=== PATIENT | male | born 1985 | race Caucasian/White ===

== ENCOUNTER → 2019-04-03 12:02 | Outpatient (BNVA) | payer OTHER, SELFPAY | PROVIDERS: Family Provider Nurse Practitioner Family; PCP Nurse Practitioner Family; Visit Provider Family Medicine | DX: Z87.19 Personal history of other diseases of the digestive system (principal); E78.2 Mixed hyperlipidemia; E11.69 Type 2 diabetes mellitus with other specified complication; Z79.4 Long term (current) use of insulin; K85.90 Acute pancreatitis without necrosis or infection, unspecified | CPT/HCPCS: 80053; 80061; 82150; 83036; 83690; 83721 ==

== ENCOUNTER → 2019-07-03 16:39 | Outpatient (BNVA) | payer OTHER, SELFPAY | PROVIDERS: Family Provider Nurse Practitioner Family; PCP Nurse Practitioner Family; Visit Provider Family Medicine | DX: K85.90 Acute pancreatitis without necrosis or infection, unspecified (principal) | CPT/HCPCS: 81000 ==

== ENCOUNTER → 2020-05-16 11:44 | Outpatient (BNVA) | payer OTHER, SELFPAY | PROVIDERS: Family Provider Nurse Practitioner Family; PCP Nurse Practitioner Family; Visit Provider Nurse Practitioner Family | DX: E55.9 Vitamin D deficiency, unspecified (principal); E11.69 Type 2 diabetes mellitus with other specified complication; Z79.4 Long term (current) use of insulin | CPT/HCPCS: 80053; 82306; 85025 ==

== ENCOUNTER → 2020-07-11 10:58 | Outpatient (BNVA) | payer OTHER, SELFPAY | PROVIDERS: Family Provider Nurse Practitioner Family; PCP Nurse Practitioner Family; Visit Provider Family Medicine | DX: E78.2 Mixed hyperlipidemia (principal); E55.9 Vitamin D deficiency, unspecified; E11.9 Type 2 diabetes mellitus without complications; Z79.4 Long term (current) use of insulin | CPT/HCPCS: 80053; 80061; 82306; 83721 ==

== ENCOUNTER → 2020-11-17 10:29 | Outpatient (BNVA) | payer OTHER, SELFPAY | PROVIDERS: Family Provider Nurse Practitioner Family; PCP Nurse Practitioner Family; Visit Provider Family Medicine | DX: K85.90 Acute pancreatitis without necrosis or infection, unspecified (principal); K86.1 Other chronic pancreatitis; E11.9 Type 2 diabetes mellitus without complications; Z79.4 Long term (current) use of insulin; R52 Pain, unspecified; E78.1 Pure hyperglyceridemia; E66.9 Obesity, unspecified | CPT/HCPCS: 80053; 80061; 83690; 83721; 85025; 86140 ==

== ENCOUNTER → 2022-01-25 11:25 | Outpatient (BNVA) | payer OTHER, SELFPAY | PROVIDERS: Family Provider Nurse Practitioner Family; PCP Family Medicine; Visit Provider Family Medicine | DX: K85.90 Acute pancreatitis without necrosis or infection, unspecified (principal); K86.1 Other chronic pancreatitis; E86.0 Dehydration; G47.33 Obstructive sleep apnea (adult) (pediatric) | CPT/HCPCS: 80053; 80061; 82150; 83036; 83690; 83721; 83735; 84100; 85025; 86140 ==

== ENCOUNTER 2022-02-23 13:53 | Outpatient (CLI) | payer OTHER, SELFPAY ==
[2022-02-23] MEDS: iohexol 350 mg/mL 500 mL Btl (per mL) IV (14:41)
--- NOTE | 2022-02-23 15:30 | CT_ITS ---
WS: [id number] EXAMINATION: CT abdomen pelvis w con* [id number] REASON FOR EXAM: K85.90 - Acute pancreatitis without necrosis or infection... COMPARISON: CT chest from 04/14/2017 ORDER DATE: 02/23/2022 2:20 PM TOTAL EXAM DLP: 1291.[address] scans at [facility] use at least one of these dose optimization techniques: automated e xposure control; mA and/or kV adjustment per patient size (includes targeted exams where dose is matc hed to clinical indication); or iterative reconstruction. TECHNIQUE: Transaxial imaging through the abdomen and pelvis was performed with 2-D reformats followi ng the intravenous administration of Omnipaque 350 95 ml FINDINGS: There are no acute changes in the visualized lung bases. There is no sign of pneumoperitoneum. The liver was unremarkable. The gallbladder has been resected. The spleen was unremarkable. There is a cystic focus in the head of the pancreas approximately 23 mm in long axis, the second in t he body the pancreas approximately 18 mm in long axis another approximately 12 mm in long axis and a few more being even smaller in size along the tail of the pancreas. There is some stranding along the anterior surface consistent with mild edema in the mesentery. There is no pancreatic duct dilatation or pancreatic calcifications. There is a normal appearance of both adrenal glands and both kidneys. The small bowel pattern is not significantly dilated and there are no significant air-fluid levels. There is a normal-appearing appendix. There is moderate fecal loading of the colon. There is no ascites or increased cul-de-sac fluid. The urinary bladder as imaged is unremarkable. Mi nimal fluid in a left inguinal hernia. There are mild disc bulges at L4-5 and L5-S1.. CT/CT abdomen pelvis w con* [id number] IMPRESSION: Several cysts are demonstrated in the pancreas as noted which were not present on the most recent available imaging on 04/14/2017 and likely represent small ps eudocysts. IPMN may be another possibility although there is no ductal dilatati on. Recommend annual screening for 5 years. There is minimal peripancreatic mesenteric stranding suggesting low-grade pancr eatitis or possible scarring from previous pancreatitis. Correlation with labor atory values would determine this.
== END 2022-02-23 13:54 | disposition home or self-care (01) ==
LOC: RAD 13:54
PROVIDERS: Family Provider Nurse Practitioner Family; PCP Family Medicine; Visit Provider Family Medicine
DX: K85.90 Acute pancreatitis without necrosis or infection, unspecified (principal); K86.1 Other chronic pancreatitis
CPT/HCPCS: 74177; Q9967

== ENCOUNTER 2022-03-20 11:04 | Inpatient (IN) | payer OTHER, BC, SELFPAY ==
[2022-03-20] VITALS (53 sets, daily range): BP systolic 104–151; BP diastolic 58–96; PULSE 82–110; RESP 15–24; TEMP 36.5–36.8; O2SAT 92–96
--- NOTE | 2022-03-20 11:39 | CTR_ITS ---
PROCEDURE INFORMATION: Exam: CT Abdomen And Pelvis With Contrast Exam date and time: 03/20/2022 12:18 PM Age: 36 years old Clinical indication: Abdominal pain; Epigastric; Additional info: Abd pain TECHNIQUE: Imaging protocol: Computed tomography of the abdomen and pelvis with contrast. Radiation optimization: All CT scans at this facility use at least one of these dose optimization techniques: automated exposure control; mA and/or kV adjustment per patient size (includes targeted exams where dose is matched to clinical indication); or iterative reconstruction. Contrast material: OMNI 350; Contrast volume: 100 ml; Contrast route: INTRAVENOUS (IV); COMPARISON: CT abdomen pelvis w con* [id number] 02/23/2022 2:[address] chest performed March RADIATION DOSE METRICS: Total DLP (mGy-cm): 787.18 FINDINGS: Lungs: Lung bases are clear. Liver: Liver is mildly enlarged with diffuse fatty infiltration unchanged. Gallbladder and bile ducts: Gallbladder has been removed. Pancreas: There are progressive inflammatory changes involving the pancreas and peripancreatic fat planes with increasing fat stranding and ill-defined fluid accumulation likely secondary to acute pancreatitis. There is a persistent 2 cm rounded area of fluid attenuation within the neck of the pancreas likely representing a pancreatic pseudocyst. There are smaller focal lucencies within the body and tail the pancreas some which may represent pancreatic duct dilatation. Spleen: Normal. No splenomegaly. Adrenal glands: Normal. No mass. Kidneys and ureters: Normal. No hydronephrosis. Stomach and bowel: Unremarkable. No obstruction. No mucosal thickening. Appendix: No evidence of appendicitis. Intraperitoneal space: Unremarkable. No free air. No significant fluid collection. Vasculature: Unremarkable. No abdominal aortic aneurysm. Lymph nodes: There is mild mediastinal lymphadenopathy in the lower portion of the middle mediastinum unchanged from 2018. There is mild peripancreatic lymphadenopathy that has progressed from previous examination and presumed reactive in nature. Multiple small retroperitoneal lymph nodes have also increased in size likely similar in nature. Urinary bladder: Unremarkable as visualized. Reproductive: Unremarkable as visualized. Bones/joints: Unremarkable. No acute fracture. Soft tissues: Unremarkable. CT/CT abdomen pelvis w con* [id number] IMPRESSION: 1. Findings consistent with acute pancreatitis that has progressed from previous examination bowel with increasing peripancreatic inflammatory changes. 2. Stable small pancreatic pseudocyst. 3. Mild peripancreatic and retroperitoneal lymphadenopathy progressed from previous exam and presumed reactive in nature. Continued follow-up advised. 4. Mild mediastinal lymphadenopathy lower chest stable from 2018. 5. Additional findings as above.
--- NOTE | 2022-03-20 11:42 | ED_ITS ---
HPI - Abdominal Pain General: Chief Complaint: Abdominal Pain Stated Complaint: abd pain Time Seen by Provider: 03/20/22 11:14 Source: patient Mode of arrival: ambulatory History of Present Illness: 36-year-old male presents emergency room complaint left upper quadrant abdominal pain that began yesterday. Is progressively worsened since time. He has sharp pain is worse with any palpations even difficult for him to take a deep breath at this point. He denies any fever sweats chills no hematochezia melena hematemesis coffee-ground has been very nauseated. Has a history of type 2 diabetes mellitus he is lost approximately 75 pounds at this point he .is on insulin for control of his diabetes. He has history of recurrent/chronic pancreatitis secondary to hypertriglyceridemia. MD elicited complaint: abdominal pain Pertinent past history: other (History of pancreatitis secondary to hypertriglyceridemia) Onset (ago): day(s) Pain Consistency: constant Location: LUQ Severity: severe Quality: stabbing and sharp Radiation: LUQ Exacerbating factors: nothing Relieving factors: nothing Associated Symptoms: Reports GI cramping, nausea and poor appetite; Denies anorexia, belching, bloating, change in bowel habits, change in stool character, chills, coffee ground emesis, constipation, diarrhea, dyspepsia, dysuria, excessive flatus, fever(s), heartburn, hematochezia, hematuria, hematemesis, fecal incontinence, loose stools, melena, syncope and vomiting Review of Systems Const: Denies: fever(s) or chills ENMT: Denies: throat pain, ear or mastoid pain, nasal discharge or nasal congestion Card: Denies: chest pain, palpitations, irregular heart rhythm or syncope Resp: Denies: dyspnea, productive cough or non-productive cough GI: Reports: abdominal pain, nausea and GI cramping; Denies: vomiting, hematemesis, coffee ground emesis, heartburn, diarrhea, constipation, bloating, belching, excessive flatus, fecal incontinence, change in bowel habits, change in stool character, hematochezia or melena : Denies: dysuria, urinary frequency, urinary urgency or hematuria Skin/Breast: Denies: rash or pruritus PFSH ED 2 PFSH: Medical History Diabetes GERD (gastroesophageal reflux disease) History of pancreatitis Hyperlipidemia Hypertension Lower respiratory infection Nausea LESLY (obstructive sleep apnea) Recurrent pancreatitis Shortness of breath Surgical History History of cholecystectomy History of knee surgery arthroscopic left knee Social History Smoking and tobacco status: former smoker Alcohol intake: current Alcohol intake frequency: holidays/special occasions only Physical Exam Const: COMMON NORMALS: no acute distress GENERAL APPEARANCE: cooperative and comfortable ORIENTATION/CONSCIOUSNESS: Yes awake, Yes oriented to person, Yes oriented to place and Yes oriented to time HENMT: COMMON NORMALS: normocephalic, atraumatic and hearing grossly normal bilaterally HEAD & SCALP: normocephalic and atraumatic Resp: COMMON NORMALS: normal respiratory effort, No retractions, No use of accessory muscles and clear to auscultation bilaterally AUSCULTATION: clear to auscultation bilaterally Cardio: COMMON NORMALS: regular rate, regular rhythm and No murmurs present ( Cardio) RATE: regular rate RHYTHM: regular rhythm GI: COMMON NORMALS: No hepatosplenomegaly present AUSCULTATION: Yes normoactive bowel sounds PALPATION: Yes Tenderness to palpation present (GI) Details: LUQ, Yes Guarding due to palpation present (GI) and Yes No hepatosplenomegaly present Extremity: COMMON NORMALS: normal to inspection, capillary refill normal, no clubbing, cyanosis or edema, no calf tenderness and no pedal edema Neuro: SENSORIUM/ORIENTATION: Yes oriented to person, Yes oriented to place and Yes oriented to time Skin: COMMON NORMALS: no rashes or lesions noted GENERAL SKIN EXAM: no rashes or lesions noted Course Vital Signs: Vital signs: Vital Signs Temperature 98.4 F 03/22/22 08:00 Pulse Rate 90 03/22/22 13:00 Respiratory Rate 17 03/22/22 13:19 Blood Pressure 127/82 03/22/22 13:00 Pulse Oximetry 98 03/22/22 13:19 Oxygen Delivery Me thod 03/22/22 08:00 MDM - Abdominal Pain Medical Decision Making CT shows acute pancreatitis. Lipase elevated triglycerides significantly elevated started on IV dextrose and insulin drip will admit to the hospitalist ICU discussed orders written Medical Records I reviewed the patient's medical records. Lab Data I reviewed the patient's lab results. 03/22/22 04:10 03/22/22 09:49 Labs/Radiology: Radiology Impressions Abdomen/Pelvis CT 03/20/22 11:39 IMPRESSION: 1. Findings consistent with acute pancreatitis that has progressed from previous examination bowel with increasing peripancreatic inflammatory changes. 2. Stable small pancreatic pseudocyst. 3. Mild peripancreatic and retroperitoneal lymphadenopathy progressed from previous exam and presumed reactive in nature. Continued follow-up advised. 4. Mild mediastinal lymphadenopathy lower chest stable from 2018. 5. Additional findings as above. Laboratory Results WBC 13.5 10^3/uL (4.0-10.0) H 03/20/22 11:38 RBC 5.98 10^6/uL (4.1-5.3) H 03/20/22 11:38 Hgb 17.5 g/dL (11.7-16.6) H 03/20/22 11:38 Hct 50.5 % (42.0-52.0) 03/20/22 11:38 MCV 84.4 fl (80-94) 03/20/22 11:38 MCH 29.3 pg (28.0-34.0) 03/20/22 11:38 MCHC 34.7 g/dL (30.0-36.0) 03/20/22 11:38 RDW 12.9 % (12.1-15.1) 03/20/22 11:38 Plt Count 193 10^3/cmm (130-400) 03/20/22 11:38 MPV 12.0 fL (7.4-10.4) H 03/20/22 11:38 Neut % (Auto) 86.3 % 03/20/22 11:38 Lymph % (Auto) 8.4 % 03/20/22 11:38 [place] % (Auto) 3.7 % 03/20/22 11:38 Eos % (Auto) 0.6 % 03/20/22 11:38 Baso % (Auto) 0.6 % 03/20/22 11:38 Neut # (Auto) 11.69 10^3/uL (1.8-7.7) H 03/20/22 11:38 Lymph # (Auto) 1.1 10^3/uL (0.8-4.8) 03/20/22 11:38 [place] # (Auto) 0.5 10^3/uL (0.2-0.9) 03/20/22 11:38 Eos # (Auto) 0.1 10^3/uL (0.0-0.8) 03/20/22 11:38 Baso # (Auto) 0.1 10^3/uL (0.0-0.1) 03/20/22 11:38 Nucleated RBC % (auto) 0 % 03/20/22 11:38 Nucleated RBCs # 0.0 /100WBC 03/20/22 11:38 Sodium 126 mmol/L (136-145) L 03/20/22 11:38 Potassium 4.7 mmol/L (3.5-5.1) 03/20/22 11:38 Chloride 89 mmol/L (98-107) L 03/20/22 11:38 Carbon Dioxide 24 mmol/L (22-29) 03/20/22 11:38 Anion Gap 17.7 (5-19) 03/20/22 11:38 BUN 13 mg/dL (6-20) 03/20/22 11:38 Creatinine 0.5 mg/dL (0.7-1.2) L 03/20/22 11:38 GFR Calculation 190.3 mL/min (90-130) H 03/20/22 11:38 Glucose 332 mg/dL (65-115) H 03/20/22 11:38 Calculated Osmolality 275 mOsm/kg (285-295) L 03/20/22 11:38 Calcium 9.2 mg/dL (8.5-10.5) 03/20/22 11:38 Total Bilirubin 0.7 mg/dL (0.15-1.2) 03/20/22 11:38 AST < 5 U/L (0-40) 03/20/22 11:38 ALT < 5 U/L (0-41) 03/20/22 11:38 Alkaline Phosphatase 83 U/L (40-130) 03/20/22 11:38 Total Protein 7.3 g/dL (6.6-8.7) 03/20/22 11:38 Albumin 4.5 g/dL (3.5-5.2) 03/20/22 11:38 Globulin 2.8 g/dL (1.3-4.6) 03/20/22 11:38 Triglycerides > 5334 mg/dL (0-150) H 03/20/22 11:38 Lipase 512 U/L (13-60) H 03/20/22 11:38 Discharge Plan Discharge Patient Disposition: Admitted As Inpatient Admit Provider: Luis Carlos Sanchez Clinical Impression: Acute pancreatitis, Familial hypertriglyceridemia, Obesity (BMI 30.0-34.9) Clinical Impression: (Ruled Out): Lower respiratory infection Condition: Stable Coding Level of Care Code ED Photolettering Machine Operator for Chg Fwd Exam Detailed
[2022-03-20] MEDS: sodium chloride 0.9% 1,000 ML 999 ML IV (11:45)
[2022-03-20] MEDS: fentaNYL 50 mcg/mL INJ 2mL 75 MCG IVP (11:45)
[2022-03-20] MEDS: ondansetron 2 mg/ML SDV 2 mL 4 MG IVP ×2 (11:46→20:01)
[2022-03-20 11:52] LABS: Basophils # 0.1 10^3/uL (0.0-0.1); Basophils % 0.6 %; Eosinophils # 0.1 10^3/uL (0.0-0.8); Eosinophils % 0.6 %; Hematocrit 50.5 % (42.0-52.0); Hemoglobin 17.5 g/dL (11.7-16.6); Lymphocytes # 1.1 10^3/uL (0.8-4.8); Lymphocytes % 8.4 %; Mean Corpuscular HGB Conc 34.7 g/dL (30.0-36.0); Mean Corpuscular Hemoglobin 29.3 pg (28.0-34.0); Mean Corpuscular Volume 84.4 fl (80-94); Monocytes # 0.5 10^3/uL (0.2-0.9); Monocytes % 3.7 %; Neutrophils # 11.69 10^3/uL (1.8-7.7); Neutrophils % 86.3 %; Nucleated Red Blood Cells % 0 %; Platelet Count 193 10^3/cmm (130-400); Red Blood Count 5.98 10^6/uL (4.1-5.3); Red Cell Distribution Width 12.9 % (12.1-15.1); White Blood Count 13.5 10^3/uL (4.0-10.0)
[2022-03-20 12:10] LABS: Albumin Level 4.5 g/dL (3.5-5.2); Alkaline Phosphatase 83 U/L (40-130); Blood Urea Nitrogen 13 mg/dL (6-20); Calcium 9.2 mg/dL (8.5-10.5); Carbon Dioxide 24 mmol/L (22-29); Chloride 89 mmol/L (98-107); Globulin 2.8 g/dL (1.3-4.6); Glomerular Filtration Rate 190.3 mL/min (90-130); Glucose 332 mg/dL (65-115); Osmolality Calculated 275 mOsm/kg (285-295); Sodium 126 mmol/L (136-145); Total Bilirubin 0.7 mg/dL (0.15-1.2); Total Protein 7.3 g/dL (6.6-8.7)
[2022-03-20 12:22] LABS: Alanine Aminotransferase < 5 U/L (0-41)
[2022-03-20] MEDS: iohexol 350 mg/mL 500 mL Btl (per mL) IV (12:23)
[2022-03-20 13:16] LABS: Lipase 512 U/L (13-60)
[2022-03-20 13:17] LABS: Anion Gap 17.7 (5-19); Potassium 4.7 mmol/L (3.5-5.1)
[2022-03-20 13:18] LABS: Aspartate Amino Transferase < 5 U/L (0-40)
[2022-03-20] MEDS: sodium chloride 0.9% 2,000 ML 999 ML IV (13:54)
[2022-03-20] MEDS: HYDROmorphone 1 mg/mL INJ 1 mL 0.5 MG IVP (13:59)
[2022-03-20 14:32] LABS: Glucose Point of Care 283 mg/dL (70-110)
--- NOTE | 2022-03-20 14:55 | P.HP_ITS ---
Providers/Chief Complaint Admitting Physician: Luis Carlos Sanchez MD Primary Care Provider: Kin Greer MD Chief Complaint: abd pain History of Present Illness Rui Donohue is a 36 year old male with past medical history of chronic pancreatitis with reccurant flare ups of acute on chronic pancreatitis, insulin dependent diabetes mellitus with most recent a1c 10.1, hypertriglyceridemia (in thousands) presented to the hospital for abdominal pain today. He was recently seen at PCP clinic 2 weeks prior. Patient is on creon, fenofibrate, niacin at home. He is looking into getting enrolled into a clinical trial at [facility] with regards to his pancreatitis. There is possibility of IPMN as well noted from PCP clinic notes. Patient started experiencing nausea and vomiting today in total he only had 5 episodes, no fever, according to his he was having loose stools a day before as well. He is compliant with his Lantus 60 units daily with short acting insulin. He has stopped taking his pancreatic enzymes because they do not make any difference for him. ER course: CT abdomen pelvis today showed acute on chronic pancreatitis. Blood glucose 300 range and TG 5000. Pt given pain medicine, zofran, NS bolus and started on insulin drip with D5 1/2 NS. Will be admitted to ICU for further management. Review of Systems Const: Reports: chills Eyes: Denies: change in vision ENMT: Denies: throat pain Card: Denies: chest pain Resp: Denies: dyspnea GI: Reports: abdominal pain and nausea : Denies: flank pain Musc: Denies: neck pain Skin/Breast: Denies: rash Neuro: Denies: headache(s) Psych: Denies: anxiety Endo: Denies: polyuria Kojo/Lymph: Denies: easy bruising All/Imm: Denies: urticaria Medications/Allergies Home Medications Medication Instructions Recorded Confirmed Last Taken Type acarbose 50 mg tablet 50 mg PO QID 04/02/19 03/20/22 03/19/22 History cholecalciferol (vitamin D3) 125 5,000 unit PO DAILY 04/02/19 03/20/22 03/19/22 History mcg (5,000 unit) capsule omega-3s 360 xb-sxj-bdv-fish oil 4 cap PO DAILY 04/02/19 03/20/22 03/19/22 History 1,200 mg-D3 1,000 unit capsule (Fish Oil-Vit D3) canagliflozin 100 mg tablet 100 mg PO DAILY 07/03/19 03/20/22 03/19/22 History (Invokana) fenofibrate micronized 134 mg 134 mg PO BID #90 caps 01/29/20 03/20/22 03/19/22 Rx capsule flash glucose sensor #1 ea 01/29/20 03/20/22 Unknown History insulin lispro 200 unit/mL (3 mL) See Rx Instructions SUBCUT DAILY 01/29/20 03/20/22 03/19/22 History subcutaneous pen (Humalog KwikPen U-200 Insulin) metformin 1,000 mg tablet,extended 1,000 mg PO BID #120 tabs 07/13/20 03/20/22 03/19/22 Rx release 24hr omeprazole magnesium 20 mg 20 mg PO BID 30 days #60 tabs 11/03/20 03/20/22 03/19/22 Rx tablet,delayed release (Prilosec OTC) naproxen 500 mg tablet See Rx Instructions .Route 04/13/21 03/20/22 Unknown Rx .COMPLEX #60 tabs rosuvastatin 5 mg tablet 5 mg PO DAILY 05/19/21 03/20/22 03/19/22 History albuterol sulfate 90 mcg/actuation See Rx Instructions .Route 06/18/21 03/20/22 Unknown Rx aerosol inhaler .COMPLEX #8.5 grams lipase 3,000-protease 1 cap PO BID 30 days #60 caps 08/05/21 03/20/22 03/19/22 Rx 9,500-amylase 15,000 unit capsule, delayed rel (Creon) magnesium citrate 300 ml PO DAILY PRN constipation 10/02/21 03/20/22 Unknown Rx #296 mL nystatin 100,000 unit/mL oral 1 ml PO DAILY 7 days #60 mL 10/02/21 03/20/22 Unknown Rx suspension fluoxetine 20 mg capsule See Rx Instructions .Route 01/13/22 03/20/22 03/19/22 Rx .COMPLEX #30 caps metoclopramide HCl 5 mg tablet 5 mg PO Q8H PRN breakthrough 02/17/22 03/20/22 Unknown Rx (Reglan) nausea 7 days #21 tabs ondansetron HCl 4 mg tablet 4 mg PO Q6H PRN nausea and 02/17/22 03/20/22 Unknown Rx vomiting 7 days #28 tabs oxycodone 5 mg tablet 5 mg PO Q6H PRN pain 7 days #28 02/17/22 03/20/22 Unknown Rx tabs promethazine 25 mg tablet 25 mg PO TID PRN nausea and 02/17/22 03/20/22 Unknown Rx vomiting #60 tabs ezetimibe 10 mg tablet 10 mg PO DAILY 03/20/22 03/20/22 03/19/22 History insulin glargine U-300 conc 300 54 unit SUBCUT DAILY 03/20/22 03/20/22 03/19/22 History unit/mL (3 mL) subcutaneous pen (Toujeo Max U-300 SoloStar) ramelteon 8 mg tablet 8 mg PO BEDTIME 03/20/22 03/20/22 Unknown History zolpidem 5 mg tablet (Ambien) 5 mg PO BEDTIME 03/20/22 03/20/22 03/19/22 History Allergies Allergy/AdvReac Type Severity Reaction Status Date / Time No Known Allergies Allergy Verified 03/09/22 10:13 PFSH Acute PFSH: Medical History Diabetes GERD (gastroesophageal reflux disease) History of pancreatitis Hyperlipidemia Hypertension Lower respiratory infection Nausea LESLY (obstructive sleep apnea) Recurrent pancreatitis Shortness of breath Surgical History History of cholecystectomy History of knee surgery arthroscopic left knee Social History Smoking and tobacco status: former smoker Alcohol intake: current Alcohol intake frequency: holidays/special occasions only Vitals/I&O/Wt Last Vital Signs Temp 97.7 F 03/20/22 11:09 Pulse 87 03/20/22 11:50 Resp 16 03/20/22 11:50 BP 151/96 03/20/22 11:50 Pulse Ox 92 03/20/22 11:50 O2 Del Method 03/20/22 11:50 03/19/22 03/20/22 03/20/22 22:59 06:59 14:59 Intake Total 3000 / 3000 Balance 3000 / 3000 Weight last 48 hrs Weight 90.718 kg Physical Exam Narrative: Patient is laying supine no signs of edema EOMI, PERRLA Nonfocal neuro exam S1, S2 Currently doing well on room air Pleasant and cooperative at the bedside Abdomen tender on palpation Appropriate mood and affect No active emesis No sign of cellulitis No signs of retroperitoneal hemorrhage Data 03/20/22 11:38 03/20/22 11:38 A&P Assessment and plan (1) Dehydration: (2) LESLY (obstructive sleep apnea): (3) Acute on chronic pancreatitis: (4) Pseudohyponatremia: (5) Familial hypertriglyceridemia: (6) Recurrent pancreatitis: (7) Diabetes: Qualifiers: Diabetes mellitus type: type 2 Diabetes mellitus [facility] insulin use: with [facility] use Diabetes mellitus complication status: with other specified complication Qualified Code(s): E11.69 - Type 2 diabetes mellitus with other specified complication; 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 If uncontrolled, may add reglan or promethazine -Anti-inflammatory ketorolac to be alternated with Dilaudid q4Hr abdominal pain -Liquid diet at this time - Protonix 40 IV daily Pseudohyponatremia related to hypertriglyceridemia Monitor for signs of sepsis and necrotic pancreas Patient does not drink alcohol, he does not smoke, has not qualified for clinical trials because of A1c level DVT PPX: Heparin 5000 subcu BID Full Code. Admit to ICU Attestations Medical Necessity Statement*: More than 2 midnights anticipated Time Spent in Patient Care: 40 Coding Level of Care Code Acute Contracts Analyst for g Fwd Diagnoses Dehydration E86.0 LESLY (obstructive sleep apnea) G47.33 Acute on chronic pancreatitis K85.90; K86.1 Pseudohyponatremia R79.89 Familial hypertriglyceridemia E78.1 Recurrent pancreatitis K85.90 Diabetes E11.69; Z79.4 Diabetes mellitus type: type 2 Diabetes mellitus [facility] insulin use: with terminal gauger use Diabetes mellitus complication status: with other specified complication
[2022-03-20] MEDS: insulin regular-human 250 UNIT in sodium chloride 0.9% 250 ML 5.66 UNIT IV (15:04)
[2022-03-20] MEDS: D5-NS 0.45% + KCL 20 mEq 20 MEQ/1,000 ML BAG 150 MEQ IV ×2 (15:22→22:49)
[2022-03-20] MEDS: heparin 5,000 unit/mL INJ 1 mL 5000 UNIT SUBCUT (15:24)
[2022-03-20] MEDS: ketorolac 30 mg/mL INJ 15 MG IVP ×2 (15:34→19:44)
--- NOTE | 2022-03-20 15:48 | PC.NURSE ---
Patient arrived to ICU from ER. Patient is alert and orientated. Goal to keep pain under control. Insulin gtt running per protocol.
[2022-03-20 16:08] LABS: Urine Random Sodium 91 mmol/L
[2022-03-20 16:11] LABS: Glucose Point of Care 248 mg/dL (70-110)
[2022-03-20 16:11] LABS: Glucose Point of Care 273 mg/dL (70-110)
[2022-03-20] MEDS: HYDROmorphone 1 mg/mL INJ 1 mL 0.8 MG IVP (16:29)
[2022-03-20 16:43] LABS: Anion Gap 11.6 (5-19); Carbon Dioxide 26 mmol/L (22-29); Chloride 96 mmol/L (98-107); Glomerular Filtration Rate 190.3 mL/min (90-130); Sodium 130 mmol/L (136-145)
[2022-03-20 16:45] LABS: Estmated Average Glucose 252; Hemoglobin A1C 10.4 % (4.0-6.0)
[2022-03-20 17:03] LABS: Potassium 3.6 mmol/L (3.5-5.1)
[2022-03-20 17:04] LABS: Blood Urea Nitrogen 9 mg/dL (6-20); Calcium 8.6 mg/dL (8.5-10.5); Glucose 207 mg/dL (65-115); Osmolality Calculated 275 mOsm/kg (285-295)
[2022-03-20 17:18] LABS: Ketone (Acetest) Serum Negative (Negative)
[2022-03-20] MEDS: lidocaine 1% 5 ML in potassium chloride premix 100 ML 25 ML IV (17:18)
[2022-03-20] MEDS: HYDROmorphone 1 mg/mL INJ 1 mL IVP ×2 (18:24→22:42)
[2022-03-20 19:43] LABS: Glucose Point of Care 247 mg/dL (70-110)
[2022-03-20 21:30] LABS: Glucose Point of Care 282 mg/dL (70-110)
[2022-03-20 22:58] LABS: Glucose Point of Care 246 mg/dL (70-110)
[2022-03-20 23:40] LABS: Glucose Point of Care 221 mg/dL (70-110)
[2022-03-21] VITALS (37 sets, daily range): BP systolic 95–141; BP diastolic 58–91; PULSE 83–112; RESP 12–22; TEMP 36.5–37.5; O2SAT 92–99; BMI 27.8
[2022-03-21 00:33] LABS: Glucose Point of Care 194 mg/dL (70-110)
[2022-03-21] MEDS: ketorolac 30 mg/mL INJ 15 MG IVP ×4 (00:41→22:23)
[2022-03-21 01:41] LABS: Glucose Point of Care 164 mg/dL (70-110)
[2022-03-21] MEDS: HYDROmorphone 1 mg/mL INJ 1 mL IVP ×9 (02:27→23:04)
[2022-03-21 02:54] LABS: Glucose Point of Care 156 mg/dL (70-110)
[2022-03-21 03:28] LABS: Glucose Point of Care 160 mg/dL (70-110)
[2022-03-21] MEDS: heparin 5,000 unit/mL INJ 1 mL 5000 UNIT SUBCUT ×2 (03:37→15:15)
[2022-03-21 04:32] LABS: Basophils % 0.4 %; Eosinophils # 0.2 10^3/uL (0.0-0.8); Hematocrit 38.3 % (42.0-52.0); Hemoglobin 13.1 g/dL (11.7-16.6); Lymphocytes # 1.9 10^3/uL (0.8-4.8); Lymphocytes % 22.8 %; Mean Corpuscular HGB Conc 34.2 g/dL (30.0-36.0); Mean Corpuscular Hemoglobin 28.9 pg (28.0-34.0); Mean Corpuscular Volume 84.4 fl (80-94); Mean Platelet Volume 12.5 fL (7.4-10.4); Monocytes # 0.4 10^3/uL (0.2-0.9); Monocytes % 4.9 %; Neutrophils # 5.63 10^3/uL (1.8-7.7); Neutrophils % 69.4 %; Nucleated Red Blood Cells % 0 %; Platelet Count 115 10^3/cmm (130-400); Red Blood Count 4.54 10^6/uL (4.1-5.3); Red Cell Distribution Width 13.2 % (12.1-15.1); White Blood Count 8.1 10^3/uL (4.0-10.0)
[2022-03-21 04:37] LABS: Glucose Point of Care 139 mg/dL (70-110)
[2022-03-21] MEDS: D5-NS 0.45% + KCL 20 mEq 20 MEQ/1,000 ML BAG 150 MEQ IV ×2 (04:46→10:48)
[2022-03-21 05:44] LABS: Glucose Point of Care 129 mg/dL (70-110)
[2022-03-21 06:34] LABS: Glucose Point of Care 119 mg/dL (70-110)
[2022-03-21] MEDS: pantoprazole 40 mg SDV IVP (08:07)
[2022-03-21 08:16] LABS: Glucose Point of Care 128 mg/dL (70-110)
[2022-03-21] MEDS: insulin regular-human 250 UNIT in sodium chloride 0.9% 250 ML 9 UNIT IV (08:45)
[2022-03-21 09:40] LABS: Glucose Point of Care 179 mg/dL (70-110)
[2022-03-21 09:40] LABS: Glucose Point of Care 132 mg/dL (70-110)
[2022-03-21 10:01] LABS: Alanine Aminotransferase 16 U/L (0-41); Albumin Level 3.1 g/dL (3.5-5.2); Alkaline Phosphatase 51 U/L (40-130); Blood Urea Nitrogen 12 mg/dL (6-20); Calcium 8.3 mg/dL (8.5-10.5); Carbon Dioxide 26 mmol/L (22-29); Chloride 102 mmol/L (98-107); Globulin 2.8 g/dL (1.3-4.6); Glomerular Filtration Rate 190.3 mL/min (90-130); Glucose 110 mg/dL (65-115); Osmolality Calculated 278 mOsm/kg (285-295); Sodium 134 mmol/L (136-145); Total Bilirubin 0.3 mg/dL (0.15-1.2); Total Protein 5.9 g/dL (6.6-8.7)
[2022-03-21 10:09] LABS: Aspartate Amino Transferase 5 U/L (0-40)
--- NOTE | 2022-03-21 10:40 | PM.PN ---
Subjective Subjective: Increase IV fluids to 200 mm/h Patient is endorsing feeling dry and dehydrated Abdomen pain is still not well controlled I will increase the dose of Dilaudid 1 mg to every 2 hours No active emesis Patient is stating that with clear liquid diet he does feel burning, he is trying to avoid eating No diarrhea No active emesis No signs of fever or necrotic pancreatic signs Vitals/I&O/Wt Last Vital Signs Temp 98.3 F 03/21/22 02:00 Pulse 108 H 03/21/22 08:55 Resp 17 03/21/22 08:55 BP 111/76 03/21/22 06:00 Pulse Ox 94 03/21/22 08:55 O2 Del Method 03/21/22 08:55 03/20/22 03/21/22 03/21/22 22:59 06:59 14:59 Intake Total 1239.202 / 4239.202 1064.239 / 5303.441 Output Total 600 / 600 550 / 1150 Balance 639.202 / 3639.202 514.239 / 4153.441 Weight last 48 hrs Weight 90.718 kg Weight 90.718 kg Physical Exam Narrative: Awake and alert Dehydrated Abdomen tender Nonfocal neuro exam Satting well on room air Pleasant and cooperative at the bedside Doing well on room air No sign of cellulitis Afebrile, hemodynamically stable Data 03/21/22 04:02 03/21/22 08:55 A&P Assessment and plan (1) Pseudohyponatremia: (2) Insomnia: (3) Dehydration: (4) LESLY (obstructive sleep apnea): (5) Acute on chronic pancreatitis: (6) Acute pancreatitis: (7) Recurrent pancreatitis: (8) Familial hypertriglyceridemia: (9) Diabetes: Qualifiers: Diabetes mellitus type: type 2 Diabetes mellitus intermediate insulin use: with intermediate use Diabetes mellitus complication status: with other specified complication Qualified Code(s): E11.69 - Type 2 diabetes mellitus with other specified complication; 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 insulin Plan Recurrent pancreatitis related to hypertriglyceridemia Trend triglyceride every 12 hours, Continue insulin at 0.1 units/kg/h with Accu-Cheks every hour Continue D5 normal saline with potassium supplement at 200 mL/h Opioids Dilaudid 1 mg every 2 hours along Toradol Clear liquid diet Full code DVT prophylaxis on board No signs of necrotic pancreas Attestations Medical Necessity Statement*: Continue ICU management Critical Care Time: 20min Coding Level of Care Code Acute Tree Feller Operator for Chg Fwd Diagnoses Pseudohyponatremia R79.89 Insomnia G47.00 Dehydration E86.0 LESLY (obstructive sleep apnea) G47.33 Acute on chronic pancreatitis K85.90; K86.1 Acute pancreatitis K85.90 Recurrent pancreatitis K85.90 Familial hypertriglyceridemia E78.1 Diabetes E11.69; Z79.4 Diabetes mellitus type: type 2 Diabetes mellitus intermediate insulin use: with intermediate use Diabetes mellitus complication status: with other specified complication
[2022-03-21 11:10] LABS: Glucose Point of Care 156 mg/dL (70-110)
[2022-03-21 13:50] LABS: Glucose Point of Care 122 mg/dL (70-110)
[2022-03-21 14:23] LABS: Triglycerides 1278 mg/dL (0-150)
[2022-03-21 14:42] LABS: LDL Cholesterol Direct 42 mg/dL (0-100)
[2022-03-21 15:12] LABS: Glucose Point of Care 136 mg/dL (70-110)
[2022-03-21] MEDS: D5-NS 0.45% + KCL 20 mEq 20 MEQ/1,000 ML BAG 200 MEQ IV ×2 (15:16→20:37)
[2022-03-21 17:19] LABS: Glucose Point of Care 96 mg/dL (70-110)
[2022-03-21 17:19] LABS: Glucose Point of Care 126 mg/dL (70-110)
[2022-03-21 17:19] LABS: Glucose Point of Care 74 mg/dL (70-110)
[2022-03-21] MEDS: ondansetron 2 mg/ML SDV 2 mL 4 MG IVP (17:48)
--- NOTE | 2022-03-21 19:51 | PC.NURSE ---
0755 Clarified order for insulin drip with Dr. Sanchez. Orders for a non titrating drip at 0.2 units/kg/hr. Reported Blood sugar and current rate of insulin drip. Orders to decrease drip rate to 0.1 units/kg/hr. Reported patient's uncontrolled pain. Orders to increase Dilaudid frequency. 1620 Reported blood sugar to Dr. Sanchez. Orders to pause insulin drip until patient's blood sugar is greater than or equal to 180. Restart drip at 5 units/hr non titrating.
[2022-03-21 20:44] LABS: Glucose Point of Care 241 mg/dL (70-110)
[2022-03-21 21:55] LABS: Anion Gap 11.9 (5-19); Blood Urea Nitrogen 9 mg/dL (6-20); Calcium 8.4 mg/dL (8.5-10.5); Carbon Dioxide 23 mmol/L (22-29); Chloride 99 mmol/L (98-107); Glomerular Filtration Rate 190.3 mL/min (90-130); Glucose 213 mg/dL (65-115); Osmolality Calculated 275 mOsm/kg (285-295); Potassium 3.9 mmol/L (3.5-5.1); Sodium 130 mmol/L (136-145)
[2022-03-21 22:05] LABS: Glucose Point of Care 204 mg/dL (70-110)
[2022-03-21 22:10] LABS: Triglycerides 1465 mg/dL (0-150)
[2022-03-21 22:25] LABS: LDL Cholesterol Direct 45 mg/dL (0-100)
[2022-03-21 22:46] LABS: Glucose Point of Care 193 mg/dL (70-110)
[2022-03-22] VITALS (32 sets, daily range): BP systolic 109–152; BP diastolic 65–103; PULSE 72–103; RESP 13–24; TEMP 36.9–37.2; O2SAT 92–99; BMI 31.1
[2022-03-22] MEDS: ondansetron 2 mg/ML SDV 2 mL 4 MG IVP ×2 (00:01→13:20)
[2022-03-22] MEDS: HYDROmorphone 1 mg/mL INJ 1 mL IVP ×10 (01:26→22:35)
[2022-03-22] MEDS: D5-NS 0.45% + KCL 20 mEq 20 MEQ/1,000 ML BAG 200 MEQ IV ×5 (01:27→22:27)
[2022-03-22 02:20] LABS: Glucose Point of Care 179 mg/dL (70-110)
[2022-03-22 02:20] LABS: Glucose Point of Care 175 mg/dL (70-110)
[2022-03-22] MEDS: heparin 5,000 unit/mL INJ 1 mL 5000 UNIT SUBCUT ×2 (03:18→16:06)
[2022-03-22 03:26] LABS: Glucose Point of Care 158 mg/dL (70-110)
[2022-03-22 05:12] LABS: Basophils % 0.4 %; Eosinophils # 0.2 10^3/uL (0.0-0.8); Eosinophils % 2.8 %; Hemoglobin 11.8 g/dL (11.7-16.6); Lymphocytes # 2.1 10^3/uL (0.8-4.8); Lymphocytes % 28.2 %; Mean Corpuscular HGB Conc 31.9 g/dL (30.0-36.0); Mean Corpuscular Hemoglobin 28.2 pg (28.0-34.0); Mean Corpuscular Volume 88.3 fl (80-94); Mean Platelet Volume 12.7 fL (7.4-10.4); Monocytes # 0.4 10^3/uL (0.2-0.9); Monocytes % 5.2 %; Neutrophils # 4.58 10^3/uL (1.8-7.7); Nucleated Red Blood Cells % 0 %; Platelet Count 126 10^3/cmm (130-400); Red Blood Count 4.19 10^6/uL (4.1-5.3); Red Cell Distribution Width 13.5 % (12.1-15.1); White Blood Count 7.3 10^3/uL (4.0-10.0)
[2022-03-22 05:16] LABS: Glucose Point of Care 144 mg/dL (70-110)
[2022-03-22] MEDS: ketorolac 30 mg/mL INJ 15 MG IVP ×2 (05:17→18:27)
[2022-03-22 05:30] LABS: Alanine Aminotransferase 12 U/L (0-41); Albumin Level 3.3 g/dL (3.5-5.2); Alkaline Phosphatase 52 U/L (40-130); Anion Gap 12.9 (5-19); Aspartate Amino Transferase 12 U/L (0-40); Blood Urea Nitrogen 7 mg/dL (6-20); Calcium 7.9 mg/dL (8.5-10.5); Carbon Dioxide 24 mmol/L (22-29); Chloride 103 mmol/L (98-107); Globulin 2.3 g/dL (1.3-4.6); Glomerular Filtration Rate 190.3 mL/min (90-130); Glucose 119 mg/dL (65-115); Osmolality Calculated 281 mOsm/kg (285-295); Potassium 3.9 mmol/L (3.5-5.1); Sodium 136 mmol/L (136-145); Total Bilirubin 0.4 mg/dL (0.15-1.2); Total Protein 5.6 g/dL (6.6-8.7)
[2022-03-22 05:43] LABS: Triglycerides 1469 mg/dL (0-150)
[2022-03-22 05:55] LABS: LDL Cholesterol Direct 51 mg/dL (0-100)
[2022-03-22 06:29] LABS: Glucose Point of Care 147 mg/dL (70-110)
[2022-03-22] MEDS: pantoprazole 40 mg SDV IVP (08:23)
[2022-03-22 08:49] LABS: Glucose Point of Care 123 mg/dL (70-110)
--- NOTE | 2022-03-22 09:40 | PM.PN ---
Subjective Subjective: Patient is still endorsing abdominal pain however no active signs of fever or sepsis Stating current opioid regimen and has taken the edge of of his abdominal pain No active emesis N.p.o. He was cleared for liquid diet Triglycerides improving I am hopeful that we will be able to turn off insulin later today versus tomorrow morning once triglyceride below 500 Insulin drip was readjusted to 5 units because of hypoglycemic events, Vitals/I&O/Wt Last Vital Signs Temp 98.4 F 03/22/22 08:00 Pulse 76 03/22/22 08:00 Resp 16 03/22/22 08:00 BP 142/76 03/22/22 08:00 Pulse Ox 92 03/22/22 08:00 O2 Del Method 03/22/22 08:00 03/21/22 03/22/22 03/22/22 22:59 06:59 14:59 Intake Total 1921.583 / 3356.583 1966.667 / 5323.250 0 / 0 Output Total 400 / 1500 750 / 2250 Balance 1521.583 / 2412.197 2702.667 / 3073.250 0 / 0 Weight last 48 hrs Weight 101.151 kg Weight 90.718 kg Weight 90.718 kg Physical Exam Narrative: Patient is laying supine Abdomen soft however tender on deep palpation No active emesis Awake and alert Looks hydrated No active distress S1, S2 Nonfocal neuro exam Currently doing well on room air EOMI, PERRLA Data 03/22/22 04:10 03/22/22 04:10 A&P Assessment and plan (1) Acute on chronic pancreatitis: (2) LESLY (obstructive sleep apnea): (3) Dehydration: (4) Insomnia: (5) Pseudohyponatremia: (6) Insulin dependent type 2 diabetes mellitus: (7) Familial hypertriglyceridemia: (8) Recurrent pancreatitis: Plan Hypertriglyceridemia induced pancreatitis I am hopeful we will be able to turn off insulin once triglyceride get below 500 later today versus tomorrow morning I will advance his diet to clear liquid today Current opioid regimen is adequate for his pain management Monitor for signs of constipation No signs of opioid overdose Hemodynamically stable Insulin running at 5 units, it is at lowest level because of hypoglycemic episodes yesterday Currently we are monitoring blood sugar every hour with D5 IV fluid running with potassium at the bedside Clear liquid diet Full code DVT prophylaxis on board Attestations Medical Necessity Statement*: Continue insulin drip per ICU management Critical Care Time: 30 Coding Level of Care Code Acute Mattress Filler for Chg Fwd Diagnoses Acute on chronic pancreatitis K85.90; K86.1 LESLY (obstructive sleep apnea) G47.33 Dehydration E86.0 Insomnia G47.00 Pseudohyponatremia R79.89 Insulin dependent type 2 diabetes mellitus E11.9; Z79.4 Familial hypertriglyceridemia E78.1 Recurrent pancreatitis K85.90
[2022-03-22 10:39] LABS: Alanine Aminotransferase 15 U/L (0-41); Albumin Level 3.1 g/dL (3.5-5.2); Alkaline Phosphatase 51 U/L (40-130); Anion Gap 11.8 (5-19); Aspartate Amino Transferase 11 U/L (0-40); Blood Urea Nitrogen 7 mg/dL (6-20); Calcium 8.4 mg/dL (8.5-10.5); Carbon Dioxide 25 mmol/L (22-29); Chloride 104 mmol/L (98-107); Globulin 3.1 g/dL (1.3-4.6); Glomerular Filtration Rate 190.3 mL/min (90-130); Glucose 140 mg/dL (65-115); Osmolality Calculated 284 mOsm/kg (285-295); Potassium 3.8 mmol/L (3.5-5.1); Sodium 137 mmol/L (136-145); Total Bilirubin 0.4 mg/dL (0.15-1.2); Total Protein 6.2 g/dL (6.6-8.7)
[2022-03-22 11:35] LABS: Glucose Point of Care 160 mg/dL (70-110)
[2022-03-22] MEDS: insulin regular-human 250 UNIT in sodium chloride 0.9% 250 ML IV (13:29)
[2022-03-22 15:53] LABS: Glucose Point of Care 153 mg/dL (70-110)
[2022-03-22 16:42] LABS: Triglycerides 1255 mg/dL (0-150)
[2022-03-22 16:53] LABS: Glucose Point of Care 154 mg/dL (70-110)
[2022-03-22 17:23] LABS: LDL Cholesterol Direct 52 mg/dL (0-100)
[2022-03-22 17:31] LABS: Glucose Point of Care 145 mg/dL (70-110)
[2022-03-22 18:38] LABS: Glucose Point of Care 180 mg/dL (70-110)
[2022-03-22 20:43] LABS: Glucose Point of Care 211 mg/dL (70-110)
[2022-03-22 22:28] LABS: Glucose Point of Care 146 mg/dL (70-110)
[2022-03-23] VITALS (31 sets, daily range): BP systolic 109–157; BP diastolic 59–95; PULSE 71–97; RESP 12–22; TEMP 36.9–37.1; O2SAT 94–99; BMI 31.1
[2022-03-23] MEDS: HYDROmorphone 1 mg/mL INJ 1 mL IVP ×10 (00:29→22:47)
[2022-03-23 00:36] LABS: Glucose Point of Care 133 mg/dL (70-110)
[2022-03-23] MEDS: heparin 5,000 unit/mL INJ 1 mL 5000 UNIT SUBCUT ×2 (03:11→17:42)
[2022-03-23] MEDS: D5-NS 0.45% + KCL 20 mEq 20 MEQ/1,000 ML BAG 200 MEQ IV ×4 (03:38→19:53)
[2022-03-23] MEDS: ketorolac 30 mg/mL INJ 15 MG IVP ×2 (03:53→21:23)
[2022-03-23 05:17] LABS: Basophils % 0.4 %; Eosinophils # 0.2 10^3/uL (0.0-0.8); Eosinophils % 3.3 %; Hematocrit 36.2 % (42.0-52.0); Hemoglobin 11.3 g/dL (11.7-16.6); Lymphocytes # 1.5 10^3/uL (0.8-4.8); Lymphocytes % 26.5 %; Mean Corpuscular HGB Conc 31.2 g/dL (30.0-36.0); Mean Corpuscular Hemoglobin 27.5 pg (28.0-34.0); Mean Corpuscular Volume 88.1 fl (80-94); Mean Platelet Volume 12.1 fL (7.4-10.4); Monocytes # 0.3 10^3/uL (0.2-0.9); Neutrophils # 3.49 10^3/uL (1.8-7.7); Neutrophils % 63.4 %; Nucleated Red Blood Cells % 0 %; Platelet Count 114 10^3/cmm (130-400); Red Blood Count 4.11 10^6/uL (4.1-5.3); Red Cell Distribution Width 13.2 % (12.1-15.1); White Blood Count 5.5 10^3/uL (4.0-10.0)
[2022-03-23 05:35] LABS: Alanine Aminotransferase 22 U/L (0-41); Albumin Level 3.2 g/dL (3.5-5.2); Alkaline Phosphatase 59 U/L (40-130); Aspartate Amino Transferase 22 U/L (0-40); Blood Urea Nitrogen 5 mg/dL (6-20); Carbon Dioxide 24 mmol/L (22-29); Globulin 2.9 g/dL (1.3-4.6); Glomerular Filtration Rate 190.3 mL/min (90-130); Glucose 107 mg/dL (65-115); Total Bilirubin 0.4 mg/dL (0.15-1.2); Total Protein 6.1 g/dL (6.6-8.7); Triglycerides 879 mg/dL (0-150)
[2022-03-23 05:50] LABS: Chloride 105 mmol/L (98-107); LDL Cholesterol Direct 59 mg/dL (0-100); Osmolality Calculated 280 mOsm/kg (285-295); Sodium 136 mmol/L (136-145)
[2022-03-23 07:34] LABS: Glucose Point of Care 109 mg/dL (70-110)
[2022-03-23 07:39] LABS: Glucose Point of Care 94 mg/dL (70-110)
[2022-03-23] MEDS: pantoprazole 40 mg SDV IVP (10:06)
[2022-03-23] MEDS: insulin regular-human 250 UNIT in sodium chloride 0.9% 250 ML IV (11:49)
--- NOTE | 2022-03-23 12:31 | PC.CHAP ---
Pastoral Care Encounter/Spiritual Assessment Type of Contact [] Declined experimental assembler visit [] Patient/Family/Request visit [] Outpatient visit [] Follow-up visit [] Physician referral [] Code/Alert [x] Routine visit [] Staff referral [] Actively dying [] Patient sleeping [] Family support [] [] Out of room [] Palliative care [] [x] Receiving care in room [] Pre-surgical visit [] Trauma [] Long length of stay [x] ICU visit [] Other: Relational/Emotional Strength [] Patient feels connected with others/family/visitors/staff [] Distress [] Loneliness/isolation [] Abandonment Spirituality of Patient [] Person of Kamla [] Attends Buddhism of their Kamla [] Believes in Prayer [] Reads Bible or Sabianism materials [] There are Spiritual issues to be addressed Biochemistry Teacher Interventions [x] Prayer [] Active listening [] Non-anxious presence [] Spiritual/emotional support [] Crisis/trauma care [] Spiritual counseling [] Bereavement support [] Provided bereavement packet [] Provided Bible/devotional materials [] Provided toy/stuffed animal, coloring book to patient or family member [] Provided Communion [] Anointing/[place] [] Salvation [x] Completed spiritual assessment [] Other: Impact on Illness or Injury [] Angry [] Fearful [] Anxious [] Often cries [] Exhaustion [] Unable to work [] Unable to attend pentecostalism [] Unable to walk/stand [] Unable to read [] Unable to drive [] Unable to eat/drink [] Unable to sleep [] Unable to be with family [] Patient intubated [] Other: Summary Time spent with patient
--- NOTE | 2022-03-23 12:45 | P.PN_ITS ---
Subjective Subjective: No overnight events Plan to discharge later today versus tomorrow morning Vitals/I&O/Wt Last Vital Signs Temp 98.6 F 03/23/22 12:00 Pulse 89 03/23/22 12:00 Resp 16 03/23/22 12:00 BP 145/74 03/23/22 12:00 Pulse Ox 96 03/23/22 10:00 O2 Del Method 03/23/22 10:00 03/22/22 03/23/22 03/23/22 22:59 06:59 14:59 Intake Total 2190 / 3279.583 1000 / 4279.583 1025.000 / 1025.000 Output Total 2200 / 2200 750 / 2950 850 / 850 Balance -10 / 1079.583 250 / 1329.583 175.000 / 175.000 Weight last 48 hrs Weight 101.151 kg Weight 101.151 kg Physical Exam Narrative: Awake and alert Abdomen soft Euvolemic Doing well on room air S1, S2 Pleasant and cooperative Data 03/23/22 04:46 03/23/22 04:46 A&P Assessment and plan (1) Pseudohyponatremia: (2) Insomnia: (3) Dehydration: (4) LESLY (obstructive sleep apnea): (5) Acute on chronic pancreatitis: (6) Acute pancreatitis: Plan Checking triglyceride at 1 PM that we will decide whether he will be discharged today versus tomorrow morning Continue insulin, continue clear liquid diet and IV fluids Attestations Medical Necessity Statement*: Start later today versus tomorrow Critical Care Time: 10mins Coding Level of Care Code Acute Web Development Manager for Sabra Fwceferino Diagnoses Pseudohyponatremia R79.89 Insomnia G47.00 Dehydration E86.0 LESLY (obstructive sleep apnea) G47.33 Acute on chronic pancreatitis K85.90; K86.1 Acute pancreatitis K85.90
[2022-03-23 12:53] LABS: Glucose Point of Care 116 mg/dL (70-110)
[2022-03-23 13:46] LABS: Triglycerides 746 mg/dL (0-150)
[2022-03-23 14:14] LABS: LDL Cholesterol Direct 72 mg/dL (0-100)
[2022-03-23 18:00] LABS: Glucose Point of Care 113 mg/dL (70-110)
[2022-03-23 20:11] LABS: Glucose Point of Care 169 mg/dL (70-110)
[2022-03-23 21:01] LABS: Triglycerides 656 mg/dL (0-150)
[2022-03-23 22:19] LABS: LDL Cholesterol Direct 86 mg/dL (0-100)
[2022-03-23 23:46] LABS: Glucose Point of Care 150 mg/dL (70-110)
[2022-03-24] VITALS (11 sets, daily range): BP systolic 103–126; BP diastolic 70–92; PULSE 49–79; RESP 13–17; O2SAT 93–100; BMI 31.1
[2022-03-24 01:04] LABS: Glucose Point of Care 118 mg/dL (70-110)
[2022-03-24] MEDS: HYDROmorphone 1 mg/mL INJ 1 mL IVP ×2 (01:31→05:36)
[2022-03-24] MEDS: D5-NS 0.45% + KCL 20 mEq 20 MEQ/1,000 ML BAG 200 MEQ IV ×2 (01:32→06:45)
[2022-03-24 01:50] LABS: Basophils % 0.5 %; Eosinophils # 0.2 10^3/uL (0.0-0.8); Eosinophils % 3.7 %; Hematocrit 38.9 % (42.0-52.0); Hemoglobin 12.2 g/dL (11.7-16.6); Lymphocytes # 1.5 10^3/uL (0.8-4.8); Lymphocytes % 37.6 %; Mean Corpuscular HGB Conc 31.4 g/dL (30.0-36.0); Mean Corpuscular Hemoglobin 27.7 pg (28.0-34.0); Mean Corpuscular Volume 88.2 fl (80-94); Mean Platelet Volume 11.7 fL (7.4-10.4); Monocytes # 0.3 10^3/uL (0.2-0.9); Monocytes % 6.6 %; Neutrophils # 2.08 10^3/uL (1.8-7.7); Neutrophils % 51.1 %; Nucleated Red Blood Cells % 0 %; Platelet Count 145 10^3/cmm (130-400); Red Blood Count 4.41 10^6/uL (4.1-5.3); Red Cell Distribution Width 13.1 % (12.1-15.1); White Blood Count 4.1 10^3/uL (4.0-10.0)
[2022-03-24 02:18] LABS: Triglycerides 539 mg/dL (0-150)
[2022-03-24 02:39] LABS: LDL Cholesterol Direct 98 mg/dL (0-100)
[2022-03-24] MEDS: heparin 5,000 unit/mL INJ 1 mL 5000 UNIT SUBCUT (03:43)
[2022-03-24] MEDS: ketorolac 30 mg/mL INJ 15 MG IVP (03:54)
[2022-03-24 04:39] LABS: Alanine Aminotransferase 34 U/L (0-41); Albumin Level 3.5 g/dL (3.5-5.2); Alkaline Phosphatase 80 U/L (40-130); Anion Gap 15.1 (5-19); Aspartate Amino Transferase 28 U/L (0-40); Blood Urea Nitrogen 3 mg/dL (6-20); Calcium 8.6 mg/dL (8.5-10.5); Carbon Dioxide 23 mmol/L (22-29); Chloride 106 mmol/L (98-107); Globulin 3.1 g/dL (1.3-4.6); Glomerular Filtration Rate 190.3 mL/min (90-130); Glucose 91 mg/dL (65-115); Osmolality Calculated 286 mOsm/kg (285-295); Potassium 4.1 mmol/L (3.5-5.1); Sodium 140 mmol/L (136-145); Total Bilirubin 0.4 mg/dL (0.15-1.2); Total Protein 6.6 g/dL (6.6-8.7)
[2022-03-24 05:47] LABS: Glucose Point of Care 99 mg/dL (70-110)
[2022-03-24 05:47] LABS: Glucose Point of Care 110 mg/dL (70-110)
--- NOTE | 2022-03-24 06:37 | PM.DCS ---
Discharge Providers Date of Admission: 03/20/22 13:43 Date of Discharge: March 23, 2022 Attending Provider at Admission: Luis Carlos Sanchez MD Attending Provider at Discharge: Luis Carlos Sanchez MD Primary Care Provider: Kin Greer MD Diagnoses at Discharge Discharge Diagnosis (1) Acute on chronic pancreatitis: Status: Acute (2) LESLY (obstructive sleep apnea): Status: Acute (3) Dehydration: Status: Acute (4) Insomnia: Status: Acute (5) Pseudohyponatremia: Status: Acute (6) Insulin dependent type 2 diabetes mellitus: Status: Acute (7) Familial hypertriglyceridemia: Status: Acute (8) Recurrent pancreatitis: Status: Acute Reason for Visit Reason for Visit: abd pain Hospital Course Hospital Course 36-year male with history of familial hypertriglyceridemia, did not meet criteria to participate in the clinical trial, compliant with his insulin at home presented with chief complaint of worsening abdominal pain. He was diagnosed with hyper triglyceridemia induced pancreatitis. He was put on insulin drip, his blood sugar was checked every hour, he was kept on D5 normal saline with potassium supplement running at 200 mL/h, insulin was running at 5 units/h higher units of insulin was causing hypoglycemia. He required Dilaudid 1 mg every 2 hours along Toradol. It took 72 hours to bring triglyceride around 500. He was kept n.p.o. initially and then gradually transition to clear liquid diet. Patient is stating that he stopped taking his fibrates. Physical Exam Narrative: Awake and alert Dehydration slightly improved Abdomen soft tender to deep palpation Nonfocal neuro exam Saturating well on room air Pleasant and cooperative at the bedside No sign of cellulitis Afebrile, hemodynamically stable Discharge Data Studies Completed and Pending Completed Studies During Hospitalization Category Date Time Status CT abdomen pelvis w con* [id number] Stat Cat Scan 03/20/22 11:39 Completed Pending at discharge Category Date Time Status CBC Auto Diff [Complete Blood Count w/Auto] AM LABS Lab 03/24/22 04:00 Ordered Comprehensive Metabolic Panel AM LABS Lab 03/24/22 04:00 Ordered Osmolality Serum Stat Lab 03/20/22 15:38 Received Osmolality Urine Stat Lab 03/20/22 15:12 Received Triglycerides Timed Lab 03/23/22 13:00 Ordered Radiology Impressions Abdomen/Pelvis CT 03/20/22 11:39 IMPRESSION: 1. Findings consistent with acute pancreatitis that has progressed from previous examination bowel with increasing peripancreatic inflammatory changes. 2. Stable small pancreatic pseudocyst. 3. Mild peripancreatic and retroperitoneal lymphadenopathy progressed from previous exam and presumed reactive in nature. Continued follow-up advised. 4. Mild mediastinal lymphadenopathy lower chest stable from 2018. 5. Additional findings as above. Laboratory Results WBC 5.5 10^3/uL (4.0-10.0) 03/23/22 04:46 RBC 4.11 10^6/uL (4.1-5.3) 03/23/22 04:46 Hgb 11.3 g/dL (11.7-16.6) L 03/23/22 04:46 Hct 36.2 % (42.0-52.0) L 03/23/22 04:46 MCV 88.1 fl (80-94) 03/23/22 04:46 MCH 27.5 pg (28.0-34.0) L 03/23/22 04:46 MCHC 31.2 g/dL (30.0-36.0) 03/23/22 04:46 RDW 13.2 % (12.1-15.1) 03/23/22 04:46 Plt Count 114 10^3/cmm (130-400) L 03/23/22 04:46 MPV 12.1 fL (7.4-10.4) H 03/23/22 04:46 Neut % (Auto) 63.4 % 03/23/22 04:46 Lymph % (Auto) 26.5 % 03/23/22 04:46 Roosevelt % (Auto) 6.0 % 03/23/22 04:46 Eos % (Auto) 3.3 % 03/23/22 04:46 Baso % (Auto) 0.4 % 03/23/22 04:46 Neut # (Auto) 3.49 10^3/uL (1.8-7.7) 03/23/22 04:46 Lymph # (Auto) 1.5 10^3/uL (0.8-4.8) 03/23/22 04:46 Roosevelt # (Auto) 0.3 10^3/uL (0.2-0.9) 03/23/22 04:46 Eos # (Auto) 0.2 10^3/uL (0.0-0.8) 03/23/22 04:46 Baso # (Auto) 0.0 10^3/uL (0.0-0.1) 03/23/22 04:46 Nucleated RBC % (auto) 0 % 03/23/22 04:46 Nucleated RBCs # 0.0 /100WBC 03/23/22 04:46 Sodium 136 mmol/L (136-145) 03/23/22 04:46 Potassium 4.0 mmol/L (3.5-5.1) 03/23/22 04:46 Chloride 105 mmol/L (98-107) 03/23/22 04:46 Carbon Dioxide 24 mmol/L (22-29) 03/23/22 04:46 Anion Gap 11.0 (5-19) 03/23/22 04:46 BUN 5 mg/dL (6-20) L 03/23/22 04:46 Creatinine 0.5 mg/dL (0.7-1.2) L 03/23/22 04:46 GFR Calculation 190.3 mL/min (90-130) H 03/23/22 04:46 Glucose 107 mg/dL (65-115) 03/23/22 04:46 POC Glucose 94 mg/dL (70-110) 03/23/22 07:33 Estimat Average Glucose 252 03/20/22 15:38 Hemoglobin A1c 10.4 % (4.0-6.0) H 03/20/22 15:38 Calculated Osmolality 280 mOsm/kg (285-295) L 03/23/22 04:46 Calcium 8.0 mg/dL (8.5-10.5) L 03/23/22 04:46 Total Bilirubin 0.4 mg/dL (0.15-1.2) 03/23/22 04:46 AST 22 U/L (0-40) 03/23/22 04:46 ALT 22 U/L (0-41) 03/23/22 04:46 Alkaline Phosphatase 59 U/L (40-130) 03/23/22 04:46 Total Protein 6.1 g/dL (6.6-8.7) L 03/23/22 04:46 Albumin 3.2 g/dL (3.5-5.2) L 03/23/22 04:46 Globulin 2.9 g/dL (1.3-4.6) 03/23/22 04:46 Triglycerides 879 mg/dL (0-150) H 03/23/22 04:46 LDL Cholesterol Direct 59 mg/dL (0-100) 03/23/22 04:46 Lipase 512 U/L (13-60) H 03/20/22 11:38 Ur Random Sodium 91 mmol/L 03/20/22 15:12 Serum Ketones Negative (Negative) 03/20/22 15:38 Vitals Last Vital Signs Temp 98.6 F 03/23/22 12:00 Pulse 89 03/23/22 12:00 Resp 16 03/23/22 12:00 BP 145/74 03/23/22 12:00 Pulse Ox 96 03/23/22 10:00 O2 Del Method 03/23/22 10:00 Discharge Plan Discharge Patient Disposition: Home Condition: Stable Prescriptions: New oxycodone 10 mg tablet 10 mg PO DAILY PRN (Reason: pain) Qty: 20 0RF Continued cholecalciferol (vitamin D3) 5,000 unit capsule 5,000 unit PO DAILY [id number]-fish oil-D3 [Fish Oil-Vit D3] 360 mg-1,200 mg -1,000 unit capsule 4 cap PO DAILY acarbose 50 mg tablet 50 mg PO QID rosuvastatin 5 mg tablet 5 mg PO DAILY Invokana 100 mg tablet 100 mg PO DAILY (DME) FreeStyle Singh 14 Day Sensor Kit See Rx Instructions .ROUTE .MEDSUPPLY Qty: 1 Rx Instructions: As directed fenofibrate micronized 134 mg capsule 134 mg PO BID Qty: 90 1RF Humalog KwikPen Insulin 200 unit/mL (3 mL) insulin pen See Rx Instructions SUBCUT DAILY Rx Instructions: 15units plus sliding scale, 3 times daily with meal, SUBCUT daily; ondansetron HCl 4 mg tablet 4 mg PO Q6H PRN (Reason: nausea and vomiting) 7 Days Qty: 28 0RF promethazine 25 mg tablet 25 mg PO TID PRN (Reason: nausea and vomiting) Qty: 60 1RF metoclopramide HCl [Reglan] 5 mg tablet 5 mg PO Q8H PRN (Reason: breakthrough nausea) 7 Days Qty: 21 0RF nystatin 100,000 unit/mL suspension 1 ml PO DAILY 7 Days Qty: 60 0RF Rx Instructions: swish and swallow magnesium citrate Solution 300 ml PO DAILY PRN (Reason: constipation) Qty: 296 0RF metformin 1,000 mg tablet extended release 24hr 1,000 mg PO BID Qty: 120 0RF Prilosec OTC 20 mg tablet,delayed release (DR/EC) 20 mg PO BID 30 Days Qty: 60 6RF Rx Instructions: twice daily instead of once daily naproxen 500 mg tablet See Rx Instructions .ROUTE .COMPLEX Qty: 60 0RF Dose Instruction: TAKE 1 TABLET BY MOUTH TWICE DAILY NEEDED FOR PAIN Rx Instructions: TAKE 1 TABLET BY MOUTH TWICE DAILY NEEDED FOR PAIN albuterol sulfate 90 mcg/actuation HFA aerosol inhaler See Rx Instructions .ROUTE .COMPLEX Qty: 8.5 5RF Dose Instruction: TAKE 2 PUFFS BY INHALATION EVERY 6 HOURS NEEDED FOR SHORTNESS OF BREATH Rx Instructions: TAKE 2 PUFFS BY INHALATION EVERY 6 HOURS NEEDED FOR SHORTNESS OF BREATH fluoxetine 20 mg capsule See Rx Instructions .ROUTE .COMPLEX Qty: 30 5RF Dose Instruction: TAKE 1 CAPSULE BY MOUTH DAILY Rx Instructions: TAKE 1 CAPSULE BY MOUTH DAILY Toujeo Max U-300 SoloStar 300 unit/mL (3 mL) Insulin Pen 54 unit SUBCUT DAILY Ambien 5 mg tablet 5 mg PO BEDTIME ezetimibe 10 mg tablet 10 mg PO DAILY ramelteon 8 mg tablet 8 mg PO BEDTIME Creon 3,000-9,500- 15,000 unit capsule,delayed release(DR/EC) 1 cap PO BID 30 Days Qty: 60 4RF Rx Instructions: do not exceed 10,000 unit/kg lipase per 24 hrs Discontinued oxycodone 5 mg tablet 5 mg PO Q6H PRN (Reason: pain) 7 Days Qty: 28 0RF Rx Instructions: for acute pancreatitis pain Discharge Orders: Discharge Order (Routine); Ordered 03/24/22 Ordered By: Luis Carlos Sanchez Referrals: Kin Greer MD [Primary Care Provider] - 2 weeks Discharge Diet: Diabetic Discharge Activity: Increase activity as tolerated Patient Instructions: Opioid Safety Discharge Attestations Time Spent in Discharge Care*: less than 30 min Quality Metrics Clinical Quality Measures [ No reported AMI, CVA or VTE this stay] Coding Level of Care Code Acute Chg FW DC note Diagnoses Acute on chronic pancreatitis K85.90; K86.1 LESLY (obstructive sleep apnea) G47.33 Dehydration E86.0 Insomnia G47.00 Pseudohyponatremia R79.89 Insulin dependent type 2 diabetes mellitus E11.9; Z79.4 Familial hypertriglyceridemia E78.1 Recurrent pancreatitis K85.90
[2022-03-24 06:40] LABS: Triglycerides 512 mg/dL (0-150)
[2022-03-24 06:57] LABS: LDL Cholesterol Direct 107 mg/dL (0-100)
[2022-03-24 15:10] LABS: Osmolality Serum 295 mOsm/kg (278-305)
[2022-03-24 15:10] LABS: Osmolality Urine 839 mOsm/kg (50-1200)
== END 2022-03-24 08:39 | disposition home or self-care (01) | DRG 439 ==
LOC: ER 13:57 → ICU 14:27
PROVIDERS: Internal Medicine; Admitting Provider Internal Medicine; Emergency Provider Family Medicine; PCP Family Medicine; Visit Provider Internal Medicine
DX: K85.80 Other acute pancreatitis without necrosis or infection (principal); E87.1 Hypo-osmolality and hyponatremia; K86.1 Other chronic pancreatitis; E78.1 Pure hyperglyceridemia; G47.33 Obstructive sleep apnea (adult) (pediatric); E11.65 Type 2 diabetes mellitus with hyperglycemia; Z79.84 Long term (current) use of oral hypoglycemic drugs; Z79.4 Long term (current) use of insulin; Z79.51 Long term (current) use of inhaled steroids; E86.0 Dehydration; K21.9 Gastro-esophageal reflux disease without esophagitis; E78.5 Hyperlipidemia, unspecified; I10 Essential (primary) hypertension; Z87.891 Personal history of nicotine dependence
CPT/HCPCS: 36415; 36416; 74177; 80048; 80053; 82009; 82962; 83036; 83690; 83721; 83930; 83935; 84300; 84478; 85025; 96361; 96372; 96374; 96375; 96376; 99285; C9113; J1170; J1644; J1815; J1885; J2405; J3010; J3480; J7030; J7050; Q9967

== ENCOUNTER 2022-05-09 15:09 | Inpatient (IN) | payer BC, SELFPAY ==
[2022-05-09] VITALS (32 sets, daily range): BP systolic 137–171; BP diastolic 86–119; PULSE 71–119; RESP 10–32; TEMP 36.6–36.9; O2SAT 93–98; BMI 29.2; BMI 27.3
[2022-05-09] MEDS: HYDROmorphone 1 mg/mL INJ 1 mL IVP ×4 (15:40→22:37)
[2022-05-09] MEDS: sodium chloride 0.9% 1,000 ML 999 ML IV ×2 (15:41→16:55)
[2022-05-09 16:02] LABS: Basophils # 0.1 10^3/uL (0.0-0.1); Basophils % 0.5 %; Eosinophils # 0.1 10^3/uL (0.0-0.8); Eosinophils % 0.9 %; Hematocrit 46.7 % (42.0-52.0); Hemoglobin 16.4 g/dL (11.7-16.6); Lymphocytes % 15.8 %; Mean Corpuscular HGB Conc 35.1 g/dL (30.0-36.0); Mean Corpuscular Hemoglobin 28.9 pg (28.0-34.0); Mean Corpuscular Volume 82.2 fl (80-94); Mean Platelet Volume 12.1 fL (7.4-10.4); Monocytes # 0.5 10^3/uL (0.2-0.9); Neutrophils # 10.08 10^3/uL (1.8-7.7); Neutrophils % 78.3 %; Nucleated Red Blood Cells % 0 %; Platelet Count 199 10^3/cmm (130-400); Red Blood Count 5.68 10^6/uL (4.1-5.3); White Blood Count 12.9 10^3/uL (4.0-10.0)
--- NOTE | 2022-05-09 16:12 | ED_ITS ---
HPI - Abdominal Pain General: Chief Complaint: Abdominal Pain Stated Complaint: abd pain Time Seen by Provider: 05/09/22 15:17 History of Present Illness: 36-year-old male with past medical history of type 1 diabetes on long and short acting insulin, chronic pancreatitis, presenting w ith epigastric abdominal pain. Epigastric abdominal pain started yesterday described as deep aching, radiating from his epigastrium through his abdomen to his back. Does not radiate into his chest, other areas of his belly, or to his testicles. No associated shortness of breath, fevers, chills. Has been retching without productive emesis throughout the day today denies hematemesis, medic easier, diarrhea. States this is completely consistent with prior episodes of his chronic pancreatitis has required admission for intravenous fluids and pain control. Past surgical history of cholecystectomy. Does not drink. Associated Symptoms: Reports nausea and vomiting; Denies chills, coffee ground emesis, fever(s) and hematemesis Review of Systems General: Reports: 10 or more systems reviewed and unremarkable except in HPI and below Const: Denies: fever(s), chills or body aches Eyes: Denies: change in vision or blurry vision ENMT: Denies: throat pain, uvular edema or enlarged tonsils Card: Denies: chest pain or palpitations Resp: Denies: dyspnea or productive cough GI: Reports: abdominal pain, nausea and vomiting; Denies: hematemesis, coffee ground emesis or dysphagia : Denies: flank pain or difficulty urinating Musc: Denies: neck pain or back pain Skin/Breast: Denies: rash or pruritus Neuro: Denies: headache(s) or numbness in extremities PFSH ED PFSH: Medical History Acute on chronic pancreatitis Acute pancreatitis Dehydration Diabetes Familial hypertriglyceridemia GERD (gastroesophageal reflux disease) History of pancreatitis Hyperlipidemia Hypertension Insomnia Insulin dependent type 2 diabetes mellitus Lower respiratory infection Nausea Obesity (BMI 30.0-34.9) LESLY (obstructive sleep apnea) Pseudohyponatremia Recurrent pancreatitis Shortness of breath Surgical History History of cholecystectomy History of knee surgery arthroscopic left knee Social History Smoking and tobacco status: former smoker Alcohol intake: current Alcohol intake frequency: holidays/special occasions only Physical Exam Const: COMMON NORMALS: no acute distress and average body habitus HENMT: COMMON NORMALS: normocephalic, atraumatic and Normal external nose present HEAD & SCALP: normocephalic and atraumatic FACE & SINUS: normal facial exam NOSE: Normal external nose present THROAT: no uvular edema Eye: COMMON NORMALS: Equal, round and reactive pupils present and EOMs intact bilaterally PUPIL: Yes Equal, round and reactive pupils present Neck/C-Spine: COMMON NORMALS: full ROM; negative for no JVD Chest: COMMONS NORMALS: normal inspection of the chest and normal palpation of entire chest wall Resp: COMMON NORMALS: normal respiratory effort and No retractions Cardio: COMMON NORMALS: negative for no JVD and negative for regular rate RATE: abnormal rate GI: COMMON NORMALS: Normal to inspection, nondistended, normoactive bowel sounds present PALPATION: Yes Tenderness to palpation present (GI) ( Epigastrium) : COMMON NORMALS: Yes no CVA tenderness and Yes normal external exam BLADDER/KIDNEY EXAM: Yes no CVA tenderness Back/Pelvis: COMMON NORMALS: no CVA tenderness Extremity: COMMON NORMALS: normal to inspection Course Vital Signs: Vital signs: Vital Signs Temperature 97.9 F 05/09/22 15:13 Pulse Rate 111 H 05/09/22 15:13 Respiratory Rate 18 05/09/22 15:46 Blood Pressure 137/86 05/09/22 15:13 Pulse Oximetry 98 05/09/22 15:46 Oxygen Delivery Me thod 05/09/22 15:46 MDM - Abdominal Pain Medical Decision Making 36-year-old male presenting with epigastric abdominal pain consistent with prior episodes of triglyceride induced pancreatitis. Considered alternative intra- abdominal pathology or worsening picture as consequences during encounter. Given exactly similar to previous episodes occurring patient will treat and inv estigate degree of triglyceridemia. Triglyceridemia returns in high 3000's and patient started on insulin drip 0.1 mg/kg/h with glucose checks and goal of 100- 200. A1c ordered for facilitation of type 1 diabetes management. No No evidence of other acute intra-abdominal surgical emergency at this time. Deferred CT scanning or ultrasonography given status postcholecystectomy and characterization of patient's symptoms. Pain control with hydromorphone and provided IV fluids in the emergency department. Lab Data I reviewed the patient's lab results. 05/09/22 15:40 05/09/22 15:40 Labs/Radiology: Laboratory Results WBC 12.9 10^3/uL (4.0-10.0) H 05/09/22 15:40 RBC 5.68 10^6/uL (4.1-5.3) H 05/09/22 15:40 Hgb 16.4 g/dL (11.7-16.6) 05/09/22 15:40 Hct 46.7 % (42.0-52.0) 05/09/22 15:40 MCV 82.2 fl (80-94) 05/09/22 15:40 MCH 28.9 pg (28.0-34.0) 05/09/22 15:40 MCHC 35.1 g/dL (30.0-36.0) 05/09/22 15:40 RDW 13.0 % (12.1-15.1) 05/09/22 15:40 Plt Count 199 10^3/cmm (130-400) 05/09/22 15:40 MPV 12.1 fL (7.4-10.4) H 05/09/22 15:40 Neut % (Auto) 78.3 % 05/09/22 15:40 Lymph % (Auto) 15.8 % 05/09/22 15:40 Baxter % (Auto) 4.0 % 05/09/22 15:40 Eos % (Auto) 0.9 % 05/09/22 15:40 Baso % (Auto) 0.5 % 05/09/22 15:40 Neut # (Auto) 10.08 10^3/uL (1.8-7.7) H 05/09/22 15:40 Lymph # (Auto) 2.0 10^3/uL (0.8-4.8) 05/09/22 15:40 Baxter # (Auto) 0.5 10^3/uL (0.2-0.9) 05/09/22 15:40 Eos # (Auto) 0.1 10^3/uL (0.0-0.8) 05/09/22 15:40 Baso # (Auto) 0.1 10^3/uL (0.0-0.1) 05/09/22 15:40 Nucleated RBC % (auto) 0 % 05/09/22 15:40 Nucleated RBCs # 0.0 /100WBC 05/09/22 15:40 Sodium 127 mmol/L (136-145) L 05/09/22 15:40 Potassium 4.2 mmol/L (3.5-5.1) 05/09/22 15:40 Chloride 88 mmol/L (98-107) L 05/09/22 15:40 Carbon Dioxide 21 mmol/L (22-29) L 05/09/22 15:40 Anion Gap 22.2 (5-19) H 05/09/22 15:40 BUN 10 mg/dL (6-20) 05/09/22 15:40 Creatinine 0.5 mg/dL (0.7-1.2) L 05/09/22 15:40 GFR Calculation 190.3 mL/min (90-130) H 05/09/22 15:40 Glucose 299 mg/dL (65-115) H 05/09/22 15:40 Estimat Average Glucose 272 05/09/22 15:40 Hemoglobin A1c 11.1 % (4.0-6.0) H 05/09/22 15:40 Calculated Osmolality 274 mOsm/kg (285-295) L 05/09/22 15:40 Lactate 1.1 mmol/L (0.5-2.2) 05/09/22 15:40 Calcium 9.3 mg/dL (8.5-10.5) 05/09/22 15:40 Total Bilirubin 0.4 mg/dL (0.15-1.2) 05/09/22 15:40 AST 12 U/L (0-40) 05/09/22 15:40 ALT 24 U/L (0-41) 05/09/22 15:40 Alkaline Phosphatase 97 U/L (40-130) 05/09/22 15:40 Total Protein 5.8 g/dL (6.6-8.7) L 05/09/22 15:40 Albumin 4.1 g/dL (3.5-5.2) 05/09/22 15:40 Globulin 1.7 g/dL (1.3-4.6) 05/09/22 15:40 Triglycerides 3639 mg/dL (0-150) H 05/09/22 15:40 Cholesterol 551 mg/dL (0-200) H 05/09/22 15:40 LDL Cholesterol Direct 53 mg/dL (0-100) 05/09/22 15:40 LDL Cholesterol, Calc Not Reportable 05/09/22 15:40 HDL Cholesterol 16 mg/dL (60-100) L 05/09/22 15:40 LDL/HDL Ratio Not Reportable 05/09/22 15:40 Cholesterol/HDL Ratio 34.44 mg/dL (1.0-5.00) H 05/09/22 15:40 Lipase 147 U/L (13-60) H 05/09/22 15:40 Serum Ketones Positive (Negative) H 05/09/22 15:40 Discharge Plan Discharge Admit Provider: Kin Greer Condition: Stable Coding Level of Care Code ED Radiologic Technology Program Director for Doreneg Etelvina
[2022-05-09 16:21] LABS: Ketone (Acetest) Serum Positive (Negative)
[2022-05-09 16:29] LABS: Alkaline Phosphatase 97 U/L (40-130); Anion Gap 22.2 (5-19); Blood Urea Nitrogen 10 mg/dL (6-20); Calcium 9.3 mg/dL (8.5-10.5); Carbon Dioxide 21 mmol/L (22-29); Chloride 88 mmol/L (98-107); Chol HDL Ratio 34.44 mg/dL (1.0-5.00); Cholesterol 551 mg/dL (0-200); Glucose 299 mg/dL (65-115); HDL Cholesterol 16 mg/dL (60-100); Osmolality Calculated 274 mOsm/kg (285-295); Potassium 4.2 mmol/L (3.5-5.1); Sodium 127 mmol/L (136-145); Total Bilirubin 0.4 mg/dL (0.15-1.2); Total Protein 5.8 g/dL (6.6-8.7)
[2022-05-09 16:31] LABS: Lactate (Lactic Acid level) 1.1 mmol/L (0.5-2.2); Lipase 147 U/L (13-60)
[2022-05-09 16:32] LABS: Estmated Average Glucose 272; Hemoglobin A1C 11.1 % (4.0-6.0)
[2022-05-09 16:41] LABS: Glomerular Filtration Rate 190.3 mL/min (90-130)
[2022-05-09 17:08] LABS: Triglycerides 3639 mg/dL (0-150)
[2022-05-09 17:09] LABS: Alanine Aminotransferase 24 U/L (0-41); Albumin Level 4.1 g/dL (3.5-5.2); Aspartate Amino Transferase 12 U/L (0-40); Globulin 1.7 g/dL (1.3-4.6)
[2022-05-09 17:14] LABS: LDL Cholesterol Direct 53 mg/dL (0-100)
--- NOTE | 2022-05-09 18:15 | P.HP_ITS ---
Providers/Chief Complaint Admitting Physician: Kin Greer MD Primary Care Provider: Kin Greer MD Chief Complaint: abd pain History of Present Illness Rui Donohue is a 36 year old male with a past medical history of insulin- dependent type 2 diabetes mellitus, familial hyper triglyceridemia, overweight, pancreatic insufficiency, who presents [facility] due to a 24-hour history of epigastric discomfort, nausea, vomiting, poor appetite. Patient has a history of familial hypertriglyceridemia, he has been evaluated at the [facility], diagnosed with familial hypertriglyceridemia, possible IPMN, he was supposed to be enrolled in a clinical trial at [facility], however he was excluded due to his elevated blood sugars, he sees a lipid specialist currently at [facility], Dr. Wilda bay, [phone]. In the emergency room patient was found to have hypertriglyceridemia induced pancreatitis, his blood sugars are elevated, anion gap is elevated, ketones positive, A1c 11.1, likely a component of diabetic ketoacidosis. Elevated white count 12.9, will admit to ICU for familial hypertriglyceridemia induced pancreatitis with component of diabetic ketoacidosis. He tells me that he is not drinking any alcohol, he has been adhering to his low-fat diet, taking his fenofibrate, statins, Creon, taking all his medications as prescribed, he does have been his blood sugars have been running high recently Review of Systems Const: Denies: fever(s), chills or malaise Eyes: Denies: blurry vision ENMT: Denies: nasal congestion Resp: Denies: dyspnea, productive cough, non-productive cough or wheezing GI: Denies: hematemesis, diarrhea, constipation, hematochezia or melena : Denies: flank pain, difficulty urinating, dysuria or urinary frequency Musc: Denies: neck pain Skin/Breast: Denies: rash Neuro: Denies: headache(s), dizziness or vertigo Psych: Denies: anxiety or depression Endo: Denies: polyuria or polydipsia Medications/Allergies Home Medications Medication Instructions Recorded Confirmed Last Taken Type acarbose 50 mg tablet 50 mg PO QID 04/02/19 04/30/22 03/19/22 History cholecalciferol (vitamin D3) 125 5,000 unit PO DAILY 04/02/19 04/30/22 03/19/22 History mcg (5,000 unit) capsule omega-3s 360 hq-bky-ooc-fish oil 4 cap PO DAILY 04/02/19 04/30/22 03/19/22 History 1,200 mg-D3 1,000 unit capsule (Fish Oil-Vit D3) canagliflozin 100 mg tablet 100 mg PO DAILY 07/03/19 04/30/22 03/19/22 History (Invokana) fenofibrate micronized 134 mg 134 mg PO BID #90 caps 01/29/20 04/30/22 03/19/22 Rx capsule flash glucose sensor #1 ea 01/29/20 04/30/22 Unknown History insulin lispro 200 unit/mL (3 mL) See Rx Instructions SUBCUT DAILY 01/29/20 04/30/22 03/19/22 History subcutaneous pen (Humalog KwikPen U-200 Insulin) metformin 1,000 mg tablet,extended 1,000 mg PO BID #120 tabs 07/13/20 04/30/22 03/19/22 Rx release 24hr omeprazole magnesium 20 mg 20 mg PO BID 30 days #60 tabs 11/03/20 04/30/22 03/19/22 Rx tablet,delayed release (Prilosec OTC) naproxen 500 mg tablet See Rx Instructions .Route 04/13/21 04/30/22 Unknown Rx .COMPLEX #60 tabs rosuvastatin 5 mg tablet 5 mg PO DAILY 05/19/21 04/30/22 03/19/22 History albuterol sulfate 90 mcg/actuation See Rx Instructions .Route 06/18/21 04/30/22 Unknown Rx aerosol inhaler .COMPLEX #8.5 grams magnesium citrate 300 ml PO DAILY PRN constipation 10/02/21 04/30/22 Unknown Rx #296 mL nystatin 100,000 unit/mL oral 1 ml PO DAILY 7 days #60 mL 10/02/21 04/30/22 Unknown Rx suspension fluoxetine 20 mg capsule See Rx Instructions .Route 01/13/22 04/30/22 03/19/22 Rx .COMPLEX #30 caps metoclopramide HCl 5 mg tablet 5 mg PO Q8H PRN breakthrough 02/17/22 04/30/22 Unknown Rx (Reglan) nausea 7 days #21 tabs promethazine 25 mg tablet 25 mg PO TID PRN nausea and 11/30/22 02/10/23 Unknown Rx vomiting #60 tabs ezetimibe 10 mg tablet 10 mg PO DAILY 03/20/22 04/30/22 03/19/22 History insulin glargine U-300 conc 300 54 unit SUBCUT DAILY 03/20/22 04/30/22 03/19/22 History unit/mL (3 mL) subcutaneous pen (Toujeo Max U-300 SoloStar) ramelteon 8 mg tablet 8 mg PO BEDTIME 03/20/22 04/30/22 Unknown History zolpidem 5 mg tablet (Ambien) 5 mg PO BEDTIME 03/20/22 04/30/22 03/19/22 History lipase 3,000-protease 1 cap PO BID 30 days #60 caps 03/23/22 04/30/22 03/19/22 Rx 9,500-amylase 15,000 unit capsule, delayed rel (Creon) ondansetron HCl 4 mg tablet 4 mg PO Q6H PRN nausea and 04/28/22 04/28/22 Unknown Rx vomiting 7 days #28 tabs oxycodone 5 mg tablet 5 mg PO Q6H PRN pain 7 days #28 05/04/22 Unknown Rx tabs Allergies Allergy/AdvReac Type Severity Reaction Status Date / Time No Known Allergies Allergy Verified 04/08/22 10:08 PFSH Acute PFSH: Medical History (Updated 05/09/22 @ 18:25 by Kin Greer MD) Acute on chronic pancreatitis Acute pancreatitis Dehydration Diabetes Familial hypertriglyceridemia GERD (gastroesophageal reflux disease) History of pancreatitis Hyperlipidemia Hypertension Insomnia Insulin dependent type 2 diabetes mellitus Lower respiratory infection Nausea Obesity (BMI 30.0-34.9) LESLY (obstructive sleep apnea) Pseudohyponatremia Recurrent pancreatitis Shortness of breath Surgical History History of cholecystectomy History of knee surgery arthroscopic left knee Family History (Updated 05/09/22 @ 18:21 by Kin Greer MD) Other CAD (coronary artery disease) Hyperlipidemia Social History (Updated 05/09/22 @ 18:21 by Kin Greer MD) Smoking and tobacco status: former smoker Alcohol intake: never Substance/Drug Use: never Vitals/I&O/Wt Last Vital Signs Temp 97.9 F 05/09/22 15:13 Pulse 111 H 05/09/22 15:13 Resp 18 05/09/22 15:46 BP 137/86 05/09/22 15:13 Pulse Ox 98 05/09/22 15:46 O2 Del Method 05/09/22 15:46 05/09/22 05/09/22 05/09/22 06:59 14:59 22:59 Intake Total 1999 Balance 1999 Weight last 48 hrs Weight 95.254 kg Physical Exam Const: COMMON NORMALS: no acute distress and patient oriented x3 HENMT: COMMON NORMALS: normocephalic HEAD & SCALP: normocephalic Eye: COMMON NORMALS: Equal, round and reactive pupils present and EOMs intact bilaterally Neck/C-Spine: COMMON NORMALS: full ROM and no lymphadenopathy Lymph: LYMPHATIC: no lymphadenopathy noted Chest: COMMONS NORMALS: normal inspection of the chest Resp: COMMON NORMALS: normal respiratory effort, No retractions, No use of accessory muscles and clear to auscultation bilaterally AUSCULTATION: clear to auscultation bilaterally Cardio: COMMON NORMALS: regular rate, regular rhythm, S1 normal heart sound present and S2 normal heart sound present RATE: regular rate RHYTHM: regular rhythm HEART SOUNDS: S1 normal heart sound present and S2 normal heart sound present GI: COMMON NORMALS: Soft to palpation OTHER: Abdomen soft, distended, decreased bowel sounds, diffuse tenderness, no guarding, no rebound, no rigidity Back/Pelvis: COMMON NORMALS: no CVA tenderness Extremity: COMMON NORMALS: no pedal edema Neuro: COMMON NORMALS: patient oriented x3, CN's II-XII intact bilaterally, moves all extremities and no focal motor deficits Psych: COMMON NORMALS: mental status grossly normal Data 05/09/22 15:40 05/09/22 15:40 A&P Assessment and plan (1) Acute on chronic pancreatitis: (2) Hyperlipidemia: Qualifiers: Hyperlipidemia type: moderate mixed hyperlipidemia not requiring statin therapy Qualified Code(s): E78.2 - Mixed hyperlipidemia (3) Diabetic ketoacidosis: (4) Nausea: (5) Lipodystrophy: (6) Familial hypertriglyceridemia: (7) Overweight (BMI 25.0-29.9): (8) Intractable pain: (9) Intractable nausea and vomiting: Plan Hypertriglyceridemia induced pancreatitis -Has a history of lipodystrophy, with family history of hypertriglyceridemia Plan: -Admit to ICU -Start on insulin drip at 0.1 units/kg/hr -Monitor blood sugars hourly -Start D5 half-normal saline with 20 KCl at 150 cc an hour -Monitor BMP every 4 hours -Magnesium, phosphorus -Monitor triglycerides every 12 hours -Once triglycerides are under 500 and anion gap less than 12 we will start off insulin drip -Monitor serum potassium, monitor anion gap -We will keep him n.p.o. for now -Nausea control with Reglan, Zofran, promethazine -Dilaudid 1 mg every 2 hours as needed for pain -Started on Zosyn for antibiotic prophylaxis -We will order MRCP tomorrow morning -We will speak to patient's lipid claim attorney at [facility] tomorrow morning -Chronic feeding a fibrate, atorvastatin, omega-3, -Continue Creon -Patient is a full code -Lovenox for DVT prophylaxis Diabetic ketoacidosis, elevated blood sugar, elevated anion gap, ketones positive, pH pending -Given his elevated blood sugars, elevated anion gap I will treat this as if diabetic ketoacidosis -DKA protocol, n.p.o. -Monitor BMP every 4 hours -Monitor anion gap every 4 hours -Monitor potassium, monitor mag, Phos -Monitor blood sugars hourly -As above, stop insulin drip once anion gap less than 12, and triglycerides are under 500 -D5 half-normal saline with 20 KCl, I am also giving him an extra 40 p.o. of KCl, as I think he is low on potassium given his nausea vomiting, and his elevated blood sugar and his DKA -Telemetry monitoring Acute pancreatitis as above -There was some question about him having IPMN, will obtain records from [facility] Intractable nausea vomiting as above Intractable pain as above Lipodystrophy Familial hypertriglyceridemia Pseudohyponatremia, from hyperglycemia Attestations Medical Necessity Statement*: Patient requires hospitalization, inpatient, greater than 2 minutes, ICU level care of for hypertriglyceridemia induced pancreatitis, requiring insulin drip, with diabetic ketoacidosis requiring insulin drip, intractable pain, intractable nausea Critical Care Time: Critical care time spent 60 minutes Critical Care Time (min): 60 Coding Level of Care Code Critical Care >/= 30 minutes Critical care time (in minutes): 60 The high probability of a clinically significant, sudden or life threatening deterioration, as referenced in this documentation, required my full and direct attention, intervention and personal management. The critical care time shown is in addition to time spent performing any reported separately billable procedures and includes the following: [x] Data and vital sign review and interpretation [x ] Patient assessment, examination and intervention [x] Medication orders and management [x] Patient/Family updates as able [x] Care Coordination and Documentation. Diagnoses Acute on chronic pancreatitis K85.90; K86.1 Hyperlipidemia E78.2 Hyperlipidemia type: moderate mixed hyperlipidemia not requiring statin therapy Diabetic ketoacidosis E11.10 Nausea R11.0 Lipodystrophy E88.1 Familial hypertriglyceridemia E78.1 Overweight (BMI 25.0-29.9) E66.3 Intractable pain R52 Intractable nausea and vomiting R11.2
[2022-05-09] MEDS: HYDROmorphone 1 mg/mL INJ 1 mL 2 MG IVP (18:24)
[2022-05-09] MEDS: metoclopramide 5 mg/mL SDV 2 mL IVP ×2 (18:25→22:35)
[2022-05-09] MEDS: dextrose 5 % 500 ML 100 ML IV (18:28)
[2022-05-09] MEDS: insulin regular-human 250 UNIT in sodium chloride 0.9% 250 ML 9 UNIT IV (18:48)
[2022-05-09 18:55] LABS: ABG PCO2 39.5 mmHg (35-45); ABG PH Result 7.28 (7.35-7.45); Base Excess ABG -7.7 mmol/L (-2.0-2.0); Blood Gas Allen Test Pos; Blood Gas Operator Identificat glc; Blood Gas Sample Site Radial, right; Blood Gas Sample Type Arterial; HCO3 ABG 18.5 mmol/L (22-26); Oxygen Device ROOM AIR; PO2 ABG 80.9 mmHg (80.0-100.0)
[2022-05-09 19:32] LABS: Glucose Point of Care 228 mg/dL (70-110)
[2022-05-09 19:49] LABS: Erythrocyte Sedimentation Rate 7 mm/hr (0-10)
[2022-05-09] MEDS: pantoprazole 40 mg SDV IVP (19:59)
[2022-05-09] MEDS: piperacillin-tazobactam 3.375 GM in sodium chloride 0.9% (plus) 50 ML IV (20:00)
[2022-05-09] MEDS: potassium chloride ER 20 mEq Tablet 40 MEQ PO (20:01)
[2022-05-09] MEDS: D5-NS 0.45% + KCL 20 mEq 20 MEQ/1,000 ML BAG 150 MEQ IV (20:01)
[2022-05-09] MEDS: enoxaparin 40 mg/0.4 mL Syringe SUBCUT (20:01)
[2022-05-09 21:02] LABS: Glucose Point of Care 30 mg/dL (70-110)
[2022-05-09 21:02] LABS: Glucose Point of Care 215 mg/dL (70-110)
[2022-05-09] MEDS: zolpidem 5 mg Tablet PO (21:30)
[2022-05-09 21:32] LABS: Potassium 4.1 mmol/L (3.5-5.1); Sodium 131 mmol/L (136-145); Thyroid Stimulating Hormone 1.45 uIU/mL (0.27-4.20)
[2022-05-09 21:33] LABS: Anion Gap 21.1 (5-19); Carbon Dioxide 22 mmol/L (22-29); Chloride 92 mmol/L (98-107); Magnesium 1.5 mg/dL (1.7-2.3); Phosphorus 2.6 mg/dL (2.5-4.5); Triglycerides 3820 mg/dL (0-150)
[2022-05-09 21:34] LABS: Procalcitonin 0.06 ng/mL (0-0.5)
[2022-05-09 21:45] LABS: Add Urine Microscopic? YES; Bilirubin Urine Neg (Negative); Blood Urine Neg (Negative); Glucose Urine UA 4+ (Normal); Ketones Urine 3+ (Negative); Leukocyte Esterase Urine Negative (Negative); Nitrate Urine Negative (Negative); Protein Urine 2+ (Negative); Urine Appearance Clear (CLEAR); Urine Color Yellow (Yellow); Urobilinogen Urine Neg (Negative); pH Urine 5 (5-7)
[2022-05-09 21:47] LABS: Add Urine Culture? No; Hyaline Casts Urine 0-4 /lpf; Mucus Urine TRACE /hpf; RBC Urine 0-4 /hpf (0-2); Squamous Epithelial Cell Urine 0-4 /hpf (0-5); WBC Urine 0-4 /hpf (0-5)
[2022-05-09 21:58] LABS: C Reactive Protein 41.8 mg/L (0.0-4.9); Glomerular Filtration Rate 190.3 mL/min (90-130); Osmolality Calculated 277 mOsm/kg (285-295)
[2022-05-09 22:08] LABS: Glucose Point of Care 184 mg/dL (70-110)
[2022-05-09] MEDS: ketorolac 30 mg/mL INJ 15 MG IVP (22:28)
[2022-05-09 22:42] LABS: LDL Cholesterol Direct 53 mg/dL (0-100)
[2022-05-09 22:43] LABS: Blood Urea Nitrogen 8 mg/dL (6-20)
[2022-05-09 22:45] LABS: Glucose 224 mg/dL (65-115)
[2022-05-09 23:29] LABS: Glucose Point of Care 168 mg/dL (70-110)
[2022-05-10] VITALS (85 sets, daily range): BP systolic 116–166; BP diastolic 85–104; PULSE 85–120; RESP 1–32; TEMP 37; O2SAT 93–99
[2022-05-10 00:46] LABS: Glucose Point of Care 150 mg/dL (70-110)
[2022-05-10] MEDS: HYDROmorphone 1 mg/mL INJ 1 mL IVP ×4 (00:48→06:13)
[2022-05-10 02:04] LABS: Glucose Point of Care 108 mg/dL (70-110)
[2022-05-10] MEDS: ondansetron 2 mg/ML SDV 2 mL 4 MG IVP ×3 (02:45→15:52)
[2022-05-10] MEDS: D5-NS 0.45% + KCL 20 mEq 20 MEQ/1,000 ML BAG 150 MEQ IV ×2 (02:46→08:06)
[2022-05-10 03:23] LABS: Glucose Point of Care 109 mg/dL (70-110)
[2022-05-10] MEDS: promethazine 25 mg/mL SDV 1 mL 12.5 MG IM (04:18)
[2022-05-10] MEDS: piperacillin-tazobactam 3.375 GM in sodium chloride 0.9% (plus) 50 ML IV ×3 (04:19→19:53)
[2022-05-10 04:37] LABS: Glucose Point of Care 95 mg/dL (70-110)
--- NOTE | 2022-05-10 04:38 | PC.NURSE ---
Patient arrived from ED reporting abdominal pain. Order to add Toradol received to help control pain. Hospitalist notified about break through pain and verbal order received to administer next Dilaudid dose early. Hospitalist added P.O pain med to better control pain levels. Zofran, Reglan, phenergan administered to help control nausea. Patient has remained AOx4. Non titratable insulin drip running at 9mls/hr for hypertriglyceridemia.
[2022-05-10] MEDS: oxyCODONE 5 mg IR Tab/Cap PO ×4 (04:55→19:54)
[2022-05-10] MEDS: ketorolac 30 mg/mL INJ 15 MG IVP ×3 (05:22→22:18)
[2022-05-10 05:31] LABS: Basophils # 0.1 10^3/uL (0.0-0.1); Basophils % 0.5 %; Eosinophils # 0.1 10^3/uL (0.0-0.8); Hematocrit 41.2 % (42.0-52.0); Hemoglobin 14.2 g/dL (11.7-16.6); Lymphocytes # 1.7 10^3/uL (0.8-4.8); Lymphocytes % 13.2 %; Mean Corpuscular HGB Conc 34.5 g/dL (30.0-36.0); Mean Corpuscular Hemoglobin 28.6 pg (28.0-34.0); Mean Corpuscular Volume 82.9 fl (80-94); Mean Platelet Volume 12.7 fL (7.4-10.4); Monocytes # 0.7 10^3/uL (0.2-0.9); Monocytes % 5.5 %; Neutrophils # 10.19 10^3/uL (1.8-7.7); Neutrophils % 79.4 %; Nucleated Red Blood Cells % 0 %; Platelet Count 167 10^3/cmm (130-400); Red Blood Count 4.97 10^6/uL (4.1-5.3); Red Cell Distribution Width 13.4 % (12.1-15.1); White Blood Count 12.8 10^3/uL (4.0-10.0)
[2022-05-10 05:34] LABS: INR 0.99 (0.8-1.2)
[2022-05-10 05:36] LABS: Glucose Point of Care 107 mg/dL (70-110)
[2022-05-10 06:27] LABS: Glucose Point of Care 100 mg/dL (70-110)
[2022-05-10 07:11] LABS: Glucose Point of Care 102 mg/dL (70-110)
[2022-05-10 07:12] LABS: Albumin Level 2.6 g/dL (3.5-5.2); Alkaline Phosphatase 82 U/L (40-130); Blood Urea Nitrogen 7 mg/dL (6-20); Calcium 8.8 mg/dL (8.5-10.5); Carbon Dioxide 22 mmol/L (22-29); Chloride 103 mmol/L (98-107); Globulin 3.9 g/dL (1.3-4.6); Glomerular Filtration Rate 190.3 mL/min (90-130); Glucose 85 mg/dL (65-115); Magnesium 1.7 mg/dL (1.7-2.3); Osmolality Calculated 283 mOsm/kg (285-295); Phosphorus 2.5 mg/dL (2.5-4.5); Total Bilirubin 0.2 mg/dL (0.15-1.2); Total Protein 6.5 g/dL (6.6-8.7)
[2022-05-10 07:19] LABS: Anion Gap 16.8 (5-19); Potassium 3.8 mmol/L (3.5-5.1)
[2022-05-10 07:20] LABS: Creatine Phosphokinase 7 U/L (39-308); Sodium 138 mmol/L (136-145)
[2022-05-10 07:37] LABS: Alanine Aminotransferase < 5 U/L (0-41); Aspartate Amino Transferase 5 U/L (0-40)
[2022-05-10 07:59] LABS: Triglycerides 3429 mg/dL (0-150)
[2022-05-10] MEDS: pantoprazole 40 mg SDV IVP ×2 (08:02→18:36)
[2022-05-10] MEDS: cholecalciferol (vitamin D3) 5,000 unit Tablet 5000 UNIT PO (08:04)
[2022-05-10] MEDS: fluoxetine 20 mg Capsule PO (08:05)
[2022-05-10 08:25] LABS: LDL Cholesterol Direct 56 mg/dL (0-100)
[2022-05-10] MEDS: HYDROmorphone 1 mg/mL INJ 1 mL 2 MG IVP ×7 (08:35→23:12)
[2022-05-10] MEDS: magnesium lactate 84 mg Tablet PO (08:36)
[2022-05-10] MEDS: atorvastatin 40 mg Tablet 80 MG PO (08:36)
[2022-05-10] MEDS: potassium chloride ER 20 mEq Tablet 40 MEQ PO (08:36)
[2022-05-10] MEDS: omega-3 fatty acids 1,000 mg Capsule 1000 MG PO (08:37)
[2022-05-10 08:59] LABS: Glucose Point of Care 100 mg/dL (70-110)
--- NOTE | 2022-05-10 09:00 | MR_ITS ---
WS: [id number] MRCP (MAGNETIC RESONANCE CHOLANGIOPANCREATOGRAPHY) HISTORY: acute pancreatitis, recurrent, evaluate pancreatic ducts COMPARISON: 03/20/2022, 02/23/2022 TECHNIQUE: Multiple sequences are performed to evaluate the intra and extrahepatic ducts. Liver and spleen are enlarged. Liver measures 24 cm in length. Spleen measures 16.0 cm in length. The re is no bile duct dilatation. The common bile duct is normal caliber at 4 mm. No filling defects are noted within the common hepatic duct or common bile duct. The pancreatic duct is not dilated. Abnormal appearance to the pancreas. The pancreatic body is very indistinct and heterogeneous. Scatte red areas of variable signal intensity within the pancreas. Patient has had known episodes pancreatit is with internal pseudocyst formation. There is a small amount of fluid adjacent to the pancreatic he ad which may be in the duodenal C-loop or the residual pseudocyst formation. Residual 2.[address] near the neck of the pancreas. No significant amount of ascites. Prior cholecystectomy. MR/MR MRCP [id number] IMPRESSION: 1. Normal common bile duct. No intrahepatic duct dilatation. 2. Pancreatic duct is not dilated. Pancreatic duct is very poorly visualized w ith the abnormal pancreas. 3. Variable signal throughout the pancreas with indistinctness of the margins. Consistent with a history of prior pancreatitis with pseudocyst. Previously de scribed pseudocyst in the peripancreatic inflammation have moderately improved since 03/20/2022. 4. Prior cholecystectomy. 5. Hepatosplenomegaly.
[2022-05-10 09:05] LABS: Triglycerides 2904 mg/dL (0-150)
[2022-05-10 09:51] LABS: LDL Cholesterol Direct 59 mg/dL (0-100)
[2022-05-10] MEDS: ezetimibe 10 mg Tablet PO (10:00)
[2022-05-10 10:11] LABS: Blood Urea Nitrogen 6 mg/dL (6-20); Calcium 8.6 mg/dL (8.5-10.5); Carbon Dioxide 23 mmol/L (22-29); Chloride 100 mmol/L (98-107); Glomerular Filtration Rate 246.2 mL/min (90-130); Glucose 97 mg/dL (65-115); Osmolality Calculated 274 mOsm/kg (285-295); Sodium 133 mmol/L (136-145)
[2022-05-10 10:13] LABS: Anion Gap 13.9 (5-19); Potassium 3.9 mmol/L (3.5-5.1)
[2022-05-10 10:15] LABS: Glucose Point of Care 110 mg/dL (70-110)
--- NOTE | 2022-05-10 10:38 | PC.PHAR ---
pt states he takes care of his own medications-pt states [facility] [place] [place] [facility]-toujeo u-300 filled 02/22/22 100d/s 65 units daily pt states he takes 54 units hs-pt states no longer taking invokana [facility] last filled 300mg daily filled feb 2021-pt states he takes calcitriol 0.5mcg daily vitamin d2 50,000 units twice a week and vit d 5000 units daily and ezetimibe 10mg daily [facility] [place] [facility] states they never filled those medications for the pt-pt states he takes creon prn-notes are made in the pharmacy comments
[2022-05-10 11:08] LABS: Glucose Point of Care 116 mg/dL (70-110)
--- NOTE | 2022-05-10 12:08 | PC.CHAP ---
Pastoral Care Encounter/Spiritual Assessment Type of Contact [] Declined cardiology technician visit [] Patient/Family/Request visit [] Outpatient visit [] Follow-up visit [] Physician referral [] Code/Alert [x] Routine visit [] Staff referral [] Actively dying [] Patient sleeping [] Family support [] [] Out of room [] Palliative care [] [] Receiving care in room [] Pre-surgical visit [] Trauma [] Long length of stay [x] ICU visit [] Other: Relational/Emotional Strength [] Patient feels connected with others/family/visitors/staff [] Distress [] Loneliness/isolation [] Abandonment Spirituality of Patient [] Person of Kamla [] Attends Religion of their Kamla [] Believes in Prayer [] Reads Bible or Moravian materials [] There are Spiritual issues to be addressed Cushion Filler Interventions [x] Prayer [] Active listening [] Non-anxious presence [] Spiritual/emotional support [] Crisis/trauma care [] Spiritual counseling [] Bereavement support [] Provided bereavement packet [] Provided Bible/devotional materials [] Provided toy/stuffed animal, coloring book to patient or family member [] Provided Communion [] Anointing/[place] [] Salvation [x] Completed spiritual assessment [] Other: Impact on Illness or Injury [] Angry [] Fearful [] Anxious [] Often cries [] Exhaustion [] Unable to work [] Unable to attend rastafari [] Unable to walk/stand [] Unable to read [] Unable to drive [] Unable to eat/drink [] Unable to sleep [] Unable to be with family [] Patient intubated [] Other: Summary Time spent with patient
[2022-05-10 12:29] LABS: Blood Urea Nitrogen 6 mg/dL (6-20); Calcium 8.8 mg/dL (8.5-10.5); Carbon Dioxide 20 mmol/L (22-29); Chloride 102 mmol/L (98-107); Glomerular Filtration Rate 246.2 mL/min (90-130); Glucose 88 mg/dL (65-115); Osmolality Calculated 275 mOsm/kg (285-295); Sodium 134 mmol/L (136-145)
[2022-05-10 12:32] LABS: Glucose Point of Care 90 mg/dL (70-110)
[2022-05-10 12:32] LABS: Anion Gap 16.4 (5-19); Potassium 4.4 mmol/L (3.5-5.1)
[2022-05-10 12:47] LABS: Triglycerides 2504 mg/dL (0-150)
[2022-05-10 12:59] LABS: LDL Cholesterol Direct 59 mg/dL (0-100)
[2022-05-10] MEDS: D5-NS 0.45% + KCL 20 mEq 20 MEQ/1,000 ML BAG 200 MEQ IV ×3 (13:41→23:11)
--- NOTE | 2022-05-10 14:05 | P.PN_ITS ---
Subjective Subjective: Patient was seen this morning he continues to have severe intractable pain, nausea, poor appetite, no dry area, no fevers Vitals/I&O/Wt Last Vital Signs Temp 98.6 F 05/10/22 10:00 Pulse 88 05/10/22 12:00 Resp 16 05/10/22 13:43 BP 132/98 05/10/22 12:00 Pulse Ox 94 05/10/22 12:00 O2 Del Method 05/10/22 12:00 05/09/22 05/10/22 05/10/22 22:59 06:59 14:59 Intake Total 2103.333 / 2103.333 1050 / 3153.333 850 / 850 Output Total 400 / 400 400 / 800 550 / 550 Balance 1703.333 / 1703.333 650 / 2353.333 300 / 300 Weight last 48 hrs Weight 88.813 kg Weight 95.254 kg Physical Exam Const: COMMON NORMALS: no acute distress and patient oriented x3 Resp: COMMON NORMALS: normal respiratory effort, No retractions, No use of accessory muscles and clear to auscultation bilaterally AUSCULTATION: clear to auscultation bilaterally Cardio: COMMON NORMALS: regular rate, regular rhythm, S1 normal heart sound present and S2 normal heart sound present RATE: regular rate RHYTHM: regular rhythm HEART SOUNDS: S1 normal heart sound present and S2 normal heart sound present GI: OTHER: Abdomen soft, slightly distended, decreased bowel sounds no guarding, no rebou nd, rigidity, diffuse tenderness Extremity: COMMON NORMALS: no pedal edema Neuro: COMMON NORMALS: patient oriented x3 Psych: COMMON NORMALS: mental status grossly normal Data 05/10/22 04:53 05/10/22 11:59 Micro: Microbiology 05/09/22 20:24 Blood Culture - Preliminary Blood SPECIMEN COLLECTED 05/09/22 20:18 Blood Culture - Preliminary Blood SPECIMEN COLLECTED A&P Assessment and plan (1) Acute on chronic pancreatitis: (2) Hyperlipidemia: Qualifiers: Hyperlipidemia type: moderate mixed hyperlipidemia not requiring statin therapy Qualified Code(s): E78.2 - Mixed hyperlipidemia (3) Diabetic ketoacidosis: (4) Nausea: (5) Lipodystrophy: (6) Familial hypertriglyceridemia: (7) Overweight (BMI 25.0-29.9): (8) Intractable pain: (9) Intractable nausea and vomiting: Plan Hypertriglyceridemia induced pancreatitis -Has a history of lipodystrophy, with family history of hypertriglyceridemia -Anion gap 16, blood sugars more reasonable, triglycerides remain above 2500 Plan: -Admit to ICU -Continue on insulin drip at 0.1 units/kg/hr -Monitor blood sugars hourly -Continue D5 half-normal saline with 20 KCl at 150 cc an hour -Monitor BMP every 6 hours -Magnesium, phosphorus -Monitor triglycerides every 1 6 hours -Once triglycerides are under 500 we will stop drip -Monitor serum potassium, monitor anion gap -Transition to clears -Nausea control with Reglan, Zofran, promethazine -Dilaudid 1 mg every 2 hours as needed for pain, oxycodone 5 p.o. every 4 hours for breakthrough pain -Started on Zosyn for antibiotic prophylaxis -MRCP pending -Spoke to patient's lipid last at [facility], recommend to continue medical management, better blood sugar control follow-up as outpatient -Chronic feeding a fibrate, atorvastatin, omega-3, -Continue Creon -Patient is a full code -Lovenox for DVT prophylaxis Diabetic ketoacidosis, elevated blood sugar, elevated anion gap, ketones positive, pH pending -Resolved -Monitor blood sugars q. hourly -Monitor potassium, trend gap Acute pancreatitis as above -MRC P Intractable nausea vomiting as above Intractable pain as above Lipodystrophy Familial hypertriglyceridemia Pseudohyponatremia, from hyperglycemia Attestations Medical Necessity Statement*: Patient requires hospitalization getting insulin drip, acute pancreatitis, intractable pain, intractable nausea, intractable vomiting Coding Level of Care Code Critical Care >/= 30 minutes Critical care time (in minutes): 40 The high probability of a clinically significant, sudden or life threatening deterioration, as referenced in this documentation, required my full and direct attention, intervention and personal management. The critical care time shown is in addition to time spent performing any reported separately billable procedures and includes the following: [x] Data and vital sign review and interpretation [x ] Patient assessment, examination and intervention [x] Medication orders and m anagement [x] Patient/Family updates as able [x] Care Coordination and Documentation. Diagnoses Acute on chronic pancreatitis K85.90; K86.1 Hyperlipidemia E78.2 Hyperlipidemia type: moderate mixed hyperlipidemia not requiring statin therapy Diabetic ketoacidosis E11.10 Nausea R11.0 Lipodystrophy E88.1 Familial hypertriglyceridemia E78.1 Overweight (BMI 25.0-29.9) E66.3 Intractable pain R52 Intractable nausea and vomiting R11.2
[2022-05-10 14:53] LABS: Glucose Point of Care 91 mg/dL (70-110)
[2022-05-10 16:03] LABS: Glucose Point of Care 88 mg/dL (70-110)
[2022-05-10 18:09] LABS: Glucose Point of Care 183 mg/dL (70-110)
[2022-05-10] MEDS: LORazepam 2 mg/mL INJ 1 mL 1 MG IVP (18:29)
[2022-05-10] MEDS: enoxaparin 40 mg/0.4 mL Syringe SUBCUT (18:36)
[2022-05-10 18:59] LABS: Blood Urea Nitrogen 6 mg/dL (6-20); Calcium 8.6 mg/dL (8.5-10.5); Carbon Dioxide 22 mmol/L (22-29); Chloride 98 mmol/L (98-107); Glomerular Filtration Rate 190.3 mL/min (90-130); Glucose 175 mg/dL (65-115); Osmolality Calculated 276 mOsm/kg (285-295); Sodium 132 mmol/L (136-145)
[2022-05-10 19:04] LABS: Anion Gap 15.9 (5-19); Potassium 3.9 mmol/L (3.5-5.1)
[2022-05-10 19:07] LABS: Creatinine Urine, Random 88 mg/dL (39-259); Microalbumin Random Urine 19 ug/dL (0-20)
[2022-05-10 19:12] LABS: Triglycerides 1921 mg/dL (0-150)
[2022-05-10 19:12] LABS: Microalbum Creatinine Ratio Ur 216 mg/dL (0-20); Urine Protein Random 43 mg/dL
[2022-05-10 19:25] LABS: LDL Cholesterol Direct 61 mg/dL (0-100)
[2022-05-10 20:20] LABS: Glucose Point of Care 167 mg/dL (70-110)
[2022-05-10 21:34] LABS: Glucose Point of Care 151 mg/dL (70-110)
[2022-05-10] MEDS: zolpidem 5 mg Tablet PO (22:18)
[2022-05-10 22:29] LABS: Glucose Point of Care 127 mg/dL (70-110)
[2022-05-10] MEDS: insulin regular-human 250 UNIT in sodium chloride 0.9% 250 ML 9 UNIT IV (23:03)
[2022-05-11] VITALS (25 sets, daily range): BP systolic 127–171; BP diastolic 78–103; PULSE 81–109; RESP 12–23; TEMP 36.7–36.9; O2SAT 18–98
[2022-05-11 00:26] LABS: Glucose Point of Care 93 mg/dL (70-110)
[2022-05-11 00:37] LABS: Blood Urea Nitrogen 5 mg/dL (6-20); Calcium 8.7 mg/dL (8.5-10.5); Carbon Dioxide 22 mmol/L (22-29); Chloride 99 mmol/L (98-107); Glomerular Filtration Rate 154.2 mL/min (90-130); Glucose 127 mg/dL (65-115); Osmolality Calculated 275 mOsm/kg (285-295); Sodium 133 mmol/L (136-145)
[2022-05-11 00:40] LABS: Anion Gap 15.7 (5-19); Potassium 3.7 mmol/L (3.5-5.1); Triglycerides 1824 mg/dL (0-150)
[2022-05-11 00:57] LABS: LDL Cholesterol Direct 65 mg/dL (0-100)
[2022-05-11] MEDS: HYDROmorphone 1 mg/mL INJ 1 mL 2 MG IVP ×7 (02:37→20:26)
[2022-05-11 02:51] LABS: Glucose Point of Care 83 mg/dL (70-110)
[2022-05-11] MEDS: oxyCODONE 5 mg IR Tab/Cap PO (04:29)
[2022-05-11] MEDS: D5-NS 0.45% + KCL 20 mEq 20 MEQ/1,000 ML BAG 200 MEQ IV ×4 (04:30→20:29)
[2022-05-11] MEDS: piperacillin-tazobactam 3.375 GM in sodium chloride 0.9% (plus) 50 ML IV ×3 (04:30→19:28)
[2022-05-11] MEDS: ondansetron 2 mg/ML SDV 2 mL 4 MG IVP ×3 (04:37→19:28)
[2022-05-11 04:45] LABS: Glucose Point of Care 75 mg/dL (70-110)
[2022-05-11 05:01] LABS: Basophils % 0.4 %; Eosinophils # 0.3 10^3/uL (0.0-0.8); Eosinophils % 2.5 %; Hematocrit 39.9 % (42.0-52.0); Hemoglobin 13.1 g/dL (11.7-16.6); Lymphocytes # 2.3 10^3/uL (0.8-4.8); Lymphocytes % 22.4 %; Mean Corpuscular HGB Conc 32.8 g/dL (30.0-36.0); Mean Corpuscular Hemoglobin 27.7 pg (28.0-34.0); Mean Corpuscular Volume 84.4 fl (80-94); Mean Platelet Volume 11.9 fL (7.4-10.4); Monocytes # 0.5 10^3/uL (0.2-0.9); Monocytes % 5.1 %; Neutrophils # 7.03 10^3/uL (1.8-7.7); Neutrophils % 69.2 %; Nucleated Red Blood Cells % 0 %; Platelet Count 146 10^3/cmm (130-400); Red Blood Count 4.73 10^6/uL (4.1-5.3); Red Cell Distribution Width 13.2 % (12.1-15.1); White Blood Count 10.2 10^3/uL (4.0-10.0)
[2022-05-11 05:23] LABS: Albumin Level 3.3 g/dL (3.5-5.2); Alkaline Phosphatase 75 U/L (40-130); Blood Urea Nitrogen 4 mg/dL (6-20); Calcium 8.6 mg/dL (8.5-10.5); Carbon Dioxide 25 mmol/L (22-29); Chloride 100 mmol/L (98-107); Globulin 3.3 g/dL (1.3-4.6); Glomerular Filtration Rate 154.2 mL/min (90-130); Glucose 67 mg/dL (65-115); Magnesium 1.8 mg/dL (1.7-2.3); Osmolality Calculated 275 mOsm/kg (285-295); Phosphorus 3.4 mg/dL (2.5-4.5); Sodium 135 mmol/L (136-145); Total Bilirubin 0.3 mg/dL (0.15-1.2); Total Protein 6.6 g/dL (6.6-8.7)
[2022-05-11 05:34] LABS: Anion Gap 13.5 (5-19)
[2022-05-11 05:35] LABS: Alanine Aminotransferase 13 U/L (0-41); Aspartate Amino Transferase 11 U/L (0-40); Potassium 3.5 mmol/L (3.5-5.1)
[2022-05-11] MEDS: ketorolac 30 mg/mL INJ 15 MG IVP ×3 (05:36→22:18)
[2022-05-11 05:53] LABS: Glucose Point of Care 120 mg/dL (70-110)
[2022-05-11 07:23] LABS: Glucose Point of Care 85 mg/dL (70-110)
[2022-05-11 07:24] LABS: Glucose Point of Care 82 mg/dL (70-110)
[2022-05-11] MEDS: pantoprazole 40 mg SDV IVP ×2 (08:27→20:26)
[2022-05-11] MEDS: omega-3 fatty acids 1,000 mg Capsule 1000 MG PO (08:30)
[2022-05-11] MEDS: fluoxetine 20 mg Capsule PO (08:32)
[2022-05-11] MEDS: cholecalciferol (vitamin D3) 5,000 unit Tablet 5000 UNIT PO (08:32)
[2022-05-11] MEDS: ezetimibe 10 mg Tablet PO (08:32)
[2022-05-11] MEDS: magnesium lactate 84 mg Tablet PO (08:32)
[2022-05-11] MEDS: atorvastatin 40 mg Tablet 80 MG PO (09:11)
[2022-05-11 09:20] LABS: Glucose Point of Care 96 mg/dL (70-110)
[2022-05-11 10:25] LABS: Glucose Point of Care 77 mg/dL (70-110)
[2022-05-11 11:05] LABS: CENTROMERE B ANTIBODY <1.0 NEG AI (<1.0 NEG); JO-1 ANTIBODY <1.0 NEG AI (<1.0 NEG); RNP ANTIBODY <1.0 NEG AI (<1.0 NEG); SCL-70 ANTIBODY <1.0 NEG AI (<1.0 NEG); SJOGREN'S ANTIBODY (SS-A) <1.0 NEG AI (<1.0 NEG); SM ANTIBODY <1.0 NEG AI (<1.0 NEG); SS-B <1.0 NEG AI (<1.0 NEG)
[2022-05-11 11:13] LABS: Triglycerides 1413 mg/dL (0-150)
[2022-05-11 11:17] LABS: Glucose Point of Care 192 mg/dL (70-110)
[2022-05-11 11:27] LABS: LDL Cholesterol Direct 76 mg/dL (0-100)
[2022-05-11 11:50] LABS: COMPLEMENT COMPONENT C3C 183 mg/dL (82-185); COMPLEMENT COMPONENT C4C 36 mg/dL (15-53)
[2022-05-11 11:58] LABS: Glucose Point of Care 183 mg/dL (70-110)
--- NOTE | 2022-05-11 12:57 | P.PN_ITS ---
Subjective Subjective: Patient was seen this morning, he tells me that the pain is better controlled but continues to have discomfort oxycodone 5 does not help with the pain, he is abdomen does feel less distended, has not had a bowel movement, is not passing gas, but he can feel things working inside he tells me, he wants to try some chicken broth, no episodes of nausea, no fevers, no chills Vitals/I&O/Wt Last Vital Signs Temp 98.4 F 05/11/22 12:00 Pulse 89 05/11/22 12:00 Resp 16 05/11/22 12:00 BP 142/94 05/11/22 12:00 Pulse Ox 96 05/11/22 12:00 O2 Del Method 05/11/22 12:00 05/10/22 05/11/22 05/11/22 22:59 06:59 14:59 Intake Total 2678.683 / 3528.683 1536.9 / 5065.583 1081.017 / 1081.017 Output Total 1750 / 2300 600 / 600 Balance 2678.683 / 2978.683 -213.1 / 2765.583 481.017 / 481.017 Weight last 48 hrs Weight 88.813 kg Weight 95.254 kg Physical Exam Const: COMMON NORMALS: no acute distress and patient oriented x3 Resp: COMMON NORMALS: normal respiratory effort, No retractions, No use of accessory muscles and clear to auscultation bilaterally AUSCULTATION: clear to auscultation bilaterally Cardio: COMMON NORMALS: regular rate, regular rhythm, S1 normal heart sound present and S2 normal heart sound present RATE: regular rate RHYTHM: regular rhythm HEART SOUNDS: S1 normal heart sound present and S2 normal heart sound present GI: OTHER: Abdomen soft, slightly distended, diffuse tenderness, no guarding, no rebound, no rigidity Extremity: COMMON NORMALS: no pedal edema Neuro: COMMON NORMALS: patient oriented x3 Psych: COMMON NORMALS: mental status grossly normal Data 05/11/22 04:35 05/11/22 04:35 Micro: Microbiology 05/09/22 20:24 Blood Culture - Preliminary Blood NEGATIVE TO DATE 05/09/22 20:18 Blood Culture - Preliminary Blood NEGATIVE TO DATE A&P Assessment and plan (1) Acute on chronic pancreatitis: (2) Hyperlipidemia: Qualifiers: Hyperlipidemia type: moderate mixed hyperlipidemia not requiring statin therapy Qualified Code(s): E78.2 - Mixed hyperlipidemia (3) Diabetic ketoacidosis: (4) Nausea: (5) Lipodystrophy: (6) Familial hypertriglyceridemia: (7) Overweight (BMI 25.0-29.9): (8) Intractable pain: (9) Intractable nausea and vomiting: Plan Hypertriglyceridemia induced pancreatitis -Has a history of lipodystrophy, with family history of hypertriglyceridemia -Anion gap 16, blood sugars more reasonable, triglycerides remain above 2500 Plan: -Admit to ICU -Continue on insulin drip at 0.1 units/kg/hr, has a few low blood sugars, so I have decreased him to 5 units/hr -Monitor blood sugars hourly -Continue D5 half-normal saline with 20 KCl at 200 cc an hour -Monitor BMP every 24 hours -Magnesium, phosphorus -Monitor triglycerides every 12 hours -Triglycerides still 1400, once triglycerides are under 500 we will stop drip -Monitor serum potassium, monitor anion gap -Transition to clears -Nausea control with Reglan, Zofran, promethazine -Dilaudid 1 mg every 2 hours as needed for pain, oxycodone 7.5 p.o. every 6 hours for breakthrough pain -Continue Zosyn for antibiotic prophylaxis -MRCP 1.? Normal common bile duct. No intrahepatic duct dilatation. 2.? Pancreatic duct is not dilated. Pancreatic duct is very poorly visualized with the abnormal pancreas. 3.? Variable signal throughout the pancreas with indistinctness of the margins. Consistent with a history of prior pancreatitis with pseudocyst. Previously described pseudocyst in the peripancreatic inflammation have moderately improved since 03/20/2022. 4.? Prior cholecystectomy. 5.? Hepatosplenomegaly. -Spoke to patient's lipid last at [facility], recommend to continue medical management, better blood sugar control follow-up as outpatient -Chronic feeding a fibrate, atorvastatin, omega-3, -Continue Creon -Patient is a full code -Lovenox for DVT prophylaxis Diabetic ketoacidosis, elevated blood sugar, elevated anion gap, ketones positive, pH pending -Resolved -Monitor blood sugars q. hourly -Monitor potassium, trend gap Acute pancreatitis as above Intractable nausea vomiting as above Intractable pain as above Lipodystrophy Familial hypertriglyceridemia Pseudohyponatremia, from hyperglycemia, resolved Plan for today monitor triglycerides, once less than 500 stop insulin drip monitor and drip, decrease to 5 units as as needed if blood sugars drop to below 100, continue fluid therapy, continue pain control, nausea control continue antibiotics, transition to clears, will replace potassium today Attestations Medical Necessity Statement*: Patient requires position for hypertriglyceridemia induced pancreatitis requiring insulin drip frequent blood work monitoring potassium monitoring blood sugar monitoring, DKA which has resolved, intractable nausea, intractable pain Critical care time spent over 40 minutes Coding Level of Care Code Critical Care >/= 30 minutes Critical care time (in minutes): 40 The high probability of a clinically significant, sudden or life threatening deterioration, as referenced in this documentation, required my full and direct attention, intervention and personal management. The critical care time shown is in addition to time spent performing any reported separately billable procedures and includes the following: [x] Data and vital sign review and interpretation [x ] Patient assessment, examination and intervention [x] Medication orders and management [x] Patient/Family updates as able [x] Care Coordination and Documentation. Diagnoses Acute on chronic pancreatitis K85.90; K86.1 Hyperlipidemia E78.2 Hyperlipidemia type: moderate mixed hyperlipidemia not requiring statin therapy Diabetic ketoacidosis E11.10 Nausea R11.0 Lipodystrophy E88.1 Familial hypertriglyceridemia E78.1 Overweight (BMI 25.0-29.9) E66.3 Intractable pain R52 Intractable nausea and vomiting R11.2
[2022-05-11 13:14] LABS: Glucose Point of Care 201 mg/dL (70-110)
[2022-05-11] MEDS: potassium chloride ER 20 mEq Tablet 40 MEQ PO (13:31)
[2022-05-11] MEDS: oxyCODONE 5 mg IR Tab/Cap 7.5 MG PO ×2 (13:34→18:37)
[2022-05-11 13:49] LABS: THYROID PEROXIDASE ANTIBODIES 5 IU/mL (<9)
[2022-05-11 15:03] LABS: Glucose Point of Care 195 mg/dL (70-110)
[2022-05-11 15:49] LABS: ANA SCREEN, IFA NEGATIVE (NEGATIVE)
[2022-05-11 16:09] LABS: Glucose Point of Care 184 mg/dL (70-110)
[2022-05-11 17:58] LABS: Glucose Point of Care 152 mg/dL (70-110)
[2022-05-11 18:52] LABS: Triglycerides 1208 mg/dL (0-150)
[2022-05-11 19:14] LABS: LDL Cholesterol Direct 81 mg/dL (0-100)
[2022-05-11] MEDS: enoxaparin 40 mg/0.4 mL Syringe SUBCUT (19:29)
[2022-05-11 19:46] LABS: Glucose Point of Care 158 mg/dL (70-110)
[2022-05-11] MEDS: zolpidem 5 mg Tablet PO (20:28)
[2022-05-11 20:53] LABS: Glucose Point of Care 167 mg/dL (70-110)
[2022-05-11 22:27] LABS: Glucose Point of Care 167 mg/dL (70-110)
[2022-05-11 23:43] LABS: Glucose Point of Care 167 mg/dL (70-110)
[2022-05-12] VITALS (25 sets, daily range): BP systolic 112–147; BP diastolic 68–94; PULSE 66–102; RESP 0–22; TEMP 36.7–36.9; O2SAT 94–98
[2022-05-12] MEDS: HYDROmorphone 1 mg/mL INJ 1 mL 2 MG IVP ×6 (00:49→21:47)
[2022-05-12] MEDS: D5-NS 0.45% + KCL 20 mEq 20 MEQ/1,000 ML BAG 200 MEQ IV ×4 (00:50→16:46)
[2022-05-12 01:12] LABS: Glucose Point of Care 180 mg/dL (70-110)
[2022-05-12] MEDS: oxyCODONE 5 mg IR Tab/Cap 7.5 MG PO ×3 (02:42→16:42)
[2022-05-12 02:52] LABS: Glucose Point of Care 172 mg/dL (70-110)
[2022-05-12 03:12] LABS: Basophils % 0.4 %; Eosinophils # 0.3 10^3/uL (0.0-0.8); Eosinophils % 4.9 %; Hemoglobin 11.3 g/dL (11.7-16.6); Lymphocytes # 1.9 10^3/uL (0.8-4.8); Lymphocytes % 35.5 %; Mean Corpuscular HGB Conc 31.4 g/dL (30.0-36.0); Mean Corpuscular Hemoglobin 26.7 pg (28.0-34.0); Mean Corpuscular Volume 84.9 fl (80-94); Mean Platelet Volume 12.7 fL (7.4-10.4); Monocytes # 0.3 10^3/uL (0.2-0.9); Monocytes % 4.7 %; Neutrophils # 2.87 10^3/uL (1.8-7.7); Neutrophils % 54.3 %; Nucleated Red Blood Cells % 0 %; Platelet Count 117 10^3/cmm (130-400); Red Blood Count 4.24 10^6/uL (4.1-5.3); Red Cell Distribution Width 13.1 % (12.1-15.1); White Blood Count 5.3 10^3/uL (4.0-10.0)
[2022-05-12 03:15] LABS: Gliadin Ab.IgG 1.4 U/mL; Tissue Transglutaminase IgA Ab <1.0 U/mL; Tissue transglutaminase Ab.IgG <1.0 U/mL
[2022-05-12 03:33] LABS: Alanine Aminotransferase 15 U/L (0-41); Albumin Level 3.1 g/dL (3.5-5.2); Alkaline Phosphatase 68 U/L (40-130); Aspartate Amino Transferase 12 U/L (0-40); Blood Urea Nitrogen 4 mg/dL (6-20); Calcium 8.5 mg/dL (8.5-10.5); Carbon Dioxide 25 mmol/L (22-29); Chloride 102 mmol/L (98-107); Glomerular Filtration Rate 154.2 mL/min (90-130); Glucose 161 mg/dL (65-115); Magnesium 1.9 mg/dL (1.7-2.3); Osmolality Calculated 282 mOsm/kg (285-295); Phosphorus 3.6 mg/dL (2.5-4.5); Sodium 136 mmol/L (136-145); Total Bilirubin 0.3 mg/dL (0.15-1.2); Total Protein 6.1 g/dL (6.6-8.7)
[2022-05-12 03:48] LABS: Triglycerides 1086 mg/dL (0-150)
[2022-05-12] MEDS: ketorolac 30 mg/mL INJ 15 MG IVP ×3 (04:08→20:12)
[2022-05-12] MEDS: piperacillin-tazobactam 3.375 GM in sodium chloride 0.9% (plus) 50 ML IV ×3 (04:09→20:11)
[2022-05-12 04:21] LABS: LDL Cholesterol Direct 86 mg/dL (0-100)
[2022-05-12 05:25] LABS: Glucose Point of Care 167 mg/dL (70-110)
[2022-05-12 05:25] LABS: Glucose Point of Care 155 mg/dL (70-110)
--- NOTE | 2022-05-12 05:39 | PC.NURSE ---
Pain control has been improved through this nurse's shift. 24 urine collection began at 1900 on 05/11/22 post void. Triglycerides continue to improve and BG has remained above 100 all night.
[2022-05-12 08:07] LABS: Glucose Point of Care 138 mg/dL (70-110)
[2022-05-12] MEDS: pantoprazole 40 mg SDV IVP ×2 (08:26→20:11)
[2022-05-12] MEDS: potassium chloride ER 20 mEq Tablet 40 MEQ PO (08:26)
[2022-05-12] MEDS: atorvastatin 40 mg Tablet 80 MG PO (08:26)
[2022-05-12] MEDS: magnesium lactate 84 mg Tablet PO (08:27)
[2022-05-12] MEDS: fluoxetine 20 mg Capsule PO (08:27)
[2022-05-12] MEDS: omega-3 fatty acids 1,000 mg Capsule 1000 MG PO (08:27)
[2022-05-12] MEDS: cholecalciferol (vitamin D3) 5,000 unit Tablet 5000 UNIT PO (08:27)
[2022-05-12] MEDS: ezetimibe 10 mg Tablet PO (08:27)
[2022-05-12 10:40] LABS: Glucose Point of Care 140 mg/dL (70-110)
[2022-05-12] MEDS: ondansetron 2 mg/ML SDV 2 mL 4 MG IVP ×2 (12:02→20:20)
[2022-05-12 12:55] LABS: Triglycerides 855 mg/dL (0-150)
[2022-05-12 13:17] LABS: LDL Cholesterol Direct 101 mg/dL (0-100)
--- NOTE | 2022-05-12 14:06 | P.PN_ITS ---
Subjective Subjective: Patient continues to have he did not tolerate the broth well yesterday, but he is a bit more hungry this morning willing to try clear liquids, passing gas has not had a bowel movement, abdomen slightly distended, but feels better compared to yesterday, still on insulin drip, triglycerides still over thousand Vitals/I&O/Wt Last Vital Signs Temp 98.1 F 05/12/22 00:00 Pulse 102 H 05/12/22 10:00 Resp 12 05/12/22 13:50 BP 113/75 05/12/22 10:00 Pulse Ox 95 05/12/22 13:50 O2 Del Method 05/11/22 18:00 05/11/22 05/12/22 05/12/22 22:59 06:59 14:59 Intake Total 1446.667 / 3527.684 2193.333 / 5721.017 1849 Output Total 3900 / 4500 Balance -2453.333 / -451.905 2947.333 / 8487.175 5572 / 1850 Physical Exam Const: COMMON NORMALS: no acute distress and patient oriented x3 Resp: COMMON NORMALS: normal respiratory effort, No retractions, No use of accessory muscles and clear to auscultation bilaterally AUSCULTATION: clear to auscultation bilaterally Cardio: COMMON NORMALS: regular rate, regular rhythm, S1 normal heart sound present and S2 normal heart sound present RATE: regular rate RHYTHM: regular rhythm HEART SOUNDS: S1 normal heart sound present and S2 normal heart sound present GI: OTHER: Abdomen soft, slight good bowel sounds, diffuse tenderness, no guarding, no rebound, no rigidity Extremity: COMMON NORMALS: no pedal edema Neuro: COMMON NORMALS: patient oriented x3 Psych: COMMON NORMALS: mental status grossly normal Data 05/12/22 02:25 05/12/22 02:25 A&P Assessment and plan (1) Acute on chronic pancreatitis: (2) Hyperlipidemia: Qualifiers: Hyperlipidemia type: moderate mixed hyperlipidemia not requiring statin therapy Qualified Code(s): E78.2 - Mixed hyperlipidemia (3) Diabetic ketoacidosis: (4) Nausea: (5) Lipodystrophy: (6) Familial hypertriglyceridemia: (7) Overweight (BMI 25.0-29.9): (8) Intractable pain: (9) Intractable nausea and vomiting: Plan Hypertriglyceridemia induced pancreatitis -Has a history of lipodystrophy, with family history of hypertriglyceridemia -Anion gap 13, blood sugars more reasonable, triglycerides remain above 2500 Plan: -Admit to ICU -Continue on insulin drip at 0.1 units/kg/hr, has a few low blood sugars, so I have decreased him to 5 units/hr -Monitor blood sugars hourly -Continue D5 half-normal saline with 20 KCl at 120 cc an hour -Monitor BMP every 24 hours -Magnesium, phosphorus -Monitor triglycerides every 12 hours -Triglycerides still over thousand, once triglycerides are under 500 we will stop insulin drip -Monitor serum potassium, monitor anion gap -Try clears today -Nausea control with Reglan, Zofran, promethazine -Dilaudid 1 mg every 4 hours as needed for pain, oxycodone 7.5 p.o. every 6 hours for breakthrough pain -Continue Zosyn for antibiotic prophylaxis -MRCP 1.? Normal common bile duct. No intrahepatic duct dilatation. 2.? Pancreatic duct is not dilated. Pancreatic duct is very poorly visualized with the abnormal pancreas. 3.? Variable signal throughout the pancreas with indistinctness of the margins. Consistent with a history of prior pancreatitis with pseudocyst. Previously described pseudocyst in the peripancreatic inflammation have moderately improved since 03/20/2022. 4.? Prior cholecystectomy. 5.? Hepatosplenomegaly. -Spoke to patient's lipid last at [facility], recommend to continue medical management, better blood sugar control follow-up as outpatient -Chronic feeding a fibrate, atorvastatin, omega-3, -Continue Creon -Patient is a full code -Lovenox for DVT prophylaxis Diabetic ketoacidosis, elevated blood sugar, elevated anion gap, ketones posit kristin, pH pending -Resolved -Monitor blood sugars q. hourly -Monitor potassium, trend gap Acute pancreatitis as above Intractable nausea vomiting as above Intractable pain as above Lipodystrophy Familial hypertriglyceridemia Pseudohyponatremia, from hyperglycemia, resolved Plan for today monitor triglycerides, once less than 500 stop insulin drip monitor and drip, decrease to 5 units as as needed if blood sugars drop to below 100, continue fluid therapy, continue pain control, nausea control continue antibiotics, transition to clears, will replace potassium today Attestations Medical Necessity Statement*: Patient requires hospital requiring insulin drip, elevated triglyceride levels Coding Level of Care Code Critical Care >/= 30 minutes Critical care time (in minutes): 40 The high probability of a clinically significant, sudden or life threatening deterioration, as referenced in this documentation, required my full and direct attention, intervention and personal management. The critical care time shown is in addition to time spent performing any reported separately billable procedures and includes the following: [x] Data and vital sign review and interpretation [x ] Patient assessment, examination and intervention [x] Medication orders and management [x] Patient/Family updates as able [x] Care Coordination and Documentation. Diagnoses Acute on chronic pancreatitis K85.90; K86.1 Hyperlipidemia E78.2 Hyperlipidemia type: moderate mixed hyperlipidemia not requiring statin therapy Diabetic ketoacidosis E11.10 Nausea R11.0 Lipodystrophy E88.1 Familial hypertriglyceridemia E78.1 Overweight (BMI 25.0-29.9) E66.3 Intractable pain R52 Intractable nausea and vomiting R11.2
[2022-05-12 19:15] LABS: Triglycerides 802 mg/dL (0-150)
[2022-05-12 19:45] LABS: LDL Cholesterol Direct 108 mg/dL (0-100)
[2022-05-12] MEDS: enoxaparin 40 mg/0.4 mL Syringe SUBCUT (20:11)
[2022-05-12] MEDS: zolpidem 5 mg Tablet PO (20:12)
[2022-05-12 20:14] LABS: Glucose Point of Care 133 mg/dL (70-110)
[2022-05-12 20:15] LABS: Glucose Point of Care 154 mg/dL (70-110)
[2022-05-12] MEDS: acetaminophen 325 mg Tablet 650 MG PO (20:29)
[2022-05-12 21:14] LABS: Urine Creatinine 33 mg/dL (39-259)
[2022-05-12 21:52] LABS: Creatinine 24 Hour Urine 1427.3 mg/dL (955-2936); Total Volume Urine 4325 ml
[2022-05-12 22:26] LABS: Glucose Point of Care 114 mg/dL (70-110)
[2022-05-12 22:53] LABS: Total Volume, Urine 4325 mL; Urine Total Protein 5.9 mg/dL (0-150); Urine Total Protein 24 Hour 255.2 mg/24hr (0-150)
[2022-05-12] MEDS: D5-NS 0.45% + KCL 20 mEq 20 MEQ/1,000 ML BAG 125 MEQ IV (23:30)
[2022-05-13] VITALS (32 sets, daily range): BP systolic 112–155; BP diastolic 54–108; PULSE 64–96; RESP 11–22; TEMP 36.8–37.1; O2SAT 92–100
[2022-05-13 01:01] LABS: Glucose Point of Care 88 mg/dL (70-110)
[2022-05-13] MEDS: oxyCODONE 5 mg IR Tab/Cap 7.5 MG PO (01:09)
[2022-05-13] MEDS: insulin regular-human 250 UNIT in sodium chloride 0.9% 250 ML IV (01:56)
[2022-05-13 01:59] LABS: Glucose Point of Care 97 mg/dL (70-110)
[2022-05-13] MEDS: HYDROmorphone 1 mg/mL INJ 1 mL 2 MG IVP ×2 (02:07→06:10)
[2022-05-13 03:15] LABS: Basophils % 0.9 %; Eosinophils # 0.3 10^3/uL (0.0-0.8); Hematocrit 36.5 % (42.0-52.0); Hemoglobin 11.4 g/dL (11.7-16.6); Lymphocytes # 1.9 10^3/uL (0.8-4.8); Lymphocytes % 41.6 %; Mean Corpuscular HGB Conc 31.2 g/dL (30.0-36.0); Mean Corpuscular Hemoglobin 26.5 pg (28.0-34.0); Mean Corpuscular Volume 84.9 fl (80-94); Mean Platelet Volume 12.4 fL (7.4-10.4); Monocytes # 0.3 10^3/uL (0.2-0.9); Monocytes % 5.6 %; Neutrophils # 2.05 10^3/uL (1.8-7.7); Neutrophils % 45.5 %; Nucleated Red Blood Cells % 0 %; Platelet Count 133 10^3/cmm (130-400); Red Cell Distribution Width 12.7 % (12.1-15.1); White Blood Count 4.5 10^3/uL (4.0-10.0)
[2022-05-13 03:21] LABS: Glucose Point of Care 96 mg/dL (70-110)
[2022-05-13 03:44] LABS: Alanine Aminotransferase 18 U/L (0-41); Alkaline Phosphatase 73 U/L (40-130); Aspartate Amino Transferase 16 U/L (0-40); Blood Urea Nitrogen 4 mg/dL (6-20); C Reactive Protein 32.1 mg/L (0.0-4.9); Calcium 8.8 mg/dL (8.5-10.5); Carbon Dioxide 27 mmol/L (22-29); Chloride 103 mmol/L (98-107); Globulin 3.2 g/dL (1.3-4.6); Glomerular Filtration Rate 129.1 mL/min (90-130); Glucose 94 mg/dL (65-115); Magnesium 1.9 mg/dL (1.7-2.3); Osmolality Calculated 285 mOsm/kg (285-295); Phosphorus 4.7 mg/dL (2.5-4.5); Sodium 139 mmol/L (136-145); Total Bilirubin 0.2 mg/dL (0.15-1.2); Total Protein 6.2 g/dL (6.6-8.7)
[2022-05-13 03:45] LABS: Procalcitonin 0.03 ng/mL (0-0.5)
[2022-05-13] MEDS: piperacillin-tazobactam 3.375 GM in sodium chloride 0.9% (plus) 50 ML IV ×2 (03:55→11:16)
[2022-05-13 04:24] LABS: Glucose Point of Care 67 mg/dL (70-110)
[2022-05-13] MEDS: ondansetron 2 mg/ML SDV 2 mL 4 MG IVP ×3 (04:39→19:12)
[2022-05-13] MEDS: ketorolac 30 mg/mL INJ 15 MG IVP ×2 (04:40→12:22)
--- NOTE | 2022-05-13 05:12 | PC.NURSE ---
0416 - Pt bs 67. Pt alert with no s/s of hypoglycemia. Insulin gtt paused. Provider notifed. [place] Juice given. 0431 - 15 min bs recheck performed per protocol. BS 77. Provider notified. Apple Juice given per pt request over orange juice. 0445 - Discussed current pt gtts, latest labs, treatment plan, and orders with provider. New orders noted.
[2022-05-13 05:17] LABS: Glucose Point of Care 223 mg/dL (70-110)
[2022-05-13 06:24] LABS: Glucose Point of Care 265 mg/dL (70-110)
[2022-05-13] MEDS: D5-NS 0.45% + KCL 20 mEq 20 MEQ/1,000 ML BAG 150 MEQ IV ×2 (07:01→15:39)
[2022-05-13 07:10] LABS: Triglycerides 695 mg/dL (0-150)
[2022-05-13 07:22] LABS: LDL Cholesterol Direct 111 mg/dL (0-100)
[2022-05-13] MEDS: fluoxetine 20 mg Capsule PO (08:32)
[2022-05-13] MEDS: cholecalciferol (vitamin D3) 5,000 unit Tablet 5000 UNIT PO (08:32)
[2022-05-13] MEDS: magnesium lactate 84 mg Tablet PO (08:32)
[2022-05-13] MEDS: atorvastatin 40 mg Tablet 80 MG PO (08:32)
[2022-05-13] MEDS: pantoprazole 40 mg SDV IVP ×2 (08:32→20:55)
[2022-05-13] MEDS: omega-3 fatty acids 1,000 mg Capsule 1000 MG PO (08:33)
[2022-05-13] MEDS: oxyCODONE 10 mg ER (12 HR) Tablet PO ×2 (09:36→21:26)
--- NOTE | 2022-05-13 09:37 | PM.PN ---
Subjective Subjective: Patient was seen this morning he had 1 episode of low blood sugar overnight, but improved with apple juice, currently blood sugars in the 260s, he does feel better, no nausea, vomiting, abdominal pain has improved, still not passing gas, no stools, no lightheadedness, no dizziness, triglycerides come down to 695 Vitals/I&O/Wt Last Vital Signs Temp 98.7 F 05/13/22 02:00 Pulse 75 05/13/22 06:00 Resp 16 05/13/22 06:10 BP 130/98 05/13/22 05:00 Pulse Ox 98 05/13/22 06:10 O2 Del Method 05/13/22 04:00 05/12/22 05/13/22 05/13/22 22:59 06:59 14:59 Intake Total 2416.667 / 4266.667 2164.483 / 6431.150 280 / 280 Output Total 2049 / 2049 2000 / 4050 Balance 366.667 / 2216.667 164.483 / 2381.150 280 / 280 Physical Exam Const: COMMON NORMALS: no acute distress and patient oriented x3 Resp: COMMON NORMALS: normal respiratory effort, No retractions, No use of accessory muscles and clear to auscultation bilaterally AUSCULTATION: clear to auscultation bilaterally Cardio: COMMON NORMALS: regular rate, regular rhythm, S1 normal heart sound present and S2 normal heart sound present RATE: regular rate RHYTHM: regular rhythm HEART SOUNDS: S1 normal heart sound present and S2 normal heart sound present GI: COMMON NORMALS: Normal to inspection, nondistended, normoactive bowel sounds present and non-tender Extremity: COMMON NORMALS: no pedal edema Neuro: COMMON NORMALS: patient oriented x3 Psych: COMMON NORMALS: mental status grossly normal Data 05/13/22 02:44 05/13/22 02:44 A&P Assessment and plan (1) Acute on chronic pancreatitis: (2) Hyperlipidemia: Qualifiers: Hyperlipidemia type: moderate mixed hyperlipidemia not requiring statin therapy Qualified Code(s): E78.2 - Mixed hyperlipidemia (3) Diabetic ketoacidosis: (4) Nausea: (5) Lipodystrophy: (6) Familial hypertriglyceridemia: (7) Overweight (BMI 25.0-29.9): (8) Intractable pain: (9) Intractable nausea and vomiting: Plan Hypertriglyceridemia induced pancreatitis -Has a history of lipodystrophy, with family history of hypertriglyceridemia -Anion gap 13, blood sugars more reasonable, triglycerides remain above 2500 Plan: -Admit to ICU -1 low episode blood sugar overnight 67, improved with apple juice, now in the 260s -Continue on insulin drip at 0.1 units/kg/hr, has a few low blood sugars, so I have decreased him to 5 units/hr -Monitor blood sugars hourly -Continue D5 half-normal saline with 20 KCl at 120 cc an hour -Monitor BMP every 24 hours -Magnesium, phosphorus -Monitor triglycerides every 12 hours, currently 695 -Triglycerides still over thousand, once triglycerides are under 500 we will stop insulin drip -Monitor serum potassium, monitor anion gap -Try clears today -Nausea control with Reglan, Zofran, promethazine -Switch to p.o. Dilaudid 1 mg p.o. every 4 hours, with oxycodone 10 every 12 hours for breakthrough pain -Continue Zosyn for antibiotic prophylaxis -MRCP 1.? Normal common bile duct. No intrahepatic duct dilatation. 2.? Pancreatic duct is not dilated. Pancreatic duct is very poorly visualized with the abnormal pancreas. 3.? Variable signal throughout the pancreas with indistinctness of the margins. Consistent with a history of prior pancreatitis with pseudocyst. Previously described pseudocyst in the peripancreatic inflammation have moderately improved since 03/20/2022. 4.? Prior cholecystectomy. 5.? Hepatosplenomegaly. -Spoke to patient's lipid last at [facility], recommend to continue medical management, better blood sugar control follow-up as outpatient -Chronic feeding a fibrate, atorvastatin, omega-3, -Continue Creon -Patient is a full code -Lovenox for DVT prophylaxis Diabetic ketoacidosis, elevated blood sugar, elevated anion gap, ketones positive, pH pending -Resolved -Monitor blood sugars q. hourly -Monitor potassium, trend gap Concerns for nephrotic syndrome, 24 urine protein Acute pancreatitis as above Intractable nausea vomiting as above Intractable pain as above Lipodystrophy Familial hypertriglyceridemia Pseudohyponatremia, from hyperglycemia, resolved Plan for today monitor triglycerides, once less than 500 stop insulin drip monitor and drip, decrease to 5 units as as needed if blood sugars drop to below 100, continue fluid therapy, continue pain control, nausea control continue antibiotics, transition to clears, will replace potassium today Attestations Medical Necessity Statement*: Patient requires hospitalization for hypertriglyceridemia induced pancreatitis requiring insulin drip Coding Level of Care Code Critical Care >/= 30 minutes Critical care time (in minutes): 30 The high probability of a clinically significant, sudden or life threatening deterioration, as referenced in this documentation, required my full and direct attention, intervention and personal management. The critical care time shown is in addition to time spent performing any reported separately billable procedures and includes the following: [x] Data and vital sign review and interpretation [x] Patient assessment, examination and intervention [x] Medication orders and management [x] Patient/Family updates as able [x] Care Coordination and Documentation. Diagnoses Acute on chronic pancreatitis K85.90; K86.1 Hyperlipidemia E78.2 Hyperlipidemia type: moderate mixed hyperlipidemia not requiring statin therapy Diabetic ketoacidosis E11.10 Nausea R11.0 Lipodystrophy E88.1 Familial hypertriglyceridemia E78.1 Overweight (BMI 25.0-29.9) E66.3 Intractable pain R52 Intractable nausea and vomiting R11.2
[2022-05-13] MEDS: ezetimibe 10 mg Tablet PO (09:45)
[2022-05-13 12:52] LABS: Triglycerides 688 mg/dL (0-150)
[2022-05-13 13:08] LABS: LDL Cholesterol Direct 129 mg/dL (0-100)
[2022-05-13 13:20] LABS: DNA AB (DS) CRITHIDIA,IFA NEGATIVE (NEGATIVE)
[2022-05-13 17:53] LABS: Glucose Point of Care 98 mg/dL (70-110)
--- NOTE | 2022-05-13 18:05 | PC.NURSE ---
Shift summary: uneventful shift, order changes per MAR, Diet order changed to GI soft
[2022-05-13 18:53] LABS: Triglycerides 637 mg/dL (0-150)
[2022-05-13 19:12] LABS: LDL Cholesterol Direct 136 mg/dL (0-100)
[2022-05-13] MEDS: enoxaparin 40 mg/0.4 mL Syringe SUBCUT (19:12)
[2022-05-13 20:37] LABS: Glucose Point of Care 293 mg/dL (70-110)
[2022-05-13] MEDS: zolpidem 5 mg Tablet PO (21:27)
[2022-05-13] MEDS: insulin glargine 100 units/1 mL 10 UNIT SUBCUT (21:28)
[2022-05-13] MEDS: insulin lispro 100 unit/1 mL SUBCUT (21:28)
[2022-05-14] VITALS (11 sets, daily range): BP systolic 110–149; BP diastolic 68–99; PULSE 57–70; RESP 11–15; TEMP 36.8; O2SAT 93–97
[2022-05-14] MEDS: ketorolac 30 mg/mL INJ 15 MG IVP (00:22)
[2022-05-14 03:00] LABS: Basophils % 0.7 %; Eosinophils # 0.3 10^3/uL (0.0-0.8); Eosinophils % 4.9 %; Hematocrit 38.7 % (42.0-52.0); Hemoglobin 12.5 g/dL (11.7-16.6); Lymphocytes # 2.2 10^3/uL (0.8-4.8); Lymphocytes % 40.7 %; Mean Corpuscular HGB Conc 32.3 g/dL (30.0-36.0); Mean Corpuscular Volume 83.6 fl (80-94); Mean Platelet Volume 12.3 fL (7.4-10.4); Monocytes # 0.3 10^3/uL (0.2-0.9); Monocytes % 5.6 %; Neutrophils # 2.62 10^3/uL (1.8-7.7); Neutrophils % 47.7 %; Nucleated Red Blood Cells % 0 %; Platelet Count 157 10^3/cmm (130-400); Red Blood Count 4.63 10^6/uL (4.1-5.3); Red Cell Distribution Width 12.7 % (12.1-15.1); White Blood Count 5.5 10^3/uL (4.0-10.0)
[2022-05-14 03:27] LABS: Alanine Aminotransferase 18 U/L (0-41); Albumin Level 3.3 g/dL (3.5-5.2); Alkaline Phosphatase 81 U/L (40-130); Anion Gap 12.5 (5-19); Aspartate Amino Transferase 12 U/L (0-40); Blood Urea Nitrogen 8 mg/dL (6-20); Calcium 9.1 mg/dL (8.5-10.5); Carbon Dioxide 28 mmol/L (22-29); Chloride 101 mmol/L (98-107); Globulin 3.2 g/dL (1.3-4.6); Glomerular Filtration Rate 110.7 mL/min (90-130); Glucose 246 mg/dL (65-115); Magnesium 1.8 mg/dL (1.7-2.3); Osmolality Calculated 291 mOsm/kg (285-295); Phosphorus 3.9 mg/dL (2.5-4.5); Potassium 4.5 mmol/L (3.5-5.1); Sodium 137 mmol/L (136-145); Total Bilirubin 0.2 mg/dL (0.15-1.2); Total Protein 6.5 g/dL (6.6-8.7)
[2022-05-14 03:28] LABS: Procalcitonin 0.03 ng/mL (0-0.5)
[2022-05-14 08:19] LABS: Glucose Point of Care 267 mg/dL (70-110)
[2022-05-14] MEDS: pantoprazole 40 mg SDV IVP (08:31)
[2022-05-14] MEDS: insulin lispro 100 unit/1 mL SUBCUT (08:31)
[2022-05-14] MEDS: cholecalciferol (vitamin D3) 5,000 unit Tablet 5000 UNIT PO (08:33)
[2022-05-14] MEDS: atorvastatin 40 mg Tablet 80 MG PO (08:33)
[2022-05-14] MEDS: omega-3 fatty acids 1,000 mg Capsule 1000 MG PO (08:33)
[2022-05-14] MEDS: fluoxetine 20 mg Capsule PO (08:33)
[2022-05-14] MEDS: magnesium lactate 84 mg Tablet PO (08:33)
[2022-05-14] MEDS: ezetimibe 10 mg Tablet PO (08:34)
[2022-05-14] MEDS: oxyCODONE 10 mg ER (12 HR) Tablet PO (08:34)
--- NOTE | 2022-05-14 08:50 | PM.DCS ---
Discharge Providers Date of Admission: 05/09/22 17:39 Date of Discharge: May 14, 2022 Attending Provider at Admission: Kin Greer MD Attending Provider at Discharge: Kin Greer MD Primary Care Provider: Kin Greer MD Diagnoses at Discharge Discharge Diagnosis (1) Acute on chronic pancreatitis: Status: Acute (2) Hyperlipidemia: Status: Acute Qualifiers: Hyperlipidemia type: moderate mixed hyperlipidemia not requiring statin therapy Qualified Code(s): E78.2 - Mixed hyperlipidemia (3) Diabetic ketoacidosis: Status: Acute (4) Nausea: Status: Acute (5) Lipodystrophy: Status: Acute (6) Familial hypertriglyceridemia: Status: Acute (7) Overweight (BMI 25.0-29.9): Status: Acute (8) Intractable pain: Status: Acute (9) Intractable nausea and vomiting: Status: Acute Reason for Visit Reason for Visit: abd pain Hospital Course Hospital Course Rui Donohue is a 36 year old male with past medical history of chronic pancreatitis with reccurant flare ups of acute on chronic pancreatitis, insulin dependent diabetes mellitus with most recent a1c 10.1, hypertriglyceridemia (in thousands) presented to the hospital for abdominal pain today. He was recently seen at PCP clinic 2 weeks prior. Patient is on creon, fenofibrate, niacin at home. He is looking into getting enrolled into a clinical trial at [place] with regards to his pancreatitis. There is possibility of IPMN as well noted from PCP clinic notes. Patient started experiencing nausea and vomiting today in total he only had 5 episodes, no fever, according to his he was having loose stools a day before as well.? He is compliant with his Lantus 60 units daily with short acting insulin.? He has stopped taking his pancreatic enzymes because they do not make any difference for him. ER course: CT abdomen pelvis today showed acute on chronic pancreatitis. Blood glucose 300 range and TG 5000. Pt given pain medicine, zofran, NS bolus and started on insulin drip with D5 1/2 NS. Will be admitted to ICU for further management. Patient was admitted to [facility] for hypertriglyceridemia induced pancreatitis, with mild DKA, received insulin drip, patient's triglycerides took over 72 hours to decrease, improved to below 600, insulin drip was stopped, overall clinically improved, discharged home on low-fat diet, instructions to monitor blood sugars closely, continue medications, follow-up with me in clinic next week Tuesday For his diet, advised to adhere to a strict low-fat diet, low sugar diet, diet control, weight loss Patient has some evidence of nephrotic syndrome, follow-up with nephrology, 24-hour urine was 2.5 g Intractable pain, nausea, vomiting, discharged on hydrocodone for pain control multiple nausea medications, advised to use it sparingly, do not drive operate machinery or drink while taking medication Physical Exam Const: COMMON NORMALS: no acute distress and patient oriented x3 Resp: COMMON NORMALS: normal respiratory effort, No retractions, No use of accessory muscles and clear to auscultation bilaterally AUSCULTATION: clear to auscultation bilaterally Cardio: COMMON NORMALS: regular rate, regular rhythm, S1 normal heart sound present and S2 normal heart sound present RATE: regular rate RHYTHM: regular rhythm HEART SOUNDS: S1 normal heart sound present and S2 normal heart sound present GI: COMMON NORMALS: Normal to inspection, nondistended, normoactive bowel sounds present and non-tender Extremity: COMMON NORMALS: no pedal edema Neuro: COMMON NORMALS: patient oriented x3 Psych: COMMON NORMALS: mental status grossly normal Discharge Data Studies Completed and Pending Completed Studies During Hospitalization Category Date Time Status MR MRCP 10792 Routine MRI 05/10/22 09:00 Completed Pending at discharge Category Date Time Status Blood Culture Routine Lab 05/09/22 20:24 Results C Reactive Protein AM LABS Lab 05/15/22 04:00 Ordered Complete Blood Count w/Auto AM LABS Lab 05/15/22 04:00 Ordered Comprehensive Metabolic Panel AM LABS Lab 05/15/22 04:00 Ordered Magnesium AM LABS Lab 05/15/22 04:00 Ordered Phosphorus AM LABS Lab 05/15/22 04:00 Ordered Procalcitonin AM LABS Lab 05/15/22 04:00 Ordered Radiology Impressions Cholangiopancreatography MRI 05/10/22 09:00 IMPRESSION: 1. Normal common bile duct. No intrahepatic duct dilatation. 2. Pancreatic duct is not dilated. Pancreatic duct is very poorly visualized with the abnormal pancreas. 3. Variable signal throughout the pancreas with indistinctness of the margins. Consistent with a history of prior pancreatitis with pseudocyst. Previously described pseudocyst in the peripancreatic inflammation have moderately improved since 03/20/2022. 4. Prior cholecystectomy. 5. Hepatosplenomegaly. Laboratory Results WBC 5.5 10^3/uL (4.0-10.0) 05/14/22 02: RBC 4.63 10^6/uL (4.1-5.3) 05/14/22 02: Hgb 12.5 g/dL (11.7-16.6) 05/14/22 02: Hct 38.7 % (42.0-52.0) L 05/14/22 02:23 MCV 83.6 fl (80-94) 05/14/22 02:23 MCH 27.0 pg (28.0-34.0) L 05/14/22 02: MCHC 32.3 g/dL (30.0-36.0) 05/14/22 02: RDW 12.7 % (12.1-15.1) 05/14/22 02: Plt Count 157 10^3/cmm (130-400) 05/14/22 02: MPV 12.3 fL (7.4-10.4) H 05/14/22 02: Neut % (Auto) 47.7 % 05/14/22 02: Lymph % (Auto) 40.7 % 05/14/22 02: [place] % (Auto) 5.6 % 05/14/22 02: Eos % (Auto) 4.9 % 05/14/22 02: Baso % (Auto) 0.7 % 05/14/22 02: Neut # (Auto) 2.62 10^3/uL (1.8-7.7) 05/14/22 02: Lymph # (Auto) 2.2 10^3/uL (0.8-4.8) 05/14/22 02:23 [place] # (Auto) 0.3 10^3/uL (0.2-0.9) 05/14/22 02: Eos # (Auto) 0.3 10^3/uL (0.0-0.8) 05/14/22 02: Baso # (Auto) 0.0 10^3/uL (0.0-0.1) 05/14/22 02: Nucleated RBC % (auto) 0 % 05/14/22 02:23 Nucleated RBCs # 0.0 /100WBC 05/14/22 02:23 ESR 7 mm/hr (0-10) 05/09/22 19:23 PT 13.40 SECONDS (12.1-14.9) 05/10/22 04:53 INR 0.99 (0.8-1.2) 05/10/22 04:53 Specimen Type Arterial 05/09/22 18:45 Sample Site Radial, right 05/09/22 18:45 ABG pH 7.28 (7.35-7.45) L 05/09/22 18:45 ABG pCO2 39.5 mmHg (35-45) 05/09/22 18:45 ABG pO2 80.9 mmHg (80.0-100.0) 05/09/22 18:45 ABG HCO3 18.5 mmol/L (22-26) L 05/09/22 18:45 ABG Base Excess -7.7 mmol/L (-2.0-2.0) L 05/09/22 18:45 Ori Test Pos 05/09/22 18:45 Hematocrit 47.0 % (42-52) 05/09/22 18:45 O2 Delivery Device Room air 05/09/22 18:45 FiO2 21.0 % 05/09/22 18:45 Asbestos Brake Lining Finisher Helper ID glc 05/09/22 18:45 Sodium 137 mmol/L (136-145) 05/14/22 02:23 Potassium 4.5 mmol/L (3.5-5.1) 05/14/22 02:23 Chloride 101 mmol/L (98-107) 05/14/22 02:23 Carbon Dioxide 28 mmol/L (22-29) 05/14/22 02:23 Anion Gap 12.5 (5-19) 05/14/22 02:23 BUN 8 mg/dL (6-20) 05/14/22 02:23 Creatinine 0.8 mg/dL (0.7-1.2) 05/14/22 02:23 GFR Calculation 110.7 mL/min (90-130) 05/14/22 02:23 Glucose 246 mg/dL (65-115) H 05/14/22 02:23 POC Glucose 267 mg/dL (70-110) H 05/14/22 08:15 Estimat Average Glucose 272 05/09/22 15:40 Hemoglobin A1c 11.1 % (4.0-6.0) H 05/09/22 15:40 Calculated Osmolality 291 mOsm/kg (285-295) 05/14/22 02:23 Lactate 1.1 mmol/L (0.5-2.2) 05/09/22 15:40 Calcium 9.1 mg/dL (8.5-10.5) 05/14/22 02:23 Phosphorus 3.9 mg/dL (2.5-4.5) 05/14/22 02:23 Magnesium 1.8 mg/dL (1.7-2.3) 05/14/22 02:23 Total Bilirubin 0.2 mg/dL (0.15-1.2) 05/14/22 02:23 AST 12 U/L (0-40) 05/14/22 02:23 ALT 18 U/L (0-41) 05/14/22 02:23 Alkaline Phosphatase 81 U/L (40-130) 05/14/22 02:23 Creatine Kinase 7 U/L (39-308) L 05/10/22 04:53 C-Reactive Protein 16.0 mg/L (0.0-4.9) H 05/14/22 02:23 Total Protein 6.5 g/dL (6.6-8.7) L 05/14/22 02:23 Albumin 3.3 g/dL (3.5-5.2) L 05/14/22 02:23 Globulin 3.2 g/dL (1.3-4.6) 05/14/22 02:23 Triglycerides 637 mg/dL (0-150) H 05/13/22 18:05 Cholesterol 551 mg/dL (0-200) H 05/09/22 15:40 LDL Cholesterol Direct 136 mg/dL (0-100) H 05/13/22 18:05 LDL Cholesterol, Calc Not Reportable 05/09/22 15:40 HDL Cholesterol 16 mg/dL (60-100) L 05/09/22 15:40 LDL/HDL Ratio Not Reportable 05/09/22 15:40 Cholesterol/HDL Ratio 34.44 mg/dL (1.0-5.00) H 05/09/22 15:40 Lipase 147 U/L (13-60) H 05/09/22 15:40 Procalcitonin 0.03 ng/mL (0-0.5) 05/14/22 02:23 TSH 1.45 uIU/mL (0.27-4.20) 05/09/22 19:23 Urine Color Yellow (Yellow) 05/09/22 20:00 Urine Appearance Clear (CLEAR) 05/09/22 20:00 Urine pH 5 (5-7) 05/09/22 20:00 Ur Specific [place] 1.020 (1.005-1.030) 05/09/22 20:00 Urine Protein 2+ (Negative) H 05/09/22 20:00 Urine Glucose (UA) 4+ (Normal) H 05/09/22 20:00 Urine Ketones 3+ (Negative) H 05/09/22 20:00 Urine Blood Neg (Negative) 05/09/22 20:00 Urine Nitrate Negative (Negative) 05/09/22 20:00 Urine Bilirubin Neg (Negative) 05/09/22 20:00 Urine Urobilinogen Neg mg/dL (Negative) 05/09/22 20:00 Ur Leukocyte Esterase Negative (Negative) 05/09/22 20:00 Urine RBC 0-4 /hpf (0-2) H 05/09/22 20:00 Urine WBC 0-4 /hpf (0-5) H 05/09/22 20:00 Ur Squamous Epith Cells 0-4 /hpf (0-5) H 05/09/22 20:00 Amorphous Sediment Not Reportable 05/09/22 20:00 Urine Bacteria None /hpf (NONE) 05/09/22 20:00 Hyaline Casts 0-4 /lpf H 05/09/22 20:00 Urine Mucus Trace /hpf 05/09/22 20:00 Ur Random Microalbumin 19 ug/dL (0-20) 05/10/22 18:33 U Random Total Protein 43 mg/dL 05/10/22 18:33 Urine Total Volume 4325 mL 05/12/22 19:55 Urine Total Volume 4325 ml 05/12/22 19:55 Urine Creatinine 33 mg/dL (39-259) L 05/12/22 19:55 Ur Creatinine 24 Hour 1427.3 mg/dL (955-2936) 05/12/22 19:55 Microalb/Creat Ratio 216 mg/dL (0-20) H 05/10/22 18:33 Ur Total Protein 24 Hr 255.2 mg/24hr (0-150) H 05/12/22 19:55 Urine Total Protein 5.9 mg/dL (0-150) 05/12/22 19:55 Serum Ketones Positive (Negative) H 05/09/22 15:40 IgA TNP 05/09/22 19: ISABELLA IFA Animal Tis Res Negative (NEGATIVE) 05/09/22: LINDA-1 Antibody <1.0 neg AI (<1.0 NEG) 05/09/22 19: SS-A Antibody <1.0 neg AI (<1.0 NEG) 05/09/22: SS-B Antibody <1.0 neg AI (<1.0 NEG) 05/09/22: Sm (Frazier) Antibody <1.0 neg AI (<1.0 NEG) 05/09/22: DRIVER MANAGER Antibody <1.0 neg AI (<1.0 NEG) 05/09/22: Scl-70 Antibody <1.0 neg AI (<1.0 NEG) 05/09/22: Anti-ds DNA IgG (Cr[place]) Negative (NEGATIVE) 05/09/22: Centromere B Antibody <1.0 neg AI (<1.0 NEG) 05/09/22: Tiss Transglutamin IgG <1.0 U/mL 05/09/22: Tiss Transglutamin IgA <1.0 U/mL 05/09/22 Thyroid Peroxidase Ab 5 IU/mL (<9) 05/09/22 Anti-Gliadin IgG ARBEN Res 1.4 U/mL 05/09/22: Anti-Gliad IgA ARBEN Res 2.0 U/mL 05/09/22: Complement C3c 183 mg/dL (82-185) 05/09/22: Complement C4c 36 mg/dL (15-53) 05/09/22: CH50 Classical Pathway TNP 05/09/22 19: Vitals Last Vital Signs Temp 98.3 F 05/14/22 04:00 Pulse 58 L 05/14/22 08:00 Resp 14 05/14/22 08:00 BP 124/82 05/14/22 08:00 Pulse Ox 97 05/14/22 08:00 O2 Del Method 05/14/22 04:00 Discharge Plan Discharge Patient Disposition: Home Condition: Stable Prescriptions: New Magtab 84 mg Tablet Extended Release 84 mg PO DAILY 30 Days Qty: 30 0RF hydrocodone-acetaminophen 10-325 mg tablet 1 tab PO Q4H PRN (Reason: pain) 7 Days Qty: 42 0RF Continued cholecalciferol (vitamin D3) 5,000 unit capsule 5,000 unit PO DAILY rosuvastatin 5 mg tablet 5 mg PO DAILY (DME) flash glucose sensor Kit See Rx Instructions .ROUTE .MEDSUPPLY Qty: 1 Rx Instructions: As directed fenofibrate micronized 134 mg capsule 134 mg PO BID Qty: 90 1RF Humalog KwikPen Insulin 200 unit/mL (3 mL) insulin pen See Rx Instructions SUBCUT DAILY Rx Instructions: 15units plus sliding scale, 3 times daily with meal, SUBCUT daily; magnesium citrate Solution 300 ml PO DAILY PRN (Reason: constipation) Qty: 296 0RF ramelteon 8 mg tablet See Rx Instructions .ROUTE .COMPLEX Qty: 30 0RF Dose Instruction: TAKE 1 TABLET BY MOUTH EVERY NIGHT Rx Instructions: TAKE 1 TABLET BY MOUTH EVERY NIGHT ezetimibe 10 mg tablet 10 mg PO DAILY calcitriol 0.5 mcg Capsule 0.5 mcg PO DAILY metformin 1,000 mg Tablet 1,000 mg PO BID Vitamin D2 1,250 mcg (50,000 unit) Capsule 50,000 unit PO .TWICE A WEEK albuterol sulfate 90 mcg/actuation Hfa Aerosol Inhaler 2 puff inhalation Q6H PRN (Reason: Shortness Of Breath) fluoxetine 20 mg capsule 20 mg PO DAILY naproxen 500 mg Tablet 500 mg PO BID PRN (Reason: Pain) Lovaza 1 gram Capsule 4 cap PO DAILY Creon 3,000-9,500- 15,000 unit capsule,delayed release(DR/EC) 1 cap PO BID PRN (Reason: unknown) Rx Instructions: do not exceed 10,000 unit/kg lipase per 24 hrs multivitamin Tablet 1 tab PO DAILY ondansetron HCl 4 mg tablet 4 mg PO Q6H PRN (Reason: nausea and vomiting) 7 Days Qty: 28 0RF Reglan 5 mg tablet 5 mg PO Q8H PRN (Reason: breakthrough nausea) 7 Days Qty: 21 0RF promethazine 25 mg tablet 25 mg PO TID PRN (Reason: nausea and vomiting) 7 Days Qty: 21 1RF Changed Toujeo SoloStar U-300 Insulin 300 unit/mL (1.5 mL) Insulin Pen 30 unit SUBCUT BEDTIME Qty: 4.5 0RF Rx Instructions: do 30 units tonight, then as appetite improves increase to home dose of 54 at bedtime Discontinued oxycodone 5 mg tablet 5 mg PO Q6H PRN (Reason: pain) 7 Days Qty: 28 0RF Discharge Orders: Discharge Order (Routine); Ordered 05/14/22 Ordered By: Kin Greer Referrals: Gideon Arambula MD [Referring] - 1 month (nephrotic syndrome) Kin Greer MD [Primary Care Provider] - Discharge Diet: As Directed Discharge Activity: Resume usual activity Patient Instructions: Low Fat Diet (DC), Clear Liquid Diet (DC), Opioid Safety (DC), Type 2 Diabetes Management for Adolescents (DC), What to Do if Your Blood Sugar is Low (DC), Opioid Safety Activity Restrictions/Additional Instructions: -For now continue Toujeo, 30 units at bedtime, as her appetite improves, and her blood sugars can tolerate it, increased to can increase it back to her home dose of 54 units at bedtime -Monitor for hypoglycemia events -Please monitor your blood sugars closely -Monitor your blood sugars 3 times daily as after meals -Please record your blood sugars, and a blood sugar log -If your blood sugar is greater than 500 go to the emergency room -If your blood sugar is less than 60 or at anytime you feel lightheaded or dizzy or diaphoretic or have chest palpitations check your blood sugar, and eat a hard candy or drink orange juice and go immediately to the emergency room -Remember hypoglycemia kills, so if his blood sugar is less than 60 we have to increase it by taking in a sugary meal such as a hard candy or orange juice and go to the emergency room -If you have any questions please call us where here to help -Please use pain medication sparingly, do not drive or operate machinery or drink while taking medication -Please use nausea medication as prescribed Discharge Attestations Time Spent in Discharge Care*: greater than 30 min Quality Metrics Clinical Quality Measures [ No reported AMI, CVA or VTE this stay] Coding Level of Care Code 95995 Total time (in minutes) for Discharge: 40 Diagnoses Acute on chronic pancreatitis K85.90; K86.1 Hyperlipidemia E78.2 Hyperlipidemia type: moderate mixed hyperlipidemia not requiring statin therapy Diabetic ketoacidosis E11.10 Nausea R11.0 Lipodystrophy E88.1 Familial hypertriglyceridemia E78.1 Overweight (BMI 25.0-29.9) E66.3 Intractable pain R52 Intractable nausea and vomiting R11.2
--- NOTE | 2022-05-14 09:58 | PC.CHAP ---
Pastoral Care Encounter/Spiritual Assessment Type of Contact [] Declined boot and shoe laborer visit [] Patient/Family/Request visit [] Outpatient visit [] Follow-up visit [] Physician referral [] Code/Alert [x] Routine visit [] Staff referral [] Actively dying [] Patient sleeping [] Family support [] [] Out of room [] Palliative care [] [x] Receiving care in room [] Pre-surgical visit [] Trauma [] Long length of stay [x] ICU visit [] Other: Relational/Emotional Strength [] Patient feels connected with others/family/visitors/staff [] Distress [] Loneliness/isolation [] Abandonment Spirituality of Patient [] Person of Kamla [] Attends Jain of their Kamla [] Believes in Prayer [] Reads Bible or Scientologist materials [] There are Spiritual issues to be addressed Printing Plate Setter Interventions [x] Prayer [] Active listening [] Non-anxious presence [] Spiritual/emotional support [] Crisis/trauma care [] Spiritual counseling [] Bereavement support [] Provided bereavement packet [] Provided Bible/devotional materials [] Provided toy/stuffed animal, coloring book to patient or family member [] Provided Communion [] Anointing/[place] [] Salvation [x] Completed spiritual assessment [] Other: Impact on Illness or Injury [] Angry [] Fearful [] Anxious [] Often cries [] Exhaustion [] Unable to work [] Unable to attend cheondoism [] Unable to walk/stand [] Unable to read [] Unable to drive [] Unable to eat/drink [] Unable to sleep [] Unable to be with family [] Patient intubated [] Other: Summary Time spent with patient
--- NOTE | 2022-05-14 10:07 | PC.NURSE ---
Discharge instructions given per physician's orders, noted to be present and engaged during discharge education. New prescriptions sent to patient preferred pharmacy. IV removed, catheter intact. Pressure dressing applied, patient tolerated well. Patient ambulated to POV accompanied by and kids.
== END 2022-05-14 10:07 | disposition home or self-care (01) | DRG 438 ==
LOC: ER 17:28 → ICU 18:04
PROVIDERS: Admitting Provider Family Medicine; Emergency Provider General Practice; PCP Family Medicine; Visit Provider Family Medicine
DX: K85.90 Acute pancreatitis without necrosis or infection, unspecified (principal); E11.10 Type 2 diabetes mellitus with ketoacidosis without coma; K86.1 Other chronic pancreatitis; E78.1 Pure hyperglyceridemia; E11.21 Type 2 diabetes mellitus with diabetic nephropathy; Z79.891 Long term (current) use of opiate analgesic; Z79.4 Long term (current) use of insulin; Z79.84 Long term (current) use of oral hypoglycemic drugs; Z79.51 Long term (current) use of inhaled steroids; E78.5 Hyperlipidemia, unspecified; E88.1 Lipodystrophy, not elsewhere classified; G47.33 Obstructive sleep apnea (adult) (pediatric); Z87.891 Personal history of nicotine dependence
CPT/HCPCS: 36415; 36416; 36600; 74181; 80048; 80053; 80061; 81001; 82009; 82044; 82550; 82570; 82784; 82803; 82962; 83036; 83516; 83605; 83690; 83721; 83735; 84100; 84145; 84156; 84443; 84478; 85025; 85610; 85651; 86140; 86160; 86162; 86235; 86255; 86376; 87040; 96365; 96366; 96372; 96375; 96376; 99285; C9113; J1170; J1650; J1815; J1885; J2060; J2405; J2543; J2550; J2765; J7030; J7050; J7060

== ENCOUNTER 2022-06-04 23:31 | Inpatient (IN) | payer BC, SELFPAY ==
[2022-06-04 23:38] VITALS: BP 146/89; PULSE 91; RESP 18; TEMP 36.8; O2SAT 99; BMI 28.5
[2022-06-05] VITALS (51 sets, daily range): BP systolic 126–177; BP diastolic 60–114; PULSE 90–127; RESP 16–26; TEMP 36.8–37.8; O2SAT 90–99; BMI 30.1
[2022-06-05] MEDS: sodium chloride 0.9% 1,000 ML 999 ML IV ×2 (00:33→01:55)
[2022-06-05] MEDS: ondansetron 2 mg/ML SDV 2 mL 4 MG IVP ×3 (00:33→06:11)
--- NOTE | 2022-06-05 00:34 | W.ED.ABDPA2 ---
Documented by User: DOUGIE Hernandez 06/05/22 02:54 HPI - Abdominal Pain General: Chief Complaint: Abdominal Pain Stated Complaint: chronic pancreatitis, pain Time Seen by Provider: 06/04/22 23:34 History of Present Illness: 36-year-old male patient comes in with complaints of exacerbation of pancreatitis. Patient does have a history of type 1 diabetes, hypertriglyceridemia, recurrent pancreatitis and obesity. Patient reports for last 2 days he has had an increase in his pain and discomfort. Patient was seen in the primary care office this morning and was given 1 L of IV fluids. Patient's had worsening pain and discomfort which brought him into the emergency room tonight. Patient reports his blood glucose has been in the 200s. Patient appears nontoxic. Patient appears in mild to moderate pain. Patient has had a cholecystectomy. Associated Symptoms: Reports vomiting; Denies fever(s) Review of Systems General: Reports: 10 or more systems reviewed and unremarkable except in HPI and below Const: Denies: fever(s) Eyes: Denies: change in vision Card: Denies: chest pain Resp: Denies: dyspnea GI: Reports: abdominal pain and vomiting : Denies: flank pain Skin/Breast: Denies: rash PFSH ED PFSH: Medical History (Updated 06/05/22 @ 04:23 by Morgan Doran DO) Acute on chronic pancreatitis Acute pancreatitis Dehydration Diabetes Familial hypertriglyceridemia GERD (gastroesophageal reflux disease) History of pancreatitis Hyperlipidemia Hypertension Insomnia Insulin dependent type 2 diabetes mellitus Lower respiratory infection Nausea Obesity (BMI 30.0-34.9) LESLY (obstructive sleep apnea) Pseudohyponatremia Recurrent pancreatitis Shortness of breath Surgical History History of cholecystectomy History of knee surgery arthroscopic left knee Family History (Updated 05/09/22 @ 18:21 by Kin Greer MD) Other CAD (coronary artery disease) Hyperlipidemia Social History (Updated 05/09/22 @ 18:21 by Kin Greer MD) Smoking and tobacco status: former smoker Alcohol intake: never Physical Exam Const: COMMON NORMALS: alert HENMT: COMMON NORMALS: normocephalic HEAD & SCALP: normocephalic Neck/C-Spine: COMMON NORMALS: full ROM Resp: COMMON NORMALS: normal respiratory effort and clear to auscultation bilaterally AUSCULTATION: clear to auscultation bilaterally Cardio: COMMON NORMALS: regular rate and regular rhythm RATE: regular rate RHYTHM: regular rhythm GI: COMMON NORMALS: Soft to palpation AUSCULTATION: Yes normoactive bowel sounds PALPATION: Yes Soft to palpation and Yes Tenderness to palpation present (GI) (Epigastric) Extremity: COMMON NORMALS: normal to inspection and no pedal edema Neuro: SENSORIUM/ORIENTATION: Yes alert Skin: COMMON NORMALS: turgor normal GENERAL SKIN EXAM: turgor normal Course Vital Signs: Vital signs: Vital Signs Temperature 98.3 F 06/04/22 23:38 Pulse Rate 114 H 06/05/22 04:30 Respiratory Rate 20 H 06/05/22 04:30 Blood Pressure 149/114 06/05/22 04:30 Pulse Oximetry 94 06/05/22 04:30 MDM - Abdominal Pain Medical Decision Making 36-year-old male patient comes in today with complaints of epigastric pain and nausea and vomiting. Patient appears nontoxic. Patient's abdomen soft with mid abdominal tenderness. Vital signs are normal except for some elevation in blood pressure. Differential diagnosis includes but not limited to pancreatitis, gastroenteritis, DKA, dehydration. Lab Data 06/05/22 00:38 06/05/22 00:38 Labs/Radiology: Radiology Impressions Abdomen/Pelvis CT 06/05/22 01:49 IMPRESSION: 1. Diffuse inflammatory changes surround the pancreas and extend into the root of the mesentery, findings compatible with pancreatitis. 2. Inflammatory changes surround the proximal duodenum likely representing duodenitis as well. 3. Patchy irregular hypoattenuation seen within the pancreatic parenchyma within the body and tail raising some suspicion for necrotizing pancreatitis. 4. Probable reactive retroperitoneal lymphadenitis 5. Normal appendix . 6. Diverticulosis of the sigmoid colon 7. Small left inguinal hernia containing some fluid. 8. Hepatomegaly Chest X-Ray 06/05/22 04:20 IMPRESSION: No acute findings. Laboratory Results WBC 14.3 10^3/uL (4.0-10.0) H 06/05/22 00:38 RBC 5.47 10^6/uL (4.1-5.3) H 06/05/22 00:38 Hgb 16.4 g/dL (11.7-16.6) 06/05/22 00:38 Hct 44.4 % (42.0-52.0) 06/05/22 00:38 MCV 81.2 fl (80-94) 06/05/22 00:38 MCH 30.0 pg (28.0-34.0) 06/05/22 00:38 MCHC 36.9 g/dL (30.0-36.0) H 06/05/22 00:38 RDW 13.3 % (12.1-15.1) 06/05/22 00:38 Plt Count 214 10^3/cmm (130-400) 06/05/22 00:38 MPV 11.8 fL (7.4-10.4) H 06/05/22 00:38 Neut % (Auto) 81.2 % 06/05/22 00:38 Lymph % (Auto) 12.7 % 06/05/22 00:38 [place] % (Auto) 4.2 % 06/05/22 00:38 Eos % (Auto) 1.1 % 06/05/22 00:38 Baso % (Auto) 0.4 % 06/05/22 00:38 Neut # (Auto) 11.56 10^3/uL (1.8-7.7) H 06/05/22 00:38 Lymph # (Auto) 1.8 10^3/uL (0.8-4.8) 06/05/22 00:38 [place] # (Auto) 0.6 10^3/uL (0.2-0.9) 06/05/22 00:38 Eos # (Auto) 0.2 10^3/uL (0.0-0.8) 06/05/22 00:38 Baso # (Auto) 0.1 10^3/uL (0.0-0.1) 06/05/22 00:38 Nucleated RBC % (auto) 0 % 06/05/22 00:38 Nucleated RBCs # 0.0 /100WBC 06/05/22 00:38 PT 14.00 SECONDS (12.1-14.9) 06/05/22 00:38 INR 1.05 (0.8-1.2) 06/05/22 00:38 Sodium 127 mmol/L (136-145) L 06/05/22 00:38 Potassium 4.0 mmol/L (3.5-5.1) 06/05/22 00:38 Chloride 91 mmol/L (98-107) L 06/05/22 00:38 Carbon Dioxide 23 mmol/L (22-29) 06/05/22 00:38 Anion Gap 17.0 (5-19) 06/05/22 00:38 BUN 17 mg/dL (6-20) 06/05/22 00:38 Creatinine 0.5 mg/dL (0.7-1.2) L 06/05/22 00:38 GFR Calculation 190.3 mL/min (90-130) H 06/05/22 00:38 Glucose 227 mg/dL (65-115) H 06/05/22 00:38 Calculated Osmolality 273 mOsm/kg (285-295) L 06/05/22 00:38 Calcium 9.3 mg/dL (8.5-10.5) 06/05/22 00:38 Total Bilirubin 0.3 mg/dL (0.15-1.2) 06/05/22 00:38 AST 14 U/L (0-40) 06/05/22 00:38 ALT 30 U/L (0-41) 06/05/22 00:38 Alkaline Phosphatase 77 U/L (40-130) 06/05/22 00:38 Total Protein 3.1 g/dL (6.6-8.7) L 06/05/22 00:38 Albumin 4.1 g/dL (3.5-5.2) 06/05/22 00:38 Globulin -1.0 g/dL (1.3-4.6) L 06/05/22 00:38 Triglycerides 3985 mg/dL (0-150) H 06/05/22 00:38 LDL Cholesterol Direct 63 mg/dL (0-100) 06/05/22 00:38 Lipase 766 U/L (13-60) H 06/05/22 00:38 Urine Color Yellow (Yellow) 06/05/22 03:24 Urine Appearance Clear (CLEAR) 06/05/22 03:24 Urine pH 5 (5-7) 06/05/22 03:24 Ur Specific [place] 1.010 (1.005-1.030) 06/05/22 03:24 Urine Protein 1+ (Negative) H 06/05/22 03:24 Urine Glucose (UA) 4+ (Normal) H 06/05/22 03:24 Urine Ketones 1+ (Negative) H 06/05/22 03:24 Urine Blood Neg (Negative) 06/05/22 03:24 Urine Nitrate Negative (Negative) 06/05/22 03:24 Urine Bilirubin Neg (Negative) 06/05/22 03:24 Urine Urobilinogen Norm mg/dL (Negative) 06/05/22 03:24 Ur Leukocyte Esterase Negative (Negative) 06/05/22 03:24 Urine RBC 0-4 /hpf (0-2) H 06/05/22 03:24 Urine WBC 0-4 /hpf (0-5) H 06/05/22 03:24 Ur Squamous Epith Cells 0-4 /hpf (0-5) H 06/05/22 03:24 Amorphous Sediment Not Reportable 06/05/22 03:24 Urine Bacteria Trace /hpf (NONE) 06/05/22 03:24 Discharge Plan Discharge Patient Disposition: Admitted As Inpatient Admit Provider: Raul Mcadams Clinical Impression: Pancreatitis Condition: Stable Coding Level of Care Code ED Technical Services Consultant for [facility] Documented by User: Morgan Doran DO 06/05/22 05:26 HPI - Abdominal Pain General: Chief Complaint: Abdominal Pain Stated Complaint: chronic pancreatitis, pain Time Seen by Provider: 06/04/22 23:34 PFSH ED PFSH: Medical History (Updated 06/05/22 @ 04:23 by Morgan Doran DO) Acute on chronic pancreatitis Acute pancreatitis Dehydration Diabetes Familial hypertriglyceridemia GERD (gastroesophageal reflux disease) History of pancreatitis Hyperlipidemia Hypertension Insomnia Insulin dependent type 2 diabetes mellitus Lower respiratory infection Nausea Obesity (BMI 30.0-34.9) LESLY (obstructive sleep apnea) Pseudohyponatremia Recurrent pancreatitis Shortness of breath Surgical History History of cholecystectomy History of knee surgery arthroscopic left knee Family History (Updated 05/09/22 @ 18:21 by Kin Greer MD) Other CAD (coronary artery disease) Hyperlipidemia Social History (Updated 05/09/22 @ 18:21 by Kin Greer MD) Smoking and tobacco status: former smoker Alcohol intake: never Course Consultations: Consultation #1: [place] Vital Signs: Vital signs: Vital Signs Temperature 98.3 F 06/04/22 23:38 Pulse Rate 114 H 06/05/22 04:30 Respiratory Rate 20 H 06/05/22 04:30 Blood Pressure 149/114 06/05/22 04:30 Pulse Oximetry 94 06/05/22 04:30 MDM - Abdominal Pain Medical Decision Making 36-year-old male patient comes in today with complaints of epigastric pain and nausea and vomiting. Patient appears nontoxic. Patient's abdomen soft with mid abdominal tenderness. Vital signs are normal except for some elevation in blood pressure. Differential diagnosis includes but not limited to pancreatitis, gastroenteritis, DKA, dehydration. This patient was originally seen by DOUGIE Gonzalez.? I agree with his history, evaluation, and treatment. His exam was not overly impressive. His heart rate is 90. His blood pressure is hypertensive. He does have a leukocytosis of 14. INR is 1. Triglycerides are significantly elevated at 3900. There is no DKA. He has used up quite a bit of pain medication in the emergency room to control his symptoms. He has vomited a couple times. CT revealed muriatic inflammation with diffuse patchy areas that could resemble necrotizing pancreatitis although this is hard to say. His lipase is elevated at 766. Spoke with the hospitalist. Patients who are proven to have necrotizing fasciitis must fail 7 to 10 days with conservative management it appears. He will be admitted for conservative management of pancreatitis. Lab Data 06/05/22 00:38 06/05/22 00:38 Labs/Radiology: Radiology Impressions Abdomen/Pelvis CT 06/05/22 01:49 IMPRESSION: 1. Diffuse inflammatory changes surround the pancreas and extend into the root of the mesentery, findings compatible with pancreatitis. 2. Inflammatory changes surround the proximal duodenum likely representing duodenitis as well. 3. Patchy irregular hypoattenuation seen within the pancreatic parenchyma within the body and tail raising some suspicion for necrotizing pancreatitis. 4. Probable reactive retroperitoneal lymphadenitis 5. Normal appendix . 6. Diverticulosis of the sigmoid colon 7. Small left inguinal hernia containing some fluid. 8. Hepatomegaly Chest X-Ray 06/05/22 04:20 IMPRESSION: No acute findings. Laboratory Results WBC 14.3 10^3/uL (4.0-10.0) H 06/05/22 00:38 RBC 5.47 10^6/uL (4.1-5.3) H 06/05/22 00:38 Hgb 16.4 g/dL (11.7-16.6) 06/05/22 00:38 Hct 44.4 % (42.0-52.0) 06/05/22 00:38 MCV 81.2 fl (80-94) 06/05/22 00:38 MCH 30.0 pg (28.0-34.0) 06/05/22 00:38 MCHC 36.9 g/dL (30.0-36.0) H 06/05/22 00:38 RDW 13.3 % (12.1-15.1) 06/05/22 00:38 Plt Count 214 10^3/cmm (130-400) 06/05/22 00:38 MPV 11.8 fL (7.4-10.4) H 06/05/22 00:38 Neut % (Auto) 81.2 % 06/05/22 00:38 Lymph % (Auto) 12.7 % 06/05/22 00:38 [place] % (Auto) 4.2 % 06/05/22 00:38 Eos % (Auto) 1.1 % 06/05/22 00:38 Baso % (Auto) 0.4 % 06/05/22 00:38 Neut # (Auto) 11.56 10^3/uL (1.8-7.7) H 06/05/22 00:38 Lymph # (Auto) 1.8 10^3/uL (0.8-4.8) 06/05/22 00:38 [place] # (Auto) 0.6 10^3/uL (0.2-0.9) 06/05/22 00:38 Eos # (Auto) 0.2 10^3/uL (0.0-0.8) 06/05/22 00:38 Baso # (Auto) 0.1 10^3/uL (0.0-0.1) 06/05/22 00:38 Nucleated RBC % (auto) 0 % 06/05/22 00:38 Nucleated RBCs # 0.0 /100WBC 06/05/22 00:38 PT 14.00 SECONDS (12.1-14.9) 06/05/22 00:38 INR 1.05 (0.8-1.2) 06/05/22 00:38 Sodium 127 mmol/L (136-145) L 06/05/22 00:38 Potassium 4.0 mmol/L (3.5-5.1) 06/05/22 00:38 Chloride 91 mmol/L (98-107) L 06/05/22 00:38 Carbon Dioxide 23 mmol/L (22-29) 06/05/22 00:38 Anion Gap 17.0 (5-19) 06/05/22 00:38 BUN 17 mg/dL (6-20) 06/05/22 00:38 Creatinine 0.5 mg/dL (0.7-1.2) L 06/05/22 00:38 GFR Calculation 190.3 mL/min (90-130) H 06/05/22 00:38 Glucose 227 mg/dL (65-115) H 06/05/22 00:38 Calculated Osmolality 273 mOsm/kg (285-295) L 06/05/22 00:38 Calcium 9.3 mg/dL (8.5-10.5) 06/05/22 00:38 Total Bilirubin 0.3 mg/dL (0.15-1.2) 06/05/22 00:38 AST 14 U/L (0-40) 06/05/22 00:38 ALT 30 U/L (0-41) 06/05/22 00:38 Alkaline Phosphatase 77 U/L (40-130) 06/05/22 00:38 Total Protein 3.1 g/dL (6.6-8.7) L 06/05/22 00:38 Albumin 4.1 g/dL (3.5-5.2) 06/05/22 00:38 Globulin -1.0 g/dL (1.3-4.6) L 06/05/22 00:38 Triglycerides 3985 mg/dL (0-150) H 06/05/22 00:38 LDL Cholesterol Direct 63 mg/dL (0-100) 06/05/22 00:38 Lipase 766 U/L (13-60) H 06/05/22 00:38 Urine Color Yellow (Yellow) 06/05/22 03:24 Urine Appearance Clear (CLEAR) 06/05/22 03:24 Urine pH 5 (5-7) 06/05/22 03:24 Ur Specific [place] 1.010 (1.005-1.030) 06/05/22 03:24 Urine Protein 1+ (Negative) H 06/05/22 03:24 Urine Glucose (UA) 4+ (Normal) H 06/05/22 03:24 Urine Ketones 1+ (Negative) H 06/05/22 03:24 Urine Blood Neg (Negative) 06/05/22 03:24 Urine Nitrate Negative (Negative) 06/05/22 03:24 Urine Bilirubin Neg (Negative) 06/05/22 03:24 Urine Urobilinogen Norm mg/dL (Negative) 06/05/22 03:24 Ur Leukocyte Esterase Negative (Negative) 06/05/22 03:24 Urine RBC 0-4 /hpf (0-2) H 06/05/22 03:24 Urine WBC 0-4 /hpf (0-5) H 06/05/22 03:24 Ur Squamous Epith Cells 0-4 /hpf (0-5) H 06/05/22 03:24 Amorphous Sediment Not Reportable 06/05/22 03:24 Urine Bacteria Trace /hpf (NONE) 06/05/22 03:24 Discharge Plan Discharge Patient Disposition: Admitted As Inpatient Admit Provider: Raul Mcadams Clinical Impression: Pancreatitis Condition: Stable Coding Level of Care Code ED Technical Services Consultant for [place] [place]
[2022-06-05] MEDS: HYDROmorphone 1 mg/mL INJ 1 mL IVP ×10 (00:41→21:36)
[2022-06-05 00:44] LABS: Basophils # 0.1 10^3/uL (0.0-0.1); Basophils % 0.4 %; Eosinophils # 0.2 10^3/uL (0.0-0.8); Eosinophils % 1.1 %; Hematocrit 44.4 % (42.0-52.0); Hemoglobin 16.4 g/dL (11.7-16.6); Lymphocytes # 1.8 10^3/uL (0.8-4.8); Lymphocytes % 12.7 %; Mean Corpuscular HGB Conc 36.9 g/dL (30.0-36.0); Mean Corpuscular Volume 81.2 fl (80-94); Mean Platelet Volume 11.8 fL (7.4-10.4); Monocytes # 0.6 10^3/uL (0.2-0.9); Monocytes % 4.2 %; Neutrophils # 11.56 10^3/uL (1.8-7.7); Neutrophils % 81.2 %; Nucleated Red Blood Cells % 0 %; Platelet Count 214 10^3/cmm (130-400); Red Blood Count 5.47 10^6/uL (4.1-5.3); Red Cell Distribution Width 13.3 % (12.1-15.1); White Blood Count 14.3 10^3/uL (4.0-10.0)
[2022-06-05 01:02] LABS: Alkaline Phosphatase 77 U/L (40-130); Carbon Dioxide 23 mmol/L (22-29); Chloride 91 mmol/L (98-107); Sodium 127 mmol/L (136-145); Total Protein 3.1 g/dL (6.6-8.7)
[2022-06-05 01:14] LABS: Blood Urea Nitrogen 17 mg/dL (6-20); Glomerular Filtration Rate 190.3 mL/min (90-130)
[2022-06-05 01:33] LABS: Lipase 766 U/L (13-60)
[2022-06-05 01:34] LABS: Calcium 9.3 mg/dL (8.5-10.5); Glucose 227 mg/dL (65-115); Osmolality Calculated 273 mOsm/kg (285-295); Total Bilirubin 0.3 mg/dL (0.15-1.2)
[2022-06-05 01:42] LABS: Albumin Level 4.1 g/dL (3.5-5.2)
--- NOTE | 2022-06-05 01:49 | CTR_ITS ---
PROCEDURE INFORMATION: Exam: CT Abdomen And Pelvis With Contrast Exam date and time: 06/05/2022 2:02 AM Age: 36 years old Clinical indication: Abdominal pain; Epigastric; Prior surgery; Surgery date: 6+ months; Surgery type: Cholecytectomy; Additional info: Pancreatitis R/O abscess TECHNIQUE: Imaging protocol: Computed tomography of the abdomen and pelvis with contrast. Radiation optimization: All CT scans at this facility use at least one of these dose optimization techniques: automated exposure control; mA and/or kV adjustment per patient size (includes targeted exams where dose is matched to clinical indication); or iterative reconstruction. Contrast material: OMNI 350; Contrast volume: 100 ml; Contrast route: INTRAVENOUS (IV); REPORTING DATA: Count of CT and Cardiac NM exams in prior 12 months: This patient has received 2 known CTs and 0 known cardiac nuclear medicine studies in the 12 months prior to the current study. COMPARISON: MR MRCP [id number] 05/10/2022 4:53 PM RADIATION DOSE METRICS: Total DLP (mGy-cm): 1020.44 FINDINGS: Liver: The liver is prominent measuring 27 cm craniocaudal dimension. Gallbladder and bile ducts: Status post cholecystectomy. Pancreas: Patchy low attenuation seen within the pancreatic parenchyma in the body and tail. Although this could represent developing pseudocyst formation, necrotizing pancreatitis cannot be entirely excluded. Spleen: Normal. No splenomegaly. Adrenal glands: Normal. No mass. Kidneys and ureters: Normal. No hydronephrosis. Stomach and bowel: Hazy and strandy opacities are seen adjacent to the proximal duodenum likely representing duodenitis as well. There are diverticula seen on the sigmoid colon. There are no inflammatory changes present to suggest diverticulitis. Appendix: The appendix is visualized and is normal in configuration. Intraperitoneal space: See Soft tissues finding. Vasculature: Unremarkable. No abdominal aortic aneurysm. Lymph nodes: Mildly prominent retroperitoneal lymph nodes are seen that are below CT criteria for lymphadenopathy. These likely represent reactive lymph nodes. Urinary bladder: Unremarkable as visualized. Reproductive: Unremarkable as visualized. Bones/joints: Unremarkable. No acute fracture. Soft tissues: Diffuse hazy in strandy opacities are seen in the peripancreatic fat and fascia and seen along drug is fascia the left, findings compatible with inflammatory changes and pancreatitis. [place] hazy opacities extend along the root of the mesentery compatible with inflammatory changes as well. There is a small left inguinal hernia present containing some fluid. CT/CT abdomen pelvis w con* [id number] IMPRESSION: 1. Diffuse inflammatory changes surround the pancreas and extend into the root of the mesentery, findings compatible with pancreatitis. 2. Inflammatory changes surround the proximal duodenum likely representing duodenitis as well. 3. Patchy irregular hypoattenuation seen within the pancreatic parenchyma within the body and tail raising some suspicion for necrotizing pancreatitis. 4. Probable reactive retroperitoneal lymphadenitis 5. Normal appendix . 6. Diverticulosis of the sigmoid colon 7. Small left inguinal hernia containing some fluid. 8. Hepatomegaly
[2022-06-05] MEDS: iohexol 350 mg/mL 500 mL Btl (per mL) IV (01:51)
[2022-06-05 02:19] LABS: Triglycerides 3985 mg/dL (0-150)
[2022-06-05 02:31] LABS: LDL Cholesterol Direct 63 mg/dL (0-100)
[2022-06-05 02:41] LABS: Alanine Aminotransferase 30 U/L (0-41); Aspartate Amino Transferase 14 U/L (0-40)
[2022-06-05] MEDS: fentaNYL 50 mcg/mL INJ 2mL IVP (03:02)
[2022-06-05] MEDS: oxymetazoline 0.05% Nasal Spray 15 mL 2 SPRAY NOSTRIL-B (03:25)
[2022-06-05 03:45] LABS: Add Urine Microscopic? YES; Bilirubin Urine Neg (Negative); Blood Urine Neg (Negative); Glucose Urine UA 4+ (Normal); Ketones Urine 1+ (Negative); Leukocyte Esterase Urine Negative (Negative); Nitrate Urine Negative (Negative); Protein Urine 1+ (Negative); Urine Appearance Clear (CLEAR); Urine Color Yellow (Yellow); Urobilinogen Urine Norm (Negative); pH Urine 5 (5-7)
[2022-06-05 03:46] LABS: Add Urine Culture? No; Bacteria Urine TRACE /hpf; RBC Urine 0-4 /hpf (0-2); Squamous Epithelial Cell Urine 0-4 /hpf (0-5); WBC Urine 0-4 /hpf (0-5)
[2022-06-05] MEDS: haloperidol inj 5 mg/mL INJ 1 mL IVP (04:00)
[2022-06-05 04:02] LABS: INR 1.05 (0.8-1.2)
--- NOTE | 2022-06-05 04:20 | XRR_ITS ---
PROCEDURE INFORMATION: Exam: XR Chest Exam date and time: 06/05/2022 4:30 AM Age: 36 years old Clinical indication: Other: Leukocytosis, pancreatitis; Additional info: Pancreatitis, leukocytosis TECHNIQUE: Imaging protocol: Radiologic exam of the chest. Views: 1 view. COMPARISON: CT chest w con* [id number] 04/14/2017 12:53 PM FINDINGS: Lungs: Unremarkable. No consolidation. Pleural spaces: Unremarkable. No pleural effusion. No pneumothorax. Heart/Mediastinum: Unremarkable. No cardiomegaly. Bones/joints: Unremarkable. XR/XR chest 1V portable [id number] IMPRESSION: No acute findings.
[2022-06-05] MEDS: sodium chloride 0.9% 1,000 ML 150 ML IV (05:13)
--- NOTE | 2022-06-05 05:32 | P.HP_ITS ---
Providers/Chief Complaint Admitting Physician: Raul Mcadams Primary Care Provider: Kin Greer MD Chief Complaint: chronic pancreatitis, pain History of Present Illness 36-year-old gentleman with recurrent pancreatitis, recently admitted 05/09-05/14 with acute pancreatitis, with IDDM, A1c 10.1, but also hypertriglyceridemia 3400, has been on fenofibrate, niacin at home. He is making arrangements to get enrolled in clinical trial at [facility] awaiting reassessment in about a month. Request for admission was made from ER where he presented with 2 days of abdominal pain, discomfort, hyperglycemia. He has been having some productive cough. On assessment in ER he is found to be in acute pancreatitis, with lipase elevated at 766, again hypertriglyceridemia with 3985 triglyceride level. Sodium 127. Glucose 227. He states that he has not missed any of his medi cations. Does not drink alcohol, does not smoke, chews tobacco. Has history of cholecystectomy. Liver parameters chest x-ray and UA are unremarkable. CT abdomen pelvis with diffuse inflammatory changes surrounding the pancreas and extending into the root of the mesentery, findings compatible with pancreatitis. Inflammatory changes surrounding proximal duodenum likely presenting duodenitis. Patchy irregular hypoattenuation seen within pancreatic parenchyma within the body and tail raising some suspicion of necrotizing pancreatitis. Probable reactive retroperitoneal lymph adenitis. Normal appendix. Diverticulosis of sigmoid colon. Small left inguinal hernia containing some fluid. Hepatomegaly. Findings were discussed with him by ER physician, he is okay for admission here. Medications/Allergies Home Medications Medication Instructions Recorded Confirmed Last Taken Type cholecalciferol (vitamin D3) 125 5,000 unit PO DAILY 04/02/19 05/18/22 03/19/22 History mcg (5,000 unit) capsule fenofibrate micronized 134 mg 134 mg PO BID #90 caps 01/29/20 05/18/22 03/19/22 Rx capsule flash glucose sensor #1 ea 01/29/20 05/18/22 Unknown History insulin lispro 200 unit/mL (3 mL) See Rx Instructions SUBCUT DAILY 01/29/20 05/18/22 03/19/22 History subcutaneous pen (Humalog KwikPen U-200 Insulin) rosuvastatin 5 mg tablet 5 mg PO DAILY 05/19/21 05/18/22 03/19/22 History magnesium citrate 300 ml PO DAILY PRN constipation 10/02/21 05/18/22 Unknown Rx #296 mL ezetimibe 10 mg tablet 10 mg PO DAILY 03/20/22 05/18/22 03/19/22 History albuterol sulfate 90 mcg/actuation 2 puff inhalation Q6H PRN 05/10/22 05/18/22 Unknown History aerosol inhaler Shortness Of Breath calcitriol 0.5 mcg capsule 0.5 mcg PO DAILY 05/10/22 05/18/22 Unknown History ergocalciferol (vitamin D2) 1,250 50,000 unit PO .TWICE A WEEK 05/10/22 05/18/22 Unknown History mcg (50,000 unit) capsule (Vitamin D2) fluoxetine 20 mg capsule 20 mg PO DAILY 05/10/22 05/18/22 Unknown History lipase 3,000-protease 1 cap PO BID PRN unknown 05/10/22 05/18/22 Unknown History 9,500-amylase 15,000 unit capsule, delayed rel (Creon) metformin 1,000 mg tablet 1,000 mg PO BID 05/10/22 05/18/22 Unknown History multivitamin 1 tab PO DAILY 05/10/22 05/18/22 Unknown History naproxen 500 mg tablet 500 mg PO BID PRN Pain 05/10/22 05/18/22 Unknown History omega-3 acid ethyl esters 1 gram 4 cap PO DAILY 05/10/22 05/18/22 Unknown History capsule (Lovaza) magnesium L-lactate 84 mg 84 mg PO DAILY 30 days #30 tabs 05/14/22 05/18/22 Unknown Rx tablet,extended release (Magtab) metoclopramide HCl 5 mg tablet 5 mg PO Q8H PRN breakthrough 05/14/22 05/18/22 Unknown Rx (Reglan) nausea 7 days #21 tabs ondansetron HCl 4 mg tablet 4 mg PO Q6H PRN nausea and 05/14/22 05/18/22 Unknown Rx vomiting 7 days #28 tabs promethazine 25 mg tablet 25 mg PO TID PRN nausea and 05/14/22 05/18/22 Unknown Rx vomiting 7 days #21 tabs insulin glargine U-300 conc 300 50 unit (0.1667 mL) SUBCUT BEDTIME 05/18/22 05/18/22 Unknown Rx unit/mL (1.5 mL) subcutaneous pen #4.5 mL (Toujeo SoloStar U-300 Insulin) ramelteon 8 mg tablet See Rx Instructions .Route 05/18/22 05/18/22 Unknown Rx .COMPLEX #30 tabs zolpidem 5 mg tablet 5 mg PO .AT BEDTIME PRN insomnia 05/18/22 05/18/22 Unknown Rx 30 days #30 tabs Allergies Allergy/AdvReac Type Severity Reaction Status Date / Time No Known Allergies Allergy Verified 05/18/22 15:40 PFSH Acute PFSH: Medical History (Updated 06/05/22 @ 06:17 by Raul Mcadams MD) Acute on chronic pancreatitis Acute pancreatitis Dehydration Diabetes Familial hypertriglyceridemia GERD (gastroesophageal reflux disease) History of pancreatitis Hyperlipidemia Hypertension Insomnia Insulin dependent type 2 diabetes mellitus Lower respiratory infection Nausea Obesity (BMI 30.0-34.9) LESLY (obstructive sleep apnea) Pseudohyponatremia Recurrent pancreatitis Shortness of breath Surgical History History of cholecystectomy History of knee surgery arthroscopic left knee Family History (Updated 05/09/22 @ 18:21 by Kin Greer MD) Other CAD (coronary artery disease) Hyperlipidemia Social History (Updated 05/09/22 @ 18:21 by Kin Greer MD) Smoking and tobacco status: former smoker Alcohol intake: never Vitals/I&O/Wt Last Vital Signs Temp 98.3 F 06/04/22 23:38 Pulse 114 H 06/05/22 04:30 Resp 22 H 06/05/22 05:31 BP 149/114 06/05/22 04:30 Pulse Ox 95 06/05/22 05:31 06/04/22 06/04/22 06/05/22 14:59 22:59 06:59 Intake Total 1999 Balance 1999 Weight last 48 hrs Weight 92.986 kg Physical Exam Const: COMMON NORMALS: patient oriented x3 and alert GENERAL APPEARANCE: cooperative ORIENTATION/CONSCIOUSNESS: Yes awake HENMT: COMMON NORMALS: oropharynx normal Neck/C-Spine: COMMON NORMALS: no JVD Resp: COMMON NORMALS: normal respiratory effort and clear to auscultation bilaterally AUSCULTATION: clear to auscultation bilaterally Cardio: COMMON NORMALS: no JVD, regular rhythm, S1 normal heart sound present, S2 normal heart sound present and No murmurs present (Cardio) RHYTHM: regular rhythm HEART SOUNDS: S1 normal heart sound present and S2 normal heart sound present GI: COMMON NORMALS: Soft to palpation PALPATION: Yes Soft to palpation and Yes Tenderness to palpation present (GI) Extremity: COMMON NORMALS: no joint enlargement and no pedal edema Neuro: COMMON NORMALS: patient oriented x3 and moves all extremities SENSORIUM/ORIENTATION: Yes alert Skin: COMMON NORMALS: no rashes or lesions noted GENERAL SKIN EXAM: no rashes or lesions noted Data 06/05/22 00:38 06/05/22 00:38 A&P Assessment and plan (1) Pancreatitis: Acute pancreatitis and duodenitis confirmed with lipase 766, on imaging resolved. Possible necrotizing pancreatitis. SIRS with leukocytosis and tachycardia. No fluid collection noted. Embolic CVA hypertriglyceridemia, triglycerides 3985. He states he has not missed any of his medications. He is trying to enroll with a medical trial with [facility]. N.p.o., insulin drip, D5 half-normal with potassium for now due to insulin drip, but reassess sodium. Continue fenofibrate. Follow-up triglycerides and lipase requested. Additionally question of IPMN as source for recurrent pancreatitis being looked into by PCP as well. (2) Familial hypertriglyceridemia: Resume other medications once resumes oral intake. (3) Hyponatremia: Possibly hypovolemic hyponatremia as she does appear slightly dry, has not been feeling well over the last several days. We will give gentle IV hydration as above. Follow-up sodium levels at intervals requested. (4) SIRS (systemic inflammatory response syndrome): Leukocytosis 14.3, sinus tachycardia 109. Suspect secondary to acute pancreatitis. He does have some productive cough that he reports, however, no pneumonia noted on chest x-ray. Viral respiratory panel collected, noted unremarkable. No fluid collections on CT pancreas. Monitor for improvement, currently less likely but on differential if not improving pancreatic infection. Collect blood culture. Plan DM2: Currently on insulin drip, continue blood glucose checks. Currently NPO. GERD HLD HTN Obesity LESLY Other medical problems. Requested medications to be confirmed, please reconcile once approval. Discussed with ER physician. ER documentation reviewed. Attestations Medical Necessity Statement*: Admission of over 2 midnights is anticipated for assessment of management of acute pancreatitis with severe hypertriglyceridemia, SIRS, hyponatremia. Diagnoses Pancreatitis K85.90 Familial hypertriglyceridemia E78.1 Hyponatremia E87.1 SIRS (systemic inflammatory response syndrome) R65.10
[2022-06-05] MEDS: insulin regular-human 250 UNIT in sodium chloride 0.9% 250 ML 6.97 UNIT IV (06:07)
[2022-06-05] MEDS: pantoprazole 40 mg SDV IVP (06:10)
[2022-06-05] MEDS: heparin 5,000 unit/mL INJ 1 mL 5000 UNIT SUBCUT ×3 (06:11→21:40)
[2022-06-05 06:16] LABS: Glucose Point of Care 290 mg/dL (70-110)
[2022-06-05 06:33] LABS: Adenovirus Not Detected (NOT DETECT); Chlamydia Pneumoniae Not Detected (NOT DETECT); Coronavirus 229E,HKU1,NL63,OC4 Not Detected (NOT DETECT); Human Metapneumovirus Not Detected (NOT DETECT); Human Rhinovirus/Enterovirus Not Detected (NOT DETECT); Influenza A Not Detected (NOT DETECT); Influenza A H1 Not Detected (NOT DETECT); Influenza A H1-2009 Not Detected (NOT DETECT); Influenza A H3 Not Detected (NOT DETECT); Influenza B Not Detected (NOT DETECT); Mycoplasma Pneumoniae Not Detected (NOT DETECT); Parainfluenza Virus Type 1 Not Detected (NOT DETECT); Parainfluenza Virus Type 2 Not Detected (NOT DETECT); Parainfluenza Virus Type 3 Not Detected (NOT DETECT); Parainfluenza Virus Type 4 Not Detected (NOT DETECT); Respiratory Syncytial Virus A Not Detected (NOT DETECT); Respiratory Syncytial Virus B Not Detected (NOT DETECT); SARS-COV-2 Not Detected (NOT DETECT)
[2022-06-05] MEDS: D5-NS 0.45% + KCL 20 mEq 20 MEQ/1,000 ML BAG 75 MEQ IV (06:46)
[2022-06-05] MEDS: metoclopramide 5 mg/mL SDV 2 mL IVP ×2 (08:12→19:40)
[2022-06-05 08:22] LABS: Glucose Point of Care 235 mg/dL (70-110)
[2022-06-05 08:22] LABS: Glucose Point of Care 262 mg/dL (70-110)
[2022-06-05] MEDS: fluoxetine 20 mg Capsule PO (09:21)
[2022-06-05] MEDS: omega-3 fatty acids 1,000 mg Capsule 2000 MG PO ×2 (09:21→17:17)
[2022-06-05] MEDS: atorvastatin 40 mg Tablet 20 MG PO (09:21)
[2022-06-05 09:40] LABS: Sodium 128 mmol/L (136-145)
[2022-06-05 10:05] LABS: Triglycerides 4118 mg/dL (0-150)
[2022-06-05] MEDS: ezetimibe 10 mg Tablet PO (10:14)
--- NOTE | 2022-06-05 10:19 | P.PN_ITS ---
Subjective Subjective: Patient was seen at morning, at bedside, he continues to have abdominal pain, not passing gas, no fevers, no chills Vitals/I&O/Wt Last Vital Signs Temp 98.7 F 06/05/22 05:05 Pulse 105 H 06/05/22 09:30 Resp 18 06/05/22 09:30 BP 137/74 06/05/22 09:30 Pulse Ox 95 06/05/22 09:30 O2 Del Method 06/05/22 09:30 06/04/22 06/05/22 06/05/22 22:59 06:59 14:59 Intake Total 1999 502.767 / 502.767 Output Total 425 / 425 Balance 1999 77.767 / 77.767 Weight last 48 hrs Weight 97.976 kg Weight 97.976 kg Weight 92.986 kg Physical Exam Const: COMMON NORMALS: no acute distress and patient oriented x3 Resp: COMMON NORMALS: normal respiratory effort, No retractions, No use of accessory muscles and clear to auscultation bilaterally AUSCULTATION: clear to auscultation bilaterally Cardio: COMMON NORMALS: regular rate, regular rhythm, S1 normal heart sound present and S2 normal heart sound present RATE: regular rate RHYTHM: regular rhythm HEART SOUNDS: S1 normal heart sound present and S2 normal heart sound present GI: OTHER: Abdomen soft, slightly distended, decreased bowel sounds, diffuse tenderness, no guarding, no rigidity Extremity: COMMON NORMALS: no clubbing, cyanosis or edema and no pedal edema Neuro: COMMON NORMALS: patient oriented x3 Psych: COMMON NORMALS: mental status grossly normal Data 06/05/22 00:38 06/05/22 08:58 Micro: Microbiology 06/05/22 06:00 Blood Culture - Preliminary Blood SPECIMEN COLLECTED 06/05/22 06:06 Blood Culture - Preliminary Blood SPECIMEN COLLECTED A&P Assessment and plan (1) Pancreatitis: (2) Familial hypertriglyceridemia: (3) Hyponatremia: (4) SIRS (systemic inflammatory response syndrome): Plan 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 -Nausea control with Zofran, Reglan, promethazine -Dilaudid 1 mg every 2 hours as needed for pain -We will consider starting Zosyn for antibiotic prophylaxis based on clinical progress -CTs scan showed possible evidence of necrotizing pancreatitis, will monitor closely, consider repeat Scanning in 24 hours -Continue fibrate, atorvastatin, omega-3 -Full code -Lovenox for DVT prophylaxis SIRS, secondary to pancreatitis, monitor Intractable nausea, vomiting, pain Hyponatremia, secondary dehydration, hyperglycemia DM2: Currently on insulin drip, continue blood glucose checks. Currently NPO. GERD HLD HTN Obesity LESLY Other medical problems. Requested medications to be confirmed, please reconcile once approval. Discussed with ER physician. ER documentation reviewed. Attestations Medical Necessity Statement*: Patient requires hospital station for hypertriglyceridemia induced pancreatitis, SIRS, Coding Level of Care Code Critical Care >/= 30 minutes Critical care time (in minutes): 40 The high probability of a clinically significant, sudden or life threatening deterioration, as referenced in this documentation, required my full and direct attention, intervention and personal management. The critical care time shown is in addition to time spent performing any reported separately billable procedures and includes the following: [x] Data and vital sign review and interpretation [x ] Patient assessment, examination and intervention [x] Medication orders and management [x] Patient/Family updates as able [x] Care Coordination and Documentation. Diagnoses Pancreatitis K85.90 Familial hypertriglyceridemia E78.1 Hyponatremia E87.1 SIRS (systemic inflammatory response syndrome) R65.10
[2022-06-05 12:08] LABS: Glucose Point of Care 171 mg/dL (70-110)
[2022-06-05 13:23] LABS: Glucose Point of Care 195 mg/dL (70-110)
[2022-06-05 13:23] LABS: Glucose Point of Care 224 mg/dL (70-110)
[2022-06-05 13:23] LABS: Glucose Point of Care 198 mg/dL (70-110)
[2022-06-05 13:23] LABS: Glucose Point of Care 168 mg/dL (70-110)
[2022-06-05 14:17] LABS: Glucose Point of Care 167 mg/dL (70-110)
[2022-06-05] MEDS: D5-NS 0.45% + KCL 20 mEq 20 MEQ/1,000 ML BAG 125 MEQ IV ×2 (15:20→23:04)
[2022-06-05 16:34] LABS: Blood Urea Nitrogen 7 mg/dL (6-20); Calcium 8.5 mg/dL (8.5-10.5); Carbon Dioxide 25 mmol/L (22-29); Glomerular Filtration Rate 190.3 mL/min (90-130); Glucose 161 mg/dL (65-115); Osmolality Calculated 269 mOsm/kg (285-295); Sodium 129 mmol/L (136-145)
[2022-06-05 16:35] LABS: Anion Gap 13.1 (5-19); Potassium 4.1 mmol/L (3.5-5.1)
[2022-06-05 16:36] LABS: Chloride 95 mmol/L (98-107)
[2022-06-05 18:09] LABS: Glucose Point of Care 153 mg/dL (70-110)
[2022-06-05 18:09] LABS: Glucose Point of Care 156 mg/dL (70-110)
[2022-06-05 18:09] LABS: Glucose Point of Care 168 mg/dL (70-110)
[2022-06-05 18:09] LABS: Glucose Point of Care 144 mg/dL (70-110)
--- NOTE | 2022-06-05 18:33 | PC.NURSE ---
Pt rested in bed throughout shift. Only out of bed twice to use urinal. Sinus rhythm on monitor. Pt remains on room air. His abdomen is soft and tender. Bowel sounds active. He does rate his abdominal pain at 8-9. He has had Dilaudid admin 3 times this shift, it halves his pain score on evaluation. He remains on Insulin gtt and D5/0.45NS with 20mEq KCL. He is being compliant and non demanding about his NPO diet. His last blood sugar was 144. Is sodium level is now 129, a very slight improvement. Last triglyceride level had increased to 4100. He has used his own CPAp off and on this shift. HIs pwife and then his parents have been at bedside. His urine out put was 1625ml this shift.
[2022-06-05 19:13] LABS: Glucose Point of Care 145 mg/dL (70-110)
[2022-06-05 20:04] LABS: Glucose Point of Care 155 mg/dL (70-110)
[2022-06-05 21:05] LABS: Glucose Point of Care 157 mg/dL (70-110)
[2022-06-05 21:29] LABS: Blood Urea Nitrogen 6 mg/dL (6-20); Calcium 8.6 mg/dL (8.5-10.5); Carbon Dioxide 23 mmol/L (22-29); Chloride 96 mmol/L (98-107); Glomerular Filtration Rate 246.2 mL/min (90-130); Glucose 169 mg/dL (65-115); Osmolality Calculated 276 mOsm/kg (285-295); Sodium 132 mmol/L (136-145)
[2022-06-05 21:43] LABS: Triglycerides 2411 mg/dL (0-150)
[2022-06-05 22:00] LABS: LDL Cholesterol Direct 52 mg/dL (0-100)
[2022-06-05 22:04] LABS: Glucose Point of Care 154 mg/dL (70-110)
[2022-06-05 23:05] LABS: Glucose Point of Care 157 mg/dL (70-110)
[2022-06-06] VITALS (36 sets, daily range): BP systolic 105–160; BP diastolic 53–107; PULSE 96–120; RESP 13–25; TEMP 37.1–37.6; O2SAT 91–96; BMI 30.1
[2022-06-06 00:02] LABS: Glucose Point of Care 144 mg/dL (70-110)
[2022-06-06] MEDS: HYDROmorphone 1 mg/mL INJ 1 mL IVP ×2 (00:02→02:06)
[2022-06-06 01:05] LABS: Glucose Point of Care 178 mg/dL (70-110)
[2022-06-06 02:03] LABS: Glucose Point of Care 183 mg/dL (70-110)
[2022-06-06] MEDS: ondansetron 2 mg/ML SDV 2 mL 4 MG IVP ×2 (02:11→09:17)
[2022-06-06 03:05] LABS: Glucose Point of Care 191 mg/dL (70-110)
[2022-06-06] MEDS: metoclopramide 5 mg/mL SDV 2 mL IVP ×2 (04:17→17:11)
[2022-06-06 04:18] LABS: Basophils % 0.4 %; Eosinophils # 0.2 10^3/uL (0.0-0.8); Eosinophils % 2.2 %; Hemoglobin 13.8 g/dL (11.7-16.6); Lymphocytes # 1.8 10^3/uL (0.8-4.8); Lymphocytes % 19.6 %; Mean Corpuscular HGB Conc 33.7 g/dL (30.0-36.0); Mean Corpuscular Hemoglobin 27.8 pg (28.0-34.0); Mean Corpuscular Volume 82.5 fl (80-94); Mean Platelet Volume 12.6 fL (7.4-10.4); Monocytes # 0.5 10^3/uL (0.2-0.9); Monocytes % 5.9 %; Neutrophils # 6.58 10^3/uL (1.8-7.7); Neutrophils % 71.6 %; Nucleated Red Blood Cells % 0 %; Platelet Count 144 10^3/cmm (130-400); Red Blood Count 4.97 10^6/uL (4.1-5.3); White Blood Count 9.2 10^3/uL (4.0-10.0)
[2022-06-06 04:34] LABS: Glucose Point of Care 200 mg/dL (70-110)
[2022-06-06 05:04] LABS: Alanine Aminotransferase 47 U/L (0-41); Albumin Level 3.5 g/dL (3.5-5.2); Alkaline Phosphatase 62 U/L (40-130); Anion Gap 13.7 (5-19); Aspartate Amino Transferase 25 U/L (0-40); Blood Urea Nitrogen 5 mg/dL (6-20); Calcium 8.5 mg/dL (8.5-10.5); Carbon Dioxide 23 mmol/L (22-29); Chloride 97 mmol/L (98-107); Globulin 3.2 g/dL (1.3-4.6); Glomerular Filtration Rate 246.2 mL/min (90-130); Glucose 175 mg/dL (65-115); Osmolality Calculated 272 mOsm/kg (285-295); Potassium 3.7 mmol/L (3.5-5.1); Sodium 130 mmol/L (136-145); Total Bilirubin 0.6 mg/dL (0.15-1.2); Total Protein 6.7 g/dL (6.6-8.7); Triglycerides 2266 mg/dL (0-150)
[2022-06-06 05:06] LABS: Glucose Point of Care 201 mg/dL (70-110)
[2022-06-06] MEDS: HYDROmorphone 1 mg/mL INJ 1 mL 1.5 MG IVP ×8 (05:09→22:11)
[2022-06-06] MEDS: heparin 5,000 unit/mL INJ 1 mL 5000 UNIT SUBCUT ×3 (05:15→21:23)
[2022-06-06 05:17] LABS: Lipase 123 U/L (13-60); Magnesium 1.8 mg/dL (1.7-2.3)
[2022-06-06 05:18] LABS: LDL Cholesterol Direct 49 mg/dL (0-100)
[2022-06-06] MEDS: pantoprazole 40 mg SDV IVP (06:01)
[2022-06-06 06:02] LABS: Glucose Point of Care 189 mg/dL (70-110)
[2022-06-06] MEDS: D5-NS 0.45% + KCL 20 mEq 20 MEQ/1,000 ML BAG 125 MEQ IV ×3 (06:56→22:12)
[2022-06-06 07:08] LABS: Glucose Point of Care 185 mg/dL (70-110)
[2022-06-06 08:22] LABS: Glucose Point of Care 171 mg/dL (70-110)
[2022-06-06] MEDS: ezetimibe 10 mg Tablet PO (08:33)
[2022-06-06] MEDS: atorvastatin 40 mg Tablet 20 MG PO (08:33)
[2022-06-06] MEDS: potassium chloride ER 20 mEq Tablet 40 MEQ PO (08:34)
[2022-06-06] MEDS: fluoxetine 20 mg Capsule PO (08:34)
[2022-06-06] MEDS: omega-3 fatty acids 1,000 mg Capsule 2000 MG PO ×2 (08:35→17:10)
[2022-06-06 09:18] LABS: Triglycerides 2044 mg/dL (0-150)
[2022-06-06] MEDS: oxyCODONE-APAP 10-325 mg Tablet 1 TAB PO ×2 (09:18→21:22)
[2022-06-06 09:31] LABS: LDL Cholesterol Direct 48 mg/dL (0-100)
[2022-06-06 11:04] LABS: Glucose Point of Care 183 mg/dL (70-110)
[2022-06-06 11:04] LABS: Glucose Point of Care 181 mg/dL (70-110)
--- NOTE | 2022-06-06 12:25 | P.PN_ITS ---
Subjective Subjective: Patient was seen this morning, he is ice pack over his abdomen as he continues to have abdominal pain, his Dilaudid had to be increased to 1.5 mg however he continues to have breakthrough pain, still feeling nauseous but he does feel better compared to yesterday, is passing gas from below Vitals/I&O/Wt Last Vital Signs Temp 99 F 06/06/22 08:00 Pulse 108 H 06/06/22 09:00 Resp 16 06/06/22 11:07 BP 118/68 06/06/22 09:00 Pulse Ox 95 06/06/22 11:07 O2 Del Method 06/06/22 09:00 06/05/22 06/06/22 06/06/22 22:59 06:59 14:59 Intake Total 1600.558 / 2173.034 1981.130 / 4154.164 59.516 / 59.516 Output Total 950 / 2025 400 / 2425 550 / 550 Balance 650.558 / 335.388 6971.130 / 1729.164 -490.484 / -490.484 Weight last 48 hrs Weight 97.976 kg Weight 97.976 kg Weight 97.976 kg Weight 92.986 kg Physical Exam Const: COMMON NORMALS: no acute distress and patient oriented x3 Resp: COMMON NORMALS: normal respiratory effort, No retractions, No use of accessory muscles and clear to auscultation bilaterally AUSCULTATION: clear to auscultation bilaterally Cardio: COMMON NORMALS: regular rate, regular rhythm, S1 normal heart sound present and S2 normal heart sound present RATE: regular rate RHYTHM: regular rhythm HEART SOUNDS: S1 normal heart sound present and S2 normal heart sound present Extremity: COMMON NORMALS: no pedal edema Neuro: COMMON NORMALS: patient oriented x3 Psych: COMMON NORMALS: mental status grossly normal Data 06/06/22 03:35 06/06/22 03:35 Micro: Microbiology 06/05/22 06:00 Blood Culture - Preliminary Blood NEGATIVE TO DATE 06/05/22 06:06 Blood Culture - Preliminary Blood NEGATIVE TO DATE A&P Assessment and plan (1) Pancreatitis: (2) Familial hypertriglyceridemia: (3) Hyponatremia: (4) SIRS (systemic inflammatory response syndrome): Plan Hypertriglyceridemia induced pancreatitis, with evidence of ileus -Has history lipodystrophy, with family history of hypertriglyceridemia -Blood sugars in the 200s, triglycerides 2043 Plan -Admit to ICU -Continue insulin drip at 0.1 units/per KG per hour, -Monitor blood sugars hourly -Continue D5 half-normal saline with 20 KCl at 125 cc an hour -Monitor BMP -Magnesium, phosphorus -Monitor triglycerides -Once triglycerides are under 500 we will stop insulin drip -Continue n.p.o. -Nausea control with Zofran, Reglan, promethazine -Dilaudid 1.5 mg every 2 hours as needed for pain, add oxycodone 10 mg every 8 hours for breakthrough pain -We will consider starting Zosyn for antibiotic prophylaxis based on clinical progress -CTs scan showed possible evidence of necrotizing pancreatitis, will monitor closely, consider repeat Scanning in 24 hours -Continue fibrate, atorvastatin, omega-3 -Full code -Lovenox for DVT prophylaxis SIRS, secondary to pancreatitis, monitor Intractable nausea, vomiting, pain Hyponatremia, secondary dehydration, hyperglycemia DM2: Currently on insulin drip, continue blood glucose checks. Currently NPO. GERD HLD HTN Obesity LESLY Other medical problems. Requested medications to be confirmed, please reconcile once approval. Attestations Medical Necessity Statement*: Patient requires hospitalization for hypertriglyceridemia induced pancreatitis Coding Level of Care Code Critical Care >/= 30 minutes Critical care time (in minutes): 40 The high probability of a clinically significant, sudden or life threatening deterioration, as referenced in this documentation, required my full and direct attention, intervention and personal management. The critical care time shown is in addition to time spent performing any reported separately billable procedures and includes the following: [x] Data and vital sign review and interpretation [x ] Patient assessment, examination and intervention [x] Medication orders and management [x] Patient/Family updates as able [x] Care Coordination and Documentation. Diagnoses Pancreatitis K85.90 Familial hypertriglyceridemia E78.1 Hyponatremia E87.1 SIRS (systemic inflammatory response syndrome) R65.10
[2022-06-06 18:30] LABS: Glucose Point of Care 174 mg/dL (70-110)
[2022-06-06 18:30] LABS: Glucose Point of Care 186 mg/dL (70-110)
[2022-06-06 18:30] LABS: Glucose Point of Care 160 mg/dL (70-110)
[2022-06-06 18:30] LABS: Glucose Point of Care 173 mg/dL (70-110)
[2022-06-06 18:30] LABS: Glucose Point of Care 156 mg/dL (70-110)
[2022-06-06 18:30] LABS: Glucose Point of Care 162 mg/dL (70-110)
[2022-06-06 18:30] LABS: Glucose Point of Care 151 mg/dL (70-110)
[2022-06-06 18:30] LABS: Glucose Point of Care 164 mg/dL (70-110)
[2022-06-06 19:12] LABS: Glucose Point of Care 160 mg/dL (70-110)
--- NOTE | 2022-06-06 19:25 | PC.NURSE ---
Pt mostly rested in bed today, He did stand up at bedside several times. Insulin gtt and D5/0.45NS with 20mEq KCL infusing today. Triglycerides improving, 2043 this sift. Lipase significant drop to 123. Pt denies being hungry. He stated he usually isn't when his pancreas is like this. He still severe abdominal pain. Dialudid admin about 4 times and OXycodone once this sift. He only complained of nausea once, Zofran admin. He made adequate amount of urine, 1200. Pt remains remarkably pleasant considering no food and severe abdominal pain.
[2022-06-06 20:46] LABS: Glucose Point of Care 149 mg/dL (70-110)
[2022-06-06 21:20] LABS: Triglycerides 1753 mg/dL (0-150)
[2022-06-06 21:32] LABS: LDL Cholesterol Direct 48 mg/dL (0-100)
[2022-06-06 22:30] LABS: Glucose Point of Care 144 mg/dL (70-110)
[2022-06-06 22:30] LABS: Glucose Point of Care 171 mg/dL (70-110)
[2022-06-06 23:43] LABS: Glucose Point of Care 184 mg/dL (70-110)
[2022-06-07] VITALS (32 sets, daily range): BP systolic 111–145; BP diastolic 62–98; PULSE 86–115; RESP 9–31; TEMP 36.7–37.1; O2SAT 92–97
[2022-06-07 00:25] LABS: Glucose Point of Care 200 mg/dL (70-110)
[2022-06-07] MEDS: HYDROmorphone 1 mg/mL INJ 1 mL 1.5 MG IVP ×11 (00:26→23:18)
[2022-06-07 01:22] LABS: Glucose Point of Care 188 mg/dL (70-110)
[2022-06-07 02:24] LABS: Glucose Point of Care 168 mg/dL (70-110)
[2022-06-07 04:27] LABS: Glucose Point of Care 158 mg/dL (70-110)
[2022-06-07 04:37] LABS: Basophils % 0.5 %; Eosinophils # 0.3 10^3/uL (0.0-0.8); Eosinophils % 4.3 %; Hematocrit 42.1 % (42.0-52.0); Hemoglobin 13.9 g/dL (11.7-16.6); Lymphocytes # 1.7 10^3/uL (0.8-4.8); Lymphocytes % 25.9 %; Mean Corpuscular Hemoglobin 27.4 pg (28.0-34.0); Mean Platelet Volume 12.4 fL (7.4-10.4); Monocytes # 0.4 10^3/uL (0.2-0.9); Monocytes % 6.2 %; Neutrophils # 4.07 10^3/uL (1.8-7.7); Neutrophils % 62.6 %; Nucleated Red Blood Cells % 0 %; Platelet Count 133 10^3/cmm (130-400); Red Blood Count 5.07 10^6/uL (4.1-5.3); Red Cell Distribution Width 13.9 % (12.1-15.1); White Blood Count 6.5 10^3/uL (4.0-10.0)
[2022-06-07 05:02] LABS: Alanine Aminotransferase 34 U/L (0-41); Albumin Level 3.2 g/dL (3.5-5.2); Alkaline Phosphatase 64 U/L (40-130); Blood Urea Nitrogen 4 mg/dL (6-20); Calcium 8.8 mg/dL (8.5-10.5); Carbon Dioxide 22 mmol/L (22-29); Chloride 102 mmol/L (98-107); Globulin 3.8 g/dL (1.3-4.6); Glomerular Filtration Rate 246.2 mL/min (90-130); Glucose 157 mg/dL (65-115); Lipase 45 U/L (13-60); Osmolality Calculated 276 mOsm/kg (285-295); Sodium 133 mmol/L (136-145); Total Bilirubin 0.5 mg/dL (0.15-1.2)
[2022-06-07] MEDS: heparin 5,000 unit/mL INJ 1 mL 5000 UNIT SUBCUT ×3 (05:03→21:12)
[2022-06-07] MEDS: pantoprazole 40 mg SDV IVP (05:03)
[2022-06-07] MEDS: metoclopramide 5 mg/mL SDV 2 mL IVP (05:03)
[2022-06-07 05:15] LABS: Anion Gap 13.1 (5-19); Aspartate Amino Transferase 18 U/L (0-40); Potassium 4.1 mmol/L (3.5-5.1)
[2022-06-07 05:19] LABS: Triglycerides 1926 mg/dL (0-150)
[2022-06-07 05:25] LABS: Glucose Point of Care 167 mg/dL (70-110)
[2022-06-07 05:25] LABS: Glucose Point of Care 176 mg/dL (70-110)
[2022-06-07 05:30] LABS: LDL Cholesterol Direct 50 mg/dL (0-100)
[2022-06-07] MEDS: D5-NS 0.45% + KCL 20 mEq 20 MEQ/1,000 ML BAG 125 MEQ IV (06:14)
[2022-06-07 06:24] LABS: Glucose Point of Care 152 mg/dL (70-110)
[2022-06-07 08:01] LABS: Glucose Point of Care 173 mg/dL (70-110)
[2022-06-07] MEDS: ondansetron 2 mg/ML SDV 2 mL 4 MG IVP ×2 (08:25→18:34)
[2022-06-07] MEDS: ezetimibe 10 mg Tablet PO (09:51)
[2022-06-07] MEDS: fluoxetine 20 mg Capsule PO (09:51)
[2022-06-07] MEDS: omega-3 fatty acids 1,000 mg Capsule 2000 MG PO ×2 (09:51→18:26)
[2022-06-07] MEDS: atorvastatin 40 mg Tablet 20 MG PO (09:51)
--- NOTE | 2022-06-07 10:21 | PC.CHAP ---
Pastoral Care Encounter/Spiritual Assessment Type of Contact [] Declined software reliability engineer visit [] Patient/Family/Request visit [] Outpatient visit [] Follow-up visit [] Physician referral [] Code/Alert [x] Routine visit [] Staff referral [] Actively dying [] Patient sleeping [x] Family support [] [] Out of room [] Palliative care [] [] Receiving care in room [] Pre-surgical visit [] Trauma [] Long length of stay [x] ICU visit [x] Other: catarino lobato PT... have met before... praying for healing Relational/Emotional Strength [] Patient feels connected with others/family/visitors/staff [] Distress [] Loneliness/isolation [] Abandonment Spirituality of Patient [] Person of Kamla [] Attends Restorationist of their Kamla [] Believes in Prayer [] Reads Bible or Muslim materials [] There are Spiritual issues to be addressed Building Mechanic Interventions [x] Prayer [] Active listening [] Non-anxious presence [] Spiritual/emotional support [] Crisis/trauma care [] Spiritual counseling [] Bereavement support [] Provided bereavement packet [] Provided Bible/devotional materials [] Provided toy/stuffed animal, coloring book to patient or family member [] Provided Communion [] Anointing/Conrad [] Salvation [x] Completed spiritual assessment [] Other: Impact on Illness or Injury [] Angry [] Fearful [] Anxious [] Often cries [] Exhaustion [] Unable to work [] Unable to attend adventist [] Unable to walk/stand [] Unable to read [] Unable to drive [] Unable to eat/drink [] Unable to sleep [] Unable to be with family [] Patient intubated [] Other: Summary Time spent with patient
[2022-06-07] MEDS: oxyCODONE-APAP 10-325 mg Tablet 1 TAB PO ×2 (11:01→22:08)
--- NOTE | 2022-06-07 12:47 | P.PN_ITS ---
Subjective Subjective: Patient was seen this morning, his abdominal pain has improved, he has a bit of abdominal distention more than yesterday he tells me, he is passing gas from below he is able to take in more ice chips Vitals/I&O/Wt Last Vital Signs Temp 98.8 F 06/07/22 00:00 Pulse 96 06/07/22 06:00 Resp 31 H 06/07/22 12:14 BP 118/92 06/07/22 05:00 Pulse Ox 96 06/07/22 12:14 O2 Del Method 06/07/22 05:00 06/06/22 06/07/22 06/07/22 22:59 06:59 14:59 Intake Total 916.970 / 5166.082 6737.07 / 3011.819 13.854 / 13.854 Output Total 1150 / 1700 1000 / 2700 Balance -233.030 / 285.749 26.07 / 311.819 13.854 / 13.854 Weight last 48 hrs Weight 99.79 kg Weight 97.976 kg Physical Exam Const: COMMON NORMALS: no acute distress and patient oriented x3 Resp: COMMON NORMALS: normal respiratory effort, No retractions, No use of accessory muscles and clear to auscultation bilaterally AUSCULTATION: clear to auscultation bilaterally Cardio: COMMON NORMALS: regular rate, regular rhythm, S1 normal heart sound present and S2 normal heart sound present RATE: regular rate RHYTHM: regular rhythm HEART SOUNDS: S1 normal heart sound present and S2 normal heart sound present GI: INSPECTION: Yes normal to inspection and Yes abdominal distension AUSCULTATION: Yes normoactive bowel sounds PALPATION: Yes Tenderness to palpation present (GI) OTHER: Diffuse tenderness Extremity: COMMON NORMALS: no pedal edema Neuro: COMMON NORMALS: patient oriented x3 Psych: COMMON NORMALS: mental status grossly normal Data 06/07/22 03:56 06/07/22 03:56 A&P Assessment and plan (1) Pancreatitis: (2) Familial hypertriglyceridemia: (3) Hyponatremia: (4) SIRS (systemic inflammatory response syndrome): Plan Hypertriglyceridemia induced pancreatitis, with evidence of ileus -Has history lipodystrophy, with family history of hypertriglyceridemia -Blood sugars in the 200s, triglycerides 2043 Plan -Admit to ICU -Continue insulin drip at 0.1 units/per KG per hour, -Monitor blood sugars hourly -Continue D5 half-normal saline with 20 KCl at 125 cc an hour -Monitor BMP -Magnesium, phosphorus -Monitor triglycerides -Once triglycerides are under 500 we will stop insulin drip -Continue n.p.o. -Nausea control with Zofran, Reglan, promethazine -Dilaudid 1.5 mg every 2 hours as needed for pain, add oxycodone 10 mg every 8 hours for breakthrough pain -We will consider starting Zosyn for antibiotic prophylaxis based on clinical progress -CTs scan showed possible evidence of necrotizing pancreatitis, will monitor closely, consider repeat Scanning in 24 hours -Continue fibrate, atorvastatin, omega-3 -We will start patient on TPN today, no fats -Full code -Lovenox for DVT prophylaxis SIRS, secondary to pancreatitis, monitor Intractable nausea, vomiting, pain Hyponatremia, secondary dehydration, hyperglycemia DM2: Currently on insulin drip, continue blood glucose checks. Currently NPO. GERD HLD HTN Obesity LESLY Other medical problems. Attestations Medical Necessity Statement*: Patient requires hospitalization for hypertriglyceridemia induced pancreatitis, with evidence of ileus Coding Level of Care Code Critical Care >/= 30 minutes Critical care time (in minutes): 40 The high probability of a clinically significant, sudden or life threatening deterioration, as referenced in this documentation, required my full and direct attention, intervention and personal management. The critical care time shown is in addition to time spent performing any reported separately billable procedures and includes the following: [x] Data and vital sign review and interpretation [x ] Patient assessment, examination and intervention [x] Medication orders and management [x] Patient/Family updates as able [x] Care Coordination and Documentation. Diagnoses Pancreatitis K85.90 Familial hypertriglyceridemia E78.1 Hyponatremia E87.1 SIRS (systemic inflammatory response syndrome) R65.10
[2022-06-07] MEDS: D5-NS 0.45% + KCL 20 mEq 20 MEQ/1,000 ML BAG 100 MEQ IV (15:09)
[2022-06-07] MEDS: insulin regular-human 250 UNIT in sodium chloride 0.9% 250 ML IV (15:09)
[2022-06-07 16:43] LABS: Glucose Point of Care 162 mg/dL (70-110)
[2022-06-07 16:43] LABS: Glucose Point of Care 190 mg/dL (70-110)
[2022-06-07 16:43] LABS: Glucose Point of Care 184 mg/dL (70-110)
[2022-06-07 16:43] LABS: Glucose Point of Care 183 mg/dL (70-110)
[2022-06-07 16:43] LABS: Glucose Point of Care 189 mg/dL (70-110)
[2022-06-07 16:43] LABS: Glucose Point of Care 189 mg/dL (70-110)
[2022-06-07 17:45] LABS: Triglycerides 1853 mg/dL (0-150)
[2022-06-07 18:05] LABS: LDL Cholesterol Direct 50 mg/dL (0-100)
[2022-06-07 18:23] LABS: Glucose Point of Care 195 mg/dL (70-110)
[2022-06-07 18:23] LABS: Glucose Point of Care 175 mg/dL (70-110)
[2022-06-07 18:23] LABS: Glucose Point of Care 198 mg/dL (70-110)
[2022-06-07 18:23] LABS: Glucose Point of Care 155 mg/dL (70-110)
[2022-06-07 18:23] LABS: Glucose Point of Care 178 mg/dL (70-110)
--- NOTE | 2022-06-07 19:17 | PC.NURSE ---
Pt remains alert and oriented. Pt very pleasant and cooperative. He stated he is feeling better today. UP to this point he had not been hungry, he requested tiny amount of ice this am. He remains on insulin gtt for his triglycerides. which is now 1852. His Lipase is now WNL. He has The same IV fluids infusing ( See MAR) but rate decreased to 100ml/hr. PPN started today. He still has severe abdominal pain, received Dilaudid 5 times this shift and Oxycodone once. He received Zofran twice. Several hours after PPN he stated he was feeling more energy. Urine output of 1250 this shift.
[2022-06-07 19:21] LABS: Glucose Point of Care 182 mg/dL (70-110)
[2022-06-07 20:29] LABS: Glucose Point of Care 186 mg/dL (70-110)
[2022-06-07 22:08] LABS: Glucose Point of Care 170 mg/dL (70-110)
[2022-06-07 23:11] LABS: Glucose Point of Care 162 mg/dL (70-110)
[2022-06-08] VITALS (18 sets, daily range): BP systolic 103–145; BP diastolic 65–109; PULSE 83–103; RESP 8–26; TEMP 37–37.1; O2SAT 89–97
[2022-06-08 00:26] LABS: Glucose Point of Care 185 mg/dL (70-110)
[2022-06-08] MEDS: D5-NS 0.45% + KCL 20 mEq 20 MEQ/1,000 ML BAG 100 MEQ IV ×2 (01:00→10:01)
[2022-06-08] MEDS: dextrose 10% 1,000 ML 30 ML IV (01:01)
[2022-06-08 01:27] LABS: Glucose Point of Care 159 mg/dL (70-110)
[2022-06-08 02:20] LABS: Glucose Point of Care 154 mg/dL (70-110)
[2022-06-08] MEDS: HYDROmorphone 1 mg/mL INJ 1 mL 1.5 MG IVP ×3 (02:21→08:02)
[2022-06-08 03:23] LABS: Glucose Point of Care 187 mg/dL (70-110)
[2022-06-08 03:44] LABS: Basophils % 0.5 %; Eosinophils # 0.2 10^3/uL (0.0-0.8); Eosinophils % 5.1 %; Hematocrit 38.9 % (42.0-52.0); Hemoglobin 12.6 g/dL (11.7-16.6); Lymphocytes # 1.8 10^3/uL (0.8-4.8); Lymphocytes % 41.3 %; Mean Corpuscular HGB Conc 32.4 g/dL (30.0-36.0); Mean Corpuscular Hemoglobin 26.8 pg (28.0-34.0); Mean Corpuscular Volume 82.8 fl (80-94); Mean Platelet Volume 12.2 fL (7.4-10.4); Monocytes # 0.2 10^3/uL (0.2-0.9); Monocytes % 4.4 %; Neutrophils # 2.07 10^3/uL (1.8-7.7); Neutrophils % 48.2 %; Nucleated Red Blood Cells % 0 %; Platelet Count 142 10^3/cmm (130-400); Red Cell Distribution Width 13.4 % (12.1-15.1); White Blood Count 4.3 10^3/uL (4.0-10.0)
[2022-06-08 04:10] LABS: Alanine Aminotransferase 31 U/L (0-41); Albumin Level 3.4 g/dL (3.5-5.2); Alkaline Phosphatase 66 U/L (40-130); Aspartate Amino Transferase 16 U/L (0-40); Blood Urea Nitrogen 6 mg/dL (6-20); Calcium 8.9 mg/dL (8.5-10.5); Carbon Dioxide 26 mmol/L (22-29); Chloride 101 mmol/L (98-107); Globulin 3.3 g/dL (1.3-4.6); Glomerular Filtration Rate 190.3 mL/min (90-130); Glucose 190 mg/dL (65-115); Lipase 33 U/L (13-60); Osmolality Calculated 285 mOsm/kg (285-295); Sodium 136 mmol/L (136-145); Total Bilirubin 0.5 mg/dL (0.15-1.2); Total Protein 6.7 g/dL (6.6-8.7)
[2022-06-08 04:26] LABS: Triglycerides 1800 mg/dL (0-150)
[2022-06-08 04:33] LABS: Glucose Point of Care 197 mg/dL (70-110)
[2022-06-08] MEDS: heparin 5,000 unit/mL INJ 1 mL 5000 UNIT SUBCUT ×3 (05:13→21:28)
[2022-06-08] MEDS: pantoprazole 40 mg SDV IVP (05:13)
[2022-06-08 05:24] LABS: Glucose Point of Care 190 mg/dL (70-110)
[2022-06-08 06:20] LABS: Glucose Point of Care 204 mg/dL (70-110)
[2022-06-08] MEDS: omega-3 fatty acids 1,000 mg Capsule 2000 MG PO ×2 (08:01→19:10)
[2022-06-08] MEDS: ezetimibe 10 mg Tablet PO (08:02)
[2022-06-08] MEDS: atorvastatin 40 mg Tablet 20 MG PO (08:02)
[2022-06-08] MEDS: fluoxetine 20 mg Capsule PO (08:10)
[2022-06-08 08:55] LABS: Glucose Point of Care 136 mg/dL (70-110)
[2022-06-08] MEDS: HYDROmorphone 1 mg/mL INJ 1 mL 2 MG IVP ×7 (10:05→23:30)
[2022-06-08 10:55] LABS: Glucose Point of Care 135 mg/dL (70-110)
[2022-06-08 13:03] LABS: Glucose Point of Care 139 mg/dL (70-110)
--- NOTE | 2022-06-08 14:31 | P.PN_ITS ---
Subjective Subjective: Patient was seen this morning, he tells me he is feeling better, still has general body eating food, not passing gas, no passing stool, still feeling nauseous, no fevers overnight Vitals/I&O/Wt Last Vital Signs Temp 98.6 F 06/08/22 00:00 Pulse 98 06/08/22 12:00 Resp 18 06/08/22 14:28 BP 127/90 06/08/22 10:00 Pulse Ox 96 06/08/22 12:00 O2 Del Method 06/08/22 04:00 06/07/22 06/08/22 06/08/22 22:59 06:59 14:59 Intake Total 177.636 / 2599.084 2225.158 / 2497.811 901.667 / 901.667 Output Total 300 / 1250 1300 / 2550 Balance -122.364 / 11.653 -63.842 / -52.189 901.667 / 901.667 Weight last 48 hrs Weight 98.43 kg Weight 99.79 kg Physical Exam Const: COMMON NORMALS: no acute distress and patient oriented x3 Resp: COMMON NORMALS: normal respiratory effort, No retractions, No use of accessory muscles and clear to auscultation bilaterally AUSCULTATION: clear to auscultation bilaterally Cardio: COMMON NORMALS: regular rate, regular rhythm, S1 normal heart sound present and S2 normal heart sound present RATE: regular rate RHYTHM: regu lar rhythm HEART SOUNDS: S1 normal heart sound present and S2 normal heart sound present GI: AUSCULTATION: Yes normoactive bowel sounds Extremity: COMMON NORMALS: no pedal edema Neuro: COMMON NORMALS: patient oriented x3 Psych: COMMON NORMALS: mental status grossly normal Data 06/08/22 03:18 06/08/22 03:18 A&P Assessment and plan (1) Pancreatitis: (2) Familial hypertriglyceridemia: (3) Hyponatremia: (4) SIRS (systemic inflammatory response syndrome): Plan Hypertriglyceridemia induced pancreatitis, with evidence of ileus -Has history lipodystrophy, with family history of hypertriglyceridemia -Blood sugars in the 200s, triglycerides 1800 Plan -Admit to ICU -Continue insulin drip at 0.1 units/per KG per hour, started on D10 low rate due to hypoglycemia -Continue TPN -Monitor blood sugars hourly -Continue D5 half-normal saline with 20 KCl at 125 cc an hour -Monitor BMP -Magnesium, phosphorus -Monitor triglycerides -Once triglycerides are under 500 we will stop insulin drip -Continue n.p.o. -Nausea control with Zofran, Reglan, promethazine -increase Dilaudid 2 mg every 2 hours as needed for pain -We will consider starting Zosyn for antibiotic prophylaxis based on clinical progress -CTs scan showed possible evidence of necrotizing pancreatitis, will monitor closely, consider repeat Scanning in 24 hours -Continue fibrate, atorvastatin, omega-3 -Full code -Lovenox for DVT prophylaxis SIRS, secondary to pancreatitis, monitor Intractable nausea, vomiting, pain Hyponatremia, secondary dehydration, hyperglycemia DM2: Currently on insulin drip, continue blood glucose checks. Currently NPO. GERD HLD HTN Obesity LESLY Other medical problems. Attestations Medical Necessity Statement*: patient requires hospitalization for hypertriglyceridemia induced pancreatitis Coding Level of Care Code Critical Care >/= 30 minutes Critical care time (in minutes): 40 The high probability of a clinically significant, sudden or life threatening deterioration, as referenced in this documentation, required my full and direct attention, intervention and personal management. The critical care time shown is in addition to time spent performing any reported separately billable procedures and includes the following: [x] Data and vital sign review and interpretation [x ] Patient assessment, examination and intervention [x] Medication orders and management [x] Patient/Family updates as able [x] Care Coordination and Documentation. Diagnoses Pancreatitis K85.90 Familial hypertriglyceridemia E78.1 Hyponatremia E87.1 SIRS (systemic inflammatory response syndrome) R65.10
[2022-06-08 15:04] LABS: Glucose Point of Care 154 mg/dL (70-110)
[2022-06-08 15:44] LABS: Glucose Point of Care 156 mg/dL (70-110)
[2022-06-08 16:51] LABS: Glucose Point of Care 143 mg/dL (70-110)
[2022-06-08 18:00] LABS: Glucose Point of Care 131 mg/dL (70-110)
--- NOTE | 2022-06-08 18:56 | PC.NURSE ---
this nurse notified Dr. Greer the ordered insulin drip was under the DKA protocol, Dr. Greer gave order to leave insulin at the current 5 units/hr
[2022-06-08 19:54] LABS: Glucose Point of Care 144 mg/dL (70-110)
[2022-06-08] MEDS: D5-NS 0.45% + KCL 20 mEq 20 MEQ/1,000 ML BAG 75 MEQ IV (21:28)
[2022-06-08 21:48] LABS: Glucose Point of Care 115 mg/dL (70-110)
[2022-06-08 21:48] LABS: Glucose Point of Care 123 mg/dL (70-110)
[2022-06-08 23:01] LABS: Glucose Point of Care 122 mg/dL (70-110)
[2022-06-09] VITALS (20 sets, daily range): BP systolic 112–134; BP diastolic 61–98; PULSE 71–91; RESP 9–20; TEMP 36.8–37.1; O2SAT 95–99; BMI 30.5
[2022-06-09 00:49] LABS: Glucose Point of Care 128 mg/dL (70-110)
[2022-06-09 00:49] LABS: Glucose Point of Care 121 mg/dL (70-110)
[2022-06-09] MEDS: insulin regular-human 250 UNIT in sodium chloride 0.9% 250 ML IV (01:32)
[2022-06-09] MEDS: HYDROmorphone 1 mg/mL INJ 1 mL 2 MG IVP ×7 (01:38→22:10)
[2022-06-09 01:51] LABS: Glucose Point of Care 136 mg/dL (70-110)
[2022-06-09 02:41] LABS: Glucose Point of Care 138 mg/dL (70-110)
[2022-06-09 03:25] LABS: Basophils # 0.1 10^3/uL (0.0-0.1); Basophils % 0.9 %; Eosinophils # 0.4 10^3/uL (0.0-0.8); Eosinophils % 6.5 %; Hematocrit 40.6 % (42.0-52.0); Hemoglobin 13.1 g/dL (11.7-16.6); Lymphocytes % 36.9 %; Mean Corpuscular HGB Conc 32.3 g/dL (30.0-36.0); Mean Corpuscular Hemoglobin 26.8 pg (28.0-34.0); Mean Platelet Volume 11.8 fL (7.4-10.4); Monocytes # 0.3 10^3/uL (0.2-0.9); Monocytes % 4.9 %; Neutrophils # 2.78 10^3/uL (1.8-7.7); Neutrophils % 50.3 %; Nucleated Red Blood Cells % 0 %; Platelet Count 196 10^3/cmm (130-400); Red Blood Count 4.89 10^6/uL (4.1-5.3); Red Cell Distribution Width 13.5 % (12.1-15.1); White Blood Count 5.5 10^3/uL (4.0-10.0)
[2022-06-09 03:44] LABS: Alanine Aminotransferase 34 U/L (0-41); Albumin Level 3.5 g/dL (3.5-5.2); Alkaline Phosphatase 88 U/L (40-130); Anion Gap 16.2 (5-19); Aspartate Amino Transferase 20 U/L (0-40); Blood Urea Nitrogen 6 mg/dL (6-20); Calcium 9.3 mg/dL (8.5-10.5); Carbon Dioxide 25 mmol/L (22-29); Chloride 101 mmol/L (98-107); Globulin 3.5 g/dL (1.3-4.6); Glomerular Filtration Rate 190.3 mL/min (90-130); Glucose 136 mg/dL (65-115); Magnesium 1.8 mg/dL (1.7-2.3); Osmolality Calculated 286 mOsm/kg (285-295); Phosphorus 4.8 mg/dL (2.5-4.5); Potassium 4.2 mmol/L (3.5-5.1); Sodium 138 mmol/L (136-145); Total Bilirubin 0.5 mg/dL (0.15-1.2)
[2022-06-09 03:52] LABS: Glucose Point of Care 146 mg/dL (70-110)
[2022-06-09 04:14] LABS: Triglycerides 1215 mg/dL (0-150)
[2022-06-09 04:56] LABS: Glucose Point of Care 127 mg/dL (70-110)
[2022-06-09] MEDS: pantoprazole 40 mg SDV IVP (06:03)
[2022-06-09] MEDS: heparin 5,000 unit/mL INJ 1 mL 5000 UNIT SUBCUT ×3 (06:03→21:51)
[2022-06-09 06:30] LABS: Glucose Point of Care 143 mg/dL (70-110)
[2022-06-09 08:06] LABS: Glucose Point of Care 116 mg/dL (70-110)
[2022-06-09] MEDS: magnesium sulfate premix 2 GM/50 ML PIGGYBACK IV (08:24)
[2022-06-09] MEDS: atorvastatin 40 mg Tablet 20 MG PO (08:25)
[2022-06-09] MEDS: ezetimibe 10 mg Tablet PO (08:25)
[2022-06-09] MEDS: omega-3 fatty acids 1,000 mg Capsule 2000 MG PO ×2 (08:25→17:06)
[2022-06-09] MEDS: fluoxetine 20 mg Capsule PO (08:25)
[2022-06-09 09:03] LABS: Glucose Point of Care 135 mg/dL (70-110)
[2022-06-09 10:06] LABS: Glucose Point of Care 126 mg/dL (70-110)
--- NOTE | 2022-06-09 10:45 | PC.CHAP ---
Pastoral Care Encounter/Spiritual Assessment Type of Contact [] Declined ux design manager visit [] Patient/Family/Request visit [] Outpatient visit [] Follow-up visit [] Physician referral [] Code/Alert [x] Routine visit [] Staff referral [] Actively dying [] Patient sleeping [] Family support [] [] Out of room [] Palliative care [] [] Receiving care in room [] Pre-surgical visit [] Trauma [] Long length of stay [x] ICU visit [] Other: PT rested well... feeling stronger Relational/Emotional Strength [] Patient feels connected with others/family/visitors/staff [] Distress [] Loneliness/isolation [] Abandonment Spirituality of Patient [] Person of [place] [] Attends [employer] of their [place] [] Believes in Prayer [] Reads Bible or Baptism materials [] There are Spiritual issues to be addressed Sales Producer Interventions [x] Prayer [] Active listening [] Non-anxious presence [] Spiritual/emotional support [] Crisis/trauma care [] Spiritual counseling [] Bereavement support [] Provided bereavement packet [] Provided Bible/devotional materials [] Provided toy/stuffed animal, coloring book to patient or family member [] Provided Communion [] Anointing/[place] [] Salvation [x] Completed spiritual assessment [] Other: Impact on Illness or Injury [] Angry [] Fearful [] Anxious [] Often cries [] Exhaustion [] Unable to work [] Unable to attend samaritan [] Unable to walk/stand [] Unable to read [] Unable to drive [] Unable to eat/drink [] Unable to sleep [] Unable to be with family [] Patient intubated [] Other: Summary Time spent with patient
[2022-06-09] MEDS: D5-NS 0.45% + KCL 20 mEq 20 MEQ/1,000 ML BAG 75 MEQ IV (11:01)
[2022-06-09 11:40] LABS: Glucose Point of Care 125 mg/dL (70-110)
--- NOTE | 2022-06-09 12:42 | P.PN_ITS ---
Subjective Subjective: Patient was seen this morning, his appetite has improved, he is wondering if he can try more than ice chips, passing gas from below Vitals/I&O/Wt Last Vital Signs Temp 98.3 F 06/09/22 04:00 Pulse 71 06/09/22 10:00 Resp 12 06/09/22 10:00 BP 134/83 06/09/22 10:00 Pulse Ox 96 06/09/22 08:26 O2 Del Method 06/09/22 04:00 06/08/22 06/09/22 06/09/22 22:59 06:59 14:59 Intake Total 1893.317 / 3193.317 32.993 / 3226.310 1000 / 1000 Output Total 3400 / 3400 1550 / 4950 Balance -1506.683 / -206.683 -1517.007 / -2141.548 0767 / 1000 Weight last 48 hrs Weight 99.337 kg Weight 98.43 kg Physical Exam Const: COMMON NORMALS: no acute distress and patient oriented x3 Resp: COMMON NORMALS: normal respiratory effort, No retractions, No use of accessory muscles and clear to auscultation bilaterally AUSCULTATION: clear to auscultation bilaterally Cardio: COMMON NORMALS: regular rate, regular rhythm, S1 normal heart sound present and S2 normal heart sound present RATE: regular rate RHYTHM: regular rhythm HEART SOUNDS: S1 normal heart sound present and S2 normal heart sound present GI: COMMON NORMALS: Normal to inspection, nondistended, normoactive bowel sounds present OTHER: Minimal diffuse tenderness improving Extremity: COMMON NORMALS: no pedal edema Neuro: COMMON NORMALS: patient oriented x3 Psych: COMMON NORMALS: mental status grossly normal Data 06/09/22 02:38 06/09/22 02:38 A&P Assessment and plan (1) Pancreatitis: (2) Familial hypertriglyceridemia: (3) Hyponatremia: (4) SIRS (systemic inflammatory response syndrome): Plan Hypertriglyceridemia induced pancreatitis, with evidence of ileus -Has history lipodystrophy, with family history of hypertriglyceridemia -Blood sugars in the 200s, triglycerides 1215 Plan -Admit to ICU -Continue insulin drip at 0.1 units/per KG per hour, -Continue TPN -Monitor blood sugars hourly -Continue D5 half-normal saline with 20 KCl at 125 cc an hour -Monitor BMP -Magnesium, phosphorus -Monitor triglycerides -Once triglycerides are under 500 we will stop insulin drip -Transition to clears -Nausea control with Zofran, Reglan, promethazine -increase Dilaudid 2 mg every 2 hours as needed for pain -CTs scan showed possible evidence of necrotizing pancreatitis, will monitor closely -Continue fibrate, atorvastatin, omega-3 -Full code -Lovenox for DVT prophylaxis SIRS, secondary to pancreatitis, monitor Intractable nausea, vomiting, pain Hyponatremia, secondary dehydration, hyperglycemia DM2: Currently on insulin drip, continue blood glucose checks. Currently NPO. GERD HLD HTN Obesity LESLY Other medical problems. Attestations Medical Necessity Statement*: Patient requires hospitalization due to hypertriglyceridemia pancreatitis, with evidence of ileus, improving, still on insulin drip, TPN Coding Level of Care Code Critical Care >/= 30 minutes Critical care time (in minutes): 40 The high probability of a clinically significant, sudden or life threatening deterioration, as referenced in this documentation, required my full and direct attention, intervention and personal management. The critical care time shown is in addition to time spent performing any reported separately billable procedures and includes the following: [x] Data and vital sign review and interpretation [x ] Patient assessment, examination and intervention [x] Medication orders and management [x] Patient/Family updates as able [x] Care Coordination and Documentation. Diagnoses Pancreatitis K85.90 Familial hypertriglyceridemia E78.1 Hyponatremia E87.1 SIRS (systemic inflammatory response syndrome) R65.10
[2022-06-09 13:42] LABS: Glucose Point of Care 166 mg/dL (70-110)
[2022-06-09 15:21] LABS: Glucose Point of Care 160 mg/dL (70-110)
[2022-06-09 16:22] LABS: Glucose Point of Care 157 mg/dL (70-110)
[2022-06-09 17:10] LABS: Glucose Point of Care 140 mg/dL (70-110)
[2022-06-09 18:28] LABS: Glucose Point of Care 254 mg/dL (70-110)
[2022-06-09 20:05] LABS: Glucose Point of Care 246 mg/dL (70-110)
[2022-06-09] MEDS: ondansetron 2 mg/ML SDV 2 mL 4 MG IVP (21:51)
[2022-06-09 22:04] LABS: Glucose Point of Care 200 mg/dL (70-110)
[2022-06-09 23:02] LABS: Glucose Point of Care 180 mg/dL (70-110)
[2022-06-10] VITALS (14 sets, daily range): BP systolic 109–135; BP diastolic 55–82; PULSE 60–89; RESP 11–17; TEMP 37.1–37.2; O2SAT 95–97; BMI 30.2
[2022-06-10 00:18] LABS: Glucose Point of Care 212 mg/dL (70-110)
--- NOTE | 2022-06-10 00:30 | PC.NURSE ---
Insulin Patient's blood sugar level ranging from 180-246. Dr. Mcadams notified and order received to increase insulin drip to 5.5 units/hr continuously. See MAR for increase.
[2022-06-10] MEDS: HYDROmorphone 1 mg/mL INJ 1 mL 2 MG IVP ×3 (00:35→06:19)
[2022-06-10] MEDS: D5-NS 0.45% + KCL 20 mEq 20 MEQ/1,000 ML BAG 75 MEQ IV (00:36)
[2022-06-10 01:23] LABS: Glucose Point of Care 178 mg/dL (70-110)
[2022-06-10 02:39] LABS: Glucose Point of Care 140 mg/dL (70-110)
[2022-06-10 03:09] LABS: Glucose Point of Care 128 mg/dL (70-110)
[2022-06-10 03:16] LABS: Basophils % 0.7 %; Eosinophils # 0.4 10^3/uL (0.0-0.8); Eosinophils % 6.1 %; Hematocrit 40.8 % (42.0-52.0); Lymphocytes # 2.5 10^3/uL (0.8-4.8); Lymphocytes % 43.3 %; Mean Corpuscular HGB Conc 31.9 g/dL (30.0-36.0); Mean Corpuscular Hemoglobin 26.5 pg (28.0-34.0); Mean Corpuscular Volume 83.1 fl (80-94); Mean Platelet Volume 11.1 fL (7.4-10.4); Monocytes # 0.4 10^3/uL (0.2-0.9); Monocytes % 6.1 %; Neutrophils # 2.48 10^3/uL (1.8-7.7); Neutrophils % 43.1 %; Nucleated Red Blood Cells % 0 %; Platelet Count 204 10^3/cmm (130-400); Red Blood Count 4.91 10^6/uL (4.1-5.3); Red Cell Distribution Width 13.6 % (12.1-15.1); White Blood Count 5.8 10^3/uL (4.0-10.0)
[2022-06-10 03:29] LABS: Alanine Aminotransferase 34 U/L (0-41); Albumin Level 3.4 g/dL (3.5-5.2); Alkaline Phosphatase 92 U/L (40-130); Anion Gap 14.1 (5-19); Aspartate Amino Transferase 21 U/L (0-40); Blood Urea Nitrogen 6 mg/dL (6-20); Calcium 9.1 mg/dL (8.5-10.5); Carbon Dioxide 25 mmol/L (22-29); Chloride 102 mmol/L (98-107); Globulin 3.4 g/dL (1.3-4.6); Glomerular Filtration Rate 190.3 mL/min (90-130); Glucose 113 mg/dL (65-115); Magnesium 1.9 mg/dL (1.7-2.3); Osmolality Calculated 282 mOsm/kg (285-295); Phosphorus 4.5 mg/dL (2.5-4.5); Potassium 4.1 mmol/L (3.5-5.1); Sodium 137 mmol/L (136-145); Total Bilirubin 0.4 mg/dL (0.15-1.2); Total Protein 6.8 g/dL (6.6-8.7); Triglycerides 673 mg/dL (0-150)
[2022-06-10 04:32] LABS: Glucose Point of Care 101 mg/dL (70-110)
[2022-06-10] MEDS: pantoprazole 40 mg SDV IVP (05:23)
[2022-06-10] MEDS: heparin 5,000 unit/mL INJ 1 mL 5000 UNIT SUBCUT (05:23)
[2022-06-10 05:53] LABS: Glucose Point of Care 88 mg/dL (70-110)
[2022-06-10 07:44] LABS: Glucose Point of Care 134 mg/dL (70-110)
[2022-06-10] MEDS: sodium chloride 0.9% 1,000 ML 50 ML IV (08:38)
[2022-06-10 08:41] LABS: Glucose Point of Care 133 mg/dL (70-110)
[2022-06-10] MEDS: atorvastatin 40 mg Tablet 20 MG PO (08:41)
[2022-06-10] MEDS: fluoxetine 20 mg Capsule PO (08:43)
[2022-06-10] MEDS: ezetimibe 10 mg Tablet PO (08:43)
[2022-06-10] MEDS: omega-3 fatty acids 1,000 mg Capsule 2000 MG PO (08:43)
[2022-06-10 11:13] LABS: Glucose Point of Care 333 mg/dL (70-110)
[2022-06-10] MEDS: insulin lispro 100 unit/1 mL SUBCUT (11:15)
[2022-06-10] MEDS: HYDROmorphone 1 mg/mL INJ 1 mL IVP ×2 (11:17→13:53)
--- NOTE | 2022-06-10 11:48 | P.DS_ITS ---
Discharge Providers Date of Admission: 06/05/22 05:09 Date of Discharge: June 10, 2022 Attending Provider at Admission: Raul Mcadams Attending Provider at Discharge: Kin Greer MD Primary Care Provider: Kin Greer MD Diagnoses at Discharge Discharge Diagnosis (1) Pancreatitis: Status: Acute (2) Familial hypertriglyceridemia: Status: Acute (3) Hyponatremia: Status: Acute (4) SIRS (systemic inflammatory response syndrome): Status: Acute Reason for Visit Reason for Visit: chronic pancreatitis, pain Hospital Course Hospital Course This is a 36-year-old male with a past medical history of familial hypertriglyceridemia, history of recurrent pancreatitis, hyperlipidemia, insulin-dependent type 2 diabetes mellitus, who presents to [facility] for abdominal pain Patient was admitted to [facility] for hypertriglyceridemia and pancreatitis, initially managed with insulin drip, IV fluid therapy, TPN, and clinically monitored. Overall patient clinically improved, triglycerides decreased to 673 before discharge, oral appetite had improved, discharged with close follow-up with primary care and follow-up with endocrinology as outpatient. For hypertriglyceridemia, continue to avoid fatty foods, diet control measures, continue weight loss, monitor blood sugars closely, continue fenofibrate, statin. Patient was advised that he needs to monitor his blood sugars closely, needs better titration of blood sugars, follow-up with Dr. Hinton. Physical Exam Const: COMMON NORMALS: no acute distress and patient oriented x3 Resp: COMMON NORMALS: normal respiratory effort, No retractions, No use of accessory muscles and clear to auscultation bilaterally AUSCULTATION: clear to auscultation bilaterally Cardio: COMMON NORMALS: regular rate, regular rhythm, S1 normal heart sound present and S2 normal heart sound present RATE: regular rate RHYTHM: regular rhythm HEART SOUNDS: S1 normal heart sound present and S2 normal heart sound present GI: COMMON NORMALS: Normal to inspection, nondistended, normoactive bowel sounds present and non-tender Extremity: COMMON NORMALS: no pedal edema Neuro: COMMON NORMALS: patient oriented x3 Psych: COMMON NORMALS: mental status grossly normal Discharge Data Studies Completed and Pending Completed Studies During Hospitalization Category Date Time Status CT abdomen pelvis w con* [id number] Stat Cat Scan 06/05/22 01:49 Completed XR chest 1V portable [id number] Stat Exams 06/05/22 04:20 Completed Pending at discharge Category Date Time Status Complete Blood Count w/Auto AM LABS Lab 06/11/22 04:00 Ordered Comprehensive Metabolic Panel AM LABS Lab 06/11/22 04:00 Ordered Magnesium AM LABS Lab 06/11/22 04:00 Ordered Phosphorus AM LABS Lab 06/11/22 04:00 Ordered Triglycerides AM LABS Lab 06/11/22 04:00 Ordered Radiology Impressions Abdomen/Pelvis CT 06/05/22 01:49 IMPRESSION: 1. Diffuse inflammatory changes surround the pancreas and extend into the root of the mesentery, findings compatible with pancreatitis. 2. Inflammatory changes surround the proximal duodenum likely representing duodenitis as well. 3. Patchy irregular hypoattenuation seen within the pancreatic parenchyma within the body and tail raising some suspicion for necrotizing pancreatitis. 4. Probable reactive retroperitoneal lymphadenitis 5. Normal appendix . 6. Diverticulosis of the sigmoid colon 7. Small left inguinal hernia containing some fluid. 8. Hepatomegaly Chest X-Ray 06/05/22 04:20 IMPRESSION: No acute findings. Laboratory Results WBC 5.8 10^3/uL (4.0-10.0) 06/10/22 03:03 RBC 4.91 10^6/uL (4.1-5.3) 06/10/22 03:03 Hgb 13.0 g/dL (11.7-16.6) 06/10/22 03:03 Hct 40.8 % (42.0-52.0) L 06/10/22 03:03 MCV 83.1 fl (80-94) 06/10/22 03:03 MCH 26.5 pg (28.0-34.0) L 06/10/22 03:03 MCHC 31.9 g/dL (30.0-36.0) 06/10/22 03:03 RDW 13.6 % (12.1-15.1) 06/10/22 03:03 Plt Count 204 10^3/cmm (130-400) 06/10/22 03:03 MPV 11.1 fL (7.4-10.4) H 06/10/22 03:03 Neut % (Auto) 43.1 % 06/10/22 03:03 Lymph % (Auto) 43.3 % 06/10/22 03:03 [place] % (Auto) 6.1 % 06/10/22 03:03 Eos % (Auto) 6.1 % 06/10/22 03:03 Baso % (Auto) 0.7 % 06/10/22 03:03 Neut # (Auto) 2.48 10^3/uL (1.8-7.7) 06/10/22 03:03 Lymph # (Auto) 2.5 10^3/uL (0.8-4.8) 06/10/22 03:03 [place] # (Auto) 0.4 10^3/uL (0.2-0.9) 06/10/22 03:03 Eos # (Auto) 0.4 10^3/uL (0.0-0.8) 06/10/22 03:03 Baso # (Auto) 0.0 10^3/uL (0.0-0.1) 06/10/22 03:03 Nucleated RBC % (auto) 0 % 06/10/22 03:03 Nucleated RBCs # 0.0 /100WBC 06/10/22 03:03 PT 14.00 SECONDS (12.1-14.9) 06/05/22 00:38 INR 1.05 (0.8-1.2) 06/05/22 00:38 Sodium 137 mmol/L (136-145) 06/10/22 03:03 Potassium 4.1 mmol/L (3.5-5.1) 06/10/22 03:03 Chloride 102 mmol/L (98-107) 06/10/22 03:03 Carbon Dioxide 25 mmol/L (22-29) 06/10/22 03:03 Anion Gap 14.1 (5-19) 06/10/22 03:03 BUN 6 mg/dL (6-20) 06/10/22 03:03 Creatinine 0.5 mg/dL (0.7-1.2) L 06/10/22 03:03 GFR Calculation 190.3 mL/min (90-130) H 06/10/22 03:03 Glucose 113 mg/dL (65-115) 06/10/22 03:03 POC Glucose 333 mg/dL (70-110) H 06/10/22 11:08 Calculated Osmolality 282 mOsm/kg (285-295) L 06/10/22 03:03 Calcium 9.1 mg/dL (8.5-10.5) 06/10/22 03:03 Phosphorus 4.5 mg/dL (2.5-4.5) 06/10/22 03:03 Magnesium 1.9 mg/dL (1.7-2.3) 06/10/22 03:03 Total Bilirubin 0.4 mg/dL (0.15-1.2) 06/10/22 03:03 AST 21 U/L (0-40) 06/10/22 03:03 ALT 34 U/L (0-41) 06/10/22 03:03 Alkaline Phosphatase 92 U/L (40-130) 06/10/22 03:03 Total Protein 6.8 g/dL (6.6-8.7) 06/10/22 03:03 Albumin 3.4 g/dL (3.5-5.2) L 06/10/22 03:03 Globulin 3.4 g/dL (1.3-4.6) 06/10/22 03:03 Triglycerides 673 mg/dL (0-150) H 06/10/22 03:03 LDL Cholesterol Direct TNP 06/10/22 03:03 Lipase 33 U/L (13-60) 06/08/22 03:18 Urine Color Yellow (Yellow) 06/05/22 03:24 Urine Appearance Clear (CLEAR) 06/05/22 03:24 Urine pH 5 (5-7) 06/05/22 03:24 Ur Specific [place] 1.010 (1.005-1.030) 06/05/22 03:24 Urine Protein 1+ (Negative) H 06/05/22 03:24 Urine Glucose (UA) 4+ (Normal) H 06/05/22 03:24 Urine Ketones 1+ (Negative) H 06/05/22 03:24 Urine Blood Neg (Negative) 06/05/22 03:24 Urine Nitrate Negative (Negative) 06/05/22 03:24 Urine Bilirubin Neg (Negative) 06/05/22 03:24 Urine Urobilinogen Norm mg/dL (Negative) 06/05/22 03:24 Ur Leukocyte Esterase Negative (Negative) 06/05/22 03:24 Urine RBC 0-4 /hpf (0-2) H 06/05/22 03:24 Urine WBC 0-4 /hpf (0-5) H 06/05/22 03:24 Ur Squamous Epith Cells 0-4 /hpf (0-5) H 06/05/22 03:24 Amorphous Sediment Not Reportable 06/05/22 03:24 Urine Bacteria Trace /hpf (NONE) 06/05/22 03:24 Nasal Influ A H1 2009 PCR Not detected (NOT DETECT) 06/05/22 04:27 Adenovirus (PCR) Not detected (NOT DETECT) 06/05/22 04:27 C. pneumoniae DNA (PCR) Not detected (NOT DETECT) 06/05/22 04:27 Coronavirus 229E (PCR) Not detected (NOT DETECT) 06/05/22 04:27 Human Metapneumovir PCR Not detected (NOT DETECT) 06/05/22 04:27 Influenza A (H1) PCR Not detected (NOT DETECT) 06/05/22 04:27 Influenza A (H3) PCR Not detected (NOT DETECT) 06/05/22 04:27 Influenza Type A (PCR) Not detected (NOT DETECT) 06/05/22 04:27 Influenza Type B (PCR) Not detected (NOT DETECT) 06/05/22 04:27 M. pneumoniae (PCR) Not detected (NOT DETECT) 06/05/22 04:27 Parainfluenza 1 (PCR) Not detected (NOT DETECT) 06/05/22 04:27 Parainfluenza 2 (PCR) Not detected (NOT DETECT) 06/05/22 04:27 Parainfluenza 3 (PCR) Not detected (NOT DETECT) 06/05/22 04:27 Parainfluenza 4 (PCR) Not detected (NOT DETECT) 06/05/22 04:27 RSV Type A (PCR) Not detected (NOT DETECT) 06/05/22 04:27 RSV Type B (PCR) Not detected (NOT DETECT) 06/05/22 04:27 Entero/Rhino (PCR) Not detected (NOT DETECT) 06/05/22 04:27 SARS-CoV-2 (PCR) Not detected (NOT DETECT) 06/05/22 04:27 Vitals Last Vital Signs Temp 98.7 F 06/10/22 04:00 Pulse 89 06/10/22 10:00 Resp 12 06/10/22 11:17 BP 109/55 06/10/22 10:00 Pulse Ox 95 06/10/22 11:17 O2 Del Method 06/10/22 04:00 Discharge Plan Discharge Patient Disposition: Home Condition: Stable Prescriptions: New oxycodone 10 mg tablet 10 mg PO Q6H PRN (Reason: pain) 7 Days Qty: 42 0RF Continued cholecalciferol (vitamin D3) 5,000 unit capsule 5,000 unit PO DAILY rosuvastatin 5 mg tablet 5 mg PO DAILY (DME) flash glucose sensor Kit See Rx Instructions .ROUTE .MEDSUPPLY Qty: 1 Rx Instructions: As directed fenofibrate micronized 134 mg capsule 134 mg PO BID Qty: 90 1RF Humalog KwikPen Insulin 200 unit/mL (3 mL) insulin pen See Rx Instructions SUBCUT DAILY Rx Instructions: 15units plus sliding scale, 3 times daily with meal, SUBCUT daily; Toujeo SoloStar U-300 Insulin 300 unit/mL (1.5 mL) insulin pen 50 unit SUBCUT BEDTIME Qty: 4.5 0RF Rx Instructions: do 30 units tonight, then as appetite improves increase to home dose of 54 at bedtime zolpidem 5 mg tablet 5 mg PO .AT BEDTIME PRN (Reason: insomnia) 30 Days Qty: 30 3RF ramelteon 8 mg tablet See Rx Instructions .ROUTE .COMPLEX Qty: 30 3RF Dose Instruction: TAKE 1 TABLET BY MOUTH EVERY NIGHT Rx Instructions: TAKE 1 TABLET BY MOUTH EVERY NIGHT magnesium citrate Solution 300 ml PO DAILY PRN (Reason: constipation) Qty: 296 0RF ezetimibe 10 mg tablet 10 mg PO DAILY calcitriol 0.5 mcg Capsule 0.5 mcg PO DAILY metformin 1,000 mg Tablet 1,000 mg PO BID ergocalciferol (vitamin D2) [Vitamin D2] 1,250 mcg (50,000 unit) Capsule 50,000 unit PO .TWICE A WEEK albuterol sulfate 90 mcg/actuation Hfa Aerosol Inhaler 2 puff inhalation Q6H PRN (Reason: Shortness Of Breath) fluoxetine 20 mg capsule 20 mg PO DAILY omega-3 acid ethyl esters [Lovaza] 1 gram Capsule 4 cap PO DAILY Creon 3,000-9,500- 15,000 unit capsule,delayed release(DR/EC) 1 cap PO BID PRN (Reason: unknown) Rx Instructions: do not exceed 10,000 unit/kg lipase per 24 hrs multivitamin Tablet 1 tab PO DAILY magnesium L-lactate [Magtab] 84 mg Tablet Extended Release 84 mg PO DAILY 30 Days Qty: 30 0RF ondansetron HCl 4 mg tablet 4 mg PO Q6H PRN (Reason: nausea and vomiting) 7 Days Qty: 28 0RF Reglan 5 mg tablet 5 mg PO Q8H PRN (Reason: breakthrough nausea) 7 Days Qty: 21 0RF promethazine 25 mg tablet 25 mg PO TID PRN (Reason: nausea and vomiting) 7 Days Qty: 21 1RF Discharge Orders: Discharge Order (Routine); Ordered 06/10/22 Ordered By: Kin Greer Referrals: Kni Greer MD [Primary Care Provider] - 3 weeks Jb Hinton MD [Physician] - 1-3 days Discharge Diet: As Directed Discharge Activity: Resume usual activity Patient Instructions: Pancreatitis (DC), Hyperlipidemia (DC), Opioid Safety Activity Restrictions/Additional Instructions: - Please drink plenty of electrolyte balanced fluids -Please avoid fats, please monitor blood sugars closely -Avoid all alcohol -Please use oxycodone sparingly, do not drive operate machinery or drink while taking medication Discharge Attestations Time Spent in Discharge Care*: greater than 30 min Quality Metrics Clinical Quality Measures [ No reported AMI, CVA or VTE this stay] Coding Level of Care Code 19288 Total time (in minutes) for Discharge: 40 Diagnoses Pancreatitis K85.90 Familial hypertriglyceridemia E78.1 Hyponatremia E87.1 SIRS (systemic inflammatory response syndrome) R65.10
--- NOTE | 2022-06-10 14:54 | PC.NURSE ---
All D/C instructions educated to patient, patient signed d/c form. out of facility at this time transported by mother
== END 2022-06-10 14:56 | disposition home or self-care (01) | DRG 642 ==
LOC: ER 06-05 04:21 → ICU 06-05 05:26
PROVIDERS: Emergency Medicine; Admitting Provider Internal Medicine; Emergency Provider Nurse Practitioner Family; PCP Family Medicine; Visit Provider Family Medicine
DX: E78.1 Pure hyperglyceridemia (principal); K85.80 Other acute pancreatitis without necrosis or infection; E87.1 Hypo-osmolality and hyponatremia; K56.7 Ileus, unspecified; E78.5 Hyperlipidemia, unspecified; E11.65 Type 2 diabetes mellitus with hyperglycemia; Z79.4 Long term (current) use of insulin; Z79.84 Long term (current) use of oral hypoglycemic drugs; K29.80 Duodenitis without bleeding; I88.9 Nonspecific lymphadenitis, unspecified; K57.30 Diverticulosis of large intestine without perforation or abscess without bleeding; K40.90 Unilateral inguinal hernia, without obstruction or gangrene, not specified as recurrent; K21.9 Gastro-esophageal reflux disease without esophagitis; E66.9 Obesity, unspecified; Z68.30 Body mass index [BMI] 30.0-30.9, adult; G47.33 Obstructive sleep apnea (adult) (pediatric); Z87.891 Personal history of nicotine dependence; E86.0 Dehydration; I10 Essential (primary) hypertension
CPT/HCPCS: 36415; 36416; 71045; 74177; 80048; 80053; 81001; 82962; 83690; 83721; 83735; 84100; 84295; 84478; 85025; 85610; 87040; 87486; 87581; 87633; 96361; 96372; 96374; 96375; 96376; 99285; C9113; J1170; J1630; J1644; J1815; J2405; J2765; J3010; J3475; J7030; J7050; Q9967

== ENCOUNTER 2022-07-06 20:00 | Outpatient (CLI) | payer BC, SELFPAY | END 2022-07-06 20:01 | disposition home or self-care (01) | LOC: SLEEP 07-07 06:09 | PROVIDERS: PCP Family Medicine; Visit Provider Family Medicine | DX: G47.33 Obstructive sleep apnea (adult) (pediatric) (principal) | CPT/HCPCS: 95811 ==

== ENCOUNTER 2022-07-29 13:37 | Inpatient (IN) | payer BC, SELFPAY ==
[2022-07-29] VITALS (37 sets, daily range): BP systolic 131–167; BP diastolic 78–111; PULSE 59–88; RESP 13–20; TEMP 36.7; O2SAT 94–100
--- NOTE | 2022-07-29 13:50 | W.ED.ABDPA2 ---
HPI - Abdominal Pain General: Chief Complaint: Abdominal Pain Stated Complaint: Percy sent for pancreatitis Time Seen by Provider: 07/29/22 13:50 History of Present Illness: Mr. Donohue is a 36-year-old gentleman with history of familial hypertriglyceridemia and recurrent pancreatitis presenting to the emergency department for concern over pancreatitis. He reports mild discomfort this morning which is subsequently worsened. Epigastric pain with radiation to the back. Severe in intensity. He presented to PCP who attempted treatment however pain continued and therefore he was referred to the ER for further evaluation. Denies other signs of systemic illness. No other specific changes in health, exacerbating, or alleviating factors identified. Onset (ago): hour(s) Pain Consistency: constant Location: Epigastric Severity: severe Quality: stabbing and aching Migration to: no migration Exacerbating factors: eating and movement Associated Symptoms: Reports no associated symptoms Review of Systems General: Reports: 10 or more systems reviewed and unremarkable except in HPI and below PFSH ED PFSH: Medical History Acute on chronic pancreatitis Familial hypertriglyceridemia GERD (gastroesophageal reflux disease) Hyperlipidemia Hypertension Insomnia 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 Mediastinal lymphadenopathy Obesity (BMI 30.0-34.9) LESLY (obstructive sleep apnea) Overweight (BMI 25.0-29.9) Pseudohyponatremia Recurrent pancreatitis Surgical History History of cholecystectomy History of knee surgery arthroscopic left knee Family History Other CAD (coronary artery disease) Hyperlipidemia Social History Smoking and tobacco status: former smoker Alcohol intake: never Substance/Drug Use: never Physical Exam Const: COMMON NORMALS: alert GENERAL APPEARANCE: cooperative and well developed HENMT: COMMON NORMALS: normocephalic and atraumatic HEAD & SCALP: normocephalic and atraumatic Eye: COMMON NORMALS: conjunctivae normal CONJUNCTIVA: Yes conjunctivae normal SCLERA: sclerae normal Neck/C-Spine: COMMON NORMALS: supple GENERAL: Yes trachea midline Resp: COMMON NORMALS: clear to auscultation bilaterally EFFORT & INSPECTION: Yes able to speak in complete sentences AUSCULTATION: clear to auscultation bilaterally Cardio: COMMON NORMALS: regular rate and regular rhythm RATE: regular rate RHYTHM: regular rhythm GI: COMMON NORMALS: Soft to palpation PALPATION: Yes Soft to palpation, Yes Tenderness to palpation present (GI), No Guarding due to palpation present (GI) and No Rigid due to palpation Extremity: GENERAL: Yes normal exam except as noted and No edema Neuro: COMMON NORMALS: moves all extremities SENSORIUM/ORIENTATION: Yes alert and No Orientation impaired Psych: COMMON NORMALS: mental status grossly normal and Normal thought process present THOUGHT PROCESS: Normal thought process present Course Vital Signs: Vital signs: Vital Signs Temperature 97.9 F 07/30/22 19:00 Pulse Rate 101 H 07/30/22 22:00 Respiratory Rate 23 H 07/30/22 22:42 Blood Pressure 145/104 07/30/22 19:00 Pulse Oximetry 95 07/30/22 22:42 Oxygen Delivery Me thod Room Air 07/30/22 20:00 MDM - Abdominal Pain Medical Decision Making 36-year-old gentleman with history of familial hypertriglyceridemia and recurrent pancreatitis presenting due to pancreatitis type symptoms. Patient is uncomfortable due to pain and quite tender in the epigastric region, no evidence of acute surgical abdomen. Patient treated with repeated doses of antiemetic and analgesia, IV fluids ordered. Labs with no significant hematologic abnormalities or metabolic panel consistent with pancreatitis, triglycerides are elevated. Ketones likely from starvation ketosis. Prior CT imaging reviewed. In discussion with the patient and based on exam and laboratory findings I believe that symptomatology is consistent with pancreatitis that does not require repeat imaging at this time in the emergency permit. Insulin drip ordered. Patient did have modest improvement in pain however still requiring IV pain medications. The results of ED evaluation were discussed with the patient including plan for admission due to requirement for level of care not available if discharged to prevent significant worsening/deterioration. Patient agreeable with plan. Discussed with hospitalist service who was agreeable to admit patient. Medical Records I reviewed the patient's medical records. Lab Data I reviewed the patient's lab results. 07/29/22 14:15 07/30/22 02:17 Labs/Radiology: Radiology Impressions Chest X-Ray 07/30/22 10:50 Impression: Insertion right PICC line. Laboratory Results WBC 8.5 10^3/uL (4.0-10.0) 07/29/22 14:15 RBC 5.46 10^6/uL (4.1-5.3) H 07/29/22 14:15 Hgb 14.9 g/dL (11.7-16.6) 07/29/22 14:15 Hct 43.9 % (42.0-52.0) 07/29/22 14:15 MCV 80.4 fl (80-94) 07/29/22 14:15 MCH 27.3 pg (28.0-34.0) L 07/29/22 14:15 MCHC 33.9 g/dL (30.0-36.0) 07/29/22 14:15 RDW 13.9 % (12.1-15.1) 07/29/22 14:15 Plt Count 236 10^3/cmm (130-400) 07/29/22 14:15 MPV 12.5 fL (7.4-10.4) H 07/29/22 14:15 Neut % (Auto) 71.2 % 07/29/22 14:15 Lymph % (Auto) 21.8 % 07/29/22 14:15 [place] % (Auto) 3.6 % 07/29/22 14:15 Eos % (Auto) 1.8 % 07/29/22 14:15 Baso % (Auto) 0.7 % 07/29/22 14:15 Neut # (Auto) 6.05 10^3/uL (1.8-7.7) 07/29/22 14:15 Lymph # (Auto) 1.9 10^3/uL (0.8-4.8) 07/29/22 14:15 [place] # (Auto) 0.3 10^3/uL (0.2-0.9) 07/29/22 14:15 Eos # (Auto) 0.2 10^3/uL (0.0-0.8) 07/29/22 14:15 Baso # (Auto) 0.1 10^3/uL (0.0-0.1) 07/29/22 14:15 Nucleated RBC % (auto) 1.3 % 07/29/22 14:15 Nucleated RBCs # 0.1 /100WBC 07/29/22 14:15 Sodium 132 mmol/L (136-145) L 07/29/22 14:15 Potassium 4.0 mmol/L (3.5-5.1) 07/29/22 14:15 Chloride 94 mmol/L (98-107) L 07/29/22 14:15 Carbon Dioxide 25 mmol/L (22-29) 07/29/22 14:15 Anion Gap 17.0 (5-19) 07/29/22 14:15 BUN 14 mg/dL (6-20) 07/29/22 14:15 Creatinine 0.6 mg/dL (0.7-1.2) L 07/29/22 14:15 GFR Calculation 154.2 mL/min (90-130) H 07/29/22 14:15 Glucose 380 mg/dL (65-115) H 07/29/22 14:15 POC Glucose 336 mg/dL (70-110) H 07/29/22 17:11 Calculated Osmolality 290 mOsm/kg (285-295) 07/29/22 14:15 Lactate 1.7 mmol/L (0.5-2.2) 07/29/22 14:15 Calcium 8.8 mg/dL (8.5-10.5) 07/29/22 14:15 Total Bilirubin 0.3 mg/dL (0.15-1.2) 07/29/22 14:15 AST 5 U/L (0-40) 07/29/22 14:15 ALT < 5 U/L (0-41) 07/29/22 14:15 Alkaline Phosphatase 105 U/L (40-130) 07/29/22 14:15 Total Protein 7.6 g/dL (6.6-8.7) 07/29/22 14:15 Albumin 4.4 g/dL (3.5-5.2) 07/29/22 14:15 Globulin 3.2 g/dL (1.3-4.6) 07/29/22 14:15 Triglycerides 2050 mg/dL (0-150) H 07/29/22 14:15 LDL Cholesterol Direct 38 mg/dL (0-100) 07/29/22 14:15 Lipase 663 U/L (13-60) H 07/29/22 14:15 Urine Color Yellow (Yellow) 07/29/22 14:13 Urine Appearance Clear (CLEAR) 07/29/22 14:13 Urine pH 5 (5-7) 07/29/22 14:13 Ur Specific [place] 1.025 (1.005-1.030) 07/29/22 14:13 Urine Protein 3+ (Negative) H 07/29/22 14:13 Urine Glucose (UA) 4+ (Normal) H 07/29/22 14:13 Urine Ketones 1+ (Negative) H 07/29/22 14:13 Urine Blood Neg (Negative) 07/29/22 14:13 Urine Nitrate Negative (Negative) 07/29/22 14:13 Urine Bilirubin Neg (Negative) 07/29/22 14:13 Urine Urobilinogen Neg mg/dL (Negative) 07/29/22 14:13 Ur Leukocyte Esterase Negative (Negative) 07/29/22 14:13 Urine RBC Rare /hpf (0-2) 07/29/22 14:13 Urine WBC None /hpf (0-5) 07/29/22 14:13 Ur Squamous Epith Cells Rare /hpf (0-5) 07/29/22 14:13 Amorphous Sediment Not Reportable 07/29/22 14:13 Urine Bacteria None /hpf (NONE) 07/29/22 14:13 Serum Ketones Positive (Negative) H 07/29/22 14:15 Discharge Plan Discharge Patient Disposition: Admitted As Inpatient Admit Provider: Primo Nassar Clinical Impression: Familial hypertriglyceridemia, Recurrent pancreatitis Condition: Stable Coding Level of Care Code ED Telephone Sales Agent for [employer]
[2022-07-29] MEDS: sodium chloride 0.9% 1,000 ML 999 ML IV (14:23)
[2022-07-29] MEDS: ondansetron 2 mg/ML SDV 2 mL 4 MG IVP ×2 (14:24→21:24)
[2022-07-29] MEDS: HYDROmorphone 1 mg/mL INJ 1 mL IVP ×9 (14:24→23:17)
[2022-07-29 14:40] LABS: Specific Gravity, Urine 1.025 (1.005-1.030); Urine Appearance Clear (CLEAR); Urine Color Yellow (Yellow); pH Urine 5 (5-7)
[2022-07-29 14:41] LABS: Add Urine Culture? No; Add Urine Microscopic? YES; Bilirubin Urine Neg (Negative); Blood Urine Neg (Negative); Glucose Urine UA 4+ (Normal); Ketones Urine 1+ (Negative); Leukocyte Esterase Urine Negative (Negative); Nitrate Urine Negative (Negative); Protein Urine 3+ (Negative); RBC Urine RARE /hpf (0-2); Squamous Epithelial Cell Urine RARE /hpf (0-5); Urobilinogen Urine Neg (Negative)
[2022-07-29 15:12] LABS: Lactate (Lactic Acid level) 1.7 mmol/L (0.5-2.2)
[2022-07-29 15:13] LABS: Albumin Level 4.4 g/dL (3.5-5.2); Alkaline Phosphatase 105 U/L (40-130); Blood Urea Nitrogen 14 mg/dL (6-20); Calcium 8.8 mg/dL (8.5-10.5); Carbon Dioxide 25 mmol/L (22-29); Chloride 94 mmol/L (98-107); Globulin 3.2 g/dL (1.3-4.6); Glomerular Filtration Rate 154.2 mL/min (90-130); Glucose 380 mg/dL (65-115); Osmolality Calculated 290 mOsm/kg (285-295); Sodium 132 mmol/L (136-145); Total Bilirubin 0.3 mg/dL (0.15-1.2); Total Protein 7.6 g/dL (6.6-8.7)
[2022-07-29 15:25] LABS: Alanine Aminotransferase < 5 U/L (0-41); Aspartate Amino Transferase 5 U/L (0-40)
[2022-07-29 15:27] LABS: Lipase 663 U/L (13-60); Triglycerides 2050 mg/dL (0-150)
[2022-07-29 15:40] LABS: LDL Cholesterol Direct 38 mg/dL (0-100)
[2022-07-29 15:47] LABS: Ketone (Acetest) Serum Positive (Negative)
[2022-07-29 16:05] LABS: Basophils # 0.1 10^3/uL (0.0-0.1); Basophils % 0.7 %; Eosinophils # 0.2 10^3/uL (0.0-0.8); Eosinophils % 1.8 %; Hematocrit 43.9 % (42.0-52.0); Hemoglobin 14.9 g/dL (11.7-16.6); Lymphocytes # 1.9 10^3/uL (0.8-4.8); Lymphocytes % 21.8 %; Mean Corpuscular HGB Conc 33.9 g/dL (30.0-36.0); Mean Corpuscular Hemoglobin 27.3 pg (28.0-34.0); Mean Corpuscular Volume 80.4 fl (80-94); Mean Platelet Volume 12.5 fL (7.4-10.4); Monocytes # 0.3 10^3/uL (0.2-0.9); Monocytes % 3.6 %; Neutrophils # 6.05 10^3/uL (1.8-7.7); Neutrophils % 71.2 %; Nucleated Red Blood Cells # 0.1 /100WBC; Nucleated Red Blood Cells % 1.3 %; Red Blood Count 5.46 10^6/uL (4.1-5.3); Red Cell Distribution Width 13.9 % (12.1-15.1); White Blood Count 8.5 10^3/uL (4.0-10.0)
[2022-07-29 16:07] LABS: Platelet Count 236 10^3/cmm (130-400)
[2022-07-29 16:08] LABS: Slide Review Slide Review Perform
[2022-07-29 17:14] LABS: Glucose Point of Care 336 mg/dL (70-110)
--- NOTE | 2022-07-29 17:14 | P.HP_ITS ---
Providers/Chief Complaint Admitting Physician: Primo Nassar Primary Care Provider: Kin Greer MD Chief Complaint: Percy sent for pancreatitis History of Present Illness Rui Donohue is a 36 year old male with a past medical history significant for multiple episodes of recurrent pancreatitis, insulin-dependent type 2 diabetes mellitus, familial hypertriglyceridemia, GERD, hyperlipidemia, hypertension, insomnia, and obstructive sleep apnea who presents to the emergency department with severe abdominal pain x1 day. Endorses associated symptoms of nausea and generalized malaise. He was evaluated by his primary care physician earlier today. He was brought to the emergency department due to concern for pancreatitis. In the ED, patient was found to have recurrent pa ncreatitis with elevated triglyceride levels. He was started on insulin drip and analgesics were started. Patient reports typically hydromorphone improves his pain. He did note last time he got TPN and that seemed to help his recovery. Of note, patient has extensive history of recurrent pancreatitis due to hypertriglyceridemia. He reports compliance with his medications. He recently has changed care over to endocrinology clinic care [facility]. He reports that he has received his insulin pump but has yet to actually start it yet. Reports last A1c was a little over 10. Spouse is bedside and appears very supportive of patient. Review of Systems Narrative: A complete review of systems was obtained and is negative except as stated in HPI. Medications/Allergies Home Medications Medication Instructions Recorded Confirmed Last Taken Type cholecalciferol (vitamin D3) 125 5,000 unit PO DAILY 04/02/19 07/29/22 07/29/22 History mcg (5,000 unit) capsule fenofibrate micronized 134 mg 134 mg PO BID #90 caps 01/29/20 07/29/22 07/29/22 Rx capsule flash glucose sensor #1 ea 01/29/20 07/29/22 Unknown History rosuvastatin 5 mg tablet 5 mg PO DAILY 05/19/21 07/29/22 07/28/22 History magnesium citrate 300 ml PO DAILY PRN constipation 10/02/21 07/29/22 Unknown Rx #296 mL ezetimibe 10 mg tablet 10 mg PO DAILY 03/20/22 07/29/22 07/29/22 History albuterol sulfate 90 mcg/actuation 2 puff inhalation Q6H PRN 05/10/22 07/29/22 Unknown History aerosol inhaler Shortness Of Breath calcitriol 0.5 mcg capsule 0.5 mcg PO DAILY 05/10/22 07/29/22 07/29/22 History ergocalciferol (vitamin D2) 1,250 100,000 unit PO Q7D 05/10/22 07/29/22 07/27/22 History mcg (50,000 unit) capsule (Vitamin D2) lipase 3,000-protease 1 cap PO BID PRN unknown 05/10/22 07/29/22 Unknown History 9,500-amylase 15,000 unit capsule, delayed rel (Creon) metformin 1,000 mg tablet 1,000 mg PO BID 05/10/22 07/29/22 07/29/22 History multivitamin 1 tab PO DAILY 05/10/22 07/29/22 07/29/22 History omega-3 acid ethyl esters 1 gram 4 cap PO DAILY 05/10/22 07/29/22 07/29/22 H istory capsule (Lovaza) ramelteon 8 mg tablet See Rx Instructions .Route 05/18/22 07/29/22 Unknown Rx .COMPLEX #30 tabs insulin glargine U-300 conc 300 65 unit (0.2167 mL) SUBCUT DAILY 06/10/22 07/29/22 07/29/22 Rx unit/mL (1.5 mL) subcutaneous pen 30 days #6.5 mL (Toujeo SoloStar U-300 Insulin) insulin lispro 200 unit/mL (3 mL) 40 unit (0.2 mL) SUBCUT TID 30 06/10/22 07/29/22 Unknown Rx subcutaneous pen (Humalog days #18 mL U-200 Insulin) pioglitazone 30 mg tablet (Actos) 30 mg PO DAILY #30 tabs 06/10/22 07/29/22 07/29/22 Rx flash glucose sensor (FreeStyle #6 ea 06/16/22 07/29/22 Unknown Rx Singh 2 Sensor kit) fluoxetine 20 mg capsule See Rx Instructions .Route 07/14/22 07/29/22 07/28/22 Rx .COMPLEX #30 caps metoclopramide HCl 5 mg tablet 5 mg PO Q8H PRN breakthrough 07/16/22 07/29/22 Unknown Rx (Reglan) nausea 7 days #21 tabs ondansetron HCl 4 mg tablet 4 mg PO Q6H PRN nausea and 07/16/22 07/29/22 Unknown Rx vomiting 7 days #28 tabs oxycodone 10 mg tablet 10 mg PO Q6H PRN pancreatitis pain 07/16/22 07/29/22 Unknown Rx 7 days #42 tabs promethazine 25 mg tablet 25 mg PO TID PRN nausea and 07/16/22 07/29/22 Unknown Rx vomiting 7 days #21 tabs Dexcom G6 Sensor (blood-glucose #9 ea 07/19/22 07/29/22 Unknown Rx sensor) Dexcom G6 Transmitter #2 ea 07/19/22 07/29/22 Unknown Rx (blood-glucose transmitter) Dexcom G6 [employer] Systems Administrator (blood-glucose #1 ea 07/21/22 07/29/22 Unknown Rx meter,continuous) baclofen 5 mg tablet 5 mg PO BID PRN Pain 07/29/22 07/29/22 Unknown History zolpidem 5 mg tablet 5 mg PO BEDTIME PRN insomnia 07/29/22 07/29/22 Unknown History Allergies Allergy/AdvReac Type Severity Reaction Status Date / Time No Known Allergies Allergy Verified 07/29/22 12:48 PFSH Acute 2 PFSH: Medical History (Updated 07/29/22 @ 17:47 by Primo Nassar MD) Acute on chronic pancreatitis Familial hypertriglyceridemia GERD (gastroesophageal reflux disease) Hyperlipidemia Hypertension Insomnia 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 Mediastinal lymphadenopathy Obesity (BMI 30.0-34.9) LESLY (obstructive sleep apnea) Overweight (BMI 25.0-29.9) Pseudohyponatremia Recurrent pancreatitis Surgical History History of cholecystectomy History of knee surgery arthroscopic left knee Family History Other CAD (coronary artery disease) Hyperlipidemia Social History Smoking and tobacco status: former smoker Alcohol intake: never Substance/Drug Use: never Vitals/I&O/Wt Last Vital Signs Temp 98.1 F 07/29/22 13:45 Pulse 69 07/29/22 17:12 Resp 18 07/29/22 17:12 BP 153/78 07/29/22 17:12 Pulse Ox 97 05/11/23 17:12 O2 Del Method Room Air 07/29/22 17:12 07/29/22 07/29/22 07/29/22 06:59 14:59 22:59 Intake Total 1000 / 1000 Balance 1000 / 1000 Weight last 48 hrs Weight 90.718 kg Physical Exam Narrative: General: Patient is awake and alert. Very pleasant. Appears ill. Head: Normocephalic. Atraumatic. EOM intact. Dry mucous membranes. Neck: No JVD. Cardiovascular: RRR. No gallops. No murmurs. No peripheral edema. Hypertensive. Lungs: Clear to auscultation, no use of accessory muscles, no crackles or wheezes. Skin: No jaundice. No rashes. Abdomen: Tenderness to palpation in upper quadrants. Bowel sounds are present. No guarding.. Genito Urinary: Genital exam not performed since complaints not related. Rectal: Rectal exam not performed since no symptoms indicated blood loss. Extremities: No cyanosis or clubbing. Musculoskeletal: 5/5 strength, normal range of motion, no swollen or erythematous joints. Neurological: Moves all 4 extremities. No myoclonus. Data 07/29/22 14:15 07/29/22 14:15 A&P Assessment and plan (1) Recurrent pancreatitis: Hx of cholecystectomy Extensive prior history of pancreatitis 2/2 to familial hypertriglyceridemia A/w severe dehydration Lipase elevated Hold off on CT imaging, reconsider if he worsens or does not respond as expected No evidence of infection or pancreatitis complication, monitor for closely for development Start insulin drip Start D5W half NS with potassium supplement N.p.o., sips of clears okay, medications, ice chips are okay Will consider TPN pending clinical course Continue home fenofibrate Monitor electrolytes Hydromorphone as needed (2) Familial hypertriglyceridemia: Trend triglyceride levels Management as above (3) IDDM (insulin dependent diabetes mellitus): Uncontrolled with A1c over 10 Hold home oral medications Hold subcutaneous insulins Has establish care with endocrinology, will need follow-up Agree with insulin pump long-term when patient is ready Insulin drip for now as above (4) Intractable pain: Secondary to pancreatitis Hydromorphone as needed (5) Hyperlipidemia: Continue statin Qualifiers: Hyperlipidemia type: moderate mixed hyperlipidemia not requiring statin therapy Qualified Code(s): E78.2 - Mixed hyperlipidemia (6) Vitamin D deficiency: Continue vitamin D supplementation Plan DVT prophylaxis: Heparin CODE STATUS: Full code Attestations Medical Necessity Statement*: Patient presents with recurrent pancreatitis secondary to familiar hypertriglyceridemia requiring IV insulin drip, serial labs, supportive care with expected hospitalization to cross 2 midnights. Critical Care Time: The high probability of a clinically significant, sudden or life threatening deterioration of the patient's endocrine system(s) required my full and direct attention, intervention and personal management. The critical care time is as shown. This time is in addition to time spent performing any reported procedures but includes the following: [x] Data and vital sign review and interpretation [x] Patient assessment, examination and intervention [x] Documentation [x] Medication orders and management Critical Care Time (min): 35 Coding Level of Care Code Acute Code for Chg Fwd Diagnoses Recurrent pancreatitis Familial hypertriglyceridemia E78.1 IDDM (insulin dependent diabetes mellitus) Intractable pain R52 Hyperlipidemia E78.2 Hyperlipidemia type: moderate mixed hyperlipidemia not requiring statin therapy Vitamin D deficiency E55.9
[2022-07-29] MEDS: insulin regular-human 250 UNIT in sodium chloride 0.9% 250 ML 8.4 UNIT IV (17:29)
[2022-07-29] MEDS: D5-NS 0.45% + KCL 20 mEq 20 MEQ/1,000 ML BAG 200 MEQ IV ×2 (18:59→23:21)
[2022-07-29 19:22] LABS: Carbon Dioxide 22 mmol/L (22-29)
[2022-07-29 19:35] LABS: Glomerular Filtration Rate 190.3 mL/min (90-130)
[2022-07-29 19:39] LABS: Glucose Point of Care 234 mg/dL (70-110)
[2022-07-29 20:01] LABS: Blood Urea Nitrogen 14 mg/dL (6-20); Calcium 8.6 mg/dL (8.5-10.5); Chloride 98 mmol/L (98-107); Glucose 257 mg/dL (65-115); Sodium 135 mmol/L (136-145)
[2022-07-29 20:06] LABS: Anion Gap 18.6 (5-19); Potassium 3.6 mmol/L (3.5-5.1); Triglycerides 3819 mg/dL (0-150)
[2022-07-29] MEDS: oxyCODONE 5 mg IR Tab/Cap 10 MG PO (20:11)
[2022-07-29 20:52] LABS: LDL Cholesterol Direct 35 mg/dL (0-100)
[2022-07-29 21:14] LABS: Glucose Point of Care 241 mg/dL (70-110)
[2022-07-29 21:29] LABS: Glucose Point of Care 245 mg/dL (70-110)
[2022-07-29 22:44] LABS: Glucose Point of Care 210 mg/dL (70-110)
[2022-07-29] MEDS: zolpidem 5 mg Tablet PO (23:14)
[2022-07-30] VITALS (89 sets, daily range): BP systolic 131–196; BP diastolic 84–104; PULSE 69–119; RESP 12–25; TEMP 36.6–37.1; O2SAT 94–99
[2022-07-30] MEDS: HYDROmorphone 1 mg/mL INJ 1 mL IVP ×5 (00:19→07:38)
[2022-07-30 00:25] LABS: Glucose Point of Care 190 mg/dL (70-110)
[2022-07-30 00:25] LABS: Glucose Point of Care 224 mg/dL (70-110)
[2022-07-30 01:07] LABS: Glucose Point of Care 167 mg/dL (70-110)
[2022-07-30 02:19] LABS: Glucose Point of Care 177 mg/dL (70-110)
[2022-07-30] MEDS: oxyCODONE 5 mg IR Tab/Cap 10 MG PO ×3 (03:14→20:36)
[2022-07-30 03:43] LABS: Albumin Level 3.7 g/dL (3.5-5.2); Blood Urea Nitrogen 9 mg/dL (6-20); Calcium 8.7 mg/dL (8.5-10.5); Carbon Dioxide 23 mmol/L (22-29); Chloride 102 mmol/L (98-107); Glomerular Filtration Rate 154.2 mL/min (90-130); Phosphorus 3.5 mg/dL (2.5-4.5)
[2022-07-30 03:50] LABS: Anion Gap 17.1 (5-19); Potassium 4.1 mmol/L (3.5-5.1)
[2022-07-30 03:52] LABS: Glucose 184 mg/dL (65-115); Sodium 138 mmol/L (136-145)
[2022-07-30] MEDS: D5-NS 0.45% + KCL 20 mEq 20 MEQ/1,000 ML BAG 200 MEQ IV ×4 (04:14→20:01)
[2022-07-30 05:19] LABS: Glucose Point of Care 161 mg/dL (70-110)
[2022-07-30] MEDS: ondansetron 2 mg/ML SDV 2 mL 4 MG IVP ×3 (05:42→19:32)
[2022-07-30 06:54] LABS: Glucose Point of Care 158 mg/dL (70-110)
[2022-07-30 06:54] LABS: Glucose Point of Care 199 mg/dL (70-110)
[2022-07-30 07:02] LABS: Glucose Point of Care 183 mg/dL (70-110)
[2022-07-30 08:08] LABS: Glucose Point of Care 158 mg/dL (70-110)
[2022-07-30] MEDS: ezetimibe 10 mg Tablet PO (09:15)
[2022-07-30] MEDS: multivitamin therapeutic Tablet 1 TAB PO (09:16)
[2022-07-30] MEDS: fluoxetine 20 mg Capsule PO (09:16)
[2022-07-30] MEDS: cholecalciferol (vitamin D3) 5,000 unit Tablet 5000 UNIT PO (09:16)
[2022-07-30] MEDS: atorvastatin 40 mg Tablet 20 MG PO (09:16)
[2022-07-30] MEDS: calcitriol 0.25 mcg Capsule 0.5 MCG PO (09:18)
[2022-07-30] MEDS: HYDROmorphone 1 mg/mL INJ 1 mL 2 MG IVP ×4 (09:19→14:31)
--- NOTE | 2022-07-30 09:39 | PC.NUTR ---
Recommend consideration of TPN per following schedule: 21 mls/hr (25% final rate) for Q8H 42 mls/hr (50% final rate) for Q8H 63 mls/hr (75% final rate) for Q8H 83 mls/hr (goal rate) Recommend including standard electrolytes and MV 10 mls/day. Notes in RD assessment.
[2022-07-30 09:42] LABS: Glucose Point of Care 130 mg/dL (70-110)
[2022-07-30 10:32] LABS: Glucose Point of Care 138 mg/dL (70-110)
--- NOTE | 2022-07-30 10:50 | XR_ITS ---
WS: [id number] Portable AP chest, 07/30/2022 Clinical Data: Post PICC insertion Comparison: Portable chest, 06/05/2022 Findings: The right PICC line has been inserted and it ends at the cavoatrial junction. No pneumothor ax is seen. The PICC line may be retreated 5 cm for positioning in the superior vena cava. XR/XR chest 1V portable [id number] Impression: Insertion right PICC line.
[2022-07-30 11:27] LABS: Glucose Point of Care 146 mg/dL (70-110)
--- NOTE | 2022-07-30 11:54 | PM.PN ---
Subjective Subjective: Patient is awake and alert. Reports epigastric abd pain overnight, currently rates 6 out 10. Reports hydromorphone does help some. Discussed dose adjustment and he is agreeable. He states he still feels very dehydrated. Discussed TPN which he received last time and he states he felt like it helped him feel better and stronger. He consents to proceed with TPN again. Otherwise denies other new complaints. Medications: Reviewed: Yes Vitals/I&O/Wt Last Vital Signs Temp 98.8 F 07/30/22 08:45 Pulse 78 07/30/22 08:45 Resp 15 07/30/22 10:39 BP 135/85 07/30/22 08:45 Pulse Ox 96 07/30/22 10:39 O2 Del Method Room Air 07/30/22 08:00 07/29/22 07/30/22 07/30/22 22:59 06:59 14:59 Intake Total 1036.511 / 6136.095 8678.420 / 2952.931 1057.533 / 1057.533 Output Total 375 / 375 450 / 450 Balance 1036.511 / 2258.632 8729.420 / 2577.931 607.533 / 607.533 Weight last 48 hrs Weight 90.718 kg Physical Exam Narrative: General: Patient is awake. Lying in bed. Head:? Normocephalic. Atraumatic. EOM intact.? Dry mucous membranes. Neck: No JVD. Cardiovascular: RRR. No gallops. No murmurs. No peripheral edema.? Lungs: Clear to auscultation, no use of accessory muscles, no crackles or wheezes. Skin: No jaundice. No rashes. Abdomen: Tenderness to palpation in epigastric region.? Bowel sounds are present.? No guarding. Extremities: No cyanosis or clubbing. Musculoskeletal: No swollen or erythematous joints. Neurological: Moves all 4 extremities. No myoclonus. Data 07/29/22 14:15 07/30/22 02:17 A&P Assessment and plan (1) Intractable pain: Pain currently 6 out of 10 On chronic opiates, so expect tolerance Increase hydrmoprhone to 2 mg Q1H/PRN, reassess dosing as needed, ideally move away from Q1H dosing as symptoms improve (2) Recurrent pancreatitis: 2/2 familial hypertriglyceridemia Continue insulin drip Start TPN, will need different access Continue D5W half NS with potassium supplement N.p.o., sips of clears okay, medications, ice chips are okay Monitor electrolytes Pain control (3) IDDM (insulin dependent diabetes mellitus): Uncontrolled with hyperglcyemia Hold home regimen Has establish care with endocrinology, will need follow-up Continue insulin pump, will need adjustment as TPN begins (4) Familial hypertriglyceridemia: Trend triglyceride levels Management as above (5) Hyperlipidemia: Continue statin Qualifiers: Hyperlipidemia type: moderate mixed hyperlipidemia not requiring statin therapy Qualified Code(s): E78.2 - Mixed hyperlipidemia (6) LESLY (obstructive sleep apnea): Wore CPAP overnight (7) Vitamin D deficiency: Continue vitamin D supplementation Plan DVT prophylaxis: Heparin CODE STATUS: Full code Attestations Medical Necessity Statement*: Patient requires ongoing hospitalization for IV insulin, IV fluids, IV dextrose, IV analgesics, and supportive care. Critical Care Time: The high probability of a clinically significant, sudden or life threatening deterioration of the patient's endocrine system(s) required my full and direct attention, intervention and personal management. The critical care time is as shown. This time is in addition to time spent performing any reported procedures but includes the following: [x] Data and vital sign review and interpretation [x] Patient assessment, examination and intervention [x] Documentation [x] Medication orders and management Critical Care Time (min): 33 Coding Level of Care Code Acute Code for Chg Fwd Diagnoses Intractable pain R52 Recurrent pancreatitis IDDM (insulin dependent diabetes mellitus) Familial hypertriglyceridemia E78.1 Hyperlipidemia E78.2 Hyperlipidemia type: moderate mixed hyperlipidemia not requiring statin therapy LESLY (obstructive sleep apnea) G47.33 Vitamin D deficiency E55.9
--- NOTE | 2022-07-30 12:00 | PC.NURSE ---
Triple lumen PICC placed to right basilic vein without difficulty. Trimmed cath 46 cm with 3 cm external length noted. Mid-arm circumference measured 10 cm from right AC 31 cm. EBL <10 mL. CXR confirms catheter tip at cavoatrial junction in SVC, in good position for use. Dressing due to be changed tomorrow, 07/31/22. Report given to bedside nurseJackie.
[2022-07-30] MEDS: AA-Dex 5%-20% w/Lytes 1,000 ML with multivitamin inj 5 ML 21 ML IV (12:31)
[2022-07-30 12:45] LABS: Glucose Point of Care 149 mg/dL (70-110)
[2022-07-30 13:53] LABS: Glucose Point of Care 162 mg/dL (70-110)
--- NOTE | 2022-07-30 13:53 | PC.NURSE ---
Contacted Dr. Haile office and spoke to Ruthy for clarification on patients glucose device. Patient understands device to be a insulin pump. Dr. Hinton office clarified that follow up appointment should be made to place glucose monitoring device, and a second follow up appointment to be made to then determine if patient will continue with flex pen insulin or if patient requires an insulin pump.
[2022-07-30 14:43] LABS: Triglycerides 3471 mg/dL (0-150)
[2022-07-30 14:58] LABS: Glucose Point of Care 180 mg/dL (70-110)
[2022-07-30 15:02] LABS: LDL Cholesterol Direct 52 mg/dL (0-100)
[2022-07-30 16:01] LABS: Glucose Point of Care 157 mg/dL (70-110)
[2022-07-30] MEDS: HYDROmorphone 1 mg/mL INJ 1 mL 4 MG IVP ×6 (16:03→22:42)
[2022-07-30] MEDS: insulin regular-human 250 UNIT in sodium chloride 0.9% 250 ML 9.7 UNIT IV (17:21)
[2022-07-30 17:28] LABS: Glucose Point of Care 183 mg/dL (70-110)
[2022-07-30 18:39] LABS: Glucose Point of Care 149 mg/dL (70-110)
[2022-07-30] MEDS: alum-mag-hydroxide-sime 30 mL UDC 15 ML PO (19:20)
[2022-07-30 19:45] LABS: Glucose Point of Care 128 mg/dL (70-110)
[2022-07-30 20:59] LABS: Glucose Point of Care 177 mg/dL (70-110)
[2022-07-30 22:08] LABS: Glucose Point of Care 159 mg/dL (70-110)
[2022-07-30 22:33] LABS: Glucose Point of Care 143 mg/dL (70-110)
[2022-07-30 23:30] LABS: Glucose Point of Care 151 mg/dL (70-110)
[2022-07-31] VITALS (45 sets, daily range): BP systolic 119–146; BP diastolic 80–92; PULSE 99–124; RESP 11–26; TEMP 36.6–37.6; O2SAT 93–95
[2022-07-31] MEDS: HYDROmorphone 1 mg/mL INJ 1 mL 4 MG IVP ×11 (00:28→13:49)
[2022-07-31 00:29] LABS: Glucose Point of Care 190 mg/dL (70-110)
[2022-07-31] MEDS: alum-mag-hydroxide-sime 30 mL UDC 15 ML PO (00:34)
[2022-07-31] MEDS: D5-NS 0.45% + KCL 20 mEq 20 MEQ/1,000 ML BAG 200 MEQ IV ×5 (01:24→23:06)
[2022-07-31 01:25] LABS: Basophils # 0.1 10^3/uL (0.0-0.1); Basophils % 0.4 %; Eosinophils # 0.2 10^3/uL (0.0-0.8); Eosinophils % 1.4 %; Hematocrit 41.6 % (42.0-52.0); Hemoglobin 13.6 g/dL (11.7-16.6); Lymphocytes % 16.3 %; Mean Corpuscular HGB Conc 32.7 g/dL (30.0-36.0); Mean Corpuscular Hemoglobin 27.1 pg (28.0-34.0); Mean Platelet Volume 12.1 fL (7.4-10.4); Monocytes # 0.9 10^3/uL (0.2-0.9); Neutrophils # 9.15 10^3/uL (1.8-7.7); Neutrophils % 74.6 %; Nucleated Red Blood Cells % 0 %; Platelet Count 147 10^3/cmm (130-400); Red Blood Count 5.01 10^6/uL (4.1-5.3); Red Cell Distribution Width 14.4 % (12.1-15.1); White Blood Count 12.3 10^3/uL (4.0-10.0)
[2022-07-31 01:30] LABS: Glucose Point of Care 149 mg/dL (70-110)
[2022-07-31 01:56] LABS: Triglycerides 1200 mg/dL (0-150)
[2022-07-31 02:11] LABS: LDL Cholesterol Direct 59 mg/dL (0-100)
[2022-07-31 02:40] LABS: Glucose Point of Care 149 mg/dL (70-110)
[2022-07-31 03:40] LABS: Glucose Point of Care 151 mg/dL (70-110)
[2022-07-31] MEDS: oxyCODONE 5 mg IR Tab/Cap 10 MG PO ×3 (03:45→23:23)
[2022-07-31] MEDS: ondansetron 2 mg/ML SDV 2 mL 4 MG IVP ×3 (03:45→21:46)
[2022-07-31 04:41] LABS: Glucose Point of Care 149 mg/dL (70-110)
[2022-07-31 04:56] LABS: Alanine Aminotransferase 24 U/L (0-41); Albumin Level 3.4 g/dL (3.5-5.2); Alkaline Phosphatase 78 U/L (40-130); Aspartate Amino Transferase 19 U/L (0-40); Blood Urea Nitrogen 3 mg/dL (6-20); Calcium 8.3 mg/dL (8.5-10.5); Carbon Dioxide 24 mmol/L (22-29); Chloride 97 mmol/L (98-107); Globulin 3.2 g/dL (1.3-4.6); Glomerular Filtration Rate 246.2 mL/min (90-130); Glucose 143 mg/dL (65-115); Magnesium 1.8 mg/dL (1.7-2.3); Osmolality Calculated 275 mOsm/kg (285-295); Phosphorus 3.1 mg/dL (2.5-4.5); Sodium 133 mmol/L (136-145); Total Bilirubin 0.5 mg/dL (0.15-1.2); Total Protein 6.6 g/dL (6.6-8.7)
[2022-07-31 05:02] LABS: Anion Gap 15.8 (5-19); Potassium 3.8 mmol/L (3.5-5.1)
[2022-07-31 05:30] LABS: Glucose Point of Care 205 mg/dL (70-110)
[2022-07-31 06:28] LABS: Glucose Point of Care 183 mg/dL (70-110)
[2022-07-31 07:56] LABS: Glucose Point of Care 182 mg/dL (70-110)
[2022-07-31] MEDS: cholecalciferol (vitamin D3) 5,000 unit Tablet 5000 UNIT PO (09:17)
[2022-07-31] MEDS: ezetimibe 10 mg Tablet PO (09:18)
[2022-07-31] MEDS: atorvastatin 40 mg Tablet 20 MG PO (09:18)
[2022-07-31] MEDS: multivitamin therapeutic Tablet 1 TAB PO (09:18)
[2022-07-31] MEDS: calcitriol 0.25 mcg Capsule 0.5 MCG PO (09:47)
[2022-07-31 11:02] LABS: Glucose Point of Care 157 mg/dL (70-110)
[2022-07-31 11:02] LABS: Glucose Point of Care 139 mg/dL (70-110)
[2022-07-31 12:17] LABS: Glucose Point of Care 116 mg/dL (70-110)
[2022-07-31] MEDS: ondansetron 4 MG Tablet PO (13:01)
[2022-07-31 13:09] LABS: Triglycerides 988 mg/dL (0-150)
[2022-07-31 13:26] LABS: LDL Cholesterol Direct 66 mg/dL (0-100)
[2022-07-31 13:57] LABS: Glucose Point of Care 178 mg/dL (70-110)
[2022-07-31] MEDS: HYDROmorphone 1 mg/mL INJ 1 mL 8 MG IVP ×5 (15:14→23:06)
[2022-07-31 15:35] LABS: Glucose Point of Care 183 mg/dL (70-110)
[2022-07-31] MEDS: calcium carbonate 500 mg Chew Tablet PO ×2 (15:55→21:47)
[2022-07-31] MEDS: insulin regular-human 250 UNIT in sodium chloride 0.9% 250 ML 10 UNIT IV (16:30)
--- NOTE | 2022-07-31 16:37 | PM.PN ---
Subjective Subjective: Patient is awake. Very pleasant. Reports abdominal pain is 7 out of 10, later 5 out of 10 with hydromorphone. No BM, but still NPO. Ambulated some this morning. Family is bedside and supportive. TG improving. Medications: Reviewed: Yes Vitals/I&O/Wt Last Vital Signs Temp 98.1 F 07/31/22 09:00 Pulse 102 H 07/31/22 16:00 Resp 16 07/31/22 16:00 BP 146/91 07/31/22 12:00 Pulse Ox 94 07/31/22 16:00 O2 Del Method Room Air 07/31/22 09:08 07/31/22 07/31/22 07/31/22 06:59 14:59 22:59 Intake Total 2329.723 / 5713.310 1328 / 1328 Output Total 1700 / 3200 Balance 629.723 / 2513.310 1328 / 1328 Physical Exam Narrative: General: Patient is awake. Pleasant. Head:? Normocephalic. Atraumatic. EOM intact.? Neck: No JVD. Cardiovascular: RRR. No gallops. No murmurs. No peripheral edema.? Lungs: Clear to auscultation, no use of accessory muscles, no crackles or wheezes. Skin: No jaundice. No rashes. Abdomen: Tenderness to palpation in upper quadrants.? Hypoactive bowel sounds are present.? No guarding. Extremities: No cyanosis or clubbing. Musculoskeletal: No swollen or erythematous joints. Neurological: Moves all 4 extremities. No myoclonus. Data 07/31/22 01:00 07/31/22 03:42 A&P Assessment and plan (1) Intractable pain: Pain currently 7 out of 10 Hydromorphone adjusted Treat underlying TG and pancreatitis (2) Recurrent pancreatitis: 2/2 familial hypertriglyceridemia Continue insulin drip Continue TPN, pharmacy to manage Continue D5W half NS with potassium supplement N.p.o., sips of clears okay, medications, ice chips are okay Monitor electrolytes Pain control (3) IDDM (insulin dependent diabetes mellitus): Uncontrolled with hyperglcyemia Hold home regimen Has establish care with endocrinology, will need follow-up Continue insulin drip, will need adjustment as TPN begins (4) Familial hypertriglyceridemia: Trend triglyceride levels Management as above (5) Hyperlipidemia: Continue statin Qualifiers: Hyperlipidemia type: moderate mixed hyperlipidemia not requiring statin therapy Qualified Code(s): E78.2 - Mixed hyperlipidemia (6) LESLY (obstructive sleep apnea): Wore CPAP overnight (7) Vitamin D deficiency: Continue vitamin D supplementation Plan DVT prophylaxis: Heparin CODE STATUS: Full code Attestations Medical Necessity Statement*: Patient requires ongoing hospitalization for IV insulin, IV fluids, IV dextrose, IV analgesics, and supportive care. Critical Care Time: The high probability of a clinically significant, sudden or life threatening deterioration of the patient's endocrine system(s) required my full and direct attention, intervention and personal management. The critical care time is as shown. This time is in addition to time spent performing any reported procedures but includes the following: [x] Data and vital sign review and interpretation [x] Patient assessment, examination and intervention [x] Documentation [x] Medication orders and management Critical Care Time (min): 31 Coding Level of Care Code Acute Code for Chg Fwd Diagnoses Intractable pain R52 Recurrent pancreatitis IDDM (insulin dependent diabetes mellitus) Familial hypertriglyceridemia E78.1 Hyperlipidemia E78.2 Hyperlipidemia type: moderate mixed hyperlipidemia not requiring statin therapy LESLY (obstructive sleep apnea) G47.33 Vitamin D deficiency E55.9
[2022-07-31 16:51] LABS: Glucose Point of Care 143 mg/dL (70-110)
[2022-07-31] MEDS: AA-Dex 5%-20% w/Lytes 1,000 ML with multivitamin inj 5 ML 63 ML IV (17:14)
[2022-07-31 18:04] LABS: Glucose Point of Care 121 mg/dL (70-110)
--- NOTE | 2022-07-31 18:28 | PC.NURSE ---
Shift Note Frequent safety and comfort rounds continue. Orders and/or nursing care completed as indicated. Patient monitored for response to intervention and treatment(s). Education provided includes pain management and treatment plan. Patient verbalized understanding of teaching. Patient had an uneventful shift, remains alert/oriented x4 on room air. No wounds or skin issues noted at this time. Insulin, IVF, and TPN infusing per protocol/orders please see MAR for detail. Patient reported pain throughout shift PRN pain medication administered, please see MAR for detail. Will continue to monitor.
[2022-07-31 18:41] LABS: Triglycerides 753 mg/dL (0-150)
[2022-07-31 18:50] LABS: Glucose Point of Care 157 mg/dL (70-110)
[2022-07-31 18:59] LABS: LDL Cholesterol Direct 56 mg/dL (0-100)
[2022-07-31 19:30] LABS: Glucose Point of Care 189 mg/dL (70-110)
[2022-07-31 20:32] LABS: Glucose Point of Care 196 mg/dL (70-110)
[2022-07-31 21:36] LABS: Glucose Point of Care 158 mg/dL (70-110)
[2022-07-31] MEDS: insulin regular-human 250 UNIT in sodium chloride 0.9% 250 ML 13.7 UNIT IV (22:03)
[2022-07-31 22:31] LABS: Glucose Point of Care 173 mg/dL (70-110)
[2022-07-31 23:35] LABS: Glucose Point of Care 163 mg/dL (70-110)
[2022-08-01] VITALS (37 sets, daily range): BP systolic 119–157; BP diastolic 79–97; PULSE 86–116; RESP 8–21; TEMP 37.1–37.3; O2SAT 93–99
[2022-08-01 00:51] LABS: Glucose Point of Care 220 mg/dL (70-110)
[2022-08-01 01:44] LABS: Glucose Point of Care 192 mg/dL (70-110)
[2022-08-01] MEDS: HYDROmorphone 1 mg/mL INJ 1 mL 8 MG IVP ×10 (01:50→23:50)
[2022-08-01 02:28] LABS: Glucose Point of Care 165 mg/dL (70-110)
[2022-08-01 03:32] LABS: Glucose Point of Care 194 mg/dL (70-110)
[2022-08-01] MEDS: alum-mag-hydroxide-sime 30 mL UDC 15 ML PO (03:36)
[2022-08-01 03:54] LABS: Basophils # 0.1 10^3/uL (0.0-0.1); Basophils % 0.5 %; Eosinophils # 0.2 10^3/uL (0.0-0.8); Eosinophils % 2.1 %; Hemoglobin 12.4 g/dL (11.7-16.6); Lymphocytes % 20.8 %; Mean Corpuscular HGB Conc 31.8 g/dL (30.0-36.0); Mean Corpuscular Hemoglobin 27.3 pg (28.0-34.0); Mean Corpuscular Volume 85.7 fl (80-94); Mean Platelet Volume 11.8 fL (7.4-10.4); Monocytes # 0.6 10^3/uL (0.2-0.9); Monocytes % 6.4 %; Neutrophils # 6.76 10^3/uL (1.8-7.7); Neutrophils % 69.8 %; Nucleated Red Blood Cells % 0 %; Platelet Count 128 10^3/cmm (130-400); Red Blood Count 4.55 10^6/uL (4.1-5.3); Red Cell Distribution Width 14.3 % (12.1-15.1); White Blood Count 9.7 10^3/uL (4.0-10.0)
[2022-08-01 04:09] LABS: Albumin Level 3.3 g/dL (3.5-5.2); Alkaline Phosphatase 74 U/L (40-130); Blood Urea Nitrogen 6 mg/dL (6-20); Calcium 8.7 mg/dL (8.5-10.5); Carbon Dioxide 26 mmol/L (22-29); Chloride 97 mmol/L (98-107); Globulin 3.3 g/dL (1.3-4.6); Glomerular Filtration Rate 246.2 mL/min (90-130); Glucose 174 mg/dL (65-115); Magnesium 1.8 mg/dL (1.7-2.3); Osmolality Calculated 278 mOsm/kg (285-295); Phosphorus 3.6 mg/dL (2.5-4.5); Sodium 133 mmol/L (136-145); Total Bilirubin 0.6 mg/dL (0.15-1.2); Total Protein 6.6 g/dL (6.6-8.7)
[2022-08-01] MEDS: D5-NS 0.45% + KCL 20 mEq 20 MEQ/1,000 ML BAG 200 MEQ IV ×3 (04:10→16:54)
[2022-08-01 04:20] LABS: Alanine Aminotransferase 24 U/L (0-41); Anion Gap 15.2 (5-19); Aspartate Amino Transferase 22 U/L (0-40); Potassium 5.2 mmol/L (3.5-5.1)
[2022-08-01 04:35] LABS: Glucose Point of Care 180 mg/dL (70-110)
[2022-08-01 05:47] LABS: Glucose Point of Care 168 mg/dL (70-110)
[2022-08-01] MEDS: AA-Dex 5%-20% w/Lytes 1,000 ML with multivitamin inj 5 ML 83 ML IV ×2 (06:00→19:05)
[2022-08-01 06:27] LABS: Glucose Point of Care 155 mg/dL (70-110)
[2022-08-01] MEDS: insulin regular-human 250 UNIT in sodium chloride 0.9% 250 ML 27.4 UNIT IV (08:30)
[2022-08-01] MEDS: atorvastatin 40 mg Tablet 20 MG PO (08:30)
[2022-08-01] MEDS: fluoxetine 20 mg Capsule PO (08:31)
[2022-08-01] MEDS: ezetimibe 10 mg Tablet PO (08:32)
[2022-08-01] MEDS: sennosides 8.6 mg Tablet 17.2 MG PO ×2 (08:32→18:04)
[2022-08-01] MEDS: calcitriol 0.25 mcg Capsule 0.5 MCG PO (08:45)
[2022-08-01 09:10] LABS: Triglycerides 585 mg/dL (0-150)
[2022-08-01 09:35] LABS: LDL Cholesterol Direct 63 mg/dL (0-100)
[2022-08-01 11:27] LABS: Glucose Point of Care 183 mg/dL (70-110)
[2022-08-01 11:27] LABS: Glucose Point of Care 145 mg/dL (70-110)
[2022-08-01 11:27] LABS: Glucose Point of Care 212 mg/dL (70-110)
[2022-08-01] MEDS: ondansetron 2 mg/ML SDV 2 mL 4 MG IVP (13:21)
[2022-08-01] MEDS: diphenhydrAMINE 25 mg Capsule PO ×3 (13:21→22:11)
[2022-08-01 14:09] LABS: Glucose Point of Care 152 mg/dL (70-110)
[2022-08-01] MEDS: oxyCODONE 5 mg IR Tab/Cap 10 MG PO ×2 (15:09→20:48)
[2022-08-01 15:50] LABS: Glucose Point of Care 135 mg/dL (70-110)
[2022-08-01 17:17] LABS: Glucose Point of Care 189 mg/dL (70-110)
[2022-08-01 18:02] LABS: Glucose Point of Care 221 mg/dL (70-110)
[2022-08-01 18:22] LABS: Glucose Point of Care 195 mg/dL (70-110)
[2022-08-01 19:18] LABS: Triglycerides 582 mg/dL (0-150)
[2022-08-01 20:14] LABS: LDL Cholesterol Direct 68 mg/dL (0-100)
[2022-08-01 20:33] LABS: Glucose Point of Care 105 mg/dL (70-110)
--- NOTE | 2022-08-01 21:55 | PM.PN ---
Subjective Subjective: Patient reports abd pain is slightly better today. Rates around a 4 this morning. Reports appetite might be slightly improved. Took a small amount of limited clears in which did worsen pain. Ambulating some around the unit during the day. He reports he is eager to go home. We discussed necessary milestones for discharge and he is in agreement. Endorses small BM. Family is bedside and supportive. Medications: Reviewed: Yes Vitals/I&O/Wt Last Vital Signs Temp 98.7 F 08/01/22 20:00 Pulse 86 08/01/22 20:00 Resp 14 08/01/22 21:50 BP 129/80 08/01/22 21:00 Pulse Ox 98 08/01/22 21:50 O2 Del Method Room Air 08/01/22 20:00 08/01/22 08/01/22 08/01/22 06:59 14:59 22:59 Intake Total 1986.767 / 6082.297 1148.9 / 1148.9 2113.337 / 3262.237 Output Total 500 / 3900 Balance 1486.767 / 2182.297 1148.9 / 1148.9 2113.337 / 3262.237 Physical Exam Narrative: General: Patient is awake. Pleasant. Appear fatigued. Head:? Normocephalic. Atraumatic. EOM intact.? Neck: No JVD. Cardiovascular: RRR. No gallops. No murmurs. Lungs: Clear to auscultation, no use of accessory muscles, no crackles or wheezes. Skin: No jaundice. No rashes. Abdomen: Tenderness to palpation in epigastric region.? Hypoactive bowel sounds are present.? No guarding. Extremities: No cyanosis or clubbing. Musculoskeletal: No swollen or erythematous joints. Neurological: Moves all 4 extremities. No myoclonus. Data 08/01/22 03:05 08/01/22 03:05 A&P Assessment and plan (1) Intractable pain: Discussed transitioning to home oxycodone from IV hydromorphone as pain allows Change oxycodone from Q6H to Q3H/PRN Monitor bowels Treat underlying TG and pancreatitis (2) Recurrent pancreatitis: 2/2 familial hypertriglyceridemia Continue insulin drip Continue TPN, pharmacy to manage Continue D5W half NS with potassium supplement N.p.o., sips of clears okay, medications, ice chips are okay Monitor electrolytes Pain control TG level improving, anticipate goal of <500 is possibly by Tuesday (3) IDDM (insulin dependent diabetes mellitus): Hold home regimen Has establish care with endocrinology, will see if Dr Hinton or staff can see pt while here to assist in getting him home insulin pump initiated eventually Continue insulin drip (4) Familial hypertriglyceridemia: Trend triglyceride levels Management as above (5) Hyperlipidemia: Continue statin Qualifiers: Hyperlipidemia type: moderate mixed hyperlipidemia not requiring statin therapy Qualified Code(s): E78.2 - Mixed hyperlipidemia (6) LESLY (obstructive sleep apnea): CPAP (7) Vitamin D deficiency: Continue vitamin D supplementation Plan DVT prophylaxis: Encourage ambulation CODE STATUS: Full code Attestations Medical Necessity Statement*: Patient requires ongoing hospitalization for IV insulin, IV fluids, IV dextrose, IV analgesics, serial labs and supportive care. Critical Care Time: The high probability of a clinically significant, sudden or life threatening deterioration of the patient's endocrine system(s) required my full and direct attention, intervention and personal management. The critical care time is as shown. This time is in addition to time spent performing any reported procedures but includes the following: [x] Data and vital sign review and interpretation [x] Patient assessment, examination and intervention [x] Documentation [x] Medication orders and management Critical Care Time (min): 38 Coding Level of Care Code Acute Code for Chg Fwd Diagnoses Intractable pain R52 Recurrent pancreatitis IDDM (insulin dependent diabetes mellitus) Familial hypertriglyceridemia E78.1 Hyperlipidemia E78.2 Hyperlipidemia type: moderate mixed hyperlipidemia not requiring statin therapy LESLY (obstructive sleep apnea) G47.33 Vitamin D deficiency E55.9
[2022-08-01 22:59] LABS: Glucose Point of Care 153 mg/dL (70-110)
[2022-08-01 22:59] LABS: Glucose Point of Care 179 mg/dL (70-110)
[2022-08-01 22:59] LABS: Glucose Point of Care 165 mg/dL (70-110)
[2022-08-02] VITALS (31 sets, daily range): BP systolic 130–160; BP diastolic 63–96; PULSE 71–109; RESP 6–18; TEMP 36.8–37.1; O2SAT 94–98; BMI 29.9
[2022-08-02 00:17] LABS: Glucose Point of Care 176 mg/dL (70-110)
[2022-08-02 00:53] LABS: Glucose Point of Care 167 mg/dL (70-110)
[2022-08-02] MEDS: D5-NS 0.45% + KCL 20 mEq 20 MEQ/1,000 ML BAG 200 MEQ IV ×4 (01:02→23:53)
[2022-08-02 02:07] LABS: Glucose Point of Care 188 mg/dL (70-110)
[2022-08-02] MEDS: oxyCODONE 5 mg IR Tab/Cap 10 MG PO ×2 (02:08→06:05)
[2022-08-02] MEDS: zolpidem 5 mg Tablet PO ×2 (02:09→23:41)
[2022-08-02] MEDS: ondansetron 2 mg/ML SDV 2 mL 4 MG IVP ×3 (03:10→21:04)
[2022-08-02 03:17] LABS: Glucose Point of Care 185 mg/dL (70-110)
[2022-08-02 03:50] LABS: Glucose Point of Care 205 mg/dL (70-110)
[2022-08-02] MEDS: insulin regular-human 250 UNIT in sodium chloride 0.9% 250 ML 34.8 UNIT IV (03:50)
[2022-08-02] MEDS: HYDROmorphone 1 mg/mL INJ 1 mL 8 MG IVP (03:59)
[2022-08-02 04:15] LABS: Basophils % 0.4 %; Eosinophils # 0.3 10^3/uL (0.0-0.8); Eosinophils % 4.2 %; Hematocrit 39.8 % (42.0-52.0); Hemoglobin 12.6 g/dL (11.7-16.6); Lymphocytes # 2.3 10^3/uL (0.8-4.8); Lymphocytes % 33.3 %; Mean Corpuscular HGB Conc 31.7 g/dL (30.0-36.0); Mean Corpuscular Hemoglobin 26.9 pg (28.0-34.0); Mean Corpuscular Volume 84.9 fl (80-94); Mean Platelet Volume 12.2 fL (7.4-10.4); Monocytes # 0.4 10^3/uL (0.2-0.9); Monocytes % 5.8 %; Neutrophils # 3.81 10^3/uL (1.8-7.7); Neutrophils % 55.9 %; Nucleated Red Blood Cells % 0 %; Platelet Count 156 10^3/cmm (130-400); Red Blood Count 4.69 10^6/uL (4.1-5.3); Red Cell Distribution Width 13.7 % (12.1-15.1); White Blood Count 6.8 10^3/uL (4.0-10.0)
[2022-08-02 04:29] LABS: Alanine Aminotransferase 25 U/L (0-41); Albumin Level 3.3 g/dL (3.5-5.2); Alkaline Phosphatase 75 U/L (40-130); Blood Urea Nitrogen 8 mg/dL (6-20); Carbon Dioxide 28 mmol/L (22-29); Chloride 100 mmol/L (98-107); Globulin 3.5 g/dL (1.3-4.6); Glomerular Filtration Rate 246.2 mL/min (90-130); Glucose 194 mg/dL (65-115); Magnesium 1.8 mg/dL (1.7-2.3); Osmolality Calculated 288 mOsm/kg (285-295); Phosphorus 4.7 mg/dL (2.5-4.5); Sodium 137 mmol/L (136-145); Total Bilirubin 0.4 mg/dL (0.15-1.2); Total Protein 6.8 g/dL (6.6-8.7)
[2022-08-02 04:37] LABS: Aspartate Amino Transferase 26 U/L (0-40)
[2022-08-02 05:00] LABS: Glucose Point of Care 150 mg/dL (70-110)
[2022-08-02 05:58] LABS: Glucose Point of Care 176 mg/dL (70-110)
[2022-08-02] MEDS: AA-Dex 5%-20% w/Lytes 1,000 ML with multivitamin inj 5 ML 83 ML IV (06:32)
[2022-08-02 07:43] LABS: Glucose Point of Care 161 mg/dL (70-110)
[2022-08-02 08:07] LABS: Glucose Point of Care 160 mg/dL (70-110)
[2022-08-02] MEDS: pantoprazole 40 mg SDV IVP (09:16)
[2022-08-02] MEDS: diphenhydrAMINE 25 mg Capsule PO (09:17)
[2022-08-02] MEDS: sennosides 8.6 mg Tablet 17.2 MG PO ×2 (09:17→17:16)
[2022-08-02] MEDS: HYDROmorphone 1 mg/mL INJ 1 mL 2 MG IVP ×4 (09:18→22:13)
[2022-08-02] MEDS: multivitamin therapeutic Tablet 1 TAB PO (09:18)
[2022-08-02] MEDS: calcitriol 0.25 mcg Capsule 0.5 MCG PO (09:46)
[2022-08-02 10:25] LABS: Iron 35 ug/dL (59-158); Thyroid Stimulating Hormone 1.75 uIU/mL (0.27-4.20); Triglycerides 495 mg/dL (0-150); Vitamin B12 723 pg/mL (232-1245)
[2022-08-02 10:28] LABS: Percent Saturation 11.4 % (20-50); Total Iron Binding Capacity 305 mcg/dl; Unsaturated Iron Binding 270 ug/dL (112-347)
[2022-08-02 10:29] LABS: Folate Level > 20.0 ng/mL (4.5-32.2)
[2022-08-02 10:42] LABS: LDL Cholesterol Direct 71 mg/dL (0-100)
[2022-08-02 11:12] LABS: Glucose Point of Care 69 mg/dL (70-110)
[2022-08-02] MEDS: HYDROmorphone 1 mg/mL INJ 1 mL 0.5 MG IVP (11:38)
[2022-08-02] MEDS: HYDROcodone-acetaminophen 10-325 mg Tablet 1 TAB PO ×2 (11:42→15:51)
[2022-08-02 12:11] LABS: Glucose Point of Care 149 mg/dL (70-110)
--- NOTE | 2022-08-02 13:43 | PM.PN ---
Subjective Subjective: Hospital course, labs appreciated. States he is feeling better. Continues to have abdominal pain. Denies any nausea, vomiting, headache. On review it seems patient in last 24 hours has received 80 mg of IV Dilaudid and 10 mg of oral oxycodone. Hemodynamic stable. Remains on room air. We did discuss in detail that he is on a lot of pain medications which he need to lower down and unfortunately given pancreatitis he will have a pain going forward for a short while and goal is to get pain level around 5/10. Medications: Reviewed: Yes Vitals/I&O/Wt Last Vital Signs Temp 98.4 F 08/02/22 04:00 Pulse 91 08/02/22 12:00 Resp 10 L 08/02/22 12:00 BP 140/88 08/02/22 12:00 Pulse Ox 97 08/02/22 09:22 O2 Del Method Room Air 08/02/22 09:22 08/01/22 08/02/22 08/02/22 22:59 06:59 14:59 Intake Total 3122.045 / 4270.945 2020.605 / 6291.550 1000 / 1000 Balance 3122.045 / 4270.945 2020.605 / 6291.550 1000 / 1000 Weight last 48 hrs Weight 97.522 kg Physical Exam Narrative: General: No acute distress, AO x3, Head:? Normocephalic. Atraumatic. EOM intact.? Neck: No JVD. Cardiovascular: RRR. No gallops. No murmurs. Lungs: Clear to auscultation, no use of accessory muscles, no crackles or wheezes. Skin: No jaundice. No rashes. Abdomen: Tenderness to palpation in epigastric region.? Hypoactive bowel sounds are present.? No guarding. Extremities: No cyanosis or clubbing. Musculoskeletal: No swollen or erythematous joints. Neurological: Moves all 4 extremities. No myoclonus. Data 08/02/22 03:47 08/02/22 03:47 A&P Assessment and plan (1) Intractable pain: We discussed in detail that goal pain control would be to level of 5-6/10. The last 24 hours received 80 mg of IV Dilaudid and 10 mg of oral oxycodone. We will change to 2 mg IV Dilaudid every 2 hour as needed and [place] 10 mg every 4 hours as needed. Plan will be to gradually widen and space out the IV medications. Treat underlying TG and pancreatitis (2) Recurrent pancreatitis: 2/2 familial hypertriglyceridemia. Continue with insulin drip. Stop TPN and antihyperlipidemics for now. N.p.o. with medications. Monitor triglyceride level every 12 hourly. Will stop insulin drip once triglyceride levels are below 500 persistently. Continue with D5 half NS at 200 cc/h while monitoring blood glucose every hour. Target blood glucose more than 150 less than 200. (3) IDDM (insulin dependent diabetes mellitus): Hold home regimen Continue with insulin drip for now. Appreciate A1c. We will try to attach home Dexcom for now. Once off insulin drip will start back on insulin pump if possible. (4) Familial hypertriglyceridemia: Trend triglyceride levels Management as above. Will restart home antihyperlipidemic once triglyceride level stable and patient is able to consume orally. (5) Hyperlipidemia: Holding statins for now. Qualifiers: Hyperlipidemia type: moderate mixed hyperlipidemia not requiring statin therapy Qualified Code(s): E78.2 - Mixed hyperlipidemia (6) LESLY (obstructive sleep apnea): CPAP (7) Vitamin D deficiency: Continue vitamin D supplementation Plan Continue other oral medications. DVT prophylaxis: Encourage ambulation CODE STATUS: Full code. N.p.o. for now. Protonix 40 mg IV daily Attestations Medical Necessity Statement*: Requires further hospitalization for management of hypertriglyceridemia leading to pancreatitis while patient remains on insulin drip, bowel rest and pain medication regimen is adjusted Coding Level of Care Code Critical Care >/= 30 minutes Critical care time (in minutes): 60 The high probability of a clinically significant, sudden or life threatening deterioration, as referenced in this documentation, required my full and direct attention, intervention and personal management. The critical care time shown is in addition to time spent performing any reported separately billable procedures and includes the following: [x] Data and vital sign review and interpretation [x] Patient assessment, examination and intervention [x] Medication orders and management [x] Patient/Family updates as able [x] Care Coordination and Documentation. Diagnoses Intractable pain R52 Recurrent pancreatitis IDDM (insulin dependent diabetes mellitus) Familial hypertriglyceridemia E78.1 Hyperlipidemia E78.2 Hyperlipidemia type: moderate mixed hyperlipidemia not requiring statin therapy LESLY (obstructive sleep apnea) G47.33 Vitamin D deficiency E55.9
[2022-08-02 14:35] LABS: Glucose Point of Care 308 mg/dL (70-110)
[2022-08-02] MEDS: insulin regular-human 250 UNIT in sodium chloride 0.9% 250 ML 73.8 UNIT IV (15:00)
[2022-08-02 15:28] LABS: Glucose Point of Care 355 mg/dL (70-110)
--- NOTE | 2022-08-02 15:30 | PC.NURSE ---
New Orders Received Dr. Beltran called, gave telephone orders to decrease D5 1/2 NS 20 KCL to 100mls/hr from 200 mls/hr. Also gave orders to keep insulin gtt above 10 units/mls/hr.
[2022-08-02] MEDS: ondansetron 4 MG Tablet PO (15:50)
[2022-08-02 16:29] LABS: Glucose Point of Care 291 mg/dL (70-110)
[2022-08-02] MEDS: D5-NS 0.45% + KCL 20 mEq 20 MEQ/1,000 ML BAG 100 MEQ IV (16:57)
[2022-08-02 17:12] LABS: Glucose Point of Care 238 mg/dL (70-110)
[2022-08-02 19:10] LABS: Glucose Point of Care 91 mg/dL (70-110)
[2022-08-02 19:10] LABS: Glucose Point of Care 466 mg/dL (70-110)
[2022-08-02 19:41] LABS: Triglycerides 547 mg/dL (0-150)
[2022-08-02 19:55] LABS: LDL Cholesterol Direct 72 mg/dL (0-100)
--- NOTE | 2022-08-02 21:00 | PC.NURSE ---
Hypoglycemia Patient's blood sugar 69 at 2014. Insulin drip paused; small sips of juice administered. Blood sugar [address] Carranza notified of hypoglycemia and actions taken; order received to increase D5 1/2NS 20KCL to 200 ml/hour, resume insulin drip, and keep patient NPO except for PO medications.
[2022-08-02 21:11] LABS: Glucose Point of Care 79 mg/dL (70-110)
[2022-08-02 21:11] LABS: Glucose Point of Care 102 mg/dL (70-110)
[2022-08-02 22:27] LABS: Glucose Point of Care 69 mg/dL (70-110)
[2022-08-02 22:27] LABS: Glucose Point of Care 176 mg/dL (70-110)
[2022-08-02 22:44] LABS: Glucose Point of Care 191 mg/dL (70-110)
[2022-08-02 23:47] LABS: Glucose Point of Care 173 mg/dL (70-110)
[2022-08-03] VITALS (31 sets, daily range): BP systolic 97–147; BP diastolic 55–99; PULSE 71–90; RESP 9–26; TEMP 36.8–37.3; O2SAT 93–98; BMI 29.9
[2022-08-03 00:52] LABS: Glucose Point of Care 133 mg/dL (70-110)
[2022-08-03 02:00] LABS: Glucose Point of Care 135 mg/dL (70-110)
[2022-08-03 02:54] LABS: Glucose Point of Care 116 mg/dL (70-110)
[2022-08-03 03:00] LABS: Basophils % 0.6 %; Eosinophils # 0.2 10^3/uL (0.0-0.8); Eosinophils % 2.9 %; Hematocrit 40.5 % (42.0-52.0); Hemoglobin 13.1 g/dL (11.7-16.6); Mean Corpuscular HGB Conc 32.3 g/dL (30.0-36.0); Mean Corpuscular Hemoglobin 27.3 pg (28.0-34.0); Mean Corpuscular Volume 84.6 fl (80-94); Mean Platelet Volume 11.2 fL (7.4-10.4); Monocytes # 0.5 10^3/uL (0.2-0.9); Monocytes % 6.9 %; Neutrophils # 3.79 10^3/uL (1.8-7.7); Nucleated Red Blood Cells % 0 %; Platelet Count 187 10^3/cmm (130-400); Red Blood Count 4.79 10^6/uL (4.1-5.3); Red Cell Distribution Width 13.6 % (12.1-15.1); White Blood Count 6.5 10^3/uL (4.0-10.0)
[2022-08-03 03:21] LABS: Alanine Aminotransferase 26 U/L (0-41); Albumin Level 3.4 g/dL (3.5-5.2); Alkaline Phosphatase 86 U/L (40-130); Blood Urea Nitrogen 6 mg/dL (6-20); Calcium 9.4 mg/dL (8.5-10.5); Carbon Dioxide 27 mmol/L (22-29); Chloride 101 mmol/L (98-107); Globulin 3.3 g/dL (1.3-4.6); Glomerular Filtration Rate 246.2 mL/min (90-130); Glucose 117 mg/dL (65-115); Osmolality Calculated 285 mOsm/kg (285-295); Sodium 138 mmol/L (136-145); Total Bilirubin 0.3 mg/dL (0.15-1.2); Total Protein 6.7 g/dL (6.6-8.7)
[2022-08-03 03:34] LABS: Anion Gap 14.9 (5-19); Potassium 4.9 mmol/L (3.5-5.1)
[2022-08-03 03:35] LABS: Aspartate Amino Transferase 25 U/L (0-40)
[2022-08-03 03:56] LABS: Glucose Point of Care 94 mg/dL (70-110)
[2022-08-03] MEDS: HYDROmorphone 1 mg/mL INJ 1 mL 2 MG IVP ×5 (04:36→22:36)
[2022-08-03] MEDS: insulin regular-human 250 UNIT in sodium chloride 0.9% 250 ML 8.1 UNIT IV (04:45)
[2022-08-03 05:12] LABS: Glucose Point of Care 123 mg/dL (70-110)
[2022-08-03] MEDS: D5-NS 0.45% + KCL 20 mEq 20 MEQ/1,000 ML BAG 200 MEQ IV ×3 (05:17→15:31)
[2022-08-03] MEDS: HYDROcodone-acetaminophen 10-325 mg Tablet 1 TAB PO ×3 (06:12→17:33)
[2022-08-03 06:20] LABS: Glucose Point of Care 111 mg/dL (70-110)
[2022-08-03 07:18] LABS: Glucose Point of Care 109 mg/dL (70-110)
[2022-08-03 08:10] LABS: Glucose Point of Care 98 mg/dL (70-110)
[2022-08-03 09:08] LABS: Glucose Point of Care 92 mg/dL (70-110)
[2022-08-03] MEDS: pantoprazole 40 mg SDV IVP (09:16)
[2022-08-03] MEDS: ondansetron 4 MG Tablet PO (09:17)
[2022-08-03] MEDS: cholecalciferol (vitamin D3) 5,000 unit Tablet 5000 UNIT PO (09:17)
[2022-08-03] MEDS: fluoxetine 20 mg Capsule PO (09:18)
[2022-08-03] MEDS: multivitamin therapeutic Tablet 1 TAB PO (09:18)
[2022-08-03 09:39] LABS: Lipase 15 U/L (13-60)
[2022-08-03 10:04] LABS: Glucose Point of Care 92 mg/dL (70-110)
[2022-08-03] MEDS: calcitriol 0.25 mcg Capsule 0.5 MCG PO ×2 (10:28)
[2022-08-03] MEDS: fenofibrate 145 mg Tablet PO (10:30)
[2022-08-03] MEDS: atorvastatin 40 mg Tablet 20 MG PO (10:31)
[2022-08-03] MEDS: ezetimibe 10 mg Tablet PO (10:31)
[2022-08-03] MEDS: ergocalciferol (vitamin D2) 50,000 Unit Capsule 100000 UNIT PO (10:46)
[2022-08-03 11:03] LABS: Glucose Point of Care 122 mg/dL (70-110)
[2022-08-03 12:09] LABS: Glucose Point of Care 104 mg/dL (70-110)
[2022-08-03 13:24] LABS: Glucose Point of Care 102 mg/dL (70-110)
[2022-08-03 14:12] LABS: Glucose Point of Care 118 mg/dL (70-110)
[2022-08-03 15:05] LABS: Glucose Point of Care 135 mg/dL (70-110)
[2022-08-03 16:16] LABS: Glucose Point of Care 110 mg/dL (70-110)
--- NOTE | 2022-08-03 16:29 | P.PN_ITS ---
Subjective Subjective: Seen multiple times during the day. No acute events overnight. Patient denies any nausea, vomiting, headache. Requiring less pain medications now. Overnight blood sugars had dropped for which insulin drip was stopped and he was given orange juice. After that fluid rate and insulin rate was readjusted. Triglycerides over last 24 hours had trended down and then trended up again. Denies any nausea, vomiting. Has remained hemodynamically stable and afebrile. Medications: Reviewed: Yes Vitals/I&O/Wt Last Vital Signs Temp 99.1 F 08/03/22 16:00 Pulse 80 08/03/22 15:00 Resp 18 08/03/22 15:36 BP 103/57 08/03/22 16:00 Pulse Ox 94 08/03/22 15:36 O2 Del Method Room Air 08/03/22 08:51 08/03/22 08/03/22 08/03/22 06:59 14:59 22:59 Intake Total 1618.400 / 4768.325 38.513 / 38.513 1037.5 / 1076.013 Balance 1618.400 / 4768.325 38.513 / 38.513 1037.5 / 1076.013 Weight last 48 hrs Weight 97.522 kg Weight 97.522 kg Physical Exam 2 Narrative: General: No acute distress, AO x3, Head:? Normocephalic. Atraumatic. EOM intact.? Neck: No JVD. Cardiovascular: RRR. No gallops. No murmurs. Lungs: Clear to auscultation, no use of accessory muscles, no crackles or wheezes. Skin: No jaundice. No rashes. Abdomen: Tenderness to palpation in epigastric region.? Hypoactive bowel sounds are present.? No guarding. Extremities: No cyanosis or clubbing. Musculoskeletal: No swollen or erythematous joints. Neurological: Moves all 4 extremities. No myoclonus. Data 08/03/22 02:49 08/03/22 02:49 A&P Assessment and plan (1) Intractable pain: We discussed in detail that goal pain control would be to level of 5-6/10. The last 24 hours received 80 mg of IV Dilaudid and 10 mg of oral oxycodone. We will change to 2 mg IV Dilaudid every 2 hour as needed and [place] 10 mg every 4 hours as needed. Plan will be to gradually widen and space out the IV medications. Treat underlying TG and pancreatitis (2) Recurrent pancreatitis: 2/2 familial hypertriglyceridemia. Continue with insulin drip. Stop TPN and antihyperlipidemics for now. N.p.o. with medications. Monitor triglyceride level every 12 hourly. Will stop insulin drip once triglyceride levels are below 500 persistently. Continue with D5 half NS at 200 cc/h while monitoring blood glucose every hour. Target blood glucose more than 150 less than 200. (3) IDDM (insulin dependent diabetes mellitus): Hold home regimen Continue with insulin drip for now. Appreciate A1c. We will try to attach home Dexcom for now. Once off insulin drip will start back on insulin pump if possible. (4) Familial hypertriglyceridemia: Trend triglyceride levels Management as above. Will restart home antihyperlipidemic once triglyceride level stable and patient is able to consume orally. (5) Hyperlipidemia: Holding statins for now. Qualifiers: Hyperlipidemia type: moderate mixed hyperlipidemia not requiring statin therapy Qualified Code(s): E78.2 - Mixed hyperlipidemia (6) LESLY (obstructive sleep apnea): CPAP (7) Vitamin D deficiency: Continue vitamin D supplementation Plan Continue other oral medications. DVT prophylaxis: Encourage ambulation CODE STATUS: Full code. N.p.o. for now. Protonix 40 mg IV daily Plan for the day: Continue to keep NPO. Continue to hold off on TPN. Check lipase level as possibly pancreatitis have resolved. Repeat triglyceride level every 12 hourly. For now continue with insulin drip till triglyceride level persistently remains less than 500. Strict NPO. Continue with insulin drip at 7.5. Blood glucose level target between 1 50-200. If the blood sugars drop less than 150 can start decreasing the rate of D5 half NS. If blood glucose level gets more than 200 and fluid has been titrated down to 100 cc then can go up on the insulin drip. Try to avoid stopping the insulin drip. Plan to decrease pain medications tomorrow. Continue with current pain medications today. Application of Dexcom as possible. Restart home antilipid medications including fenofibrate, ezetimibe, statin. Attestations Medical Necessity Statement*: Requires further hospitalization for management of hypertriglyceridemia, pancreatitis while patient remains on insulin drip which is being managed as per blood glucose level Coding Level of Care Code Critical Care >/= 30 minutes Critical care time (in minutes): 70 The high probability of a clinically significant, sudden or life threatening deterioration, as referenced in this documentation, required my full and direct attention, intervention and personal management. The critical care time shown is in addition to time spent performing any reported separately billable procedures and includes the following: [x] Data and vital sign review and interpretation [x ] Patient assessment, examination and intervention [x] Medication orders and management [x] Patient/Family updates as able [x] Care Coordination and Documentation. Diagnoses Intractable pain R52 Recurrent pancreatitis IDDM (insulin dependent diabetes mellitus) Familial hypertriglyceridemia E78.1 Hyperlipidemia E78.2 Hyperlipidemia type: moderate mixed hyperlipidemia not requiring statin therapy LESLY (obstructive sleep apnea) G47.33 Vitamin D deficiency E55.9
[2022-08-03 16:36] LABS: Triglycerides 281 mg/dL (0-150)
[2022-08-03 20:16] LABS: Glucose Point of Care 113 mg/dL (70-110)
[2022-08-03] MEDS: sodium chloride 0.9% 1,000 ML 100 ML IV (21:07)
--- NOTE | 2022-08-03 21:23 | PC.NURSE ---
Dr Beltran called at 2029 and new orders obtained: Stop Insulin drip at this time, Stop IV fluids and switch fluids to Normal Saline @ 100mL/hr, Low dose sliding scale with meals and at bedtime, and clear liquids/consistent carb diet.
[2022-08-03] MEDS: zolpidem 5 mg Tablet PO (22:44)
[2022-08-04] VITALS (13 sets, daily range): BP systolic 133–149; BP diastolic 86–99; PULSE 62–94; RESP 11–22; TEMP 36.9; O2SAT 95–98
[2022-08-04] MEDS: HYDROmorphone 1 mg/mL INJ 1 mL 2 MG IVP ×3 (01:57→08:27)
[2022-08-04 03:29] LABS: Basophils % 0.6 %; Eosinophils # 0.3 10^3/uL (0.0-0.8); Eosinophils % 4.1 %; Hematocrit 39.2 % (42.0-52.0); Hemoglobin 12.5 g/dL (11.7-16.6); Lymphocytes # 2.7 10^3/uL (0.8-4.8); Lymphocytes % 42.2 %; Mean Corpuscular HGB Conc 31.9 g/dL (30.0-36.0); Mean Corpuscular Hemoglobin 26.8 pg (28.0-34.0); Mean Corpuscular Volume 84.1 fl (80-94); Mean Platelet Volume 12.3 fL (7.4-10.4); Monocytes # 0.4 10^3/uL (0.2-0.9); Monocytes % 5.7 %; Neutrophils # 2.92 10^3/uL (1.8-7.7); Neutrophils % 46.6 %; Nucleated Red Blood Cells % 0 %; Platelet Count 181 10^3/cmm (130-400); Red Blood Count 4.66 10^6/uL (4.1-5.3); Red Cell Distribution Width 13.3 % (12.1-15.1); White Blood Count 6.3 10^3/uL (4.0-10.0)
[2022-08-04] MEDS: sodium chloride 0.9% 1,000 ML 100 ML IV (05:58)
[2022-08-04 06:40] LABS: Alanine Aminotransferase 31 U/L (0-41); Albumin Level 3.3 g/dL (3.5-5.2); Alkaline Phosphatase 95 U/L (40-130); Anion Gap 13.8 (5-19); Aspartate Amino Transferase 22 U/L (0-40); Blood Urea Nitrogen 7 mg/dL (6-20); Calcium 9.2 mg/dL (8.5-10.5); Carbon Dioxide 27 mmol/L (22-29); Chloride 101 mmol/L (98-107); Globulin 3.1 g/dL (1.3-4.6); Glomerular Filtration Rate 154.2 mL/min (90-130); Glucose 211 mg/dL (65-115); Osmolality Calculated 288 mOsm/kg (285-295); Potassium 4.8 mmol/L (3.5-5.1); Sodium 137 mmol/L (136-145); Total Bilirubin 0.6 mg/dL (0.15-1.2); Total Protein 6.4 g/dL (6.6-8.7); Triglycerides 285 mg/dL (0-150)
[2022-08-04 07:02] LABS: Glucose Point of Care 216 mg/dL (70-110)
[2022-08-04] MEDS: insulin lispro 100 unit/1 mL SUBCUT ×2 (08:15→11:03)
[2022-08-04] MEDS: cholecalciferol (vitamin D3) 5,000 unit Tablet 5000 UNIT PO (08:16)
[2022-08-04] MEDS: pantoprazole 40 mg SDV IVP (08:16)
[2022-08-04] MEDS: fenofibrate 145 mg Tablet PO (08:16)
[2022-08-04] MEDS: multivitamin therapeutic Tablet 1 TAB PO (08:16)
[2022-08-04] MEDS: fluoxetine 20 mg Capsule PO (08:16)
[2022-08-04] MEDS: sennosides 8.6 mg Tablet 17.2 MG PO (08:16)
--- NOTE | 2022-08-04 09:14 | P.DS_ITS ---
Discharge Providers Date of Admission: 07/29/22 18:29 Date of Discharge: August 04, 2022 Attending Provider at Admission: Primo Nassar MD Attending Provider at Discharge: Jaime Beltran MD Primary Care Provider: Kin Greer MD Diagnoses at Discharge Discharge Diagnosis (1) Intractable pain: Status: Acute (2) Recurrent pancreatitis: Status: Acute (3) IDDM (insulin dependent diabetes mellitus): Status: Acute (4) Familial hypertriglyceridemia: Status: Acute (5) Hyperlipidemia: Status: Acute Qualifiers: Hyperlipidemia type: moderate mixed hyperlipidemia not requiring statin therapy Qualified Code(s): E78.2 - Mixed hyperlipidemia (6) LESLY (obstructive sleep apnea): Status: Acute (7) Vitamin D deficiency: Status: Acute Reason for Visit Reason for Visit: Percy sent for pancreatitis Brief History: History as per HPI: Rui Donohue is a 36 year old male with a past medical history significant for multiple episodes of recurrent pancreatitis, insulin-dependent type 2 diabetes mellitus, familial hypertriglyceridemia, GERD, hyperlipidemia, hypertension, insomnia, and obstructive sleep apnea who presents to the emergency department with severe abdominal pain x1 day.? Endorses associated symptoms of nausea and generalized malaise.? He was evaluated by his primary care physician earlier today.? He was brought to the emergency department due to concern for pancreatitis.? In the ED, patient was found to have recurrent pancreatitis with elevated triglyceride levels.? He was started on insulin drip and analgesics were started.? Patient reports typically hydromorphone improves his pain.? He did note last time he got TPN and that seemed to help his recovery. Of note, patient has extensive history of recurrent pancreatitis due to hypertriglyceridemia.? He reports compliance with his medications.? He recently has changed care over to endocrinology clinic care [facility].? He reports that he has received his insulin pump but has yet to actually start it yet.? Reports last A1c was a little over 10.? Spouse is bedside and appears very supportive of patient.? Hospital Course Hospital Course Patient was admitted to the hospital to ICU for further evaluation and management of hypertriglyceridemia pancreatitis. He was started on treatment as per protocol with insulin drip. Patient required high amount of pain medications to help him with abdominal pain. Gradually his triglyceride levels returned normal and lipase level returned normal. He was transitioned over to clear liquid diet and insulin sliding scale. His triglyceride levels remained stable. He has been discharged in hemodynamically stable condition to back home on his current medications with advised to reduce his sliding scale for now. He is to continue his clear liquid diet for next 2 to 3 days and advance very gradually to a softer diet and then to a regular diet within next 1 week. Physical Exam Narrative: General: No acute distress, AO x3, Head:? Normocephalic. Atraumatic. EOM intact.? Neck: No JVD. Cardiovascular: RRR. No gallops. No murmurs. Lungs: Clear to auscultation, no use of accessory muscles, no crackles or wheezes. Skin: No jaundice. No rashes. Abdomen: Tenderness to palpation in epigastric region.? Hypoactive bowel sounds are present.? No guarding. Extremities: No cyanosis or clubbing. Musculoskeletal: No swollen or erythematous joints. Neurological: Moves all 4 extremities. No myoclonus. Discharge Data Studies Completed and Pending Completed Studies During Hospitalization Category Date Time Status CXRP [XR chest 1V portable [id number]] Routine Exams 07/30/22 10:50 Completed Pending at discharge Category Date Time Status Triglycerides Q12H Lab 08/04/22 16:00 Ordered Triglycerides Q12H Lab 08/05/22 04:00 Ordered Radiology Impressions Chest X-Ray 07/30/22 10:50 Impression: Insertion right PICC line. Laboratory Results WBC 6.3 10^3/uL (4.0-10.0) 08/04/22 02:28 RBC 4.66 10^6/uL (4.1-5.3) 08/04/22 02:28 Hgb 12.5 g/dL (11.7-16.6) 08/04/22 02:28 Hct 39.2 % (42.0-52.0) L 08/04/22 02:28 MCV 84.1 fl (80-94) 08/04/22 02:28 MCH 26.8 pg (28.0-34.0) L 08/04/22 02:28 MCHC 31.9 g/dL (30.0-36.0) 08/04/22 02:28 RDW 13.3 % (12.1-15.1) 08/04/22 02:28 Plt Count 181 10^3/cmm (130-400) 08/04/22 02:28 MPV 12.3 fL (7.4-10.4) H 08/04/22 02:28 Neut % (Auto) 46.6 % 08/04/22 02:28 Lymph % (Auto) 42.2 % 08/04/22 02:28 [place] % (Auto) 5.7 % 08/04/22 02:28 Eos % (Auto) 4.1 % 08/04/22 02:28 Baso % (Auto) 0.6 % 08/04/22 02:28 Neut # (Auto) 2.92 10^3/uL (1.8-7.7) 08/04/22 02:28 Lymph # (Auto) 2.7 10^3/uL (0.8-4.8) 08/04/22 02:28 [place] # (Auto) 0.4 10^3/uL (0.2-0.9) 08/04/22 02:28 Eos # (Auto) 0.3 10^3/uL (0.0-0.8) 08/04/22 02:28 Baso # (Auto) 0.0 10^3/uL (0.0-0.1) 08/04/22 02:28 Nucleated RBC % (auto) 0 % 08/04/22 02:28 Nucleated RBCs # 0.0 /100WBC 08/04/22 02:28 Sodium 137 mmol/L (136-145) 08/04/22 05:43 Potassium 4.8 mmol/L (3.5-5.1) 08/04/22 05:43 Chloride 101 mmol/L (98-107) 08/04/22 05:43 Carbon Dioxide 27 mmol/L (22-29) 08/04/22 05:43 Anion Gap 13.8 (5-19) 08/04/22 05:43 BUN 7 mg/dL (6-20) 08/04/22 05:43 Creatinine 0.6 mg/dL (0.7-1.2) L 08/04/22 05:43 GFR Calculation 154.2 mL/min (90-130) H 08/04/22 05:43 Glucose 211 mg/dL (65-115) H 08/04/22 05:43 POC Glucose 216 mg/dL (70-110) H 08/04/22 06:48 Calculated Osmolality 288 mOsm/kg (285-295) 08/04/22 05:43 Lactate 1.7 mmol/L (0.5-2.2) 07/29/22 14:15 Calcium 9.2 mg/dL (8.5-10.5) 08/04/22 05:43 Phosphorus 4.7 mg/dL (2.5-4.5) H 08/02/22 03:47 Magnesium 1.8 mg/dL (1.7-2.3) 08/02/22 03:47 Iron 35 ug/dL (59-158) L 08/02/22 09:17 TIBC 305 mcg/dl 08/02/22 09:17 % Saturation 11.4 % (20-50) L 08/02/22 09:17 Unsat Iron Binding 270 ug/dL (112-347) 08/02/22 09:17 Total Bilirubin 0.6 mg/dL (0.15-1.2) 08/04/22 05:43 AST 22 U/L (0-40) 08/04/22 05:43 ALT 31 U/L (0-41) 08/04/22 05:43 Alkaline Phosphatase 95 U/L (40-130) 08/04/22 05:43 Total Protein 6.4 g/dL (6.6-8.7) L 08/04/22 05:43 Albumin 3.3 g/dL (3.5-5.2) L 08/04/22 05:43 Globulin 3.1 g/dL (1.3-4.6) 08/04/22 05:43 Triglycerides 285 mg/dL (0-150) H 08/04/22 05:43 LDL Cholesterol Direct 72 mg/dL (0-100) 08/02/22 18:58 Lipase 15 U/L (13-60) 08/03/22 02:49 Vitamin B12 723 pg/mL (232-1245) 08/02/22 09:17 Folate > 20.0 ng/mL (4.5-32.2) 08/02/22 09:17 TSH 1.75 uIU/mL (0.27-4.20) 08/02/22 09:17 Urine Color Yellow (Yellow) 07/29/22 14:13 Urine Appearance Clear (CLEAR) 07/29/22 14:13 Urine pH 5 (5-7) 07/29/22 14:13 Ur Specific [place] 1.025 (1.005-1.030) 07/29/22 14:13 Urine Protein 3+ (Negative) H 07/29/22 14:13 Urine Glucose (UA) 4+ (Normal) H 07/29/22 14:13 Urine Ketones 1+ (Negative) H 07/29/22 14:13 Urine Blood Neg (Negative) 07/29/22 14:13 Urine Nitrate Negative (Negative) 07/29/22 14:13 Urine Bilirubin Neg (Negative) 07/29/22 14:13 Urine Urobilinogen Neg mg/dL (Negative) 07/29/22 14:13 Ur Leukocyte Esterase Negative (Negative) 07/29/22 14:13 Urine RBC Rare /hpf (0-2) 07/29/22 14:13 Urine WBC None /hpf (0-5) 07/29/22 14:13 Ur Squamous Epith Cells Rare /hpf (0-5) 07/29/22 14:13 Amorphous Sediment Not Reportable 07/29/22 14:13 Urine Bacteria None /hpf (NONE) 07/29/22 14:13 Serum Ketones Positive (Negative) H 07/29/22 14:15 Vitals Last Vital Signs Temp 98.4 F 08/04/22 00:00 Pulse 88 08/04/22 08:00 Resp 16 08/04/22 08:00 BP 138/87 08/04/22 04:00 Pulse Ox 98 08/04/22 08:00 O2 Del Method Room Air 08/04/22 08:00 Discharge Plan Discharge Patient Disposition: Home Condition: Stable Prescriptions: New Protonix 40 mg tablet,delayed release (DR/EC) 40 mg PO QAM Qty: 30 0RF Continued cholecalciferol (vitamin D3) 5,000 unit capsule 5,000 unit PO DAILY rosuvastatin 5 mg tablet 5 mg PO DAILY (DME) flash glucose sensor Kit See Rx Instructions .ROUTE .MEDSUPPLY Qty: 1 Rx Instructions: As directed fenofibrate micronized 134 mg capsule 134 mg PO BID Qty: 90 1RF ramelteon 8 mg tablet See Rx Instructions .ROUTE .COMPLEX Qty: 30 3RF Dose Instruction: TAKE 1 TABLET BY MOUTH EVERY NIGHT Rx Instructions: TAKE 1 TABLET BY MOUTH EVERY NIGHT (DME) Dexcom G6 Sensor Device See Rx Instructions .ROUTE .MEDSUPPLY Qty: 9 3RF Rx Instructions: change every 10 days (DME) Dexcom G6 Transmitter Device See Rx Instructions .ROUTE .MEDSUPPLY Qty: 2 3RF Rx Instructions: change every 3 months (DME) FreeStyle Singh 2 Sensor Kit See Rx Instructions .Route Qty: 6 5RF Rx Instructions: As directed magnesium citrate Solution 300 ml PO DAILY PRN (Reason: constipation) Qty: 296 0RF Toujeo SoloStar U-300 Insulin 300 unit/mL (1.5 mL) insulin pen 65 unit SUBCUT DAILY 30 Days Qty: 6.5 2RF Rx Instructions: 65 units daily pioglitazone [Actos] 30 mg tablet 30 mg PO DAILY Qty: 30 1RF Rx Instructions: 1 tablet daily Humalog KwikPen Insulin 200 unit/mL (3 mL) insulin pen 40 unit SUBCUT TID 30 Days Qty: 18 2RF oxycodone 10 mg tablet 10 mg PO Q6H PRN (Reason: pancreatitis pain) 7 Days Qty: 42 0RF metoclopramide HCl [Reglan] 5 mg tablet 5 mg PO Q8H PRN (Reason: breakthrough nausea) 7 Days Qty: 21 0RF ondansetron HCl 4 mg tablet 4 mg PO Q6H PRN (Reason: nausea and vomiting) 7 Days Qty: 28 0RF promethazine 25 mg tablet 25 mg PO TID PRN (Reason: nausea and vomiting) 7 Days Qty: 21 1RF fluoxetine 20 mg capsule See Rx Instructions .ROUTE .COMPLEX Qty: 30 0RF Dose Instruction: TAKE 1 CAPSULE BY MOUTH DAILY Rx Instructions: TAKE 1 CAPSULE BY MOUTH DAILY (DME) Dexcom G6 Gravity Prospecting Operator Helper Misc See Rx Instructions .ROUTE .MEDSUPPLY Qty: 1 0RF Rx Instructions: Change associate embalmer/funeral director once a year zolpidem 5 mg tablet 5 mg PO BEDTIME PRN (Reason: insomnia) baclofen 5 mg tablet 5 mg PO BID PRN (Reason: Pain) ezetimibe 10 mg tablet 10 mg PO DAILY calcitriol 0.5 mcg Capsule 0.5 mcg PO DAILY metformin 1,000 mg Tablet 1,000 mg PO BID ergocalciferol (vitamin D2) [Vitamin D2] 1,250 mcg (50,000 unit) Capsule 100,000 unit PO Q7D albuterol sulfate 90 mcg/actuation Hfa Aerosol Inhaler 2 puff inhalation Q6H PRN (Reason: Shortness Of Breath) omega-3 acid ethyl esters [Lovaza] 1 gram Capsule 4 cap PO DAILY Creon 3,000-9,500- 15,000 unit capsule,delayed release(DR/EC) 1 cap PO BID PRN (Reason: unknown) Rx Instructions: do not exceed 10,000 unit/kg lipase per 24 hrs multivitamin Tablet 1 tab PO DAILY Discharge Orders: Discharge Order (Routine); Ordered 08/04/22 Ordered By: Jaime Beltran Referrals: Micaela Baker FNP [Nurse Practitioner] - (July time of 09:15 am ) Kin Greer MD [Primary Care Provider] - 7-10 days (thru [facility] / out of town , will follow up with Mckenna Baker July at time of 09:15 am ) Discharge Diet: Advance as tolerated Discharge Activity: Resume usual activity and Increase activity as tolerated Patient Instructions: Pantoprazole (By mouth), Pancreatitis (DC), Basic Carbohydrate Counting (DC), Meal Planning with the Plate Method (DC), Vitamin D Deficiency (GEN), Opioid Safety Activity Restrictions/Additional Instructions: Taking insulin as per sliding scale for now. Continue other chronic medications as before. Please follow-up with primary care provider within next 1 week for repeat triglyceride levels. Continue with clear liquid diet for next 2 to 3 days and advance to regular diet gradually within next 1 week. He can advance to clear liquid to a softer diet within 3 days. Discharge Attestations Time Spent in Discharge Care*: greater than 30 min Specific Discharge Activities: educating patient, educating and/or supporting family/caregiver, discussing with pcp/other providers, discussing with case mgr/social workers/dc planners, documenting/other paperwork and evaluating patient/reviewing data Status at Discharge: Cognitive status at discharge: cognitively intact , Behavioral status at discharge: cooperative , Functional status at discharge: independent ambulation , Overall status at discharge: patient is back to baseline Quality Metrics Clinical Quality Measures [ No reported AMI, CVA or VTE this stay] Coding Level of Care Code 88668 Total time (in minutes) for Discharge: 60 Diagnoses Intractable pain R52 Recurrent pancreatitis IDDM (insulin dependent diabetes mellitus) Familial hypertriglyceridemia E78.1 Hyperlipidemia E78.2 Hyperlipidemia type: moderate mixed hyperlipidemia not requiring statin therapy LESLY (obstructive sleep apnea) G47.33 Vitamin D deficiency E55.9
--- NOTE | 2022-08-04 09:40 | PC.CHAP ---
Pastoral Care Encounter/Spiritual Assessment Type of Contact [] Declined detective and intelligence analyst visit [] Patient/Family/Request visit [] Outpatient visit [] Follow-up visit [] Physician referral [] Code/Alert [x] Routine visit [] Staff referral [] Actively dying [] Patient sleeping [x] Family support [] [] Out of room [] Palliative care [] [] Receiving care in room [] Pre-surgical visit [] Trauma [] Long length of stay [] ICU visit [x] Other: have had PT in ICU several times... met his kids this visit .. Relational/Emotional Strength [x] Patient feels connected with others/family/visitors/staff [] Distress [] Loneliness/isolation [] Abandonment Spirituality of Patient [x] Person of Kamla [] Attends Spiritism of their [place]la [x] Believes in Prayer [] Reads Bible or Methodist materials [] There are Spiritual issues to be addressed Director Channel Interventions [x] Prayer [] Active listening [] Non-anxious presence [] Spiritual/emotional support [] Crisis/trauma care [] Spiritual counseling [] Bereavement support [] Provided bereavement packet [] Provided Bible/devotional materials [] Provided toy/stuffed animal, coloring book to patient or family member [] Provided Communion [] Anointing/[place] [] Salvation [x] Completed spiritual assessment [] Other: Impact on Illness or Injury [] Angry [] Fearful [] Anxious [] Often cries [] Exhaustion [] Unable to work [] Unable to attend mu-ism [] Unable to walk/stand [] Unable to read [] Unable to drive [] Unable to eat/drink [] Unable to sleep [] Unable to be with family [] Patient intubated [] Other: Summary Time spent with patient
--- NOTE | 2022-08-04 09:46 | PC.NURSE ---
Patient received discharge orders per Dr. Cho, as long as all safety measures are met.
[2022-08-04 11:04] LABS: Glucose Point of Care 273 mg/dL (70-110)
--- NOTE | 2022-08-04 11:16 | PC.NURSE ---
Patient discharged at 1116. All safety requirements met. PICC line removed. Discharge instructions explained to patient and verbalized understanding. Prescriptions sent to preferred pharmacy. Patient ambulated to main exit at 1116.
== END 2022-08-04 11:16 | disposition home or self-care (01) | DRG 440 ==
LOC: ER 17:24 → ICU 18:18
PROVIDERS: Admitting Provider Internal Medicine; Emergency Provider Emergency Medicine; PCP Family Medicine; Visit Provider Student in an Organized Health Care Education/Training Program
DX: K85.80 Other acute pancreatitis without necrosis or infection (principal); E78.1 Pure hyperglyceridemia; Z79.4 Long term (current) use of insulin; Z79.891 Long term (current) use of opiate analgesic; Z79.84 Long term (current) use of oral hypoglycemic drugs; E11.9 Type 2 diabetes mellitus without complications; K21.9 Gastro-esophageal reflux disease without esophagitis; E78.2 Mixed hyperlipidemia; I10 Essential (primary) hypertension; G47.00 Insomnia, unspecified; G47.33 Obstructive sleep apnea (adult) (pediatric); E66.9 Obesity, unspecified; Z68.30 Body mass index [BMI] 30.0-30.9, adult; Z87.891 Personal history of nicotine dependence; E55.9 Vitamin D deficiency, unspecified; E86.0 Dehydration
CPT/HCPCS: 36415; 36416; 36569; 36592; 71045; 80053; 80069; 81001; 82009; 82607; 82746; 82962; 83540; 83550; 83605; 83690; 83721; 83735; 84100; 84443; 84478; 85025; 96365; 96366; 96372; 96375; 96376; 99285; C1751; C9113; J1170; J1815; J2405; J7030; J7050; Q0162

== ENCOUNTER → 2022-09-13 14:30 | Outpatient (BNVA) | payer MEDICAID, SELFPAY | PROVIDERS: PCP Family Medicine; Visit Provider Internal Medicine | DX: Z09 Encounter for follow-up examination after completed treatment for conditions other than malignant neoplasm (principal); E11.9 Type 2 diabetes mellitus without complications; K85.90 Acute pancreatitis without necrosis or infection, unspecified; E78.1 Pure hyperglyceridemia; E55.9 Vitamin D deficiency, unspecified; Z79.4 Long term (current) use of insulin; Z79.84 Long term (current) use of oral hypoglycemic drugs | CPT/HCPCS: 99214 ==

== ENCOUNTER 2022-11-12 10:10 | Inpatient (IN) | payer MEDICAID, SELFPAY ==
[2022-11-12] VITALS (44 sets, daily range): BP systolic 115–152; BP diastolic 62–106; PULSE 82–101; RESP 14–26; TEMP 36.6–37.1; O2SAT 93–97; BMI 30.5
--- NOTE | 2022-11-12 10:19 | XR_ITS ---
WS: [id number] EXAMINATION: XR chest 1V portable [id number] REASON FOR EXAM: dyspnea/cough COMPARISON: 07/30/2022 ORDER DATE: 11/12/2022 10:19 AM TECHNIQUE: A single, portable frontal chest x-ray was obtained. X-RAY FINDINGS: The lungs are clear. Pleural spaces are clear. No pleural effusions or pneumothorax. Cardiomediastinal silhouette is normal. No evidence for pulmonary edema. Soft tissue and osseous structures are unremarkable. No tubes or lines are present. A few surgical clips overlie the thyroid bed. IMPRESSION: Unremarkable frontal portable chest x-ray.
[2022-11-12 10:35] LABS: Basophils # 0.1 10^3/uL (0.0-0.1); Basophils % 0.8 %; Eosinophils # 0.1 10^3/uL (0.0-0.8); Eosinophils % 1.3 %; Hematocrit 41.7 % (37-53); Lymphocytes # 1.9 10^3/uL (0.8-4.8); Lymphocytes % 18.9 %; Mean Corpuscular HGB Conc 36.5 g/dL (30-55); Mean Corpuscular Hemoglobin 29.5 pg (27-33); Mean Corpuscular Volume 80.8 fl (82-101); Mean Platelet Volume 11.6 fL (7.4-10.4); Monocytes # 0.5 10^3/uL (0.2-0.9); Monocytes % 4.5 %; Neutrophils # 7.49 10^3/uL (1.8-7.7); Neutrophils % 73.8 %; Nucleated Red Blood Cells % 0 %; Platelet Count 209 10^3/cmm (157-399); Red Blood Count 5.16 10^6/uL (3.85-5.65); Red Cell Distribution Width 13.3 % (12.1-15.1); White Blood Count 10.15 10^3/uL (3.29-11.43)
[2022-11-12 11:20] LABS: Albumin Level 4.2 g/dL (3.5-5.2); Anion Gap 18.2 (5-19); Aspartate Amino Transferase 31 U/L (0-40); Blood Urea Nitrogen 16 mg/dL (6-20); Calcium 8.3 mg/dL (8.5-10.5); Carbon Dioxide 22 mmol/L (22-29); Chloride 101 mmol/L (98-107); Globulin 2.7 g/dL (1.3-4.6); Glomerular Filtration Rate 189.2 mL/min (90-130); Glucose 199 mg/dL (65-115); Osmolality Calculated 291 mOsm/kg (285-295); Potassium 4.2 mmol/L (3.5-5.1); Total Bilirubin 0.3 mg/dL (0.15-1.2); Total Protein 6.9 g/dL (6.6-8.7)
[2022-11-12 11:21] LABS: Alanine Aminotransferase 55 U/L (0-41); Alkaline Phosphatase 83 U/L (40-130)
[2022-11-12 11:23] LABS: Sodium 137 mmol/L (136-145)
[2022-11-12] MEDS: HYDROmorphone 1 mg/mL INJ 1 mL IVP ×7 (11:27→23:52)
[2022-11-12] MEDS: ondansetron 2 mg/ML SDV 2 mL 4 MG IVP ×3 (11:27→19:47)
[2022-11-12 11:32] LABS: Lipase 457 U/L (13-60)
[2022-11-12 11:38] LABS: Triglycerides 4809 mg/dL (0-150)
[2022-11-12 12:13] LABS: Add Urine Microscopic? YES; Bilirubin Urine Neg (Negative); Blood Urine Neg (Negative); Glucose Urine UA 4+ (Normal); Ketones Urine Negative (Negative); Leukocyte Esterase Urine Negative (Negative); Nitrate Urine Negative (Negative); Protein Urine 3+ (Negative); Urine Appearance Clear (CLEAR); Urine Color Yellow (Yellow); Urobilinogen Urine Norm (Negative); pH Urine 5 (5-7)
[2022-11-12 12:19] LABS: RBC Urine 0-4 /hpf (0-2); Squamous Epithelial Cell Urine 0-4 /hpf (0-5); WBC Urine 0-4 /hpf (0-5)
[2022-11-12 12:20] LABS: Add Urine Culture? No; Fine Granular Casts Urine 0-4 /lpf; Hyaline Casts Urine 0-4 /lpf; Mucus Urine 4+ /hpf
--- NOTE | 2022-11-12 12:23 | W.ED.ABDPA2 ---
HPI - Abdominal Pain General: Chief Complaint: Abdominal Pain Stated Complaint: pancreatitis Time Seen by Provider: 11/12/22 10:17 Source: patient Mode of arrival: ambulatory History of Present Illness: 37-year-old male with a history of recurrent pancreatitis presents emergency room with complaints of epigastric and right upper quadrant pain. He has had recurrent chronic pancreatitis. He does not drink any alcohol its been associated with his triglyceridemia in the past. He not had any fever sweats or chills no diarrhea but he has had multiple episodes of vomiting no hematemesis or coffee-ground emesis. MD elicited complaint: abdominal pain Pertinent past history: other (Recurrent pancreatitis) Onset (ago): hour(s) Pain Consistency: constant Location: Epigastric and LUQ Severity: similar to previous episodes Quality: sharp Exacerbating factors: nothing Relieving factors: nothing Associated Symptoms: Reports bloating, nausea, poor appetite and vomiting; Denies anorexia, belching, change in bowel habits, change in stool character, chills, coffee ground emesis, constipation, GI cramping, diarrhea, dyspepsia, dysuria, excessive flatus, fever(s), heartburn, hematochezia, hematuria, hematemesis, fecal incontinence, loose stools, melena and syncope Review of Systems Const: Denies: fever(s) or chills Card: Denies: chest pain, palpitations, irregular heart rhythm, edema or syncope Resp: Denies: dyspnea, productive cough or non-productive cough GI: Reports: abdominal pain, nausea, vomiting and bloating; Denies: hematemesis, coffee ground emesis, heartburn, diarrhea, constipation, GI cramping, belching, excessive flatus, fecal incontinence, change in bowel habits, change in stool character, hematochezia or melena : Denies: dysuria, urinary frequency, urinary urgency or hematuria Skin/Breast: Denies: rash or pruritus PFSH ED PFSH: Medical History Acute on chronic pancreatitis Familial hypertriglyceridemia GERD (gastroesophageal reflux disease) Hyperlipidemia Hypertension Insomnia 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 Mediastinal lymphadenopathy Obesity (BMI 30.0-34.9) LESLY (obstructive sleep apnea) Overweight (BMI 25.0-29.9) Pseudohyponatremia Recurrent pancreatitis Vitamin D deficiency Surgical History History of cholecystectomy History of knee surgery arthroscopic left knee Family History Other CAD (coronary artery disease) Hyperlipidemia Social History Smoking and tobacco status: former smoker Alcohol intake: never Substance/Drug Use: never Physical Exam Const: GENERAL APPEARANCE: cooperative and comfortable ORIENTATION/CONSCIOUSNESS: Yes awake, Yes oriented to person, Yes oriented to place and Yes oriented to time HENMT: COMMON NORMALS: normocephalic, atraumatic and hearing grossly normal bilaterally HEAD & SCALP: normocephalic and atraumatic Resp: COMMON NORMALS: normal respiratory effort, No retractions, No use of accessory muscles and clear to auscultation bilaterally AUSCULTATION: clear to auscultation bilaterally Cardio: COMMON NORMALS: regular rate, regular rhythm and No murmurs present (Cardio) RATE: regular rate RHYTHM: regular rhythm GI: COMMON NORMALS: No hepatosplenomegaly present AUSCULTATION: Yes normoactive bowel sounds PALPATION: Yes Tenderness to palpation present (GI) (Epigastric right and left upper quadrant), No Guarding due to palpation present (GI) and Yes No hepatosplenomegaly present Extremity: COMMON NORMALS: normal to inspection, capillary refill normal, no clubbing, cyanosis or edema, no calf tenderness and no pedal edema Neuro: SENSORIUM/ORIENTATION: Yes oriented to person, Yes oriented to place and Yes oriented to time Skin: COMMON NORMALS: no rashes or lesions noted GENERAL SKIN EXAM: no rashes or lesions noted Course Vital Signs: Vital signs: Vital Signs Temperature 97.9 F 11/12/22 10:11 Pulse Rate 94 11/12/22 16:00 Respiratory Rate 20 H 11/12/22 16:42 Blood Pressure 125/73 11/12/22 16:05 Pulse Oximetry 95 11/12/22 16:05 Oxygen Delivery Me thod Room Air 11/12/22 14:03 MDM - Abdominal Pain Medical Decision Making Recurrent pancreatitis associated hypertriglyceridemia. Discussed with hospitalist orders written. Medical Records I reviewed the patient's medical records. Lab Data I reviewed the patient's lab results. 11/12/22 10:20 11/12/22 10:20 Labs/Radiology: Laboratory Results WBC 10.15 10^3/uL (3.29-11.43) 11/12/22 10:20 RBC 5.16 10^6/uL (3.85-5.65) 11/12/22 10:20 Hgb 15.20 g/dL (11.27-16.99) 11/12/22 10:20 Hct 41.7 % (37-53) 11/12/22 10:20 MCV 80.8 fl (82-101) L 11/12/22 10:20 MCH 29.5 pg (27-33) 11/12/22 10:20 MCHC 36.5 g/dL (30-55) 11/12/22 10:20 RDW 13.3 % (12.1-15.1) 11/12/22 10:20 Plt Count 209 10^3/cmm (157-399) 11/12/22 10:20 MPV 11.6 fL (7.4-10.4) H 11/12/22 10:20 Neut % (Auto) 73.8 % 11/12/22 10:20 Lymph % (Auto) 18.9 % 11/12/22 10:20 [place] % (Auto) 4.5 % 11/12/22 10:20 Eos % (Auto) 1.3 % 11/12/22 10:20 Baso % (Auto) 0.8 % 11/12/22 10:20 Neut # (Auto) 7.49 10^3/uL (1.8-7.7) 11/12/22 10:20 Lymph # (Auto) 1.9 10^3/uL (0.8-4.8) 11/12/22 10:20 [place] # (Auto) 0.5 10^3/uL (0.2-0.9) 11/12/22 10:20 Eos # (Auto) 0.1 10^3/uL (0.0-0.8) 11/12/22 10:20 Baso # (Auto) 0.1 10^3/uL (0.0-0.1) 11/12/22 10:20 Nucleated RBC % (auto) 0 % 11/12/22 10:20 Nucleated RBCs # 0.0 /100WBC 11/12/22 10:20 Sodium 137 mmol/L (136-145) 11/12/22 10:20 Potassium 4.2 mmol/L (3.5-5.1) 11/12/22 10:20 Chloride 101 mmol/L (98-107) 11/12/22 10:20 Carbon Dioxide 22 mmol/L (22-29) 11/12/22 10:20 Anion Gap 18.2 (5-19) 11/12/22 10:20 BUN 16 mg/dL (6-20) 11/12/22 10:20 Creatinine 0.5 mg/dL (0.7-1.2) L 11/12/22 10:20 GFR Calculation 189.2 mL/min (90-130) H 11/12/22 10:20 Glucose 199 mg/dL (65-115) H 11/12/22 10:20 POC Glucose 205 mg/dL (70-110) H 11/12/22 15:23 Calculated Osmolality 291 mOsm/kg (285-295) 11/12/22 10:20 Calcium 8.3 mg/dL (8.5-10.5) L 11/12/22 10:20 Total Bilirubin 0.3 mg/dL (0.15-1.2) 11/12/22 10:20 AST 31 U/L (0-40) 11/12/22 10:20 ALT 55 U/L (0-41) H 11/12/22 10:20 Alkaline Phosphatase 83 U/L (40-130) 11/12/22 10:20 Total Protein 6.9 g/dL (6.6-8.7) 11/12/22 10:20 Albumin 4.2 g/dL (3.5-5.2) 11/12/22 10:20 Globulin 2.7 g/dL (1.3-4.6) 11/12/22 10:20 Triglycerides 4809 mg/dL (0-150) H 11/12/22 10:20 Lipase 457 U/L (13-60) H 11/12/22 10:20 Urine Color Yellow (Yellow) 11/12/22 11:55 Urine Appearance Clear (CLEAR) 11/12/22 11:55 Urine pH 5 (5-7) 11/12/22 11:55 Ur Specific [place] 1.020 (1.005-1.030) 11/12/22 11:55 Urine Protein 3+ (Negative) H 11/12/22 11:55 Urine Glucose (UA) 4+ (Normal) H 11/12/22 11:55 Urine Ketones Negative (Negative) 11/12/22 11:55 Urine Blood Neg (Negative) 11/12/22 11:55 Urine Nitrate Negative (Negative) 11/12/22 11:55 Urine Bilirubin Neg (Negative) 11/12/22 11:55 Urine Urobilinogen Norm mg/dL (Negative) 11/12/22 11:55 Ur Leukocyte Esterase Negative (Negative) 11/12/22 11:55 Urine RBC 0-4 /hpf (0-2) H 11/12/22 11:55 Urine WBC 0-4 /hpf (0-5) H 11/12/22 11:55 Ur Squamous Epith Cells 0-4 /hpf (0-5) H 11/12/22 11:55 Amorphous Sediment Not Reportable 11/12/22 11:55 Urine Bacteria None /hpf (NONE) 11/12/22 11:55 Hyaline Casts 0-4 /lpf H 11/12/22 11:55 Fine Granular Casts 0-4 /lpf H 11/12/22 11:55 Urine Mucus 4+ /hpf 11/12/22 11:55 Discharge Plan Discharge Patient Disposition: Admitted As Inpatient Admit Provider: Jerri Carranza Clinical Impression: Recurrent pancreatitis, IDDM (insulin dependent diabetes mellitus), Hypertriglyceridemia Condition: Stable Coding Level of Care Code ED [place] Fine Wire for Chg Etelv[facility]
[2022-11-12] MEDS: sodium chloride 0.9% 1,000 ML 150 ML IV (14:17)
--- NOTE | 2022-11-12 15:06 | P.HP_ITS ---
Providers/Chief Complaint Admitting Physician: Jerri Carranza MD Primary Care Provider: Kin Greer MD Chief Complaint: pancreatitis History of Present Illness Rui Donohue is a 37 year old male with history of chronic pancreatitis, chronic hypertriglyceridemia, recently reduced dose of fenofibrate, recurrent episodes of pancreatitis this year, presenting to the emergency room with abdominal pain nausea vomiting. Lipase was noted to be elevated. Triglycerides at 4800. Patient requested foregoing the CT scan today given clinical presentation and his concern for recurrent CTs this year. No apparent trigger, states he may have gotten dehydrated.Afberile, complaint with medications Review of Systems General: Reports: 10 or more systems reviewed and unremarkable except in HPI and below Const: Denies: fever(s), chills or body aches Eyes: Denies: change in vision, blurry vision or photophobia ENMT: Reports: hoarseness; Denies: throat pain, enlarged tonsils, odynophagia or nasal congestion Card: Denies: chest pain, palpitations, irregular heart rhythm, edema, swelling of feet/ankles, lightheadedness, pre-syncope, dyspnea on exertion or orthopnea Resp: Denies: dyspnea, productive cough, non-productive cough, wheezing, stridor, pain on inspiration, change in phlegm color, hemoptysis or chest congestion GI: Denies: abdominal pain, nausea, vomiting, hematemesis, coffee ground emesis, dysphagia, heartburn, diarrhea, constipation, GI cramping, change in stool character, hematochezia or melena : Denies: flank pain, dysuria, urinary frequency, urinary urgency, urinary hesitancy or hematuria Musc: Denies: neck pain, back pain, extremity pain, joint swelling, joint warmth or deformity Neuro: Denies: headache(s), numbness in extremities, weakness in extremities, sensory changes, difficulty walking, frequent falls, dizziness, vertigo, behavioral changes, Slurred speech present or seizure-like activity Psych: Denies: anxiety, depression, suicidal ideation or homicidal ideation Endo: Denies: polyuria, polydipsia, tired all the time, cold intolerance or hot flashes Kojo/Lymph: Denies: easy bruising or easy bleeding Medications/Allergies Home Medications Medication Instructions Recorded Confirmed Last Taken Type cholecalciferol (vitamin D3) 125 5,000 unit PO DAILY 04/02/19 11/12/22 11/11/22 History mcg (5,000 unit) capsule magnesium citrate 300 ml PO DAILY PRN constipation 10/02/21 11/12/22 Unknown Rx #296 mL albuterol sulfate 90 mcg/actuation 2 puff inhalation Q6H PRN 05/10/22 11/12/22 Unknown History aerosol inhaler Shortness Of Breath calcitriol 0.5 mcg capsule 0.5 mcg PO DAILY 05/10/22 11/12/22 11/11/22 History ergocalciferol (vitamin D2) 1,250 100,000 unit PO Q7D 05/10/22 11/12/22 11/11/22 History mcg (50,000 unit) capsule (Vitamin D2) lipase 3,000-protease 1 cap PO BID PRN unknown 05/10/22 11/12/22 11/11/22 History 9,500-amylase 15,000 unit capsule, delayed rel (Creon) omega-3 acid ethyl esters 1 gram 4 cap PO DAILY 05/10/22 11/12/22 11/11/22 History capsule (Lovaza) flash glucose sensor (FreeStyle #6 ea 06/16/22 11/12/22 Unknown Rx Singh 2 Sensor kit) metoclopramide HCl 5 mg tablet 5 mg PO Q8H PRN breakthrough 07/16/22 11/12/22 Unknown Rx (Reglan) nausea 7 days #21 tabs Dexcom G6 Transmitter #2 ea 07/19/22 11/12/22 Unknown Rx (blood-glucose transmitter) Dexcom G6 [employer] (blood-glucose #1 ea 07/21/22 11/12/22 Unknown Rx meter,continuous) zolpidem 5 mg tablet 5 mg PO BEDTIME PRN insomnia 07/29/22 11/12/22 Unknown History pantoprazole 40 mg tablet,delayed 40 mg PO QAM #30 tabs 08/04/22 11/12/22 11/11/22 Rx release (Protonix) Dexcom G6 Sensor (blood-glucose #9 ea 08/12/22 11/12/22 Unknown Rx sensor) baclofen 5 mg tablet 5 mg PO BID PRN Pain #60 tabs 08/12/22 11/12/22 Unknown Rx fenofibrate 160 mg tablet 160 mg PO DAILY #90 tabs 08/12/22 11/12/22 11/11/22 Rx rosuvastatin 20 mg tablet 20 mg PO DAILY #90 tabs 08/12/22 11/12/22 11/11/22 Rx promethazine 25 mg tablet 25 mg PO TID PRN nausea and 08/17/22 11/12/22 Unknown Rx vomiting 7 days #21 tabs insulin pump cartridge,automated #1 ea 08/18/22 11/12/22 Unknown Rx dose,BT with controller subcutaneous (Omnipod 5 G6 Intro Kit (Gen 5) subcutaneous cartridge with controller) oxycodone 10 mg tablet 10 mg PO Q6H PRN pancreatitis pain 09/20/22 11/12/22 Unknown Rx 14 days #42 tabs insulin lispro 100 unit/mL See Rx Instructions .Route 10/14/22 11/12/22 11/11/22 Rx subcutaneous solution (Humalog .COMPLEX #30 mL U-100 Insulin) insulin pump cart,automated,BT #30 ea 10/19/22 11/12/22 Unknown Rx (Omnipod 5 G6 Pods (Gen 5) subcutaneous cartridge) levocetirizine 5 mg tablet (Xyzal) 5 mg PO DAILY PRN allergy symptoms 10/19/22 11/12/22 Unknown Rx 30 days #30 tabs fluoxetine 20 mg capsule 20 mg PO DAILY 11/12/22 11/12/22 11/11/22 History pioglitazone 30 mg tablet 30 mg PO DAILY 11/12/22 11/12/22 11/11/22 History ramelteon 8 mg tablet 8 mg PO BEDTIME 11/12/22 11/12/22 11/11/22 History Allergies Allergy/AdvReac Type Severity Reaction Status Date / Time morphine Allergy Unknown Verified 11/12/22 10:45 PFSH Acute PFSH: Medical History Acute on chronic pancreatitis Familial hypertriglyceridemia GERD (gastroesophageal reflux disease) Hyperlipidemia Hypertension Insomnia 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 Mediastinal lymphadenopathy Obesity (BMI 30.0-34.9) LESLY (obstructive sleep apnea) Overweight (BMI 25.0-29.9) Pseudohyponatremia Recurrent pancreatitis Vitamin D deficiency Surgical History History of cholecystectomy History of knee surgery arthroscopic left knee Family History Other CAD (coronary artery disease) Hyperlipidemia Social History Smoking and tobacco status: former smoker Alcohol intake: never Substance/Drug Use: never Vitals/I&O/Wt Last Vital Signs Temp 97.9 F 11/12/22 10:11 Pulse 96 11/12/22 12:31 Resp 16 11/12/22 14:26 BP 117/92 11/12/22 12:31 Pulse Ox 97 11/12/22 12:31 O2 Del Method Room Air 11/12/22 14:03 Weight last 48 hrs Weight 99.337 kg Physical Exam Narrative: General: No acute distress, AO x3 HEENT: PERRLA, pupils bilaterally equal and reactive, pallors not present Chest: Normal vesicular breath sounds, no added sounds, equal good air entry b ilaterally CVS: S1-S2 regular, no murmurs, no tachycardia, no gallops, no rubs Abdomen: Soft, nontender, no organomegaly, bowel sounds present Neuro: No focal deficits, no facial deformity, AO x3, power 5/5 in all limbs Data 11/12/22 10:20 11/12/22 10:20 A&P Assessment and plan (1) Acute on chronic pancreatitis: Admit to ICU for insulin drip. Hypertriglyceridemia induced acute on chronic pancreatitis. Triglycerides currently at 4800. Start insulin drip until TG level < 500 IV fluid with d5 normal saline at 100 cc an hour since blood sugar 199 N.p.o. for bowel rest Pain control with as needed dilaudid alternating with IV Toradol. As needed Tylenol for pain and fever. As needed Zofran for nausea management. (2) Hypertriglyceridemia: Tg level q12h Attestations Medical Necessity Statement*: > 2 midnight admission is anticipated for above care Coding Level of Care Code Acute Code for Chg Fwd High MDM includes number and complexity of problems actively addressed during encounter, amount and/or complexity of data reviewed/ordered and described risk of complication, morbidity or mortality of management as documented Diagnoses Acute on chronic pancreatitis K85.90; K86.1 Hypertriglyceridemia E78.1
[2022-11-12] MEDS: insulin regular-human 250 UNIT in sodium chloride 0.9% 250 ML 5.05 UNIT IV (15:12)
[2022-11-12] MEDS: dextrose 5%-sod chloride 0.9% 1,000 ML 125 ML IV ×2 (15:19→22:40)
[2022-11-12] MEDS: enoxaparin 40 mg/0.4 mL Syringe SUBCUT (15:20)
[2022-11-12 15:30] LABS: Glucose Point of Care 205 mg/dL (70-110)
[2022-11-12 17:21] LABS: Glucose Point of Care 206 mg/dL (70-110)
[2022-11-12] MEDS: ketorolac 30 mg/mL INJ 15 MG IVP (17:23)
--- NOTE | 2022-11-12 18:30 | PC.NURSE ---
PICC placed to right basilic without difficulty. Pt referred for PICC placement for TPN. Informed consent obtained from patient. Risks and benefits discussed. Right arm assessed with basilic vein measuring 4 mm, straight, and apparent best choice for placement. Using sterile technique and MST, basilic vein accessed x 1 stick. Mid-arm circumference measured 10 cm from right AC 32 cm. Trimmed cath length 44 cm with 1 cm external length noted. Line secured with stat-lock. Insertion site covered with Biopatch and TSM. CXR shows tip appearing to be in SVC. Awaiting radiologist report. Report given to bedside nurseChela.
--- NOTE | 2022-11-12 18:53 | XRR_ITS ---
PROCEDURE INFORMATION: Exam: XR Chest Exam date and time: 11/12/2022 7:29 PM Age: 37 years old Clinical indication: Injury or trauma; Fall and other: N/a; Additional info: Post picc insertion, fermin placing in icu 6. Will call when ready TECHNIQUE: Imaging protocol: Radiologic exam of the chest. Views: 1 view. COMPARISON: CR XR chest 1V portable [id number] 11/12/2022 10:35 AM FINDINGS: Tubes, catheters and devices: Right PICC tip projects over the cavoatrial junction. Lungs: Low lung volumes with bronchovascular crowding. No convincing airspace disease. Pleural spaces: No pleural effusion. No pneumothorax. Heart/Mediastinum: Cardiac silhouette is normal in size for technique. Bones/joints: Age appropriate. XR/XR chest 1V portable [id number] IMPRESSION: Right PICC is in satisfactory position.
[2022-11-12 20:29] LABS: Glucose Point of Care 143 mg/dL (70-110)
[2022-11-12 23:50] LABS: Glucose Point of Care 119 mg/dL (70-110)
[2022-11-13] VITALS (34 sets, daily range): BP systolic 115–160; BP diastolic 66–100; PULSE 83–108; RESP 13–24; TEMP 36.7–36.8; O2SAT 93–98
--- NOTE | 2022-11-13 00:21 | PC.NURSE ---
0000- dr glez notified of bg last 2 hours, notified of insulin gtt rate and current iv fluids and npo status, ordered to decrease insulin gtt to 3 unit/hr at this time.
[2022-11-13] MEDS: ketorolac 30 mg/mL INJ 15 MG IVP ×2 (01:05→21:47)
[2022-11-13 01:06] LABS: Glucose Point of Care 140 mg/dL (70-110)
[2022-11-13] MEDS: ondansetron 2 mg/ML SDV 2 mL 4 MG IVP ×3 (01:06→21:47)
[2022-11-13 02:21] LABS: Glucose Point of Care 138 mg/dL (70-110)
[2022-11-13] MEDS: HYDROmorphone 1 mg/mL INJ 1 mL IVP ×9 (02:41→23:10)
[2022-11-13 03:08] LABS: Glucose Point of Care 146 mg/dL (70-110)
[2022-11-13 04:10] LABS: Glucose Point of Care 181 mg/dL (70-110)
[2022-11-13 04:37] LABS: Basophils % 0.4 %; Eosinophils # 0.1 10^3/uL (0.0-0.8); Eosinophils % 1.9 %; Hematocrit 37.9 % (37-53); Lymphocytes # 2.4 10^3/uL (0.8-4.8); Lymphocytes % 32.5 %; Mean Corpuscular HGB Conc 34.3 g/dL (30-55); Mean Corpuscular Hemoglobin 28.3 pg (27-33); Mean Corpuscular Volume 82.4 fl (82-101); Mean Platelet Volume 12.3 fL (7.4-10.4); Monocytes # 0.5 10^3/uL (0.2-0.9); Monocytes % 6.3 %; Neutrophils # 4.38 10^3/uL (1.8-7.7); Neutrophils % 58.4 %; Nucleated Red Blood Cells % 0 %; Platelet Count 160 10^3/cmm (157-399); Red Cell Distribution Width 13.6 % (12.1-15.1)
[2022-11-13 05:12] LABS: Magnesium 1.9 mg/dL (1.7-2.3); Phosphorus 3.3 mg/dL (2.5-4.5)
[2022-11-13 05:38] LABS: Albumin Level 3.5 g/dL (3.5-5.2); Alkaline Phosphatase 71 U/L (40-130); Anion Gap 13.6 (5-19); Blood Urea Nitrogen 10 mg/dL (6-20); Calcium 7.9 mg/dL (8.5-10.5); Carbon Dioxide 25 mmol/L (22-29); Chloride 96 mmol/L (98-107); Globulin 2.2 g/dL (1.3-4.6); Glomerular Filtration Rate 244.8 mL/min (90-130); Glucose 164 mg/dL (65-115); Osmolality Calculated 273 mOsm/kg (285-295); Potassium 4.6 mmol/L (3.5-5.1); Sodium 130 mmol/L (136-145); Total Bilirubin 0.2 mg/dL (0.15-1.2); Total Protein 5.7 g/dL (6.6-8.7)
[2022-11-13 05:42] LABS: Glucose Point of Care 175 mg/dL (70-110)
[2022-11-13 06:12] LABS: Glucose Point of Care 207 mg/dL (70-110)
[2022-11-13 06:26] LABS: Alanine Aminotransferase 36 U/L (0-41); Aspartate Amino Transferase 25 U/L (0-40)
[2022-11-13] MEDS: dextrose 5%-sod chloride 0.9% 1,000 ML 125 ML IV ×2 (06:35→15:28)
[2022-11-13 07:24] LABS: Glucose Point of Care 165 mg/dL (70-110)
[2022-11-13 07:36] LABS: Triglycerides 2478 mg/dL (0-150)
[2022-11-13 07:54] LABS: LDL Cholesterol Direct 55 mg/dL (0-100)
[2022-11-13] MEDS: pantoprazole DR 40 mg Tablet PO (07:54)
[2022-11-13 09:05] LABS: Glucose Point of Care 214 mg/dL (70-110)
[2022-11-13] MEDS: AA-Dex 5%-20% w/Lytes 1,000 ML 23 ML IV (11:07)
[2022-11-13 13:46] LABS: Glucose Point of Care 241 mg/dL (70-110)
[2022-11-13 15:09] LABS: Glucose Point of Care 228 mg/dL (70-110)
[2022-11-13] MEDS: enoxaparin 40 mg/0.4 mL Syringe SUBCUT (15:20)
--- NOTE | 2022-11-13 17:45 | PM.PN ---
Subjective Subjective: Triglyceride level trending down to 2800 today. PICC line appears to have been placed overnight due to poor peripheral access. Starting TPN today. Reports multiple episodes of diarrhea, states this is not unusual for him Medications: Reviewed: Yes Vitals/I&O/Wt Last Vital Signs Temp 98.1 F 11/13/22 05:19 Pulse 88 11/13/22 12:00 Resp 17 11/13/22 15:31 BP 135/91 11/13/22 12:00 Pulse Ox 97 11/13/22 15:31 O2 Del Method Room Air 11/12/22 20:00 11/13/22 11/13/22 11/13/22 06:59 14:59 22:59 Intake Total 1096.123 / 7227.750 3440 / 1000 Output Total 600 / 600 Balance 496.123 / 660.537 5713 / 1000 Weight last 48 hrs Weight 99.337 kg Physical Exam Narrative: General: No acute distress, AO x3 HEENT: PERRLA, pupils bilaterally equal and reactive, pallors not present Chest: Normal vesicular breath sounds, no added sounds, equal good air entry bilaterally CVS: S1-S2 regular, no murmurs, no tachycardia, no gallops, no rubs Abdomen: Soft, nontender, no organomegaly, bowel sounds present Neuro: No focal deficits, no facial deformity, AO x3, power 5/5 in all limbs Data 11/13/22 04:15 11/13/22 04:15 A&P Assessment and plan (1) Acute on chronic pancreatitis: Continue insulin drip. Hypertriglyceridemia induced acute on chronic pancreatitis. Triglycerides currently at 4800---> 2800 continue insulin drip until TG level < 500 IV fluid with d5 normal saline at 100 cc an hour to continue Start TPN as anticipated prolonged NPO status N.p.o. for bowel rest Pain control with as needed dilaudid alternating with IV Toradol. resume home dose of oxycodone As needed Tylenol for pain and fever. As needed Zofran for nausea management. Resume home dose of Creon (2) Hypertriglyceridemia: Tg level q12h , downtrending Plan Resume home dose of fluoxetine, oxycodone, zolpidem. Continue to hold fenofibrate for now. Will resume once triglyceride level is less than 500. Attestations Medical Necessity Statement*: Continued admission for acute on chronic pancreatitis, continued for insulin drip for hypertriglyceridemia, starting TPN Critical Care Time: The high probability of a clinically significant, sudden or life threatening deterioration of the patient's [endocrine,CV] system(s) required my full and direct attention, intervention and personal management. The critical care time is as shown. This time is in addition to time spent performing any reported procedures but includes the following: [x] Data and vital sign review and interpretation [x] Patient assessment, examination and intervention [x] Documentation [x] Medication orders and management Critical Care Time (min): 45 Coding Level of Care Code Acute Code for Chg Fwd Diagnoses Acute on chronic pancreatitis K85.90; K86.1 Hypertriglyceridemia E78.1
[2022-11-13 17:57] LABS: Triglycerides 2020 mg/dL (0-150)
[2022-11-13 17:59] LABS: LDL Cholesterol Direct 62 mg/dL (0-100)
[2022-11-13 20:15] LABS: Glucose Point of Care 170 mg/dL (70-110)
[2022-11-13 21:47] LABS: Glucose Point of Care 152 mg/dL (70-110)
[2022-11-13 22:46] LABS: Glucose Point of Care 180 mg/dL (70-110)
[2022-11-13 23:20] LABS: Glucose Point of Care 178 mg/dL (70-110)
[2022-11-14] VITALS (33 sets, daily range): BP systolic 101–166; BP diastolic 64–117; PULSE 69–103; RESP 13–27; TEMP 36.7–36.9; O2SAT 93–98
[2022-11-14] MEDS: dextrose 5%-sod chloride 0.9% 1,000 ML 125 ML IV (00:12)
[2022-11-14] MEDS: oxyCODONE 5 mg IR Tab/Cap 10 MG PO ×2 (01:03→20:05)
[2022-11-14 01:17] LABS: Glucose Point of Care 159 mg/dL (70-110)
[2022-11-14] MEDS: zolpidem 5 mg Tablet PO ×2 (01:38→21:57)
[2022-11-14 02:13] LABS: Glucose Point of Care 238 mg/dL (70-110)
--- NOTE | 2022-11-14 02:18 | PC.NURSE ---
Upon arrival insulin drip running at 5 units/hr. MAR changed to reflect dose and Doctor notified of blood sugar trends and reviewed orders and doctor clarified to leave as is due to insulin drip being for triglycerides and to change order to 5 units/hr.
[2022-11-14 03:11] LABS: Glucose Point of Care 230 mg/dL (70-110)
[2022-11-14] MEDS: HYDROmorphone 1 mg/mL INJ 1 mL IVP ×7 (03:46→21:24)
[2022-11-14 03:56] LABS: Glucose Point of Care 226 mg/dL (70-110)
[2022-11-14 04:58] LABS: Basophils % 0.8 %; Eosinophils # 0.2 10^3/uL (0.0-0.8); Eosinophils % 2.8 %; Lymphocytes # 1.9 10^3/uL (0.8-4.8); Lymphocytes % 36.3 %; Mean Corpuscular HGB Conc 32.9 g/dL (30-55); Mean Corpuscular Hemoglobin 27.5 pg (27-33); Mean Corpuscular Volume 83.5 fl (82-101); Mean Platelet Volume 12.1 fL (7.4-10.4); Monocytes # 0.3 10^3/uL (0.2-0.9); Monocytes % 5.1 %; Neutrophils # 2.88 10^3/uL (1.8-7.7); Neutrophils % 54.2 %; Nucleated Red Blood Cells % 0 %; Platelet Count 124 10^3/cmm (157-399); Red Blood Count 4.55 10^6/uL (3.85-5.65); Red Cell Distribution Width 13.4 % (12.1-15.1); White Blood Count 5.31 10^3/uL (3.29-11.43)
[2022-11-14 05:08] LABS: Glucose Point of Care 256 mg/dL (70-110)
[2022-11-14 05:19] LABS: Albumin Level 3.5 g/dL (3.5-5.2); Alkaline Phosphatase 72 U/L (40-130); Blood Urea Nitrogen 7 mg/dL (6-20); Calcium 8.2 mg/dL (8.5-10.5); Carbon Dioxide 25 mmol/L (22-29); Chloride 104 mmol/L (98-107); Globulin 3.1 g/dL (1.3-4.6); Glomerular Filtration Rate 244.8 mL/min (90-130); Glucose 217 mg/dL (65-115); Osmolality Calculated 289 mOsm/kg (285-295); Sodium 137 mmol/L (136-145); Total Bilirubin 0.3 mg/dL (0.15-1.2); Total Protein 6.6 g/dL (6.6-8.7)
[2022-11-14 05:25] LABS: Anion Gap 12.4 (5-19); Potassium 4.4 mmol/L (3.5-5.1)
[2022-11-14 05:45] LABS: Triglycerides 1949 mg/dL (0-150)
[2022-11-14 06:01] LABS: LDL Cholesterol Direct 72 mg/dL (0-100)
[2022-11-14 06:18] LABS: Aspartate Amino Transferase 30 U/L (0-40)
[2022-11-14 06:19] LABS: Alanine Aminotransferase 40 U/L (0-41)
[2022-11-14 06:27] LABS: Glucose Point of Care 291 mg/dL (70-110)
[2022-11-14] MEDS: pantoprazole DR 40 mg Tablet PO (08:31)
[2022-11-14] MEDS: fluoxetine 20 mg Capsule PO (08:31)
[2022-11-14] MEDS: ketorolac 30 mg/mL INJ 15 MG IVP ×2 (08:35→20:04)
[2022-11-14 08:36] LABS: Glucose Point of Care 254 mg/dL (70-110)
[2022-11-14 10:10] LABS: Glucose Point of Care 263 mg/dL (70-110)
[2022-11-14 11:33] LABS: Glucose Point of Care 272 mg/dL (70-110)
[2022-11-14] MEDS: sodium chloride 0.9% 1,000 ML 125 ML IV ×2 (11:38→19:31)
[2022-11-14] MEDS: AA-Dex 5%-20% w/Lytes 1,000 ML 63 ML IV (11:48)
[2022-11-14 13:13] LABS: Glucose Point of Care 244 mg/dL (70-110)
[2022-11-14] MEDS: lipase-protease-amylase Capsule 1 EACH PO ×2 (13:16→17:27)
[2022-11-14 14:52] LABS: Glucose Point of Care 217 mg/dL (70-110)
[2022-11-14] MEDS: enoxaparin 40 mg/0.4 mL Syringe SUBCUT (14:57)
[2022-11-14 16:18] LABS: Glucose Point of Care 170 mg/dL (70-110)
--- NOTE | 2022-11-14 16:41 | P.PN_ITS ---
Subjective Subjective: no new complaints, multiple episodes of diarrhea today, he has not yet received creon , Tg down to ~1900 today Medications: Reviewed: Yes Vitals/I&O/Wt Last Vital Signs Temp 98.4 F 11/14/22 15:00 Pulse 81 11/14/22 16:00 Resp 16 11/14/22 16:00 BP 158/94 11/14/22 16:00 Pulse Ox 95 11/14/22 16:00 O2 Del Method Room Air 11/14/22 15:00 11/14/22 11/14/22 11/14/22 06:59 14:59 22:59 Intake Total 1030 / 2247.767 1903.95 / 1903.95 Output Total 800 / 800 Balance 230 / 3172.623 1514.95 / 1903.95 Physical Exam Narrative: General: No acute distress, AO x3 HEENT: PERRLA, pupils bilaterally equal and reactive, pallors not present Chest: Normal vesicular breath sounds, no added sounds, equal good air entry bilaterally CVS: S1-S2 regular, no murmurs, no tachycardia, no gallops, no rubs Abdomen: Soft, nontender, no organomegaly, bowel sounds present Neuro: No focal deficits, no facial deformity, AO x3, power 5/5 in all limbs Data 11/14/22 03:58 11/14/22 03:58 A&P Assessment and plan (1) Acute on chronic pancreatitis: Continue insulin drip. Hypertriglyceridemia induced acute on chronic pancreatitis. Triglycerides currently at 4800---> 2800 --> 1949 fingerstick check q1h continue insulin drip until TG level < 500 IV fluid changed to NS with starting TPN Continued TPN N.p.o. for bowel rest Pain control with as needed dilaudid alternating with IV Toradol. resume home dose of oxycodone As needed Tylenol for pain and fever. As needed Zofran for nausea management. Resume home dose of Creon (2) Hypertriglyceridemia: down trending to 1949 today Plan Chronic diarrhea: worsned today, resume creon, check C diff, if negative will add imodium Resume home dose of fluoxetine, oxycodone, zolpidem. Continue to hold fenofibrate for now. Will resume once triglyceride level is less than 500. Dvt ppx: [facility]cess[facility] Statement*: Continued need for insulin drip, TPN , management of acute on chronic pancreatitis Coding Level of Care Code Acute Code for Chg Fwd High MDM includes number and complexity of problems actively addressed during encounter, amount and/or complexity of data reviewed/ordered and described risk of complication, morbidity or mortality of management as documented Diagnoses Acute on chronic pancreatitis K85.90; K86.1 Hypertriglyceridemia E78.1
[2022-11-14 17:25] LABS: Glucose Point of Care 183 mg/dL (70-110)
[2022-11-14] MEDS: loperamide 2 mg Capsule 4 MG PO (18:16)
[2022-11-14 18:23] LABS: Glucose Point of Care 173 mg/dL (70-110)
--- NOTE | 2022-11-14 18:23 | PC.NURSE ---
Shift SUmmary: Uneventful shift. Patient remains on the fixed 5 unit/hr insulin drip. Goal rate of 83ml/he reached on TPN. D5NS changed to NS due to hyperglycemia. Pain medication occasionally required. Rested in bed throughout the day but frequently up to the bathroom. Triglycerides remain elevated but improved form yesterday, next triglyceride check to occur with morning labs.
[2022-11-14 19:39] LABS: Glucose Point of Care 166 mg/dL (70-110)
[2022-11-14 20:01] LABS: Glucose Point of Care 171 mg/dL (70-110)
[2022-11-14 21:25] LABS: Glucose Point of Care 186 mg/dL (70-110)
[2022-11-14 22:08] LABS: Glucose Point of Care 180 mg/dL (70-110)
[2022-11-14] MEDS: insulin regular-human 250 UNIT in sodium chloride 0.9% 250 ML IV (23:05)
[2022-11-14 23:17] LABS: Glucose Point of Care 197 mg/dL (70-110)
[2022-11-15] VITALS (33 sets, daily range): BP systolic 113–190; BP diastolic 56–118; PULSE 64–86; RESP 13–26; TEMP 36.6–36.8; O2SAT 94–98
[2022-11-15] MEDS: HYDROmorphone 1 mg/mL INJ 1 mL IVP ×10 (01:09→23:02)
[2022-11-15 01:21] LABS: Glucose Point of Care 206 mg/dL (70-110)
[2022-11-15 02:19] LABS: Glucose Point of Care 207 mg/dL (70-110)
--- NOTE | 2022-11-15 02:25 | PC.NURSE ---
Hyperglycemia Patient's blood sugar slowly increasing throughout the night, latest blood sugars 206, 207. Dr. Greer notified; no new orders received.
[2022-11-15] MEDS: AA-Dex 5%-20% w/Lytes 1,000 ML 83 ML IV ×2 (02:45→18:30)
[2022-11-15 03:13] LABS: Glucose Point of Care 186 mg/dL (70-110)
[2022-11-15] MEDS: sodium chloride 0.9% 1,000 ML 125 ML IV ×3 (03:47→20:37)
[2022-11-15 04:08] LABS: Basophils % 0.8 %; Eosinophils # 0.2 10^3/uL (0.0-0.8); Eosinophils % 3.4 %; Hematocrit 39.6 % (37-53); Lymphocytes # 2.1 10^3/uL (0.8-4.8); Lymphocytes % 42.4 %; Mean Corpuscular HGB Conc 32.6 g/dL (30-55); Mean Corpuscular Hemoglobin 27.7 pg (27-33); Mean Platelet Volume 11.4 fL (7.4-10.4); Monocytes # 0.3 10^3/uL (0.2-0.9); Monocytes % 5.4 %; Neutrophils # 2.38 10^3/uL (1.8-7.7); Neutrophils % 47.6 %; Nucleated Red Blood Cells % 0 %; Platelet Count 141 10^3/cmm (157-399); Red Blood Count 4.66 10^6/uL (3.85-5.65); Red Cell Distribution Width 13.2 % (12.1-15.1)
[2022-11-15 04:23] LABS: Glucose Point of Care 183 mg/dL (70-110)
[2022-11-15 04:46] LABS: Alanine Aminotransferase 37 U/L (0-41); Albumin Level 3.5 g/dL (3.5-5.2); Alkaline Phosphatase 73 U/L (40-130); Blood Urea Nitrogen 7 mg/dL (6-20); Calcium 8.5 mg/dL (8.5-10.5); Carbon Dioxide 24 mmol/L (22-29); Chloride 101 mmol/L (98-107); Glomerular Filtration Rate 244.8 mL/min (90-130); Glucose 178 mg/dL (65-115); Osmolality Calculated 284 mOsm/kg (285-295); Sodium 136 mmol/L (136-145); Total Bilirubin 0.4 mg/dL (0.15-1.2); Total Protein 6.5 g/dL (6.6-8.7)
[2022-11-15 04:47] LABS: Anion Gap 14.9 (5-19); Aspartate Amino Transferase 21 U/L (0-40); Potassium 3.9 mmol/L (3.5-5.1); Triglycerides 1538 mg/dL (0-150)
[2022-11-15 05:33] LABS: LDL Cholesterol Direct 93 mg/dL (0-100)
[2022-11-15 06:09] LABS: Glucose Point of Care 175 mg/dL (70-110)
[2022-11-15 08:22] LABS: Glucose Point of Care 184 mg/dL (70-110)
[2022-11-15] MEDS: fluoxetine 20 mg Capsule PO (08:44)
[2022-11-15] MEDS: lipase-protease-amylase Capsule 1 EACH PO ×2 (08:44→18:53)
[2022-11-15] MEDS: pantoprazole DR 40 mg Tablet PO (08:44)
[2022-11-15 09:30] LABS: Glucose Point of Care 191 mg/dL (70-110)
[2022-11-15 11:19] LABS: Glucose Point of Care 218 mg/dL (70-110)
[2022-11-15] MEDS: oxyCODONE 5 mg IR Tab/Cap 10 MG PO ×2 (13:00→19:36)
[2022-11-15 18:37] LABS: Glucose Point of Care 176 mg/dL (70-110)
[2022-11-15 18:37] LABS: Glucose Point of Care 199 mg/dL (70-110)
[2022-11-15 19:40] LABS: Glucose Point of Care 182 mg/dL (70-110)
[2022-11-15] MEDS: acetaminophen 325 mg Tablet 650 MG PO (20:35)
[2022-11-15 20:42] LABS: Glucose Point of Care 174 mg/dL (70-110)
--- NOTE | 2022-11-15 20:54 | P.PN_ITS ---
Subjective Subjective: His abdomen, but overall he is improving. He would be wanting to try some broth. Vitals/I&O/Wt Last Vital Signs Temp 98 F 11/15/22 04:00 Pulse 72 11/15/22 16:00 Resp 18 11/15/22 19:36 BP 155/74 11/15/22 16:00 Pulse Ox 96 11/15/22 19:36 O2 Del Method Room Air 11/15/22 08:00 11/15/22 11/15/22 11/15/22 06:59 14:59 22:59 Intake Total 1729.867 / 5029.784 1000 / 1000 1950 / 2950 Balance 1729.867 / 5029.784 1000 / 1000 1950 / 2950 Physical Exam Const: COMMON NORMALS: patient oriented x3 and alert GENERAL APPEARANCE: cooperative ORIENTATION/CONSCIOUSNESS: Yes awake HENMT: COMMON NORMALS: oropharynx normal Neck/C-Spine: COMMON NORMALS: no JVD Resp: COMMON NORMALS: normal respiratory effort and clear to auscultation bilaterally AUSCULTATION: clear to auscultation bilaterally Cardio: COMMON NORMALS: no JVD, regular rhythm, S1 normal heart sound present, S2 normal heart sound present and No murmurs present (Cardio) RHYTHM: regular rhythm HEART SOUNDS: S1 normal heart sound present and S2 normal heart sound present GI: COMMON NORMALS: Normal to inspection, nondistended, normoactive bowel sounds present and Soft to palpation PALPATION: Yes Soft to palpation and Yes Tenderness to palpation present (GI) Details: other (Upper) Extremity: COMMON NORMALS: no joint enlargement and no pedal edema Neuro: COMMON NORMALS: patient oriented x3 and moves all extremities SENSORIUM/ORIENTATION: Yes alert Skin: COMMON NORMALS: no rashes or lesions noted GENERAL SKIN EXAM: no rashes or lesions noted Data 11/15/22 03:43 11/15/22 03:43 Micro: Microbiology 11/14/22 14:45 C.difficile Toxin B Gene (PCR) - Final Stool Routine Collection A&P Assessment and plan (1) Acute on chronic pancreatitis: Noted CMP and triglycerides. Triglycerides improving. Discussed with him. Continue insulin drip. Trial of clear liquid diet. Hypertriglyceridemia induced acute on chronic pancreatitis. Fingerstick check q1h continue insulin drip until TG level < 500 Repeat CMP, lipase. Triglycerides. Continued TPN Still requiring IV Dilaudid. Pain control with as needed IV Toradol. Oxycodone. As needed Tylenol for pain and fever. As needed Zofran for nausea management. Resume home dose of Creon (2) Hypertriglyceridemia: Reviewed, noted decreasing. Follow-up. Plan Chronic diarrhea: C. difficile noted negative. Continue imodium Resume home dose of fluoxetine, oxycodone, zolpidem. Continue to hold feno fibrate for now. Will resume once triglyceride level is less than 500. Dvt ppx: lovenox Attestations Medical Necessity Statement*: Continue admission for assessment management of pancreatitis with severe hypertriglyceridemia. Coding Level of Care Code Critical Care >/= 30 minutes Critical care time (in minutes): 35 The high probability of a clinically significant, sudden or life threatening deterioration, as referenced in this documentation, required my full and direct attention, intervention and personal management. The critical care time shown is in addition to time spent performing any reported separately billable procedures and includes the following: [x] Data and vital sign review and interpretation [x ] Patient assessment, examination and intervention [x] Medication orders and management [x] Patient/Family updates as able [x] Care Coordination and Documentation. Diagnoses Acute on chronic pancreatitis K85.90; K86.1 Hypertriglyceridemia E78.1
[2022-11-15 22:12] LABS: Glucose Point of Care 186 mg/dL (70-110)
--- NOTE | 2022-11-15 22:15 | PC.NURSE ---
Blood Pressure Dr. Foster notified of patient's consistently high blood pressures; order received for 50 mg PO atenolol daily. See MAR for details.
[2022-11-15] MEDS: atenolol 50 mg Tablet PO (22:53)
[2022-11-15] MEDS: zolpidem 5 mg Tablet PO (22:54)
[2022-11-16] VITALS (35 sets, daily range): BP systolic 111–179; BP diastolic 58–116; PULSE 53–79; RESP 12–29; TEMP 36.6–37.3; O2SAT 94–97
[2022-11-16 00:09] LABS: Glucose Point of Care 188 mg/dL (70-110)
[2022-11-16] MEDS: HYDROmorphone 1 mg/mL INJ 1 mL IVP ×10 (01:59→23:13)
[2022-11-16 02:12] LABS: Glucose Point of Care 187 mg/dL (70-110)
[2022-11-16 04:36] LABS: Glucose Point of Care 174 mg/dL (70-110)
[2022-11-16] MEDS: sodium chloride 0.9% 1,000 ML 125 ML IV ×2 (05:09→21:01)
[2022-11-16] MEDS: insulin regular-human 250 UNIT in sodium chloride 0.9% 250 ML IV (05:13)
[2022-11-16 05:40] LABS: Basophils # 0.1 10^3/uL (0.0-0.1); Eosinophils # 0.2 10^3/uL (0.0-0.8); Eosinophils % 3.5 %; Hematocrit 39.5 % (37-53); Lymphocytes % 39.9 %; Mean Corpuscular HGB Conc 33.2 g/dL (30-55); Mean Corpuscular Hemoglobin 27.5 pg (27-33); Mean Platelet Volume 11.6 fL (7.4-10.4); Monocytes # 0.2 10^3/uL (0.2-0.9); Monocytes % 4.3 %; Neutrophils # 2.58 10^3/uL (1.8-7.7); Neutrophils % 50.7 %; Nucleated Red Blood Cells % 0 %; Platelet Count 173 10^3/cmm (157-399); Red Blood Count 4.76 10^6/uL (3.85-5.65); Red Cell Distribution Width 13.1 % (12.1-15.1); White Blood Count 5.09 10^3/uL (3.29-11.43)
[2022-11-16 05:58] LABS: Alanine Aminotransferase 39 U/L (0-41); Albumin Level 3.8 g/dL (3.5-5.2); Alkaline Phosphatase 73 U/L (40-130); Blood Urea Nitrogen 9 mg/dL (6-20); Calcium 8.6 mg/dL (8.5-10.5); Carbon Dioxide 28 mmol/L (22-29); Chloride 101 mmol/L (98-107); Globulin 2.7 g/dL (1.3-4.6); Glomerular Filtration Rate 244.8 mL/min (90-130); Glucose 191 mg/dL (65-115); Lipase 14 U/L (13-60); Osmolality Calculated 284 mOsm/kg (285-295); Sodium 135 mmol/L (136-145); Total Bilirubin 0.6 mg/dL (0.15-1.2); Total Protein 6.5 g/dL (6.6-8.7)
[2022-11-16 06:14] LABS: Triglycerides 1132 mg/dL (0-150)
[2022-11-16 06:15] LABS: Anion Gap 10.2 (5-19); Aspartate Amino Transferase 23 U/L (0-40); Potassium 4.2 mmol/L (3.5-5.1)
[2022-11-16 06:23] LABS: Glucose Point of Care 205 mg/dL (70-110)
[2022-11-16 06:35] LABS: LDL Cholesterol Direct 103 mg/dL (0-100)
[2022-11-16] MEDS: pantoprazole DR 40 mg Tablet PO (08:43)
[2022-11-16] MEDS: fluoxetine 20 mg Capsule PO (08:43)
[2022-11-16] MEDS: lipase-protease-amylase Capsule 1 EACH PO ×2 (08:43→17:23)
[2022-11-16] MEDS: atenolol 50 mg Tablet PO (08:43)
[2022-11-16] MEDS: enoxaparin 40 mg/0.4 mL Syringe SUBCUT (14:16)
[2022-11-16] MEDS: oxyCODONE 5 mg IR Tab/Cap 10 MG PO ×2 (17:23→23:46)
[2022-11-16 19:33] LABS: Glucose Point of Care 258 mg/dL (70-110)
--- NOTE | 2022-11-16 20:03 | P.PN_ITS ---
Subjective Subjective: His symptoms are gradually improving. He would like to try to advance diet further to GI soft. Vitals/I&O/Wt Last Vital Signs Temp 98 F 11/16/22 04:00 Pulse 63 11/16/22 17:00 Resp 21 H 11/16/22 18:50 BP 133/73 11/16/22 17:00 Pulse Ox 97 11/16/22 18:50 O2 Del Method Room Air 11/16/22 04:00 11/16/22 11/16/22 11/16/22 06:59 14:59 22:59 Intake Total 1150.667 / 4580.667 750 / 750 350 / 1100 Balance 1150.667 / 4580.667 750 / 750 350 / 1100 Physical Exam Const: COMMON NORMALS: patient oriented x3 and alert ORIENTATION/CONSCIOU SNESS: Yes awake HENMT: COMMON NORMALS: oropharynx normal Neck/C-Spine: COMMON NORMALS: no JVD Resp: COMMON NORMALS: normal respiratory effort and clear to auscultation bilaterally AUSCULTATION: clear to auscultation bilaterally Cardio: COMMON NORMALS: no JVD, regular rhythm, S1 normal heart sound present, S2 normal heart sound present and No murmurs present (Cardio) RHYTHM: regular rhythm HEART SOUNDS: S1 normal heart sound present and S2 normal heart sound present GI: COMMON NORMALS: Normal to inspection, nondistended, normoactive bowel sounds present and Soft to palpation PALPATION: Yes Soft to palpation and Yes Tenderness to palpation present (GI) Extremity: COMMON NORMALS: no joint enlargement and no pedal edema Neuro: COMMON NORMALS: patient oriented x3 and moves all extremities SENSORIUM/ORIENTATION: Yes alert Skin: COMMON NORMALS: no rashes or lesions noted GENERAL SKIN EXAM: no rashes or lesions noted Data 11/16/22 05:07 11/16/22 05:07 A&P Assessment and plan (1) Acute on chronic pancreatitis: Triglycerides are gradually decreasing, this morning down to 1132. Lipase noted has decreased down to normal. His symptoms are improving. He would like to try to advance diet further. Advanced to GI soft. Noted glucose 190s-200s. Continue insulin drip. Continue D5W. At risk of hypoglycemia, electrolyte abnormalities. Continue monitoring glucose. Potassium noted 4.2. Follow-up chemistry. Check magnesium, phosphorus. Hypertriglyceridemia induced acute on chronic pancreatitis. Discussed with case management Did still need IV Dilaudid, as he is otherwise improving, will see if able to decrease reliance. Continue fingerstick check q1h continue insulin drip until TG level < 500 Repeat CMP, lipase. Triglycerides. Continued TPN Still requiring IV Dilaudid. Pain control with as needed IV Toradol. Oxycodone. As needed Tylenol for pain and fever. As needed Zofran for nausea management. Resume home dose of Creon (2) Hypertriglyceridemia: Reviewed, noted decreasing. Follow-up. Plan Chronic diarrhea: C. difficile noted negative. Continue imodium Resume home dose of fluoxetine, oxycodone, zolpidem. Continue to hold fenofibr ate for now. Will resume once triglyceride level is less than 500. Dvt ppx: lovenox Attestations Medical Necessity Statement*: Continue admission for assessment management of severe hypertriglyceridemia c omplicated by pancreatitis. Critical Care Time: 20 Diagnoses Acute on chronic pancreatitis K85.90; K86.1 Hypertriglyceridemia E78.1
[2022-11-16 20:28] LABS: Glucose Point of Care 238 mg/dL (70-110)
[2022-11-16] MEDS: AA-Dex 5%-20% w/Lytes 1,000 ML 83 ML IV (21:03)
[2022-11-16] MEDS: zolpidem 5 mg Tablet PO (21:14)
[2022-11-16 21:56] LABS: Glucose Point of Care 269 mg/dL (70-110)
[2022-11-16 23:04] LABS: Glucose Point of Care 185 mg/dL (70-110)
[2022-11-17] VITALS (31 sets, daily range): BP systolic 110–152; BP diastolic 71–98; PULSE 58–82; RESP 6–33; TEMP 36.8; O2SAT 92–97
[2022-11-17] MEDS: HYDROmorphone 1 mg/mL INJ 1 mL IVP ×5 (02:24→13:32)
[2022-11-17 02:37] LABS: Glucose Point of Care 221 mg/dL (70-110)
[2022-11-17 02:37] LABS: Glucose Point of Care 207 mg/dL (70-110)
[2022-11-17 02:37] LABS: Glucose Point of Care 221 mg/dL (70-110)
[2022-11-17 04:49] LABS: Basophils % 0.6 %; Eosinophils # 0.2 10^3/uL (0.0-0.8); Eosinophils % 2.9 %; Hematocrit 39.7 % (37-53); Lymphocytes % 32.4 %; Mean Corpuscular Hemoglobin 27.2 pg (27-33); Mean Corpuscular Volume 82.4 fl (82-101); Mean Platelet Volume 11.8 fL (7.4-10.4); Monocytes # 0.3 10^3/uL (0.2-0.9); Monocytes % 5.2 %; Neutrophils # 3.62 10^3/uL (1.8-7.7); Neutrophils % 58.3 %; Nucleated Red Blood Cells % 0 %; Platelet Count 174 10^3/cmm (157-399); Red Blood Count 4.82 10^6/uL (3.85-5.65); Red Cell Distribution Width 13.1 % (12.1-15.1); White Blood Count 6.21 10^3/uL (3.29-11.43)
[2022-11-17 05:15] LABS: Magnesium 1.6 mg/dL (1.7-2.3); Phosphorus 4.1 mg/dL (2.5-4.5)
[2022-11-17 05:16] LABS: Alanine Aminotransferase 35 U/L (0-41); Albumin Level 3.8 g/dL (3.5-5.2); Alkaline Phosphatase 77 U/L (40-130); Aspartate Amino Transferase 18 U/L (0-40); Blood Urea Nitrogen 9 mg/dL (6-20); Calcium 8.8 mg/dL (8.5-10.5); Carbon Dioxide 31 mmol/L (22-29); Chloride 101 mmol/L (98-107); Globulin 2.8 g/dL (1.3-4.6); Glomerular Filtration Rate 244.8 mL/min (90-130); Glucose 209 mg/dL (65-115); Lipase 13 U/L (13-60); Osmolality Calculated 291 mOsm/kg (285-295); Sodium 138 mmol/L (136-145); Total Bilirubin 0.6 mg/dL (0.15-1.2); Total Protein 6.6 g/dL (6.6-8.7); Triglycerides 765 mg/dL (0-150)
[2022-11-17] MEDS: sodium chloride 0.9% 1,000 ML 125 ML IV ×3 (05:27→21:32)
[2022-11-17 05:33] LABS: LDL Cholesterol Direct 114 mg/dL (0-100)
[2022-11-17] MEDS: ondansetron 2 mg/ML SDV 2 mL 4 MG IVP (05:34)
[2022-11-17] MEDS: oxyCODONE 5 mg IR Tab/Cap 10 MG PO ×2 (05:35→16:03)
[2022-11-17 05:50] LABS: Glucose Point of Care 256 mg/dL (70-110)
[2022-11-17] MEDS: fluoxetine 20 mg Capsule PO (08:11)
[2022-11-17] MEDS: atenolol 50 mg Tablet PO (08:11)
[2022-11-17] MEDS: lipase-protease-amylase Capsule 1 EACH PO ×2 (08:11→17:29)
[2022-11-17] MEDS: pantoprazole DR 40 mg Tablet PO (08:11)
[2022-11-17 08:27] LABS: Glucose Point of Care 248 mg/dL (70-110)
[2022-11-17] MEDS: magnesium sulfate premix 2 GM/50 ML PIGGYBACK IV (09:09)
[2022-11-17] MEDS: AA-Dex 5%-20% w/Lytes 1,000 ML 83 ML IV (13:28)
[2022-11-17] MEDS: enoxaparin 40 mg/0.4 mL Syringe SUBCUT (14:35)
--- NOTE | 2022-11-17 15:56 | P.PN_ITS ---
Subjective Subjective: Still had abdominal pain requiring Dilaudid, but overall has been improving. Discussed with him trying to wean off IV pain medications. Dinner he had yesterday did not agree with him, he would like to downgrade back to full liquids for now. Vitals/I&O/Wt Last Vital Signs Temp 99.1 F 11/16/22 19:00 Pulse 70 11/17/22 08:00 Resp 19 H 11/17/22 13:32 BP 138/94 11/17/22 08:00 Pulse Ox 96 11/17/22 13:32 O2 Del Method Room Air 11/16/22 19:00 11/17/22 11/17/22 11/17/22 06:59 14:59 22:59 Intake Total 1440 / 4020 2049 Balance 1440 / 4020 2049 Weight last 48 hrs Weight 104.326 kg Physical Exam Const: COMMON NORMALS: patient oriented x3 and alert GENERAL APPEARANCE: cooperative ORIENTATION/CONSCIOUSNESS: Yes awake HENMT: COMMON NORMALS: oropharynx normal Neck/C-Spine: COMMON NORMALS: no JVD Resp: COMMON NORMALS: normal respiratory effort and clear to auscultation bilaterally AUSCULTATION: clear to auscultation bilaterally Cardio: COMMON NORMALS: no JVD, regular rhythm, S1 normal heart sound present, S2 normal heart sound present and No murmurs present (Cardio) RHYTHM: regular rhythm HEART SOUNDS: S1 normal heart sound present and S2 normal heart sound present GI: COMMON NORMALS: Normal to inspection, nondistended, normoactive bowel s ounds present and Soft to palpation PALPATION: Yes Soft to palpation and Yes Tenderness to palpation present (GI) Extremity: COMMON NORMALS: no joint enlargement and no pedal edema Neuro: COMMON NORMALS: patient oriented x3 and moves all extremities SENSORIUM/ORIENTATION: Yes alert Skin: COMMON NORMALS: no rashes or lesions noted GENERAL SKIN EXAM: no bing hes or lesions noted Data 11/17/22 04:30 11/17/22 04:30 A&P Assessment and plan (1) Acute on chronic pancreatitis: Triglycerides continuing to gradually decrease. Level reviewed, 765. Reviewed Mg level, replace hypomagnesemia. Downgrade diet to full liquid. His symptoms are improving. He would like to try to advance diet further. Advanced to GI soft. Reviewed glucose. Continue insulin drip. Continue D5W. At risk of hypoglycemia, electrolyte abnormalities. Continue monitoring glucose. Potassium noted. Phos noted. Follow-up chemistry. Mg. Hypertriglyceridemia induced acute on chronic pancreatitis. Discussed with case management in rounds. Did still need IV Dilaudid this AM, discussed w him trying to wean down. Continue fingerstick check q1h continue insulin drip until TG level < 500 Repeat CMP, lipase. Triglycerides. Continued TPN Still requiring IV Dilaudid. Pain control with as needed IV Toradol. Oxycodone. As needed Tylenol for pain and fever. As needed Zofran for nausea management. Resume home dose of Creon (2) Hypertriglyceridemia: Reviewed, noted decreasing. Follow-up. Plan Chronic diarrhea: C. difficile noted negative. Continue imodium Resume home dose of fluoxetine, oxycodone, zolpidem. Continue to hold fenofibrate for now. Will resume once triglyceride level is less than 500. Dvt ppx: lovenox Attestations Medical Necessity Statement*: Continue admission for assessment management of severe hypertriglyceridemia complicated by pancreatitis. Critical Care Time: 20 Diagnoses Acute on chronic pancreatitis K85.90; K86.1 Hypertriglyceridemia E78.1
[2022-11-17 17:11] LABS: Glucose Point of Care 222 mg/dL (70-110)
[2022-11-17 17:20] LABS: Glucose Point of Care 250 mg/dL (70-110)
[2022-11-17 20:05] LABS: Glucose Point of Care 280 mg/dL (70-110)
[2022-11-17] MEDS: acetaminophen 325 mg Tablet 650 MG PO (21:31)
[2022-11-17 22:14] LABS: Glucose Point of Care 251 mg/dL (70-110)
[2022-11-17 22:14] LABS: Glucose Point of Care 269 mg/dL (70-110)
[2022-11-18] VITALS (28 sets, daily range): BP systolic 104–148; BP diastolic 57–94; PULSE 56–82; RESP 10–35; TEMP 36.5–37.1; O2SAT 93–99
[2022-11-18] MEDS: zolpidem 5 mg Tablet PO ×2 (00:17→20:52)
[2022-11-18 00:27] LABS: Glucose Point of Care 325 mg/dL (70-110)
[2022-11-18 00:27] LABS: Glucose Point of Care 244 mg/dL (70-110)
[2022-11-18 01:46] LABS: Glucose Point of Care 245 mg/dL (70-110)
[2022-11-18 01:59] LABS: Glucose Point of Care 244 mg/dL (70-110)
[2022-11-18 03:18] LABS: Glucose Point of Care 279 mg/dL (70-110)
[2022-11-18] MEDS: AA-Dex 5%-20% w/Lytes 1,000 ML 83 ML IV (04:23)
[2022-11-18 05:21] LABS: Glucose Point of Care 271 mg/dL (70-110)
[2022-11-18 05:54] LABS: Basophils # 0.1 10^3/uL (0.0-0.1); Basophils % 0.9 %; Eosinophils # 0.2 10^3/uL (0.0-0.8); Eosinophils % 3.4 %; Lymphocytes # 2.3 10^3/uL (0.8-4.8); Lymphocytes % 40.2 %; Mean Corpuscular HGB Conc 33.3 g/dL (30-55); Mean Corpuscular Hemoglobin 27.3 pg (27-33); Mean Platelet Volume 12.2 fL (7.4-10.4); Monocytes # 0.3 10^3/uL (0.2-0.9); Monocytes % 5.9 %; Neutrophils # 2.84 10^3/uL (1.8-7.7); Neutrophils % 48.9 %; Nucleated Red Blood Cells % 0 %; Platelet Count 181 10^3/cmm (157-399); Red Blood Count 4.88 10^6/uL (3.85-5.65)
[2022-11-18 06:14] LABS: Magnesium 1.7 mg/dL (1.7-2.3)
[2022-11-18 06:15] LABS: Alanine Aminotransferase 33 U/L (0-41); Albumin Level 3.9 g/dL (3.5-5.2); Alkaline Phosphatase 82 U/L (40-130); Anion Gap 12.1 (5-19); Aspartate Amino Transferase 15 U/L (0-40); Blood Urea Nitrogen 10 mg/dL (6-20); Carbon Dioxide 28 mmol/L (22-29); Chloride 99 mmol/L (98-107); Globulin 2.8 g/dL (1.3-4.6); Glomerular Filtration Rate 189.2 mL/min (90-130); Glucose 283 mg/dL (65-115); Lipase 13 U/L (13-60); Osmolality Calculated 289 mOsm/kg (285-295); Potassium 4.1 mmol/L (3.5-5.1); Sodium 135 mmol/L (136-145); Total Bilirubin 0.7 mg/dL (0.15-1.2); Total Protein 6.7 g/dL (6.6-8.7); Triglycerides 730 mg/dL (0-150)
[2022-11-18 07:12] LABS: LDL Cholesterol Direct 112 mg/dL (0-100)
[2022-11-18] MEDS: insulin regular-human 250 UNIT in sodium chloride 0.9% 250 ML IV (07:39)
[2022-11-18 07:43] LABS: Glucose Point of Care 305 mg/dL (70-110)
[2022-11-18] MEDS: lipase-protease-amylase Capsule 1 EACH PO ×2 (08:22→17:05)
[2022-11-18] MEDS: pantoprazole DR 40 mg Tablet PO (08:22)
[2022-11-18] MEDS: fluoxetine 20 mg Capsule PO (08:22)
[2022-11-18] MEDS: atenolol 50 mg Tablet PO (08:22)
[2022-11-18 11:38] LABS: Glucose Point of Care 339 mg/dL (70-110)
[2022-11-18 12:07] LABS: Glucose Point of Care 375 mg/dL (70-110)
[2022-11-18 13:07] LABS: Glucose Point of Care 346 mg/dL (70-110)
[2022-11-18] MEDS: enoxaparin 40 mg/0.4 mL Syringe SUBCUT (15:26)
[2022-11-18] MEDS: ketorolac 30 mg/mL INJ 15 MG IVP ×2 (15:26→23:37)
[2022-11-18 16:17] LABS: Glucose Point of Care 231 mg/dL (70-110)
[2022-11-18 16:17] LABS: Glucose Point of Care 337 mg/dL (70-110)
[2022-11-18 16:17] LABS: Glucose Point of Care 246 mg/dL (70-110)
--- NOTE | 2022-11-18 16:18 | PC.NURSE ---
Insulin drip: Order clarified with Dr. Leiva for insulin drip parameters. Order to titrate by BG for low target range of 150 and high target range of 200.
[2022-11-18 17:09] LABS: Glucose Point of Care 179 mg/dL (70-110)
--- NOTE | 2022-11-18 18:00 | P.PN_ITS ---
Subjective Subjective: States he is improving. Would like to try to further advance diet to GI soft and see how he does with it. Vitals/I&O/Wt Last Vital Signs Temp 98.8 F 11/18/22 08:00 Pulse 65 11/18/22 16:00 Resp 14 11/18/22 17:04 BP 132/66 11/18/22 16:00 Pulse Ox 97 11/18/22 17:04 O2 Del Method Room Air 11/18/22 16:00 11/18/22 11/18/22 11/18/22 06:59 14:59 22:59 Intake Total 2240 / 5923.75 1641.600 / 1641.600 19.801 / 1661.401 Output Total 200 / 200 Balance 2240 / 5723.75 1441.600 / 1441.600 19.801 / 1461.401 Weight last 48 hrs Weight 104.78 kg Weight 104.326 kg Physical Exam Const: COMMON NORMALS: patient oriented x3 and alert GENERAL APPEARANCE: cooperative ORIENTATION/CONSCIOUSNESS: Yes awake HENMT: COMMON NORMALS: oropharynx normal Neck/C-Spine: COMMON NORMALS: no JVD Resp: COMMON NORMALS: normal respiratory effort and clear to auscultation bilaterally AUSCULTATION: clear to auscultation bilaterally Cardio: COMMON NORMALS: no JVD, regular rhythm, S1 normal heart sound present, S2 normal heart sound present and No murmurs present (Cardio) RHYTHM: regular rhythm HEART SOUNDS: S1 normal heart sound present and S2 normal heart sound present GI: COMMON NORMALS: Normal to inspection, nondistended, normoactive bowel sounds present and Soft to palpation PALPATION: Yes Soft to palpation and Yes Tenderness to palpation present (GI) (Significantly less tender compared to yesterday) Extremity: COMMON NORMALS: no joint enlargement and no pedal edema Neuro: COMMON NORMALS: patient oriented x3 and moves all extremities SENSORIUM/ORIENTATION: Yes alert Skin: COMMON NORMALS: no rashes or lesions noted GENERAL SKIN EXAM: no rashes or lesions noted Data 11/18/22 05:15 11/18/22 05:15 A&P Assessment and plan (1) Acute on chronic pancreatitis: Still persistent severe hypertriglyceridemia, triglycerides did come down to 730, seems progress has slowed somewhat. He is resuming oral intake, and we will continue D5 for now, adjusted to continue insulin drip with titration, target glucose less than 200. Resume fenofibrate. Monitor Accu-checks with risk of hypoglycemia. Monitor electrolytes. Noted potassium 4.1, magnesium 1.7, will give him 2 g magnesium. Recheck mag in the morning. Discussed with him the lipase now and noted normalized. Reviewed liver parameters. Recheck CMP. CBC. Still having pain, will add Toradol as needed, continue to wean down pain medicines with improvement. Reviewed glucose. Continue insulin drip. Continue D5W. At risk of hypoglycemia, electrolyte abnormalities. Continue monitoring glucose. Discussed with CM for Hypertriglyceridemia induced acute on chronic pancreatitis. DC'd IV Dilaudid. Continue fingerstick check q1h continue insulin drip until TG level < 500 Repeat CMP, Triglycerides. Stop TPN Oral hydromorphone started last night, as needed Toradol for pain. Wean down as tolerated. As needed Tylenol for pain and fever. As needed Zofran for nausea management. Creon (2) Hypertriglyceridemia: Reviewed, noted decreasing. Follow-up. Plan Chronic diarrhea: C. difficile noted negative. Continue imodium Resume home dose of fluoxetine, oxycodone, zolpidem. Continue to hold fenofibrate for now. Will resume once triglyceride level is less than 500. Dvt ppx: lovenox Attestations Medical Necessity Statement*: Continues to require insulin drip for treatment of severe hypertriglyceridemia, complicated by pancreatitis, risk of recurrent pancreatitis, hypoglycemia, electrolyte abnormalities. Coding Level of Care Code Critical Care >/= 30 minutes Critical care time (in minutes): 35 The high probability of a clinically significant, sudden or life threatening deterioration, as referenced in this documentation, required my full and direct attention, intervention and personal management. The critical care time shown is in addition to time spent performing any reported separately billable procedures and includes the following: [x] Data and vital sign review and interpretation [x ] Patient assessment, examination and intervention [x] Medication orders and management [x] Patient/Family updates as able [x] Care Coordination and Documentation. Diagnoses Acute on chronic pancreatitis K85.90; K86.1 Hypertriglyceridemia E78.1
[2022-11-18 18:09] LABS: Glucose Point of Care 220 mg/dL (70-110)
[2022-11-18] MEDS: magnesium sulfate premix 2 GM/50 ML PIGGYBACK IV (18:21)
[2022-11-18 19:09] LABS: Glucose Point of Care 286 mg/dL (70-110)
[2022-11-18 20:03] LABS: Glucose Point of Care 274 mg/dL (70-110)
[2022-11-18 20:59] LABS: Glucose Point of Care 234 mg/dL (70-110)
[2022-11-18 22:00] LABS: Glucose Point of Care 179 mg/dL (70-110)
[2022-11-18 22:55] LABS: Glucose Point of Care 218 mg/dL (70-110)
[2022-11-18 23:59] LABS: Glucose Point of Care 214 mg/dL (70-110)
[2022-11-19] VITALS (29 sets, daily range): BP systolic 105–157; BP diastolic 51–108; PULSE 55–86; RESP 12–34; O2SAT 95–98
[2022-11-19 00:57] LABS: Glucose Point of Care 193 mg/dL (70-110)
[2022-11-19 02:02] LABS: Glucose Point of Care 185 mg/dL (70-110)
[2022-11-19 03:21] LABS: Glucose Point of Care 194 mg/dL (70-110)
--- NOTE | 2022-11-19 03:45 | PC.NURSE ---
0200 Blood sugar 185. Insulin drip titrated to 10 units/hour per protocol. Double checked with SABRINA Cole.
[2022-11-19 04:01] LABS: Glucose Point of Care 188 mg/dL (70-110)
[2022-11-19 04:45] LABS: Basophils # 0.1 10^3/uL (0.0-0.1); Basophils % 0.9 %; Eosinophils # 0.2 10^3/uL (0.0-0.8); Eosinophils % 3.5 %; Lymphocytes # 2.5 10^3/uL (0.8-4.8); Mean Corpuscular HGB Conc 33.1 g/dL (30-55); Mean Corpuscular Hemoglobin 27.2 pg (27-33); Mean Corpuscular Volume 82.1 fl (82-101); Mean Platelet Volume 12.2 fL (7.4-10.4); Monocytes # 0.4 10^3/uL (0.2-0.9); Monocytes % 5.9 %; Neutrophils # 3.29 10^3/uL (1.8-7.7); Neutrophils % 50.8 %; Nucleated Red Blood Cells % 0 %; Platelet Count 191 10^3/cmm (157-399); Red Blood Count 4.75 10^6/uL (3.85-5.65); Red Cell Distribution Width 12.7 % (12.1-15.1); White Blood Count 6.48 10^3/uL (3.29-11.43)
[2022-11-19 05:02] LABS: Glucose Point of Care 119 mg/dL (70-110)
[2022-11-19 05:08] LABS: Magnesium 2.1 mg/dL (1.7-2.3)
[2022-11-19 05:12] LABS: Alanine Aminotransferase 28 U/L (0-41); Albumin Level 3.5 g/dL (3.5-5.2); Alkaline Phosphatase 82 U/L (40-130); Anion Gap 11.9 (5-19); Aspartate Amino Transferase 15 U/L (0-40); Blood Urea Nitrogen 18 mg/dL (6-20); Calcium 8.7 mg/dL (8.5-10.5); Carbon Dioxide 27 mmol/L (22-29); Chloride 102 mmol/L (98-107); Globulin 2.9 g/dL (1.3-4.6); Glomerular Filtration Rate 128.3 mL/min (90-130); Glucose 180 mg/dL (65-115); Osmolality Calculated 290 mOsm/kg (285-295); Potassium 3.9 mmol/L (3.5-5.1); Sodium 137 mmol/L (136-145); Total Bilirubin 0.4 mg/dL (0.15-1.2); Total Protein 6.4 g/dL (6.6-8.7)
[2022-11-19 06:16] LABS: Glucose Point of Care 117 mg/dL (70-110)
[2022-11-19 07:03] LABS: Glucose Point of Care 118 mg/dL (70-110)
[2022-11-19 08:01] LABS: Glucose Point of Care 130 mg/dL (70-110)
[2022-11-19 08:51] LABS: Triglycerides 837 mg/dL (0-150)
[2022-11-19] MEDS: fluoxetine 20 mg Capsule PO (08:51)
[2022-11-19] MEDS: atenolol 50 mg Tablet PO (08:51)
[2022-11-19] MEDS: lipase-protease-amylase Capsule 1 EACH PO ×2 (08:52→17:29)
[2022-11-19] MEDS: pantoprazole DR 40 mg Tablet PO (08:52)
[2022-11-19 08:59] LABS: Glucose Point of Care 140 mg/dL (70-110)
[2022-11-19 09:07] LABS: LDL Cholesterol Direct 104 mg/dL (0-100)
[2022-11-19 10:04] LABS: Glucose Point of Care 202 mg/dL (70-110)
[2022-11-19] MEDS: dextrose 10% 1,000 ML 100 ML IV ×2 (10:54→20:07)
[2022-11-19 11:00] LABS: Glucose Point of Care 217 mg/dL (70-110)
[2022-11-19 12:24] LABS: Glucose Point of Care 216 mg/dL (70-110)
[2022-11-19] MEDS: insulin regular-human 250 UNIT in sodium chloride 0.9% 250 ML 12.52 UNIT IV (13:12)
[2022-11-19 13:21] LABS: Glucose Point of Care 277 mg/dL (70-110)
[2022-11-19] MEDS: enoxaparin 40 mg/0.4 mL Syringe SUBCUT (14:16)
[2022-11-19 14:17] LABS: Glucose Point of Care 206 mg/dL (70-110)
[2022-11-19 15:12] LABS: Glucose Point of Care 163 mg/dL (70-110)
--- NOTE | 2022-11-19 15:58 | P.PN_ITS ---
Subjective Subjective: He states that he is improving. He is tolerating oral intake now well. Pain is improving. Vitals/I&O/Wt Last Vital Signs Temp 98.8 F 11/18/22 08:00 Pulse 73 11/19/22 13:26 Resp 16 11/19/22 13:26 BP 105/64 11/19/22 12:00 Pulse Ox 96 11/19/22 12:00 O2 Del Method Room Air 11/18/22 16:00 11/19/22 11/19/22 11/19/22 06:59 14:59 22:59 Intake Total 71.176 / 2067.051 590.494 / 590.494 Balance 71.176 / 1867.051 590.494 / 590.494 Weight last 48 hrs Weight 104.326 kg Weight 104.78 kg Physical Exam Narrative: Accompanied by family. Const: COMMON NORMALS: patient oriented x3 and alert GENERAL APPEARANCE: cooperative ORIENTATION/CONSCIOUSNESS: Yes awake HENMT: COMMON NORMALS: oropharynx normal Neck/C-Spine: COMMON NORMALS: no JVD Resp: COMMON NORMALS: normal respiratory effort and clear to auscultation bilaterally AUSCULTATION: clear to auscultation bilaterally Cardio: COMMON NORMALS: no JVD, regular rhythm, S1 normal heart sound present, S2 normal heart sound present and No murmurs present (Cardio) RHYTHM: regular rhythm HEART SOUNDS: S1 normal heart sound present and S2 normal heart sound present GI: COMMON NORMALS: Normal to inspection, nondistended, normoactive bowel sounds present and Soft to palpation PALPATION: Yes Soft to palpation and Yes Tenderness to palpation present (GI) (Significantly less tender compared to yesterday) Extremity: COMMON NORMALS: no joint enlargement and no pedal edema Neuro: COMMON NORMALS: patient oriented x3 and moves all extremities SENSORIUM/ORIENTATION: Yes alert Skin: COMMON NORMALS: no rashes or lesions noted GENERAL SKIN EXAM: no rashes or lesions noted Data 11/19/22 03:51 11/19/22 03:51 A&P Assessment and plan (1) Acute on chronic pancreatitis: Severe hypertriglyceridemia, discussed with him today little worsened up to 837. Discussed with him as we had discontinued TPN as he has been tolerating oral intake, it seems his blood glucose has decreased, so insulin drip was titrated down and he has been receiving lower rate. Discussed with him when changing to D10 infusion, discussed with nursing staff. Additionally I did reorder his fenofibrate, but seems it was not admitted, his home medication was being brought into the hospital. He can take his own if it has been brought in, otherwise would administer formulary med. Could consider heparin drip, but with elevated risk of bleeding, not sure that worth the risk as he has been improving overall although gradually with insulin drip. Anticipate further improvement with switch to D10, restarting fenofibrate. Reviewed CBC, CMP. Repeat studies. Repeat triglycerides. Continue Toradol as needed, continue to wean down pain medicines with improvement. Reviewed glucose. Continue insulin drip. Switch to D10. At risk of hypoglycemia, electrolyte abnormalities. Continue monitoring glucose. Discussed with CM in rounds Hypertriglyceridemia induced acute on chronic pancreatitis. Continue fingerstick check q1h continue insulin drip until TG level < 500 Repeat CMP, Triglycerides. Stop TPN Oral hydromorphone started last night, as needed Toradol for pain. Wean down as tolerated. As needed Tylenol for pain and fever. As needed Zofran for nausea management. Creon (2) Hypertriglyceridemia: Reviewed, noted decreasing. Follow-up. Plan Chronic diarrhea: C. difficile noted negative. Continue imodium Continue fluoxetine, zolpidem. Dvt ppx: lovenox Attestations Medical Necessity Statement*: Continue admission for assessment management of severe hypertriglyceridemia, co mplicated by pancreatitis requiring insulin drip. Critical Care Time: 15 min spent on assessment and management of insulin drip with risk of severe hypoglycemia, with severe hypertriglyceridemia risk of recurrent pancreatitis. and High MDM includes described risk of complication, morbidity or mortality of management as documented Diagnoses Acute on chronic pancreatitis K85.90; K86.1 Hypertriglyceridemia E78.1
[2022-11-19 16:12] LABS: Glucose Point of Care 172 mg/dL (70-110)
[2022-11-19 17:06] LABS: Glucose Point of Care 124 mg/dL (70-110)
[2022-11-19 18:05] LABS: Glucose Point of Care 173 mg/dL (70-110)
[2022-11-19] MEDS: ketorolac 30 mg/mL INJ 15 MG IVP (18:21)
[2022-11-19 19:06] LABS: Glucose Point of Care 224 mg/dL (70-110)
[2022-11-19 20:03] LABS: Glucose Point of Care 254 mg/dL (70-110)
[2022-11-19 20:58] LABS: Glucose Point of Care 241 mg/dL (70-110)
[2022-11-19 22:01] LABS: Glucose Point of Care 291 mg/dL (70-110)
[2022-11-19 22:34] LABS: Glucose Point of Care 297 mg/dL (70-110)
[2022-11-19 23:07] LABS: Glucose Point of Care 275 mg/dL (70-110)
[2022-11-19] MEDS: zolpidem 5 mg Tablet PO (23:13)
[2022-11-19 23:58] LABS: Glucose Point of Care 265 mg/dL (70-110)
[2022-11-20] VITALS (21 sets, daily range): BP systolic 94–155; BP diastolic 52–98; PULSE 61–86; RESP 10–25; TEMP 36.7; O2SAT 95–100
[2022-11-20 01:10] LABS: Glucose Point of Care 204 mg/dL (70-110)
[2022-11-20 02:02] LABS: Glucose Point of Care 218 mg/dL (70-110)
[2022-11-20 03:11] LABS: Glucose Point of Care 231 mg/dL (70-110)
[2022-11-20] MEDS: insulin regular-human 250 UNIT in sodium chloride 0.9% 250 ML 29.32 UNIT IV (03:37)
[2022-11-20 04:02] LABS: Glucose Point of Care 252 mg/dL (70-110)
[2022-11-20 04:33] LABS: Basophils # 0.1 10^3/uL (0.0-0.1); Basophils % 0.9 %; Eosinophils # 0.2 10^3/uL (0.0-0.8); Eosinophils % 3.6 %; Hematocrit 38.3 % (37-53); Lymphocytes # 2.3 10^3/uL (0.8-4.8); Mean Corpuscular HGB Conc 33.2 g/dL (30-55); Mean Corpuscular Hemoglobin 27.5 pg (27-33); Mean Corpuscular Volume 83.1 fl (82-101); Mean Platelet Volume 12.3 fL (7.4-10.4); Monocytes # 0.3 10^3/uL (0.2-0.9); Monocytes % 5.1 %; Neutrophils # 2.88 10^3/uL (1.8-7.7); Neutrophils % 49.2 %; Nucleated Red Blood Cells % 0 %; Platelet Count 170 10^3/cmm (157-399); Red Blood Count 4.61 10^6/uL (3.85-5.65); Red Cell Distribution Width 12.8 % (12.1-15.1); White Blood Count 5.85 10^3/uL (3.29-11.43)
[2022-11-20 05:00] LABS: Glucose Point of Care 166 mg/dL (70-110)
[2022-11-20 05:02] LABS: Triglycerides 639 mg/dL (0-150)
[2022-11-20 05:03] LABS: Alanine Aminotransferase 28 U/L (0-41); Albumin Level 3.4 g/dL (3.5-5.2); Alkaline Phosphatase 80 U/L (40-130); Anion Gap 12.6 (5-19); Aspartate Amino Transferase 13 U/L (0-40); Blood Urea Nitrogen 15 mg/dL (6-20); Calcium 8.2 mg/dL (8.5-10.5); Carbon Dioxide 24 mmol/L (22-29); Chloride 103 mmol/L (98-107); Globulin 2.8 g/dL (1.3-4.6); Glomerular Filtration Rate 128.3 mL/min (90-130); Glucose 226 mg/dL (65-115); Osmolality Calculated 290 mOsm/kg (285-295); Potassium 3.6 mmol/L (3.5-5.1); Sodium 136 mmol/L (136-145); Total Bilirubin 0.3 mg/dL (0.15-1.2); Total Protein 6.2 g/dL (6.6-8.7)
[2022-11-20 05:21] LABS: LDL Cholesterol Direct 104 mg/dL (0-100)
[2022-11-20] MEDS: dextrose 10% 1,000 ML 100 ML IV (05:37)
[2022-11-20 06:09] LABS: Glucose Point of Care 127 mg/dL (70-110)
[2022-11-20 08:07] LABS: Glucose Point of Care 81 mg/dL (70-110)
[2022-11-20] MEDS: fluoxetine 20 mg Capsule PO (08:08)
[2022-11-20] MEDS: atenolol 50 mg Tablet PO (08:08)
[2022-11-20] MEDS: lipase-protease-amylase Capsule 1 EACH PO ×2 (08:08→17:37)
[2022-11-20] MEDS: pantoprazole DR 40 mg Tablet PO (08:08)
[2022-11-20 09:10] LABS: Glucose Point of Care 152 mg/dL (70-110)
[2022-11-20] MEDS: acetaminophen 325 mg Tablet 650 MG PO (09:45)
[2022-11-20 10:08] LABS: Glucose Point of Care 180 mg/dL (70-110)
[2022-11-20 11:06] LABS: Glucose Point of Care 158 mg/dL (70-110)
[2022-11-20 12:30] LABS: Glucose Point of Care 90 mg/dL (70-110)
[2022-11-20 13:06] LABS: Glucose Point of Care 117 mg/dL (70-110)
[2022-11-20 14:23] LABS: Glucose Point of Care 170 mg/dL (70-110)
[2022-11-20] MEDS: enoxaparin 40 mg/0.4 mL Syringe SUBCUT (14:57)
[2022-11-20 15:02] LABS: Glucose Point of Care 145 mg/dL (70-110)
[2022-11-20 16:09] LABS: Glucose Point of Care 158 mg/dL (70-110)
[2022-11-20] MEDS: ketorolac 30 mg/mL INJ 15 MG IVP (16:09)
--- NOTE | 2022-11-20 16:13 | P.PN_ITS ---
Subjective Subjective: Denies any change in his symptoms. Tolerating oral intake. Later on reporting current pain medication is not covering his pain. Vitals/I&O/Wt Last Vital Signs Temp 98.8 F 11/18/22 08:00 Pulse 65 11/20/22 12:00 Resp 21 H 11/20/22 12:00 BP 105/65 11/20/22 12:00 Pulse Ox 99 11/20/22 12:00 O2 Del Method Room Air 11/18/22 16:00 11/20/22 11/20/22 11/20/22 06:59 14:59 22:59 Intake Total 1155.225 / 3020.918 600 / 600 1000 / 1600 Balance 1155.225 / 3020.918 600 / 600 1000 / 1600 Weight last 48 hrs Weight 108.862 kg Weight 104.326 kg Physical Exam Narrative: Accompanied by family. Const: COMMON NORMALS: patient oriented x3 and alert GENERAL APPEARANCE: cooperative ORIENTATION/CONSCIOUSNESS: Yes awake HENMT: COMMON NORMALS: oropharynx normal Neck/C-Spine: COMMON NORMALS: no JVD Resp: COMMON NORMALS: normal respiratory effort and clear to auscultation bilaterally AUSCULTATION: clear to auscultation bilaterally Cardio: COMMON NORMALS: no JVD, regular rhythm, S1 normal heart sound present, S2 normal heart sound present and No murmurs present (Cardio) RHYTHM: regular rhythm HEART SOUNDS: S1 normal heart sound present and S2 normal heart sound present GI: COMMON NORMALS: Normal to inspection, nondistended, normoactive bowel sounds present and Soft to palpation PALPATION: Yes Soft to palpation Extremity: COMMON NORMALS: no joint enlargement and no pedal edema Neuro: COMMON NORMALS: patient oriented x3 and moves all extremities SENSORIUM/ORIENTATION: Yes alert Skin: COMMON NORMALS: no rashes or lesions noted GENERAL SKIN EXAM: no rashes or lesions noted Data 11/20/22 04:09 11/20/22 04:09 A&P Assessment and plan (1) Acute on chronic pancreatitis: Lipase had previously normal as per review, however, he is reporting that 4 mg Dilaudid every 4 hours is not covering his pain. Given persistence of pain will reimage with CT. Increase Dilaudid dose to 6 mg for now. Reviewed CBC, no noted leukocytosis, he is afebrile. Lower suspicion for necrotizing pancreatitis, but will review imaging. Abdomen soft, benign. Reviewed with him. Triglyceride level, 639 today. Glucose risen overnight so his insulin rate was increased and D10 rate decreased to 50 mL/h, subsequently glucose decreasing to 166 and then drop down to 81. Rate was decreased down to 3.3. Discussed with nursing staff, D10 rate was increased up to 75 mill per hour. Resumed insulin drip at 14. Currently continues at 12. Keep this rate currently to allow for continued insulin infusion alongside his oral intake. Consider adjusting only one parameter at a time if changes needed. We will reassess triglycerides in the morning. Continue fenofibrate. Could consider heparin drip, but with elevated risk of bleeding, not sure that worth the risk as he has been improving overall although gradually with insulin drip. Anticipate further improvement with switch to D10, restarting fenofibrate. Discussed with case management. Reviewed CBC, CMP. Repeat studies. Repeat triglycerides. Continue Toradol as needed, continue to wean down pain medicines with improvement. Reviewed glucose. Continue insulin drip. Switch to D10. At risk of hypoglycemia, electrolyte abnormalities. Continue monitoring glucose. Discussed with CM in rounds Hypertriglyceridemia induced acute on chronic pancreatitis. Continue fingerstick check q1h continue insulin drip until TG level < 500 Repeat CMP, Triglycerides. As needed Tylenol for pain and fever. As needed Zofran for nausea management. Creon (2) Hypertriglyceridemia: Reviewed, noted decreasing. Follow-up. Plan Chronic diarrhea: C. difficile noted negative. Continue imodium Continue fluoxetine, zolpidem. Dvt ppx: lovenox Attestations Medical Necessity Statement*: Continue admission for assessment management of persistent pain, following pancreatitis with severe hypertriglyceridemia, continue insulin drip for severe hypertriglyceridemia. Coding Level of Care Code Critical Care >/= 30 minutes Critical care time (in minutes): 35 The high probability of a clinically significant, sudden or life threatening deterioration, as referenced in this documentation, required my full and direct attention, intervention and personal management. The critical care time shown is in addition to time spent performing any reported separately billable procedures and includes the following: [x] Data and vital sign review and interpretation [x ] Patient assessment, examination and intervention [x] Medication orders and management [x] Patient/Family updates as able [x] Care Coordination and Documentation. Diagnoses Acute on chronic pancreatitis K85.90; K86.1 Hypertriglyceridemia E78.1
--- NOTE | 2022-11-20 16:21 | CTR_ITS ---
PROCEDURE INFORMATION: Exam: CT Abdomen And Pelvis With Contrast Exam date and time: 11/20/2022 5:14 PM Age: 37 years old Clinical indication: Abdominal pain; Generalized; Additional info: Pancreatitis, lipase resolved, but persistent pain TECHNIQUE: Imaging protocol: Computed tomography of the abdomen and pelvis with contrast. Radiation optimization: All CT scans at this facility use at least one of these dose optimization techniques: automated exposure control; mA and/or kV adjustment per patient size (includes targeted exams where dose is matched to clinical indication); or iterative reconstruction. Contrast material: OMNI 350; Contrast volume: 100 ml; Contrast route: INTRAVENOUS (IV); REPORTING DATA: Count of CT and Cardiac NM exams in prior 12 months: This patient has received 3 known CTs and 0 known cardiac nuclear medicine studies in the 12 months prior to the current study. COMPARISON: CT abdomen pelvis w con* [id number] 06/05/2022 2:02 AM RADIATION DOSE METRICS: Total DLP (mGy-cm): 938.08 FINDINGS: Liver: Somewhat irregular shaped low-density areas in the central liver measuring up to 5.8 cm may reflect focal fatty infiltration, however, other considerations such as an infiltrative mass is also a consideration, consider further evaluation with MRI. Hepatic steatosis. Gallbladder and bile ducts: Cholecystectomy. Pancreas: Peripancreatic edema, somewhat decreased compared to prior exam suggestive of persistent pancreatitis. Somewhat localized hypodensity in the pancreatic head and body measuring up to at least 3.6 cm, findings may reflect underlying pancreatic necrosis, however, persistence of findings compared to prior exam are also concerning for a mass, further evaluation with MRI of the pancreas advised. Spleen: Normal. No splenomegaly. Adrenal glands: Normal. No mass. Kidneys and ureters: Normal. No hydronephrosis. Stomach and bowel: Constipation. Appendix: No evidence of appendicitis. Intraperitoneal space: Unremarkable. No free air. No significant fluid collection. Vasculature: Unremarkable. No abdominal aortic aneurysm. Lymph nodes: Unremarkable. No enlarged lymph nodes. Urinary bladder: Unremarkable as visualized. Reproductive: Unremarkable as visualized. Bones/joints: Unremarkable. No acute fracture. Soft tissues: Small amount of fluid in the left inguinal region. CT/CT abdomen pelvis w con* [id number] IMPRESSION: 1. Peripancreatic edema, somewhat decreased compared to prior exam suggestive of persistent pancreatitis. 2. Somewhat localized hypodensity in the pancreatic head and body measuring up to at least 3.6 cm, findings may reflect underlying pancreatic necrosis, however, persistence of findings compared to prior exam are also concerning for a mass, further evaluation with MRI of the pancreas advised. 3. Somewhat irregular shaped low-density areas in the central liver measuring up to 5.8 cm may reflect focal fatty infiltration, however, other considerations such as an infiltrative mass is also a consideration, consider further evaluation with MRI. 4. Constipation. 5. Hepatic steatosis. 6. Cholecystectomy. 7. Small amount of fluid in the left inguinal region.
[2022-11-20 17:10] LABS: Glucose Point of Care 142 mg/dL (70-110)
[2022-11-20] MEDS: iohexol 350 mg/mL 500 mL Btl (per mL) IV (17:21)
[2022-11-20 18:06] LABS: Glucose Point of Care 107 mg/dL (70-110)
[2022-11-20 19:03] LABS: Glucose Point of Care 159 mg/dL (70-110)
[2022-11-20 19:51] LABS: Glucose Point of Care 147 mg/dL (70-110)
[2022-11-20 21:12] LABS: Glucose Point of Care 181 mg/dL (70-110)
[2022-11-20] MEDS: zolpidem 5 mg Tablet PO (21:51)
[2022-11-20 21:57] LABS: Glucose Point of Care 194 mg/dL (70-110)
[2022-11-20 22:53] LABS: Glucose Point of Care 179 mg/dL (70-110)
[2022-11-20] MEDS: insulin regular-human 250 UNIT in sodium chloride 0.9% 250 ML 10 UNIT IV (23:51)
[2022-11-20 23:58] LABS: Glucose Point of Care 159 mg/dL (70-110)
[2022-11-21] VITALS (16 sets, daily range): BP systolic 111–150; BP diastolic 55–92; PULSE 69–89; RESP 13–22; TEMP 36.7–36.8; O2SAT 94–97
[2022-11-21] MEDS: dextrose 10% 1,000 ML 75 ML IV (00:57)
[2022-11-21 00:59] LABS: Glucose Point of Care 166 mg/dL (70-110)
[2022-11-21 02:01] LABS: Glucose Point of Care 168 mg/dL (70-110)
[2022-11-21 02:58] LABS: Glucose Point of Care 159 mg/dL (70-110)
[2022-11-21 04:02] LABS: Glucose Point of Care 134 mg/dL (70-110)
[2022-11-21 04:58] LABS: Alanine Aminotransferase 33 U/L (0-41); Albumin Level 3.7 g/dL (3.5-5.2); Alkaline Phosphatase 70 U/L (40-130); Anion Gap 12.4 (5-19); Blood Urea Nitrogen 16 mg/dL (6-20); Calcium 8.7 mg/dL (8.5-10.5); Carbon Dioxide 28 mmol/L (22-29); Chloride 103 mmol/L (98-107); Globulin 2.9 g/dL (1.3-4.6); Glomerular Filtration Rate 153.3 mL/min (90-130); Glucose 133 mg/dL (65-115); Osmolality Calculated 291 mOsm/kg (285-295); Potassium 4.4 mmol/L (3.5-5.1); Sodium 139 mmol/L (136-145); Total Bilirubin 0.3 mg/dL (0.15-1.2); Total Protein 6.6 g/dL (6.6-8.7)
[2022-11-21 04:59] LABS: Aspartate Amino Transferase 21 U/L (0-40); Triglycerides 382 mg/dL (0-150)
[2022-11-21] MEDS: ketorolac 30 mg/mL INJ 15 MG IVP (05:00)
[2022-11-21 05:01] LABS: Glucose Point of Care 155 mg/dL (70-110)
[2022-11-21 06:00] LABS: Glucose Point of Care 193 mg/dL (70-110)
[2022-11-21 07:09] LABS: Glucose Point of Care 164 mg/dL (70-110)
[2022-11-21 08:07] LABS: Glucose Point of Care 178 mg/dL (70-110)
[2022-11-21] MEDS: atenolol 50 mg Tablet PO (08:59)
[2022-11-21] MEDS: pantoprazole DR 40 mg Tablet PO (08:59)
[2022-11-21] MEDS: lipase-protease-amylase Capsule 1 EACH PO (08:59)
[2022-11-21] MEDS: fluoxetine 20 mg Capsule PO (08:59)
[2022-11-21 09:06] LABS: Glucose Point of Care 171 mg/dL (70-110)
--- NOTE | 2022-11-21 10:19 | PC.NURSE ---
insulin gtt off at this time and dextrose decreased to 25cc hr
[2022-11-21 11:41] LABS: Glucose Point of Care 255 mg/dL (70-110)
[2022-11-21] MEDS: insulin lispro 100 unit/1 mL SUBCUT (11:42)
[2022-11-21] MEDS: acetaminophen 325 mg Tablet 650 MG PO (13:40)
--- NOTE | 2022-11-21 14:48 | PC.NURSE ---
called to check about picc line to remove it before discharge
--- NOTE | 2022-11-21 15:03 | PM.DCS ---
Discharge Providers Date of Admission: 11/12/22 16:48 Date of Discharge: November 21, 2022 Attending Provider at Admission: Jerri Carranza MD Attending Provider at Discharge: Raul Mcadams Primary Care Provider: Kin Greer MD Diagnoses at Discharge Discharge Diagnosis (1) Acute on chronic pancreatitis: Status: Resolved (2) Hypertriglyceridemia: Status: Acute Reason for Visit Reason for Visit: pancreatitis Brief History: Rui Donohue is a 37 year old male with history of chronic pancreatitis, chronic hypertriglyceridemia, recently reduced dose of fenofibrate, recurrent episodes of pancreatitis this year, presenting to the emergency room with abdominal pain nausea vomiting.? Lipase was noted to be elevated.? Triglycerides at 4800.? Patient requested foregoing the CT scan today given clinical presentation and his concern for recurrent CTs this year. No apparent trigger, states he may have gotten dehydrated.Afberile, complaint with medications Hospital Course Hospital Course She was treated in intensive care unit with insulin drip, IV hydration, initially bowel rest, TPN, subsequently with improvement in pancreatitis tolerating oral intake, eventually triglyceride level down as low as 380. Resumed on fenofibrate, Crestor. Pain has been slowly improving, CT was repeated, we discussed with him localized hypodensity in the pancreatic head and body, consideration of pancreatic necrosis, although as he has been otherwise improving, and without leukocytosis fever, no signs of infection, no signs of infected necrosis, and with prior pseudocyst, persistence of findings may be concerning for mass, to exclude he is additionally here as per discussion referred for assessment by MRI. Please follow-up symptoms, MRI results, consideration of symptomatic necrosis and whether he may need further referral for treatment. On discussion of risks, for now given additional refill on his pain medication. Please reassess. Wean down off as soon as no longer necessary. Additionally incidental finding of hypodense area in the liver, referred for further assessment by MRI as well. Due to claustrophobia given a dose of Xanax for before the MRI. If not tolerating, may need referral for open MRI. He is asked to follow-up with endocrinology for continued management of hypertriglyceridemia. Physical Exam Narrative: Accompanied by family. Const: COMMON NORMALS: patient oriented x3 and alert GENERAL APPEARANCE: cooperative ORIENTATION/CONSCIOUSNESS: Yes awake HENMT: COMMON NORMALS: oropharynx normal Neck/C-Spine: COMMON NORMALS: no JVD Resp: COMMON NORMALS: normal respiratory effort and clear to auscultation bilaterally AUSCULTATION: clear to auscultation bilaterally Cardio: COMMON NORMALS: no JVD, regular rhythm, S1 normal heart sound present, S2 normal heart sound present and No murmurs present (Cardio) RHYTHM: regular rhythm HEART SOUNDS: S1 normal heart sound present and S2 normal heart sound present GI: COMMON NORMALS: Normal to inspection, nondistended, normoactive bowel sounds present and Soft to palpation PALPATION: Yes Soft to palpation and Yes Tenderness to palpation present (GI) (Significantly less tender compared to yesterday) Extremity: COMMON NORMALS: no joint enlargement and no pedal edema Neuro: COMMON NORMALS: patient oriented x3 and moves all extremities SENSORIUM/ORIENTATION: Yes alert Skin: COMMON NORMALS: no rashes or lesions noted GENERAL SKIN EXAM: no rashes or lesions noted Discharge Data Studies Completed and Pending Completed Studies During Hospitalization Category Date Time Status CT abdomen pelvis w con* [id number] Routine Cat Scan 11/20/22 16:21 Completed CXRP [XR chest 1V portable [id number]] Routine Exams 11/12/22 18:53 Completed XR chest 1V portable [id number] Stat Exams 11/12/22 10:19 Completed Pending at discharge Category Date Time Status Triglycerides AM LABS Lab 11/22/22 04:00 Ordered Radiology Impressions Chest X-Ray 11/12/22 18:53 IMPRESSION: Right PICC is in satisfactory position. Abdomen/Pelvis CT 11/20/22 16:21 IMPRESSION: 1. Peripancreatic edema, somewhat decreased compared to prior exam suggestive of persistent pancreatitis. 2. Somewhat localized hypodensity in the pancreatic head and body measuring up to at least 3.6 cm, findings may reflect underlying pancreatic necrosis, however, persistence of findings compared to prior exam are also concerning for a mass, further evaluation with MRI of the pancreas advised. 3. Somewhat irregular shaped low-density areas in the central liver measuring up to 5.8 cm may reflect focal fatty infiltration, however, other considerations such as an infiltrative mass is also a consideration, consider further evaluation with MRI. 4. Constipation. 5. Hepatic steatosis. 6. Cholecystectomy. 7. Small amount of fluid in the left inguinal region. Laboratory Results WBC 5.85 10^3/uL (3.29-11.43) 11/20/22 04:09 RBC 4.61 10^6/uL (3.85-5.65) 11/20/22 04:09 Hgb 12.70 g/dL (11.27-16.99) 11/20/22 04:09 Hct 38.3 % (37-53) 11/20/22 04:09 MCV 83.1 fl (82-101) 11/20/22 04:09 MCH 27.5 pg (27-33) 11/20/22 04:09 MCHC 33.2 g/dL (30-55) 11/20/22 04:09 RDW 12.8 % (12.1-15.1) 11/20/22 04:09 Plt Count 170 10^3/cmm (157-399) 11/20/22 04:09 MPV 12.3 fL (7.4-10.4) H 11/20/22 04:09 Neut % (Auto) 49.2 % 11/20/22 04:09 Lymph % (Auto) 40.0 % 11/20/22 04:09 Motley % (Auto) 5.1 % 11/20/22 04:09 Eos % (Auto) 3.6 % 11/20/22 04:09 Baso % (Auto) 0.9 % 11/20/22 04:09 Neut # (Auto) 2.88 10^3/uL (1.8-7.7) 11/20/22 04:09 Lymph # (Auto) 2.3 10^3/uL (0.8-4.8) 11/20/22 04:09 Motley # (Auto) 0.3 10^3/uL (0.2-0.9) 11/20/22 04:09 Eos # (Auto) 0.2 10^3/uL (0.0-0.8) 11/20/22 04:09 Baso # (Auto) 0.1 10^3/uL (0.0-0.1) 11/20/22 04:09 Nucleated RBC % (auto) 0 % 11/20/22 04:09 Nucleated RBCs # 0.0 /100WBC 11/20/22 04:09 Sodium 139 mmol/L (136-145) 11/21/22 04:05 Potassium 4.4 mmol/L (3.5-5.1) 11/21/22 04:05 Chloride 103 mmol/L (98-107) 11/21/22 04:05 Carbon Dioxide 28 mmol/L (22-29) 11/21/22 04:05 Anion Gap 12.4 (5-19) 11/21/22 04:05 BUN 16 mg/dL (6-20) 11/21/22 04:05 Creatinine 0.6 mg/dL (0.7-1.2) L 11/21/22 04:05 GFR Calculation 153.3 mL/min (90-130) H 11/21/22 04:05 Glucose 133 mg/dL (65-115) H 11/21/22 04:05 POC Glucose 255 mg/dL (70-110) H 11/21/22 11:37 Calculated Osmolality 291 mOsm/kg (285-295) 11/21/22 04:05 Calcium 8.7 mg/dL (8.5-10.5) 11/21/22 04:05 Phosphorus 4.1 mg/dL (2.5-4.5) 11/17/22 04:30 Magnesium 2.1 mg/dL (1.7-2.3) 11/19/22 03:51 Total Bilirubin 0.3 mg/dL (0.15-1.2) 11/21/22 04:05 AST 21 U/L (0-40) 11/21/22 04:05 ALT 33 U/L (0-41) 11/21/22 04:05 Alkaline Phosphatase 70 U/L (40-130) 11/21/22 04:05 Total Protein 6.6 g/dL (6.6-8.7) 11/21/22 04:05 Albumin 3.7 g/dL (3.5-5.2) 11/21/22 04:05 Globulin 2.9 g/dL (1.3-4.6) 11/21/22 04:05 Triglycerides 382 mg/dL (0-150) H 11/21/22 04:05 LDL Cholesterol Direct 104 mg/dL (0-100) H 11/20/22 04:09 Lipase 13 U/L (13-60) 11/18/22 05:15 Urine Color Yellow (Yellow) 11/12/22 11:55 Urine Appearance Clear (CLEAR) 11/12/22 11:55 Urine pH 5 (5-7) 11/12/22 11:55 Ur Specific Ashley 1.020 (1.005-1.030) 11/12/22 11:55 Urine Protein 3+ (Negative) H 11/12/22 11:55 Urine Glucose (UA) 4+ (Normal) H 11/12/22 11:55 Urine Ketones Negative (Negative) 11/12/22 11:55 Urine Blood Neg (Negative) 11/12/22 11:55 Urine Nitrate Negative (Negative) 11/12/22 11:55 Urine Bilirubin Neg (Negative) 11/12/22 11:55 Urine Urobilinogen Norm mg/dL (Negative) 11/12/22 11:55 Ur Leukocyte Esterase Negative (Negative) 11/12/22 11:55 Urine RBC 0-4 /hpf (0-2) H 11/12/22 11:55 Urine WBC 0-4 /hpf (0-5) H 11/12/22 11:55 Ur Squamous Epith Cells 0-4 /hpf (0-5) H 11/12/22 11:55 Amorphous Sediment Not Reportable 11/12/22 11:55 Urine Bacteria None /hpf (NONE) 11/12/22 11:55 Hyaline Casts 0-4 /lpf H 11/12/22 11:55 Fine Granular Casts 0-4 /lpf H 11/12/22 11:55 Urine Mucus 4+ /hpf 11/12/22 11:55 Vitals Last Vital Signs Temp 98.0 F 11/21/22 04:00 Pulse 69 11/21/22 13:00 Resp 22 H 11/21/22 13:00 BP 137/86 11/21/22 13:00 Pulse Ox 96 11/21/22 13:00 O2 Del Method Room Air 11/21/22 04:00 Discharge Plan Discharge Patient Disposition: Home Condition: Stable Prescriptions: New acetaminophen 325 mg Tablet 650 mg PO Q6H PRN (Reason: Mild/Mod Pain Or Temp >/= 101) Qty: 60 0RF Xanax 1 mg tablet 1 mg PO DAILY Qty: 2 0RF Rx Instructions: 1 hr before MRI Continued cholecalciferol (vitamin D3) 5,000 unit capsule 5,000 unit PO DAILY (DME) DexPreo G6 Transmitter Device See Rx Instructions .ROUTE .MEDSUPPLY Qty: 2 3RF Rx Instructions: change every 3 months (DME) FreeStyle Singh 2 Sensor Kit See Rx Instructions .Route Qty: 6 5RF Rx Instructions: [place] [place] Dexcom G6 Sensor Device See Rx Instructions .ROUTE .MEDSUPPLY Qty: 9 3RF Rx Instructions: change every 10 days rosuvastatin 20 mg tablet 20 mg PO DAILY Qty: 90 0RF fenofibrate 160 mg tablet 160 mg PO DAILY Qty: 90 0RF ondansetron HCl (PF) 4 mg/2 mL solution 4 mg IM ONCE Qty: 1 0RF (DME) Omnipod 5 G6 Pods (Gen 5) Cartridge See Rx Instructions .Route Qty: 30 3RF Rx Instructions: As directed levocetirizine [Xyzal] 5 mg tablet 5 mg PO DAILY PRN (Reason: allergy symptoms) 30 Days Qty: 30 0RF magnesium citrate Solution 300 ml PO DAILY PRN (Reason: constipation) Qty: 296 0RF metoclopramide HCl [Reglan] 5 mg tablet 5 mg PO Q8H PRN (Reason: breakthrough nausea) 7 Days Qty: 21 0RF (DME) Dexcom G6 Youth Career Specialist Misc See Rx Instructions .ROUTE .MEDSUPPLY Qty: 1 0RF Rx Instructions: Change military education coordinator once a year baclofen 5 mg tablet 5 mg PO BID PRN (Reason: Pain) Qty: 60 0RF promethazine 25 mg tablet 25 mg PO TID PRN (Reason: nausea and vomiting) 7 Days Qty: 21 1RF (DME) Omnipod 5 G6 Intro Kit (Gen 5) Cartridge See Rx Instructions .Route Qty: 1 0RF Rx Instructions: As directed insulin lispro 100 unit/mL solution See Rx Instructions .ROUTE .COMPLEX Qty: 30 0RF Dose Instruction: ASMINSITER 200 UNITS VIA INSULIN PUMP DAILY Rx Instructions: ASMINSITER 200 UNITS VIA INSULIN PUMP DAILY zolpidem 5 mg tablet 5 mg PO BEDTIME PRN (Reason: insomnia) pantoprazole [Protonix] 40 mg tablet,delayed release (DR/EC) 40 mg PO QAM Qty: 30 0RF pioglitazone 30 mg tablet 30 mg PO DAILY fluoxetine 20 mg capsule 20 mg PO DAILY ramelteon 8 mg tablet 8 mg PO BEDTIME oxycodone 10 mg tablet 10 mg PO Q6H PRN (Reason: pancreatitis pain) Qty: 15 0RF calcitriol 0.5 mcg Capsule 0.5 mcg PO DAILY ergocalciferol (vitamin D2) [Vitamin D2] 1,250 mcg (50,000 unit) Capsule 100,000 unit PO Q7D albuterol sulfate 90 mcg/actuation Hfa Aerosol Inhaler 2 puff inhalation Q6H PRN (Reason: Shortness Of Breath) omega-3 acid ethyl esters [Lovaza] 1 gram Capsule 4 cap PO DAILY Creon 3,000-9,500- 15,000 unit capsule,delayed release(DR/EC) 1 cap PO BID PRN (Reason: unknown) Rx Instructions: do not exceed 10,000 unit/kg lipase per 24 hrs Discharge Orders: Discharge Order (Routine); Ordered 11/21/22 Ordered By: Raul Mcadams Other Ambulatory Orders: MR abdomen wo/w con* [id number] (Routine) Timeframe: 3 Days Facility: [facility] - Location: Radiology [facility] Ordered By: Raul Mcadams MR MRCP [id number] (Routine) Timeframe: 3 Days Facility: [facility] - Location: Radiology [facility] Ordered By: Raul Mcadams Referrals: Kin Greer MD [Primary Care Provider] - 4-7 days (message left with office) Jb Hinton MD [Physician] - 2 weeks (Hypertriglyceridemia message left with office) Discharge Diet: Diabetic and Low Cholesterol Patient Instructions: Pancreatitis (GEN), Hyperlipidemia (GEN), Opioid Safety Activity Restrictions/Additional Instructions: Please seek medical attention in case of any worsening symptoms, worsening abdominal pain, inability to tolerate food or drink, fever, or any other worsening or new concerning symptoms. Please follow-up with your primary provider regarding severe hypertriglyceridemia, recurrent pancreatitis, as well as hypodense lesions in the pancreas and liver. He was referred for additional assessment by MRI of the pancreas and liver. Discharge Attestations Time Spent in Discharge Care*: greater than 30 min Status at Discharge: Cognitive status at discharge: cognitively intact, Behavioral status at discharge: cooperative, Quality Metrics Clinical Quality Measures [ No reported AMI, CVA or VTE this stay] Coding Level of Care Code 56311 Total time (in minutes) for Discharge: 45 Diagnoses Acute on chronic pancreatitis K85.90; K86.1 Hypertriglyceridemia E78.1
--- NOTE | 2022-11-21 15:43 | PC.NURSE ---
reviewed all discharge orders with pt and about making follow up apt with gordo and with dr glez also talked with our radiology administrator to obtain phone number to call to make apt for next week
--- NOTE | 2022-11-23 15:17 | PC.NURSE ---
Contacted by pt's of MRI scheduling. Pt was ordered an MRI at [facility] and pt had no way to contact them as they have been closed. I contacted centralized scheduling and they have added the patient to their queue for prior auth. They will contact the pt with his appointment. If they do not contact him by Sunday 11/26 the pt is to call [phone]. The pt's has been updated and given this number.
== END 2022-11-21 16:30 | disposition home or self-care (01) | DRG 440 ==
LOC: ER 12:27 → ICU 16:49
PROVIDERS: Physician Assistant; Admitting Provider Student in an Organized Health Care Education/Training Program; Emergency Provider Family Medicine; PCP Family Medicine; Visit Provider Internal Medicine
DX: K85.80 Other acute pancreatitis without necrosis or infection (principal); K86.1 Other chronic pancreatitis; E78.1 Pure hyperglyceridemia; F40.240 Claustrophobia; Z79.891 Long term (current) use of opiate analgesic; K21.9 Gastro-esophageal reflux disease without esophagitis; E78.5 Hyperlipidemia, unspecified; I10 Essential (primary) hypertension; E11.9 Type 2 diabetes mellitus without complications; E66.9 Obesity, unspecified; Z68.33 Body mass index [BMI] 33.0-33.9, adult; G47.33 Obstructive sleep apnea (adult) (pediatric); Z87.891 Personal history of nicotine dependence; Z79.4 Long term (current) use of insulin; K52.9 Noninfective gastroenteritis and colitis, unspecified
CPT/HCPCS: 36415; 36416; 36573; 36592; 71045; 74177; 80053; 81001; 82962; 83690; 83721; 83735; 84100; 84478; 85025; 87493; 96372; 96374; 96375; 96376; 99285; J1170; J1650; J1815; J1885; J2405; J3475; J7030; J7042; J7050; Q9967

== ENCOUNTER 2022-12-24 08:10 | Outpatient (CLI) | payer MEDICAID, SELFPAY ==
--- NOTE | 2022-12-24 08:45 | MR_ITS ---
WS: [id number] MRCP (MAGNETIC RESONANCE CHOLANGIOPANCREATOGRAPHY) HISTORY: Pancreatic hypodensity COMPARISON: 05/10/[address] 11/20/2022. TECHNIQUE: Multiple sequences are performed to evaluate the intra and extrahepatic ducts. Common bile duct is normal size measuring 4 mm. Very similar to the prior examination. There is no in trahepatic bile duct dilatation. Liver is moderately enlarged showing changes of diffuse hepatic stea tosis. There is no mass identified within the liver. The pancreas is lobulated with areas of variable signal throughout. This study was not protocoled to evaluate the pancreas. These findings have been previously described by CT and most likely due to pseudocysts and chronic with superimposed acute lázaro nges of pancreatitis. Please refer to the CT report from 11/20/2022. The pancreatic duct does not appea r dilated. The duct is very small caliber and incompletely visualized throughout its course. No adrenal mass. Spleen is enlarged at 15.3 cm. No ascites. Prior cholecystectomy. IMPRESSION: Normal common bile duct. No obstruction. Poorly visualized but small caliber pancreatic duct. Abnormal pancreas. There are changes of pseudocyst formation and acute on chronic pancreatitis. These changes would be better evaluated by dedicated pancreas MRI. Please refer to the CT report of 11/21/19.
--- NOTE | 2022-12-24 09:30 | MR_ITS ---
WS: [id number] MRI ABDOMEN WITH AND WITHOUT CONTRAST. COMPARISON: CT abdomen 11/20/2022 Multiplanar, multisequence imaging is performed with and without contrast. MultiHance 20 mL IV . Liver is markedly enlarged measuring 25 cm in length. There is marked decreased signal throughout the liver. There is loss of the normal signal on the out of phase imaging consistent with hepatic steato sis. There is variable signal but no enhancing mass. Previously described area of decreased attenuati on near the heather hepatis does not enhance. There is marked fatty infiltration. There is no fluid or mass. Normal bile ducts. Prior cholecystectomy. Spleen is enlarged at 15.7 cm. No adrenal mass. No renal obstruction or mass. Multiple areas of decreased signal within the pancreas. These are predominantly at the neck of the pa ncreas in the proximal body. These have been previously described and there is only mild peripheral w all enhancement. The largest near the pancreatic neck measures 2.1 x 1.6 cm. These are probably chron ic intrapancreatic pseudocysts. No pancreatic mass is identified. Pancreatic duct is also very poorly visualized. No adjacent fluid collections or new pseudocyst. There is no ascites or adenopathy. IMPRESSION: 1. Severe diffuse hepatic steatosis throughout the liver. No intrahepatic bile duct dilatation. 2. Focal abnormality noted in the central liver on the recent CT does not enhance. Consistent with an area of focal hepatic steatosis. 3. Prior cholecystectomy. 4. Nonenhancing signal masses in the pancreas which have been previously described. Most consistent w ith intrapancreatic pseudocyst. There is no pancreatic duct dilatation and no new pseudocyst. 5. Marked hepatomegaly with moderate splenomegaly.
[2022-12-24] MEDS: gadobenate dimeglumine 20 mL vial IV (11:37)
== END 2022-12-24 08:11 | disposition home or self-care (01) ==
LOC: RAD 08:10
PROVIDERS: PCP Family Medicine; Visit Provider Internal Medicine
DX: K85.90 Acute pancreatitis without necrosis or infection, unspecified (principal); Q45.3 Other congenital malformations of pancreas and pancreatic duct; K76.0 Fatty (change of) liver, not elsewhere classified; Z90.49 Acquired absence of other specified parts of digestive tract
CPT/HCPCS: 74181; 74183; A9577

== ENCOUNTER → 2023-01-11 08:40 | Outpatient (BNVA) | payer MEDICAID, SELFPAY | PROVIDERS: PCP Family Medicine; Visit Provider Nurse Practitioner Family | DX: Q45.3 Other congenital malformations of pancreas and pancreatic duct (principal) | CPT/HCPCS: 80053; 83690; 85025 ==

== ENCOUNTER 2023-02-06 09:36 | Inpatient (IN) | payer MEDICAID, SELFPAY ==
[2023-02-06] VITALS (60 sets, daily range): BP systolic 112–182; BP diastolic 67–122; PULSE 0–109; RESP 0–28; TEMP 36.7–37; O2SAT 93–99; BMI 30.7; BMI 31.6
--- NOTE | 2023-02-06 09:40 | XRR_ITS ---
PROCEDURE INFORMATION: Exam: XR Chest Exam date and time: 02/06/2023 9:47 AM Age: 37 years old Clinical indication: Dyspnea; Prior surgery; Surgery date: 1-6 months; Surgery type: Gb, exploratory esophagus; Additional info: Dyspnea/cough TECHNIQUE: Imaging protocol: Radiologic exam of the chest. Views: 1 view. COMPARISON: CR (CHEST, ) 11/12/2022 7:29 PM FINDINGS: Lungs: There is no consolidation. Pleural spaces: There is no pleural effusion or pneumothorax. Heart/Mediastinum: Cardiomediastinal contours are unremarkable. Bones/joints: Bones are unremarkable. XR/XR chest 1V portable [id number] IMPRESSION: No acute findings.
--- NOTE | 2023-02-06 09:50 | ECG_ITS ---
[facility] Test Date: 2023-02-06 Pat Name: Rui Donohue Department: Room: Gender: Male Needleworker: : 1985 Requested By: Ronald Butterfield Order Number: [id number] Ese MD: Pratibha Wallace M.D. Measurements Intervals [place] Rate: 85 P: 46 [place]: 137 QRS: 48 QRSD: 76 T: 30 QT: 333 QTc: 396 Interpretive Statements SINUS RHYTHM WITH MARKED SINUS ARRHYTHMIA No previous ECG available for comparison Electronically Signed On 02-06-2023 22:07:45 JOB SERVICE SPECIALIST by Pratibha Wallace M.D. [id number]
--- NOTE | 2023-02-06 09:55 | ED_ITS ---
HPI - Abdominal Pain General: Chief Complaint: Abdominal Pain Stated Complaint: Abd pain, N/V Time Seen by Provider: 02/06/23 09:40 Source: patient Mode of arrival: ambulatory History of Present Illness: 37-year-old male presents emergency room with complaint of left lower quadrant abdominal pain for the last 2 days. He is a history of recurrent pancreatitis in the past is concerned he may have another recurrence. Nausea and vomiting is noticed blood sugars been markedly elevated as well previous imaging reviewed. MD elicited complaint: abdominal pain Pertinent past history: other (Pancreatitis due to hypertriglyceridemia) Onset (ago): day(s) (2) Pain Consistency: constant Location: LUQ Radiation: none Exacerbating factors: eating Relieving factors: nothing Associated Symptoms: Reports GI cramping, nausea and poor appetite; Denies anorexia, belching, bloating, change in bowel habits, change in stool character, chills, coffee ground emesis, constipation, diarrhea, dyspepsia, dysuria, excessive flatus, fever(s), heartburn, hematochezia, hematuria, hematemesis, fecal incontinence, loose stools, melena, syncope and vomiting Review of Systems Const: Denies: fever(s) or chills Card: Denies: chest pain or syncope Resp: Denies: dyspnea GI: Reports: nausea and GI cramping; Denies: abdominal pain, vomiting, hematemesis, coffee ground emesis, heartburn, diarrhea, constipation, bloating, belching, excessive flatus, fecal incontinence, change in bowel habits, change in stool character, hematochezia or melena : Denies: dysuria, urinary frequency, urinary urgency or hematuria Musc: Denies: neck pain or back pain Skin/Breast: Denies: rash PFSH ED PFSH: Medical History Acute on chronic pancreatitis Familial hypertriglyceridemia GERD (gastroesophageal reflux disease) Hyperlipidemia Hypertension Insomnia 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 Mediastinal lymphadenopathy Obesity (BMI 30.0-34.9) LESLY (obstructive sleep apnea) Overweight (BMI 25.0-29.9) Pseudohyponatremia Recurrent pancreatitis Vitamin D deficiency Surgical History History of cholecystectomy History of knee surgery arthroscopic left knee Family History Other CAD (coronary artery disease) Hyperlipidemia Social History Smoking and tobacco/nicotine status: former use of tobacco/nicotine Alcohol intake: never Substance/Drug Use: never Physical Exam Const: GENERAL APPEARANCE: cooperative and comfortable ORIENTATION/CONSCIOUSNESS: Yes awake, Yes oriented to person, Yes oriented to place and Yes oriented to time HENMT: COMMON NORMALS: normocephalic, atraumatic and hearing grossly normal bilaterally HEAD & SCALP: normocephalic and atraumatic Resp: COMMON NORMALS: normal respiratory effort, No retractions, No use of accessory muscles and clear to auscultation bilaterally AUSCULTATION: clear to auscultation bilaterally Cardio: COMMON NORMALS: regular rate, regular rhythm and No murmurs present (Cardio) RATE: regular rate RHYTHM: regular rhythm GI: COMMON NORMALS: No hepatosplenomegaly present AUSCULTATION: Yes normoactive bowel sounds PALPATION: Yes Tenderness to palpation present (GI) Details: LUQ, No Guarding due to palpation present (GI) and Yes No hepatosplenomegaly present : COMMON NORMALS: Yes no CVA tenderness BLADDER/KIDNEY EXAM: Yes no CVA tenderness Back/Pelvis: COMMON NORMALS: no CVA tenderness Extremity: COMMON NORMALS: normal to inspection, capillary refill normal, no clubbing, cyanosis or edema, no calf tenderness and no pedal edema Neuro: SENSORIUM/ORIENTATION: Yes oriented to person, Yes oriented to place and Yes oriented to time Skin: COMMON NORMALS: no rashes or lesions noted GENERAL SKIN EXAM: no rashes or lesions noted Course Vital Signs: Vital signs: Vital Signs Temperature 98.1 F 02/06/23 09:42 Pulse Rate 90 02/06/23 11:10 Respiratory Rate 14 02/06/23 11:11 Blood Pressure 139/96 02/06/23 11:10 Pulse Oximetry 97 02/06/23 11:11 Oxygen Delivery Me thod Room Air 02/06/23 11:10 MDM - Abdominal Pain Medical Decision Making Acute pancreatitis secondary to hypertriglyceridemia discussed with hospitalist start insulin drip will admit to the ICU. Reviewed previous imaging hold off on repeat imaging for now unless patient worsens Medical Records I reviewed the patient's medical records. Lab Data I reviewed the patient's lab results. 02/06/23 09:58 02/06/23 09:58 Labs/Radiology: Radiology Impressions Chest X-Ray 02/06/23 09:40 IMPRESSION: No acute findings. Laboratory Results WBC 13.90 10^3/uL (3.29-11.43) H 02/06/23 09:58 RBC 5.48 10^6/uL (3.85-5.65) 02/06/23 09:58 Hgb 15.40 g/dL (11.27-16.99) 02/06/23 09:58 Hct 44.6 % (37-53) 02/06/23 09:58 MCV 81.4 fl (82-101) L 02/06/23 09:58 MCH 28.1 pg (27-33) 02/06/23 09:58 MCHC 34.5 g/dL (30-55) 02/06/23 09:58 RDW 12.8 % (12.1-15.1) 02/06/23 09:58 Plt Count 226 10^3/cmm (157-399) 02/06/23 09:58 MPV 12.1 fL (7.4-10.4) H 02/06/23 09:58 Neut % (Auto) 81.6 % 02/06/23 09:58 Lymph % (Auto) 14.0 % 02/06/23 09:58 [place] % (Auto) 3.0 % 02/06/23 09:58 Eos % (Auto) 0.4 % 02/06/23 09:58 Baso % (Auto) 0.6 % 02/06/23 09:58 Neut # (Auto) 11.34 10^3/uL (1.8-7.7) H 02/06/23 09:58 Lymph # (Auto) 2.0 10^3/uL (0.8-4.8) 02/06/23 09:58 [place] # (Auto) 0.4 10^3/uL (0.2-0.9) 02/06/23 09:58 Eos # (Auto) 0.1 10^3/uL (0.0-0.8) 02/06/23 09:58 Baso # (Auto) 0.1 10^3/uL (0.0-0.1) 02/06/23 09:58 Nucleated RBC % (auto) 0 % 02/06/23 09:58 Nucleated RBCs # 0.0 /100WBC 02/06/23 09:58 Sodium 129 mmol/L (136-145) L 02/06/23 09:58 Potassium 4.7 mmol/L (3.5-5.1) 02/06/23 09:58 Chloride 89 mmol/L (98-107) L 02/06/23 09:58 Carbon Dioxide 23 mmol/L (22-29) 02/06/23 09:58 Anion Gap 21.7 (5-19) H 02/06/23 09:58 BUN 10 mg/dL (6-20) 02/06/23 09:58 Creatinine 0.5 mg/dL (0.7-1.2) L 02/06/23 09:58 GFR Calculation 189.2 mL/min (90-130) H 02/06/23 09:58 Glucose 336 mg/dL (65-115) H 02/06/23 09:58 Calculated Osmolality 280 mOsm/kg (285-295) L 02/06/23 09:58 Calcium 10.1 mg/dL (8.5-10.5) 02/06/23 09:58 Total Bilirubin 0.7 mg/dL (0.15-1.2) 02/06/23 09:58 AST 27 U/L (0-40) 02/06/23 09:58 ALT 51 U/L (0-41) H 02/06/23 09:58 Alkaline Phosphatase 88 U/L (40-130) 02/06/23 09:58 Total Protein 7.9 g/dL (6.6-8.7) 02/06/23 09:58 Albumin 4.3 g/dL (3.5-5.2) 02/06/23 09:58 Globulin 3.6 g/dL (1.3-4.6) 02/06/23 09:58 Triglycerides 3311 mg/dL (0-150) H 02/06/23 09:58 Lipase 29 U/L (13-60) 02/06/23 09:58 All radiology interpretation(s) finalized by discharge Discharge Plan Discharge Patient Disposition: Admitted As Inpatient Clinical Impression: Pancreatitis, Hypertriglyceridemia, Pancreatic abnormality, Abnormal liver scan, Recurrent pancreatitis Condition: Stable Prescriptions: No Action cholecalciferol (vitamin D3) 5,000 unit capsule 5,000 unit PO DAILY (DME) Dexcom G6 Transmitter Device See Rx Instructions .ROUTE .MEDSUPPLY Qty: 2 3RF Rx Instructions: change every 3 months (DME) FreeStyle Singh 2 Sensor Kit See Rx Instructions .Route Qty: 6 5RF Rx Instructions: As directed (DME) Dexcom G6 Sensor Device See Rx Instructions .ROUTE .MEDSUPPLY Qty: 9 3RF Rx Instructions: change every 10 days orlistat 120 mg capsule 120 mg PO TID Qty: 90 2RF Rx Instructions: administer during or up to 1 hour after meal levocetirizine [Xyzal] 5 mg tablet 5 mg PO DAILY PRN (Reason: allergy symptoms) 30 Days Qty: 30 0RF magnesium citrate Solution 300 ml PO DAILY PRN (Reason: constipation) Qty: 296 0RF metoclopramide HCl [Reglan] 5 mg tablet 5 mg PO Q8H PRN (Reason: breakthrough nausea) 7 Days Qty: 21 0RF sodium chloride 0.9 % Parenteral Solution 0.9 % IV ONCE Qty: 1000 0RF (DME) Dexcom G6 Construction Supervisor/Carpenter Misc See Rx Instructions .ROUTE .MEDSUPPLY Qty: 1 0RF Rx Instructions: 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 baclofen 5 mg tablet 5 mg PO BID PRN (Reason: Pain) Qty: 60 0RF promethazine 25 mg tablet 25 mg PO TID PRN (Reason: nausea and vomiting) 7 Days Qty: 21 1RF (DME) Omnipod 5 G6 Intro Kit (Gen 5) Cartridge See Rx Instructions .Route Qty: 1 0RF Rx Instructions: As directed insulin lispro 100 unit/mL solution See Rx Instructions .ROUTE .COMPLEX Qty: 30 0RF Dose Instruction: ASMINSITER 200 UNITS VIA INSULIN PUMP DAILY Rx Instructions: ASMINSITER 200 UNITS VIA INSULIN PUMP DAILY rosuvastatin 20 mg tablet See Rx Instructions .ROUTE .COMPLEX Qty: 90 0RF Dose Instruction: TAKE 1 TABLET BY MOUTH DAILY Rx Instructions: TAKE 1 TABLET BY MOUTH DAILY fenofibrate 160 mg tablet See Rx Instructions .ROUTE .COMPLEX Qty: 90 0RF Dose Instruction: TAKE 1 TABLET BY MOUTH DAILY Rx Instructions: TAKE 1 TABLET BY MOUTH DAILY (DME) cpap and supplies See Rx Instructions .Route .MEDSUPPLY Qty: 1 0RF Rx Instructions: auto titrating ( 5-9cm) (DME) Omnipod 5 G6 Pods (Gen 5) Cartridge See Rx Instructions .Route Qty: 90 0RF Rx Instructions: 1 pod daily oxycodone 10 mg tablet 10 mg PO Q6H PRN (Reason: pancreatitis pain) 7 Days Qty: 28 0RF zolpidem 5 mg tablet 5 mg PO BEDTIME PRN (Reason: insomnia) pantoprazole [Protonix] 40 mg tablet,delayed release (DR/EC) 40 mg PO QAM Qty: 30 0RF pioglitazone 30 mg tablet 30 mg PO DAILY fluoxetine 20 mg capsule 20 mg PO DAILY ramelteon 8 mg tablet 8 mg PO BEDTIME acetaminophen 325 mg Tablet 650 mg PO Q6H PRN (Reason: Mild/Mod Pain Or Temp >/= 101) Qty: 60 0RF Xanax 1 mg tablet 1 mg PO DAILY Qty: 2 0RF Rx Instructions: 1 hr before MRI calcitriol 0.5 mcg Capsule 0.5 mcg PO DAILY ergocalciferol (vitamin D2) [Vitamin D2] 1,250 mcg (50,000 unit) Capsule 100,000 unit PO Q7D albuterol sulfate 90 mcg/actuation Hfa Aerosol Inhaler 2 puff inhalation Q6H PRN (Reason: Shortness Of Breath) omega-3 acid ethyl esters [Lovaza] 1 gram Capsule 4 cap PO DAILY Creon 3,000-9,500- 15,000 unit capsule,delayed release(DR/EC) 1 cap PO BID PRN (Reason: unknown) Rx Instructions: do not exceed 10,000 unit/kg lipase per 24 hrs Referrals: Kin Greer MD [Primary Care Provider] - Coding Level of Care Code ED Bariatric Program Coordinator for [facility]
[2023-02-06 10:08] LABS: Basophils # 0.1 10^3/uL (0.0-0.1); Basophils % 0.6 %; Eosinophils # 0.1 10^3/uL (0.0-0.8); Eosinophils % 0.4 %; Hematocrit 44.6 % (37-53); Mean Corpuscular HGB Conc 34.5 g/dL (30-55); Mean Corpuscular Hemoglobin 28.1 pg (27-33); Mean Corpuscular Volume 81.4 fl (82-101); Mean Platelet Volume 12.1 fL (7.4-10.4); Monocytes # 0.4 10^3/uL (0.2-0.9); Neutrophils # 11.34 10^3/uL (1.8-7.7); Neutrophils % 81.6 %; Nucleated Red Blood Cells % 0 %; Platelet Count 226 10^3/cmm (157-399); Red Blood Count 5.48 10^6/uL (3.85-5.65); Red Cell Distribution Width 12.8 % (12.1-15.1)
[2023-02-06] MEDS: lactated ringers 1,000 ML 999 ML IV (10:09)
[2023-02-06] MEDS: HYDROmorphone 1 mg/mL INJ 1 mL IVP ×6 (10:11→23:19)
[2023-02-06] MEDS: ondansetron 2 mg/ML SDV 2 mL 4 MG IVP (10:11)
[2023-02-06 10:56] LABS: Albumin Level 4.3 g/dL (3.5-5.2); Alkaline Phosphatase 88 U/L (40-130); Blood Urea Nitrogen 10 mg/dL (6-20); Calcium 10.1 mg/dL (8.5-10.5); Carbon Dioxide 23 mmol/L (22-29); Chloride 89 mmol/L (98-107); Globulin 3.6 g/dL (1.3-4.6); Glomerular Filtration Rate 189.2 mL/min (90-130); Glucose 336 mg/dL (65-115); Lipase 29 U/L (13-60); Osmolality Calculated 280 mOsm/kg (285-295); Total Bilirubin 0.7 mg/dL (0.15-1.2); Total Protein 7.9 g/dL (6.6-8.7)
[2023-02-06 11:01] LABS: Triglycerides 3311 mg/dL (0-150)
[2023-02-06 11:02] LABS: Alanine Aminotransferase 51 U/L (0-41); Anion Gap 21.7 (5-19); Aspartate Amino Transferase 27 U/L (0-40); Potassium 4.7 mmol/L (3.5-5.1)
[2023-02-06 11:03] LABS: Sodium 129 mmol/L (136-145)
[2023-02-06 11:17] LABS: LDL Cholesterol Direct 85 mg/dL (0-100)
[2023-02-06 11:44] LABS: Glucose Point of Care 292 mg/dL (70-110)
[2023-02-06 11:44] LABS: Add Urine Microscopic? YES; Bilirubin Urine Neg (Negative); Blood Urine 2+ (Negative); Glucose Urine UA 4+ (Normal); Ketones Urine 2+ (Negative); Leukocyte Esterase Urine Negative (Negative); Nitrate Urine Negative (Negative); Protein Urine 3+ (Negative); Urine Appearance Clear (CLEAR); Urine Color Yellow (Yellow); Urobilinogen Urine Norm (Negative); pH Urine 7 (5-7)
[2023-02-06] MEDS: insulin regular-human 250 UNIT in sodium chloride 0.9% 250 ML 6.06 UNIT IV (11:44)
--- NOTE | 2023-02-06 11:49 | PC.PHAR ---
pt and pts verified pts medications-pts states the pt had a build up of his medications-pt states he has been out of his creon for about a month-pt uses [facility] called not open on sundays no way to verify when last filled and mg on meds medications entered are from the pt and pts states the pt takes
[2023-02-06 11:51] LABS: Add Urine Culture? No; RBC Urine 0-4 /hpf (0-2); Squamous Epithelial Cell Urine 0-4 /hpf (0-5)
--- NOTE | 2023-02-06 12:02 | PM.HP ---
Providers/Chief Complaint Admitting Physician: Jerri Carranza MD Primary Care Provider: Kin Greer MD Chief Complaint: Abd pain, N/V History of Present Illness Rui Donohue is a 37 year old male with history of recurrent hospital admission for chronic pancreatitis, chronic hypertriglyceridemia, presenting to the emergency room with abdominal pain nausea vomiting.? Triglycerides at 3300 today. Lipase not significantly elevated today, however clinically symptoms compatible with acute on chronic pancreatitis. Patient requested foregoing the CT scan today given clinical presentation and his concern for recurrent CTs this year. Recent MR abdomen 12/24/2022 with Abnormal pancreas. There are changes of pseudocyst formation and acute on chronic pancreatitis. Nonenhancing signal masses in the pancreas which have been previously described. Most consistent with intrapancreatic pseudocyst. There is no pancreatic duct dilatation and no new pseudocyst. Also with evidence of DKA today given + urine ketones, elevated anion gap, blood sugar > 300 at arrival. Review of Systems General: Reports: 10 or more systems reviewed and unremarkable except in HPI and below Const: Denies: fever(s), chills or body aches Eyes: Denies: change in vision, blurry vision or photophobia ENMT: Reports: hoarseness; Denies: throat pain, enlarged tonsils, odynophagia or nasal congestion Card: Denies: chest pain, palpitations, irregular heart rhythm, edema, swelling of feet/ankles, lightheadedness, pre-syncope, dyspnea on exertion or orthopnea Resp: Denies: dyspnea, productive cough, non-productive cough, wheezing, stridor, pain on inspiration, change in phlegm color, hemoptysis or chest congestion GI: Denies: abdominal pain, nausea, vomiting, hematemesis, coffee ground emesis, dysphagia, heartburn, diarrhea, constipation, GI cramping, change in stool character, hematochezia or melena : Denies: flank pain, dysuria, urinary frequency, urinary urgency, urinary hesitancy or hematuria Musc: Denies: neck pain, back pain, extremity pain, joint swelling, joint warmth or deformity Neuro: Denies: headache(s), numbness in extremities, weakness in extremities, sensory changes, difficulty walking, frequent falls, dizziness, vertigo, behavioral changes, Slurred speech present or seizure-like activity Psych: Denies: anxiety, depression, suicidal ideation or homicidal ideation Endo: Denies: polyuria, polydipsia, tired all the time, cold intolerance or hot flashes Kojo/Lymph: Denies: easy bruising or easy bleeding Medications/Allergies Home Medications Medication Instructions Recorded Confirmed Last Taken Type cholecalciferol (vitamin D3) 125 5,000 unit PO DAILY PRN unknown 04/02/19 02/06/23 11/11/22 History mcg (5,000 unit) capsule magnesium citrate 300 ml PO DAILY PRN constipation 10/02/21 02/06/23 Unknown Rx #296 mL albuterol sulfate 90 mcg/actuation 2 puff inhalation Q6H PRN 05/10/22 02/06/23 Unknown History aerosol inhaler Shortness Of Breath calcitriol 0.5 mcg capsule 0.5 mcg PO DAILY 05/10/22 02/06/23 11/11/22 History ergocalciferol (vitamin D2) 1,250 50,000 unit PO .TWICE A WEEK 05/10/22 02/06/23 11/11/22 History mcg (50,000 unit) capsule (Vitamin D2) lipase 3,000-protease 1 cap PO BID PRN unknown 05/10/22 02/06/23 1 Month Ago History 9,500-amylase 15,000 unit capsule, ~01/06/23 delayed rel (Creon) out for a month omega-3 acid ethyl esters 1 gram 4 cap PO DAILY 05/10/22 02/06/23 11/11/22 History capsule (Lovaza) flash glucose sensor (FreeStyle #6 ea 06/16/22 02/06/23 Unknown Rx Singh 2 Sensor kit) metoclopramide HCl 5 mg tablet 5 mg PO Q8H PRN breakthrough 07/16/22 02/06/23 Unknown Rx (Reglan) nausea 7 days #21 tabs Dexcom G6 Transmitter #2 ea 07/19/22 02/06/23 Unknown Rx (blood-glucose transmitter) Dexcom G6 Retail Selling Specialist (blood-glucose #1 ea 07/21/22 02/06/23 Unknown Rx meter,continuous) zolpidem 5 mg tablet 5 mg PO BEDTIME PRN insomnia 07/29/22 02/06/23 Unknown History pantoprazole 40 mg tablet,delayed 40 mg PO QAM #30 tabs 08/04/22 02/06/23 11/11/22 Rx release (Protonix) Dexcom G6 Sensor (blood-glucose #9 ea 08/12/22 02/06/23 Unknown Rx sensor) baclofen 5 mg tablet 5 mg PO BID PRN Pain #60 tabs 08/12/22 02/06/23 Unknown Rx promethazine 25 mg tablet 25 mg PO TID PRN nausea and 08/17/22 02/06/23 Unknown Rx vomiting 7 days #21 tabs insulin pump cartridge,automated #1 ea 08/18/22 02/06/23 Unknown Rx dose,BT with controller subcutaneous (Omnipod 5 G6 Intro Kit (Gen 5) subcutaneous cartridge with controller) levocetirizine 5 mg tablet (Xyzal) 5 mg PO DAILY PRN allergy symptoms 10/19/22 02/06/23 Unknown Rx 30 days #30 tabs fluoxetine 20 mg capsule 20 mg PO DAILY 11/12/22 02/06/23 11/11/22 History pioglitazone 30 mg tablet 30 mg PO DAILY 11/12/22 02/06/23 11/11/22 History ramelteon 8 mg tablet 8 mg PO BEDTIME PRN unknown 11/12/22 02/06/23 11/11/22 History acetaminophen 325 mg tablet 650 mg PO Q6H PRN Mild/Mod Pain Or 11/21/22 02/06/23 Unknown Rx Temp >/= 101 #60 tabs orlistat 120 mg capsule 120 mg PO TID #90 caps 11/24/22 02/06/23 Unknown Rx cpap and supplies #1 ea 12/23/22 02/06/23 Unknown Rx insulin pump cart,automated,BT #90 ea 01/03/23 02/06/23 Unknown Rx (Omnipod 5 G6 Pods (Gen 5) subcutaneous cartridge) oxycodone 10 mg tablet 10 mg PO Q6H PRN pancreatitis pain 01/28/23 02/06/23 Unknown Rx 7 days #28 tabs fenofibrate 160 mg tablet 160 mg PO DAILY 02/06/23 02/06/23 Unknown History insulin lispro 100 unit/mL See Rx Instructions .Route .COMPLEX 02/06/23 02/06/23 Unknown History subcutaneous solution (Humalog U-100 Insulin) rosuvastatin 20 mg tablet 20 mg PO DAILY 02/06/23 02/06/23 Unknown History Allergies Allergy/AdvReac Type Severity Reaction Status Date / Time No Known Allergies Allergy Verified 02/06/23 09:45 PFSH Acute PFSH: Medical History Acute on chronic pancreatitis Familial hypertriglyceridemia GERD (gastroesophageal reflux disease) Hyperlipidemia Hypertension Insomnia 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 Mediastinal lymphadenopathy Obesity (BMI 30.0-34.9) LESLY (obstructive sleep apnea) Overweight (BMI 25.0-29.9) Pseudohyponatremia Recurrent pancreatitis Vitamin D deficiency Surgical History History of cholecystectomy History of knee surgery arthroscopic left knee Family History Other CAD (coronary artery disease) Hyperlipidemia Social History Smoking and tobacco/nicotine status: former use of tobacco/nicotine Alcohol intake: never Substance/Drug Use: never Vitals/I&O/Wt Last Vital Signs Temp 98.1 F 02/06/23 09:42 Pulse 90 02/06/23 11:10 Resp 14 02/06/23 11:11 BP 139/96 02/06/23 11:10 Pulse Ox 97 02/06/23 11:11 O2 Del Method Room Air 02/06/23 11:10 02/05/23 02/06/23 02/06/23 22:59 06:59 14:59 Intake Total 1000 / 1000 Balance 1000 / 1000 Weight last 48 hrs Weight 99.79 kg Physical Exam Narrative: General: No acute distress, AO x3 HEENT: PERRLA, pupils bilaterally equal and reactive, pallors not present Chest: Normal vesicular breath sounds, no added sounds, equal good air entry bilaterally CVS: S1-S2 regular, no murmurs, no tachycardia, no gallops, no rubs Abdomen: Soft, TTP epigatsric area Neuro: No focal deficits, no facial deformity, AO x3, power 5/5 in all limbs Data 02/06/23 09:58 02/06/23 13:42 A&P Assessment and plan (1) Diabetic ketoacidosis: Diabetic ketoacidosis: Start patient on insulin drip as per DKA/HHS protocol with target blood sugars between 100-130 normal saline at 100 cc/hr currently We will switch to D5 NS once blood sugar less than 250. Monitor BMP every 6 hours. Once potassium less than 4 we will add 20 mg of potassium to IV fluids. Monitor saturations. Maintain over 90%. Transition to fixed dose insulin infusion for chronic hypertriglceridemia induced pancreatitis when DKA resolves (2) Pancreatitis: Admit to ICU for insulin drip. Hypertriglyceridemia induced acute on chronic pancreatitis. Triglycerides currently at ~3000 continue insulin drip until TG level < 500 IV fluid with d5 normal saline at 150 cc an hour once blood sugar less than 250 N.p.o. for bowel rest Pain control with as needed? dilaudid alternating with IV Toradol. As needed Tylenol for pain and fever. As needed Zofran and reglan for nausea management. Plan DVt ppx: lovenox Attestations Medical Necessity Statement*: > 2midnight admission is anticipated Coding Level of Care Code Acute Code for Chg Fwd High MDM includes number and complexity of problems actively addressed during encounter, amount and/or complexity of data reviewed/ordered and described risk of complication, morbidity or mortality of management as documented Diagnoses Diabetic ketoacidosis E11.10 Pancreatitis K85.90
[2023-02-06] MEDS: oxyCODONE 5 mg IR Tab/Cap 10 MG PO ×2 (12:51→21:10)
[2023-02-06] MEDS: enoxaparin 40 mg/0.4 mL Syringe SUBCUT (12:52)
[2023-02-06] MEDS: sodium chloride 0.9% 1,000 ML 100 ML IV (12:52)
[2023-02-06 12:59] LABS: Glucose Point of Care 297 mg/dL (70-110)
[2023-02-06 13:43] LABS: Triglycerides 2947 mg/dL (0-150)
[2023-02-06 14:06] LABS: Albumin Level 3.8 g/dL (3.5-5.2); Alkaline Phosphatase 78 U/L (40-130); Blood Urea Nitrogen 9 mg/dL (6-20); Calcium 9.6 mg/dL (8.5-10.5); Carbon Dioxide 25 mmol/L (22-29); Chloride 90 mmol/L (98-107); Globulin 3.5 g/dL (1.3-4.6); Glomerular Filtration Rate 189.2 mL/min (90-130); Glucose 231 mg/dL (65-115); Osmolality Calculated 278 mOsm/kg (285-295); Sodium 131 mmol/L (136-145); Total Bilirubin 0.6 mg/dL (0.15-1.2); Total Protein 7.3 g/dL (6.6-8.7)
[2023-02-06 14:06] LABS: LDL Cholesterol Direct 77 mg/dL (0-100)
[2023-02-06 14:40] LABS: Anion Gap 20.2 (5-19); Potassium 4.2 mmol/L (3.5-5.1)
[2023-02-06 14:41] LABS: Alanine Aminotransferase 43 U/L (0-41); Aspartate Amino Transferase 22 U/L (0-40)
[2023-02-06 14:49] LABS: Glucose Point of Care 191 mg/dL (70-110)
[2023-02-06] MEDS: metoclopramide 5 mg/mL SDV 2 mL IVP (14:53)
[2023-02-06] MEDS: dextrose 5%-sod chloride 0.9% 1,000 ML 150 ML IV ×2 (15:22→21:28)
[2023-02-06] MEDS: insulin regular-human 250 UNIT in sodium chloride 0.9% 250 ML IV (15:57)
[2023-02-06 16:41] LABS: Glucose Point of Care 227 mg/dL (70-110)
[2023-02-06 17:37] LABS: Glucose Point of Care 243 mg/dL (70-110)
[2023-02-06] MEDS: scopolamine 1.5 Patch 1 PATCH TRANSDERMA (17:43)
[2023-02-06 18:32] LABS: Glucose Point of Care 230 mg/dL (70-110)
[2023-02-06 20:06] LABS: Albumin Level 3.8 g/dL (3.5-5.2); Alkaline Phosphatase 76 U/L (40-130); Blood Urea Nitrogen 8 mg/dL (6-20); Carbon Dioxide 26 mmol/L (22-29); Chloride 92 mmol/L (98-107); Globulin 3.1 g/dL (1.3-4.6); Glomerular Filtration Rate 244.8 mL/min (90-130); Glucose 237 mg/dL (65-115); Osmolality Calculated 278 mOsm/kg (285-295); Sodium 131 mmol/L (136-145); Total Bilirubin 0.5 mg/dL (0.15-1.2); Total Protein 6.9 g/dL (6.6-8.7)
[2023-02-06 20:09] LABS: Anion Gap 16.9 (5-19); Potassium 3.9 mmol/L (3.5-5.1)
[2023-02-06 20:16] LABS: Glucose Point of Care 245 mg/dL (70-110)
[2023-02-06 20:17] LABS: Alanine Aminotransferase < 5 U/L (0-41); Aspartate Amino Transferase 5 U/L (0-40)
[2023-02-06 20:40] LABS: Ketone (Acetest) Serum Negative (Negative)
[2023-02-06 21:17] LABS: Glucose Point of Care 275 mg/dL (70-110)
[2023-02-06 22:11] LABS: Glucose Point of Care 243 mg/dL (70-110)
[2023-02-06] MEDS: fentaNYL 25 mcg Patch 1 PATCH TRANSDERMA (23:18)
[2023-02-06 23:23] LABS: Glucose Point of Care 247 mg/dL (70-110)
[2023-02-07] VITALS (100 sets, daily range): BP systolic 118–185; BP diastolic 61–121; PULSE 70–105; RESP 4–25; TEMP 37; O2SAT 89–99
[2023-02-07 00:09] LABS: Glucose Point of Care 289 mg/dL (70-110)
[2023-02-07 01:13] LABS: Glucose Point of Care 290 mg/dL (70-110)
[2023-02-07 01:25] LABS: Albumin Level 3.7 g/dL (3.5-5.2); Alkaline Phosphatase 77 U/L (40-130); Blood Urea Nitrogen 7 mg/dL (6-20); Calcium 8.9 mg/dL (8.5-10.5); Carbon Dioxide 24 mmol/L (22-29); Globulin 3.3 g/dL (1.3-4.6); Glomerular Filtration Rate 244.8 mL/min (90-130); Glucose 269 mg/dL (65-115); Total Bilirubin 0.6 mg/dL (0.15-1.2)
[2023-02-07] MEDS: HYDROmorphone 1 mg/mL INJ 1 mL IVP ×5 (01:57→11:15)
[2023-02-07 02:06] LABS: Glucose Point of Care 250 mg/dL (70-110)
[2023-02-07 02:13] LABS: Chloride 93 mmol/L (98-107); Osmolality Calculated 279 mOsm/kg (285-295); Sodium 131 mmol/L (136-145)
[2023-02-07 02:15] LABS: Triglycerides 2851 mg/dL (0-150)
[2023-02-07 02:31] LABS: LDL Cholesterol Direct 71 mg/dL (0-100)
[2023-02-07 02:35] LABS: Alanine Aminotransferase 39 U/L (0-41); Aspartate Amino Transferase 14 U/L (0-40)
[2023-02-07 03:07] LABS: Glucose Point of Care 255 mg/dL (70-110)
[2023-02-07] MEDS: dextrose 5%-sod chloride 0.9% 1,000 ML 150 ML IV ×2 (03:55→11:15)
[2023-02-07 04:44] LABS: Glucose Point of Care 245 mg/dL (70-110)
[2023-02-07 05:18] LABS: Glucose Point of Care 219 mg/dL (70-110)
[2023-02-07] MEDS: pantoprazole DR 40 mg Tablet PO (05:31)
[2023-02-07 06:16] LABS: Glucose Point of Care 207 mg/dL (70-110)
[2023-02-07 07:25] LABS: Glucose Point of Care 202 mg/dL (70-110)
--- NOTE | 2023-02-07 07:52 | XR_ITS ---
WS: [id number] PORTABLE CHEST HISTORY: Post PICC placement COMPARISON: 02/06/2023 Right-sided PICC line has been placed with tip at the aortocaval junction Lungs are clear and well expanded. No pleural effusion or pneumothorax. Cardiac size: Normal. Mediastinum/Aorta: Normal mediastinum. No osseous abnormality seen. IMPRESSION: Satisfactory position of the RIGHT PICC line. No complications.
[2023-02-07 07:57] LABS: Albumin Level 3.6 g/dL (3.5-5.2); Alkaline Phosphatase 77 U/L (40-130); Blood Urea Nitrogen 7 mg/dL (6-20); Carbon Dioxide 25 mmol/L (22-29); Chloride 95 mmol/L (98-107); Globulin 3.1 g/dL (1.3-4.6); Glomerular Filtration Rate 189.2 mL/min (90-130); Glucose 218 mg/dL (65-115); Osmolality Calculated 279 mOsm/kg (285-295); Sodium 132 mmol/L (136-145); Total Bilirubin 0.5 mg/dL (0.15-1.2); Total Protein 6.7 g/dL (6.6-8.7)
[2023-02-07 07:59] LABS: Anion Gap 15.9 (5-19); Potassium 3.9 mmol/L (3.5-5.1)
--- NOTE | 2023-02-07 08:30 | PC.NURSE ---
Triple lumen PICC placed to right basilic vein. Referred for PICC placement due to poor peripheral access and incompatible infusate with peripheral line. Risks and benefits discussed and informed consent obtained from patient. Right arm assessed with right basilic vein measuring 3.8 mm, straight, and apparent best choice for placement. Using sterile technique and MST, right basilic vein accessed x 1 stick. Mid-arm circumference measured 10 cm from right AC 32 cm. Trimmed cath 44 cm with 1.5 cm external length noted. CXR shows tip in SVC, cavoatrial junction, in good position for use per radiologist. Line secured with stat-lock. Insertion site covered with Biopatch and TSM. Report given to bedside nurse, Miranda.
[2023-02-07 08:33] LABS: Aspartate Amino Transferase 19 U/L (0-40)
[2023-02-07 08:34] LABS: Alanine Aminotransferase 40 U/L (0-41)
[2023-02-07] MEDS: fluoxetine 20 mg Capsule PO (09:12)
[2023-02-07 09:17] LABS: Glucose Point of Care 216 mg/dL (70-110)
[2023-02-07] MEDS: oxyCODONE 5 mg IR Tab/Cap 10 MG PO (09:25)
[2023-02-07 10:09] LABS: Glucose Point of Care 184 mg/dL (70-110)
[2023-02-07 11:18] LABS: Glucose Point of Care 184 mg/dL (70-110)
--- NOTE | 2023-02-07 11:41 | P.PN_ITS ---
Subjective Subjective: Fentanyl patch helping with his pain some, but he is still having breakthrough pain up to 8/10. He requests to increase the dose of Dilaudid. No BM. Vitals/I&O/Wt Last Vital Signs Temp 98.6 F 02/07/23 08:32 Pulse 90 02/07/23 06:00 Resp 18 02/07/23 11:15 BP 166/97 02/07/23 04:00 Pulse Ox 97 02/07/23 04:00 O2 Del Method Room Air 02/06/23 13:59 02/06/23 02/07/23 02/07/23 22:59 06:59 14:59 Intake Total 1181.184 / 2188.860 997.800 / 3186.660 1000 / 1000 Output Total 480 / 880 1500 / 2380 Balance 701.184 / 1308.860 -502.200 / 906.778 7619 / 1000 Weight last 48 hrs Weight 106.594 kg Weight 102.965 kg Weight 99.79 kg Physical Exam Const: COMMON NORMALS: patient oriented x3 and alert GENERAL APPEARANCE: cooperative ORIENTATION/CONSCIOUSNESS: Yes awake HENMT: COMMON NORMALS: oropharynx normal Neck/C-Spine: COMMON NORMALS: no JVD Resp: COMMON NORMALS: normal respiratory effort and clear to auscultation bilaterally AUSCULTATION: clear to auscultation bilaterally Cardio: COMMON NORMALS: no JVD, regular rhythm, S1 normal heart sound present, S2 normal heart sound present and No murmurs present (Cardio) RHYTHM: regular rhythm HEART SOUNDS: S1 normal heart sound present and S2 normal heart sound present GI: COMMON NORMALS: Normal to inspection, nondistended, normoactive bowel sounds present and Soft to palpation PALPATION: Yes Soft to palpation and Yes Tenderness to palpation present (GI) Details: other (Epigastric) Extremity: COMMON NORMALS: no joint enlargement and no pedal edema Neuro: COMMON NORMALS: patient oriented x3 and moves all extremities SENSORIUM/ORIENTATION: Yes alert Skin: COMMON NORMALS: no rashes or lesions noted GENERAL SKIN EXAM: no rashes or lesions noted Data 02/06/23 09:58 02/07/23 07:14 A&P Assessment and plan (1) Pancreatitis: Ketoacidosis resolved. Continue insulin drip due to hypertriglyceridemia. Triglycerides reviewed, 2851. Reviewed chemistry, liver parameters. Reviewed serum ketones. Glucose on the low side, insulin drip rate needing to be decreased. Stop D5- half normal. D10 infusion. Continues on drip. Clear liquid diet. Follow-up chemistry requested. Reviewed lipase. Repeat triglycerides requested. Hypertriglyceridemia induced acute on chronic pancreatitis. Triglycerides currently at ~3000 continue insulin drip until TG level < 500 Still having severe breakthrough, requested increase Dilaudid dose, increase IV Dilaudid to 2 mg. Pain control with as needed? dilaudid alternating with IV Toradol. As needed Tylenol for pain and fever. As needed Zofran and reglan for nausea management. (2) Diabetic ketoacidosis: Reviewed vital signs, chemistry, glucose, liver parameters, serum ketones. DKA resolved. Continues on drip as above for hypertriglyceridemia. CLD. Continue to monitor glucose. Diabetic ketoacidosis: Start patient on insulin drip as per DKA/HHS protocol with target blood sugars between 100-130 normal saline at 100 cc/hr currently We will switch to D5 NS once blood sugar less than 250. Monitor BMP every 6 hours. Once potassium less than 4 we will add 20 mg of potassium to IV fluids. Monitor saturations. Maintain over 90%. Plan DVt ppx: lovenox Attestations Medical Necessity Statement*: Continue admission for assessment management of acute on chronic pancreatitis with severe hypertriglyceridemia. Coding Level of Care Code Critical Care >/= 30 minutes Critical care time (in minutes): 35 The high probability of a clinically significant, sudden or life threatening deterioration, as referenced in this documentation, required my full and direct attention, intervention and personal management. The critical care time shown is in addition to time spent performing any reported separately billable procedures and includes the following: [x] Data and vital sign review and interpretation [x ] Patient assessment, examination and intervention [x] Medication orders and management [x] Patient/Family updates as able [x] Care Coordination and Documentation. Diagnoses Pancreatitis K85.90 Diabetic ketoacidosis E11.10
[2023-02-07] MEDS: lactulose oral liq 20 gm/30 mL UDC PO ×2 (11:52→23:16)
[2023-02-07] MEDS: dextrose 10% 1,000 ML 100 ML IV ×2 (12:24→21:12)
[2023-02-07] MEDS: HYDROmorphone 1 mg/mL INJ 1 mL 2 MG IVP ×5 (12:25→22:35)
[2023-02-07 12:45] LABS: Albumin Level 3.4 g/dL (3.5-5.2); Alkaline Phosphatase 74 U/L (40-130); Blood Urea Nitrogen 7 mg/dL (6-20); Calcium 8.8 mg/dL (8.5-10.5); Carbon Dioxide 23 mmol/L (22-29); Chloride 97 mmol/L (98-107); Globulin 3.3 g/dL (1.3-4.6); Glomerular Filtration Rate 244.8 mL/min (90-130); Glucose 229 mg/dL (65-115); Osmolality Calculated 275 mOsm/kg (285-295); Sodium 130 mmol/L (136-145); Total Bilirubin 0.4 mg/dL (0.15-1.2); Total Protein 6.7 g/dL (6.6-8.7)
[2023-02-07 13:02] LABS: Triglycerides 2429 mg/dL (0-150)
[2023-02-07 13:03] LABS: Anion Gap 14.2 (5-19); Potassium 4.2 mmol/L (3.5-5.1)
[2023-02-07 13:04] LABS: Aspartate Amino Transferase 25 U/L (0-40)
[2023-02-07 13:05] LABS: Alanine Aminotransferase 40 U/L (0-41)
[2023-02-07 13:20] LABS: LDL Cholesterol Direct 65 mg/dL (0-100)
[2023-02-07 14:11] LABS: Glucose Point of Care 267 mg/dL (70-110)
[2023-02-07 16:55] LABS: Glucose Point of Care 297 mg/dL (70-110)
[2023-02-07 17:53] LABS: Glucose Point of Care 338 mg/dL (70-110)
[2023-02-07 19:12] LABS: Glucose Point of Care 330 mg/dL (70-110)
[2023-02-07 20:12] LABS: Glucose Point of Care 309 mg/dL (70-110)
[2023-02-07 21:06] LABS: Glucose Point of Care 280 mg/dL (70-110)
[2023-02-07 22:19] LABS: Glucose Point of Care 226 mg/dL (70-110)
[2023-02-07 23:07] LABS: Glucose Point of Care 227 mg/dL (70-110)
[2023-02-08] VITALS (44 sets, daily range): BP systolic 127–183; BP diastolic 78–136; PULSE 83–103; RESP 10–26; TEMP 36.9–37; O2SAT 93–98
[2023-02-08 00:07] LABS: Glucose Point of Care 187 mg/dL (70-110)
[2023-02-08] MEDS: HYDROmorphone 1 mg/mL INJ 1 mL 2 MG IVP ×8 (00:38→20:44)
--- NOTE | 2023-02-08 01:13 | PC.NURSE ---
Blood glucose of 184. Protocol states to decrease drip by 6 units. Drip at current rate of 3. Dr Sanchez called. Instructed to leave drip at current rate and decrease to 1 unit/ hr if blood glucose continues to decrease
[2023-02-08 01:14] LABS: Glucose Point of Care 195 mg/dL (70-110)
[2023-02-08 01:27] LABS: Triglycerides 2066 mg/dL (0-150)
[2023-02-08 01:51] LABS: LDL Cholesterol Direct 75 mg/dL (0-100)
[2023-02-08 02:15] LABS: Glucose Point of Care 265 mg/dL (70-110)
[2023-02-08] MEDS: ondansetron 2 mg/ML SDV 2 mL 4 MG IVP ×3 (02:52→19:43)
[2023-02-08 03:12] LABS: Glucose Point of Care 315 mg/dL (70-110)
[2023-02-08 04:17] LABS: Glucose Point of Care 275 mg/dL (70-110)
[2023-02-08 05:14] LABS: Glucose Point of Care 230 mg/dL (70-110)
[2023-02-08] MEDS: pantoprazole DR 40 mg Tablet PO (05:14)
[2023-02-08] MEDS: lactulose oral liq 20 gm/30 mL UDC PO (05:14)
[2023-02-08 06:14] LABS: Glucose Point of Care 218 mg/dL (70-110)
[2023-02-08] MEDS: dextrose 10% 1,000 ML 100 ML IV ×2 (06:27→16:04)
[2023-02-08 06:41] LABS: Blood Urea Nitrogen 6 mg/dL (6-20); Carbon Dioxide 24 mmol/L (22-29); Chloride 97 mmol/L (98-107); Glomerular Filtration Rate 244.8 mL/min (90-130); Glucose 223 mg/dL (65-115); Osmolality Calculated 283 mOsm/kg (285-295); Sodium 134 mmol/L (136-145)
[2023-02-08 06:54] LABS: Anion Gap 16.9 (5-19); Potassium 3.9 mmol/L (3.5-5.1)
[2023-02-08 07:28] LABS: Glucose Point of Care 219 mg/dL (70-110)
[2023-02-08] MEDS: fluoxetine 20 mg Capsule PO (08:11)
[2023-02-08 09:03] LABS: Glucose Point of Care 196 mg/dL (70-110)
[2023-02-08 10:10] LABS: Glucose Point of Care 297 mg/dL (70-110)
[2023-02-08 11:11] LABS: Glucose Point of Care 259 mg/dL (70-110)
[2023-02-08 12:23] LABS: Glucose Point of Care 232 mg/dL (70-110)
[2023-02-08] MEDS: enoxaparin 40 mg/0.4 mL Syringe SUBCUT (12:27)
[2023-02-08 13:54] LABS: Blood Urea Nitrogen 6 mg/dL (6-20); Calcium 9.1 mg/dL (8.5-10.5); Carbon Dioxide 27 mmol/L (22-29); Chloride 99 mmol/L (98-107); Glomerular Filtration Rate 244.8 mL/min (90-130); Glucose 192 mg/dL (65-115); Osmolality Calculated 285 mOsm/kg (285-295); Sodium 136 mmol/L (136-145)
[2023-02-08 13:55] LABS: Anion Gap 13.9 (5-19); Potassium 3.9 mmol/L (3.5-5.1)
[2023-02-08 14:07] LABS: Triglycerides 1932 mg/dL (0-150)
[2023-02-08 14:23] LABS: LDL Cholesterol Direct 87 mg/dL (0-100)
[2023-02-08] MEDS: insulin regular-human 250 UNIT in sodium chloride 0.9% 250 ML 8.08 UNIT IV (16:03)
--- NOTE | 2023-02-08 17:58 | P.PN_ITS ---
Subjective Subjective: He is feeling slightly better but felt somewhat uncomfortable with solid food for breakfast just yet. Did enjoy it, but prefers to de-escalate back to clears for now. Vitals/I&O/Wt Last Vital Signs Temp 98.6 F 02/08/23 12:31 Pulse 93 02/08/23 17:00 Resp 13 02/08/23 17:00 BP 145/78 02/08/23 17:00 Pulse Ox 96 02/08/23 17:00 O2 Del Method Room Air 02/06/23 13:59 02/08/23 02/08/23 02/08/23 06:59 14:59 22:59 Intake Total 1269.677 / 3385.152 611.831 / 424.638 1644.474 / 1621.305 Output Total 2000 / 4000 500 / 500 Balance -730.323 / -614.848 111.831 / 265.290 4859.474 / 1121.305 Weight last 48 hrs Weight 107.955 kg Weight 106.594 kg Physical Exam Const: COMMON NORMALS: patient oriented x3 and alert GENERAL APPEARANCE: cooperative ORIENTATION/CONSCIOUSNESS: Yes awake HENMT: COMMON NORMALS: oropharynx normal Neck/C-Spine: COMMON NORMALS: no JVD Resp: COMMON NORMALS: normal respiratory effort and clear to auscultation bilaterally AUSCULTATION: clear to auscultation bilaterally Cardio: COMMON NORMALS: no JVD, regular rhythm, S1 normal heart sound present, S2 normal heart sound present and No murmurs present (Cardio) RHYTHM: regular rhythm HEART SOUNDS: S1 normal heart sound present and S2 normal heart sound present GI: COMMON NORMALS: Normal to inspection, nondistended, normoactive bowel sounds present and Soft to palpation PALPATION: Yes Soft to palpation and Yes Tenderness to palpation present (GI) Extremity: COMMON NORMALS: no joint enlargement and no pedal edema Neuro: COMMON NORMALS: patient oriented x3 and moves all extremities SENSORIUM/ORIENTATION: Yes alert Skin: COMMON NORMALS: no rashes or lesions noted GENERAL SKIN EXAM: no rashes or lesions noted Data 02/06/23 09:58 02/08/23 13:25 A&P Assessment and plan (1) Pancreatitis: Reviewed vitals, electrolytes from this morning. Triglycerides. Continue to improve triglyceride level down to thousand this morning. Continue insulin drip. Repeat chemistry this afternoon to reassess electrolytes. Repeat chemistry in the morning. Repeat triglycerides. Discussed with him, reviewed insulin drip rates. Continue D10 to allow for continued insulin infusion. Resume fenofibrate. He would like to downgrade diet to clear liquids as did not feel very comfortabl e when trying to advance. P.o. intake is tolerating. Resume Creon. Pain with some improvement but still requiring IV opioids. States it comes in waves. Continue pain control. Antiemetic as needed. Ketoacidosis resolved. Glucose on the low side, insulin drip rate needing to be decreased. Stop D5- half normal. D10 infusion. Continues on drip. Clear liquid diet. Follow-up chemistry requested. Reviewed lipase. Repeat triglycerides requested. Hypertriglyceridemia induced acute on chronic pancreatitis. Triglycerides currently at ~3000 continue insulin drip until TG level < 500 Still having severe breakthrough, requested increase Dilaudid dose, increase IV Dilaudid to 2 mg. Pain control with as needed? dilaudid alternating with IV Toradol. As needed Tylenol for pain and fever. As needed Zofran and reglan for nausea management. (2) Diabetic ketoacidosis: Resolved Plan DVt ppx: lovenox Attestations Medical Necessity Statement*: Continue admission for assessment management of acute pancreatitis with severe hypertriglyceridemia. Coding Level of Care Code Critical Care >/= 30 minutes Critical care time (in minutes): 35 The high probability of a clinically significant, sudden or life threatening deterioration, as referenced in this documentation, required my full and direct attention, intervention and personal management. The critical care time shown is in addition to time spent performing any reported separately billable procedures and includes the following: [x] Data and vital sign review and interpretation [x ] Patient assessment, examination and intervention [x] Medication orders and management [x] Patient/Family updates as able [x] Care Coordination and Documentation. Diagnoses Pancreatitis K85.90 Diabetic ketoacidosis E11.10
[2023-02-08 19:13] LABS: Glucose Point of Care 190 mg/dL (70-110)
[2023-02-08] MEDS: zolpidem 5 mg Tablet PO (20:45)
[2023-02-08 22:06] LABS: Glucose Point of Care 232 mg/dL (70-110)
[2023-02-08 22:06] LABS: Glucose Point of Care 267 mg/dL (70-110)
[2023-02-08 22:06] LABS: Glucose Point of Care 250 mg/dL (70-110)
[2023-02-08 23:00] LABS: Glucose Point of Care 274 mg/dL (70-110)
[2023-02-09] VITALS (35 sets, daily range): BP systolic 123–205; BP diastolic 70–142; PULSE 78–110; RESP 10–26; TEMP 36.2–36.9; O2SAT 92–97
[2023-02-09 00:03] LABS: Glucose Point of Care 313 mg/dL (70-110)
[2023-02-09] MEDS: lactulose oral liq 20 gm/30 mL UDC PO ×4 (00:39→17:07)
[2023-02-09 01:07] LABS: Glucose Point of Care 296 mg/dL (70-110)
[2023-02-09] MEDS: dextrose 10% 1,000 ML 100 ML IV (01:10)
[2023-02-09] MEDS: HYDROmorphone 1 mg/mL INJ 1 mL 2 MG IVP ×10 (01:14→22:46)
[2023-02-09 02:10] LABS: Glucose Point of Care 245 mg/dL (70-110)
[2023-02-09 03:06] LABS: Glucose Point of Care 217 mg/dL (70-110)
[2023-02-09 03:06] LABS: Glucose Point of Care 195 mg/dL (70-110)
[2023-02-09 04:09] LABS: Glucose Point of Care 192 mg/dL (70-110)
[2023-02-09 05:11] LABS: Glucose Point of Care 249 mg/dL (70-110)
[2023-02-09] MEDS: pantoprazole DR 40 mg Tablet PO (05:38)
[2023-02-09 06:07] LABS: Glucose Point of Care 287 mg/dL (70-110)
[2023-02-09 07:03] LABS: Blood Urea Nitrogen 7 mg/dL (6-20); Carbon Dioxide 26 mmol/L (22-29); Chloride 93 mmol/L (98-107); Glomerular Filtration Rate 189.2 mL/min (90-130); Glucose 297 mg/dL (65-115); Osmolality Calculated 279 mOsm/kg (285-295); Sodium 130 mmol/L (136-145)
[2023-02-09 07:06] LABS: Anion Gap 15.1 (5-19); Potassium 4.1 mmol/L (3.5-5.1)
[2023-02-09 07:14] LABS: Glucose Point of Care 268 mg/dL (70-110)
[2023-02-09 07:18] LABS: Triglycerides 2013 mg/dL (0-150)
[2023-02-09 07:35] LABS: LDL Cholesterol Direct 98 mg/dL (0-100)
[2023-02-09] MEDS: fenofibrate 145 mg Tablet PO (08:00)
[2023-02-09] MEDS: fluoxetine 20 mg Capsule PO (08:01)
[2023-02-09] MEDS: ondansetron 2 mg/ML SDV 2 mL 4 MG IVP (08:12)
[2023-02-09 08:21] LABS: Glucose Point of Care 275 mg/dL (70-110)
[2023-02-09 09:27] LABS: Glucose Point of Care 284 mg/dL (70-110)
[2023-02-09 10:07] LABS: Glucose Point of Care 292 mg/dL (70-110)
[2023-02-09 10:36] LABS: Glucose Point of Care 333 mg/dL (70-110)
[2023-02-09 12:24] LABS: Glucose Point of Care 320 mg/dL (70-110)
[2023-02-09] MEDS: enoxaparin 40 mg/0.4 mL Syringe SUBCUT (13:37)
[2023-02-09 14:48] LABS: Glucose Point of Care 339 mg/dL (70-110)
[2023-02-09 14:48] LABS: Glucose Point of Care 289 mg/dL (70-110)
[2023-02-09 15:32] LABS: Blood Urea Nitrogen 8 mg/dL (6-20); Calcium 9.4 mg/dL (8.5-10.5); Carbon Dioxide 27 mmol/L (22-29); Chloride 94 mmol/L (98-107); Glomerular Filtration Rate 153.3 mL/min (90-130); Glucose 260 mg/dL (65-115); Osmolality Calculated 281 mOsm/kg (285-295); Sodium 132 mmol/L (136-145)
[2023-02-09 15:35] LABS: Anion Gap 15.3 (5-19); Potassium 4.3 mmol/L (3.5-5.1)
[2023-02-09 16:20] LABS: Glucose Point of Care 254 mg/dL (70-110)
[2023-02-09 17:14] LABS: Glucose Point of Care 212 mg/dL (70-110)
[2023-02-09] MEDS: oxyCODONE 5 mg IR Tab/Cap 10 MG PO (17:16)
[2023-02-09 18:17] LABS: Glucose Point of Care 210 mg/dL (70-110)
--- NOTE | 2023-02-09 18:35 | PC.NURSE ---
Shift SUmmary: Uneventful shift. Patient rested in bed for most of the day, but would get up and around the room to perform ADLs. D10 changed to D20 to allow higher insulin levels due to a slight increase in triglycerides. Patient has tolerated a consistent carb diet well.
--- NOTE | 2023-02-09 18:50 | P.PN_ITS ---
Subjective Subjective: This morning he reports he feels he is improving. Requested to advance his diet. Pain is still requiring Dilaudid, but slightly better down to 6. Vitals/I&O/Wt Last Vital Signs Temp 97.1 F L 02/09/23 18:00 Pulse 100 02/09/23 18:00 Resp 26 H 02/09/23 18:00 BP 148/114 02/09/23 18:00 Pulse Ox 96 02/09/23 18:00 O2 Del Method Room Air 02/09/23 18:00 02/09/23 02/09/23 02/09/23 06:59 14:59 22:59 Intake Total 944.205 / 2603.621 45.165 / 45.165 514.5 / 559.665 Output Total 2000 / 3300 1300 / 1300 200 / 1500 Balance -1055.795 / -696.379 -1254.835 / -1254.835 314.5 / -940.335 Weight last 48 hrs Weight 107.955 kg Physical Exam Const: COMMON NORMALS: patient oriented x3 and alert GENERAL APPEARANCE: cooperative ORIENTATION/CONSCIOUSNESS: Yes awake HENMT: COMMON NORMALS: oropharynx normal Neck/C-Spine: COMMON NORMALS: no JVD Resp: COMMON NORMALS: normal respiratory effort and clear to auscultation bilaterally AUSCULTATION: clear to auscultation bilaterally Cardio: COMMON NORMALS: no JVD, regular rhythm, S1 normal heart sound present, S2 normal heart sound present and No murmurs present (Cardio) RHYTHM: regular rhythm HEART SOUNDS: S1 normal heart sound present and S2 normal heart sound present GI: COMMON NORMALS: Normal to inspection, nondistended, normoactive bowel sounds present and Soft to palpation PALPATION: Yes Soft to palpation and Yes Tenderness to palpation present (GI) OTHER: Tender epigastrium Extremity: COMMON NORMALS: no joint enlargement and no pedal edema Neuro: COMMON NORMALS: patient oriented x3 and moves all extremities SEN SORIUM/ORIENTATION: Yes alert Skin: COMMON NORMALS: no rashes or lesions noted GENERAL SKIN EXAM: no rashes or lesions noted Data 02/06/23 09:58 02/09/23 15:06 A&P Assessment and plan (1) Pancreatitis: Worsened severe hypertriglyceridemia, triglycerides up to 2012. Pain slightly better, but still requiring IV Dilaudid. Discussed with him glucose improved overnight and insulin rates were decreased. Discussed with him regarding switching to D20 to allow continuation of insulin drip. Discussed with pharmacist. Continue to monitor glucose. Vitals, chemistry, insulin rates are reviewed. Discussed with pharmacy. Reassess triglycerides in the morning. He would like to try to advance diet, adjusted. Fenofibrate resumed. Ketoacidosis resolved. Glucose on the low side, insulin drip rate needing to be decreased. Stop D5- half normal. D10 infusion. Continues on drip. Clear liquid diet. Follow-up chemistry requested. Reviewed lipase. Repeat triglycerides requested. Hypertriglyceridemia induced acute on chronic pancreatitis. Triglycerides currently at ~3000 continue insulin drip until TG level < 500 Still having severe breakthrough, requested increase Dilaudid dose, increase IV Dilaudid to 2 mg. Pain control with as needed? dilaudid alternating with IV Toradol. As needed Tylenol for pain and fever. As needed Zofran and reglan for nausea management. (2) Diabetic ketoacidosis: Resolved Plan DVt ppx: lovenox Attestations Medical Necessity Statement*: Continue admission for assessment management of severe hypertriglyceridemia complicated by pancreatitis. Coding Level of Care Code Critical Care >/= 30 minutes Critical care time (in minutes): 35 The high probability of a clinically significant, sudden or life threatening deterioration, as referenced in this documentation, required my full and direct attention, intervention and personal management. The critical care time shown is in addition to time spent performing any reported separately billable procedures and includes the following: [x] Data and vital sign review and interpretation [x ] Patient assessment, examination and intervention [x] Medication orders and management [x] Patient/Family updates as able [x] Care Coordination and Documentation. Diagnoses Pancreatitis K85.90 Diabetic ketoacidosis E11.10
[2023-02-09 19:34] LABS: Glucose Point of Care 233 mg/dL (70-110)
[2023-02-09 20:46] LABS: Glucose Point of Care 258 mg/dL (70-110)
[2023-02-09] MEDS: fentaNYL 25 mcg Patch 1 PATCH TRANSDERMA (21:27)
[2023-02-09 21:37] LABS: Glucose Point of Care 247 mg/dL (70-110)
[2023-02-09 21:50] LABS: Blood Urea Nitrogen 10 mg/dL (6-20); Carbon Dioxide 27 mmol/L (22-29); Chloride 97 mmol/L (98-107); Glomerular Filtration Rate 153.3 mL/min (90-130); Glucose 276 mg/dL (65-115); Magnesium 1.6 mg/dL (1.7-2.3); Osmolality Calculated 287 mOsm/kg (285-295); Phosphorus 3.5 mg/dL (2.5-4.5); Sodium 134 mmol/L (136-145)
[2023-02-09 22:10] LABS: Anion Gap 14.1 (5-19); Potassium 4.1 mmol/L (3.5-5.1)
[2023-02-09] MEDS: magnesium sulfate premix 2 GM/50 ML PIGGYBACK IV (22:56)
[2023-02-09] MEDS: zolpidem 5 mg Tablet PO (22:56)
[2023-02-09 23:13] LABS: Glucose Point of Care 292 mg/dL (70-110)
[2023-02-10] VITALS (34 sets, daily range): BP systolic 130–181; BP diastolic 86–116; PULSE 80–101; RESP 12–24; TEMP 36.6–36.9; O2SAT 94–98
[2023-02-10] MEDS: lactulose oral liq 20 gm/30 mL UDC PO ×4 (00:10→17:17)
[2023-02-10 00:21] LABS: Glucose Point of Care 272 mg/dL (70-110)
[2023-02-10] MEDS: dextrose 10% 1,000 ML 75 ML IV (01:04)
[2023-02-10] MEDS: oxyCODONE 5 mg IR Tab/Cap 10 MG PO ×2 (01:09→15:10)
[2023-02-10 01:11] LABS: Glucose Point of Care 198 mg/dL (70-110)
--- NOTE | 2023-02-10 01:30 | PC.NURSE ---
D10/BP Dextrose 20% administering at 75 ml/hr until 0104 when the bag was completely infused. Dextrose 20% unable to be obtained at this time. Dr. Sanchez notified and order received to administer Dextrose 10% at 75 ml/hr as a maintenance fluid. See MAR for details. Dr. Sanchez also notified of patients elevated blood pressures ranging from 152-176 systolic and 86-113 diastolic; no additional orders received.
[2023-02-10 01:37] LABS: Blood Urea Nitrogen 9 mg/dL (6-20); Calcium 9.2 mg/dL (8.5-10.5); Carbon Dioxide 25 mmol/L (22-29); Chloride 98 mmol/L (98-107); Glomerular Filtration Rate 153.3 mL/min (90-130); Glucose 202 mg/dL (65-115); Magnesium 1.9 mg/dL (1.7-2.3); Osmolality Calculated 282 mOsm/kg (285-295); Phosphorus 3.7 mg/dL (2.5-4.5); Sodium 134 mmol/L (136-145)
[2023-02-10 01:39] LABS: Anion Gap 15.1 (5-19); Potassium 4.1 mmol/L (3.5-5.1)
[2023-02-10 02:14] LABS: Glucose Point of Care 200 mg/dL (70-110)
[2023-02-10 03:13] LABS: Glucose Point of Care 188 mg/dL (70-110)
[2023-02-10] MEDS: HYDROmorphone 1 mg/mL INJ 1 mL 2 MG IVP ×4 (03:30→12:04)
--- NOTE | 2023-02-10 03:30 | PC.NURSE ---
Blood sugar Patient's blood sugar 188 at 0306; insulin protocol stated to decrease insulin drip by 6 units/hr while insulin drip only running at 3.5 units/hr. Dr. Sanchez contacted and orders received to keep insulin drip at 1 unit/hr until protocol allows an increase in addition to increasing the D10 to 100 ml/hr. See MAR for details.
[2023-02-10 04:31] LABS: Glucose Point of Care 232 mg/dL (70-110)
[2023-02-10 05:09] LABS: Glucose Point of Care 290 mg/dL (70-110)
[2023-02-10 05:09] LABS: Glucose Point of Care > 600 mg/dL (70-110)
[2023-02-10 06:18] LABS: Glucose Point of Care 364 mg/dL (70-110)
[2023-02-10] MEDS: pantoprazole DR 40 mg Tablet PO (06:20)
[2023-02-10 06:38] LABS: Blood Urea Nitrogen 10 mg/dL (6-20); Calcium 8.9 mg/dL (8.5-10.5); Carbon Dioxide 26 mmol/L (22-29); Chloride 96 mmol/L (98-107); Glomerular Filtration Rate 153.3 mL/min (90-130); Glucose 356 mg/dL (65-115); Magnesium 1.6 mg/dL (1.7-2.3); Osmolality Calculated 289 mOsm/kg (285-295); Phosphorus 4.2 mg/dL (2.5-4.5); Sodium 133 mmol/L (136-145)
[2023-02-10 06:40] LABS: Anion Gap 15.9 (5-19); Potassium 4.9 mmol/L (3.5-5.1)
[2023-02-10] MEDS: magnesium sulfate premix 2 GM/50 ML PIGGYBACK IV (06:52)
[2023-02-10 06:58] LABS: Triglycerides 1800 mg/dL (0-150)
[2023-02-10 07:11] LABS: Glucose Point of Care 332 mg/dL (70-110)
[2023-02-10 07:14] LABS: LDL Cholesterol Direct 98 mg/dL (0-100)
[2023-02-10] MEDS: insulin regular-human 250 UNIT in sodium chloride 0.9% 250 ML 7 UNIT IV (08:11)
[2023-02-10] MEDS: fenofibrate 145 mg Tablet PO (08:12)
[2023-02-10] MEDS: fluoxetine 20 mg Capsule PO (08:12)
[2023-02-10 08:34] LABS: Glucose Point of Care 309 mg/dL (70-110)
[2023-02-10 09:21] LABS: Glucose Point of Care 258 mg/dL (70-110)
[2023-02-10 10:06] LABS: Blood Urea Nitrogen 10 mg/dL (6-20); Calcium 9.2 mg/dL (8.5-10.5); Carbon Dioxide 29 mmol/L (22-29); Chloride 96 mmol/L (98-107); Glomerular Filtration Rate 189.2 mL/min (90-130); Glucose 262 mg/dL (65-115); Osmolality Calculated 286 mOsm/kg (285-295); Phosphorus 3.2 mg/dL (2.5-4.5); Sodium 134 mmol/L (136-145)
[2023-02-10 10:11] LABS: Anion Gap 13.2 (5-19); Potassium 4.2 mmol/L (3.5-5.1)
[2023-02-10 10:18] LABS: Glucose Point of Care 288 mg/dL (70-110)
[2023-02-10 11:08] LABS: Glucose Point of Care 309 mg/dL (70-110)
[2023-02-10] MEDS: enoxaparin 40 mg/0.4 mL Syringe SUBCUT (12:04)
[2023-02-10 12:21] LABS: Glucose Point of Care 307 mg/dL (70-110)
[2023-02-10 13:25] LABS: Glucose Point of Care 257 mg/dL (70-110)
[2023-02-10] MEDS: amlodipine 5 mg Tablet PO (14:19)
[2023-02-10] MEDS: HYDROmorphone 1 mg/mL INJ 1 mL IVP ×3 (14:24→22:15)
[2023-02-10 15:08] LABS: Glucose Point of Care 242 mg/dL (70-110)
[2023-02-10 15:18] LABS: Glucose Point of Care 207 mg/dL (70-110)
--- NOTE | 2023-02-10 15:19 | PM.PN ---
Subjective Subjective: Pain has been gradually improving. Some discomfort after eating, but states it is okay to continue with regular consistency diet. Vitals/I&O/Wt Last Vital Signs Temp 98.0 F 02/10/23 08:00 Pulse 88 02/10/23 14:00 Resp 12 02/10/23 15:10 BP 181/100 02/10/23 14:00 Pulse Ox 96 02/10/23 15:10 O2 Del Method Room Air 02/10/23 14:00 02/10/23 02/10/23 02/10/23 06:59 14:59 22:59 Intake Total 757.502 / 4072.097 2995.758 / 1288.758 448.75 / 1737.508 Output Total 1600 / 3500 1200 / 1200 Balance -842.498 / -2106.066 88.758 / 88.758 448.75 / 537.508 Physical Exam Const: COMMON NORMALS: patient oriented x3 and alert GENERAL APPEARANCE: cooperative ORIENTATION/CONSCIOUSNESS: Yes awake HENMT: COMMON NORMALS: oropharynx normal Neck/C-Spine: COMMON NORMALS: no JVD Resp: COMMON NORMALS: normal respiratory effort and clear to auscultation bilaterally AUSCULTATION: clear to auscultation bilaterally Cardio: COMMON NORMALS: no JVD, regular rhythm, S1 normal heart sound present, S2 normal heart sound present and No murmurs present (Cardio) RHYTHM: regular rhythm HEART SOUNDS: S1 normal heart sound present and S2 normal heart sound present GI: COMMON NORMALS: Normal to inspection, nondistended, normoactive bowel sounds present and Soft to palpation PALPATION: Yes Soft to palpation and Yes Tenderness to palpation present (GI) OTHER: Improving abdominal tenderness. Extremity: COMMON NORMALS: no joint enlargement and no pedal edema Neuro: COMMON NORMALS: patient oriented x3 and moves all extremities SENSORIUM/ORIENTATION: Yes alert Skin: COMMON NORMALS: no rashes or lesions noted GENERAL SKIN EXAM: no rashes or lesions noted Data 02/06/23 09:58 02/10/23 09:44 A&P Assessment and plan (1) Pancreatitis: Noted this morning insulin rate decreased again down to 1 unit/h. Insulin rates reviewed. Discussed with nursing staff it appears that D20 had ran out overnight and he was switched to D10. This is available again this morning, changed back to D20. Currently back on insulin drip at 11 units/h. Reviewed CIRCULAR RIPSAW OPERATOR. Recheck BMP. Continue oral intake as tolerating. Liberalize diet to regular. Fenofibrate. Reviewed triglycerides, down to 1800, recheck in the morning. Pain has been improving, decreasing opioid requirement, decrease IV Dilaudid to 1 mg every 4 hours as needed. Continue oxycodone as needed. Discussed with him weaning off IV opioids with improving pain. Ketoacidosis resolved. Glucose on the low side, insulin drip rate needing to be decreased. Stop D5-half normal. D10 infusion. Continues on drip. Clear liquid diet. Follow-up chemistry requested. Reviewed lipase. Repeat triglycerides requested. Hypertriglyceridemia induced acute on chronic pancreatitis. continue insulin drip until TG level < 500 Still having severe breakthrough, requested increase Dilaudid dose, increase IV Dilaudid to 2 mg. Pain control with as needed? dilaudid alternating with IV Toradol. As needed Tylenol for pain and fever. As needed Zofran and reglan for nausea management. (2) Diabetic ketoacidosis: Resolved Plan DVt ppx: lovenox Attestations Medical Necessity Statement*: Continue admission for assessment management of severe hypertriglyceridemia complicated by pancreatitis. Coding Level of Care Code Critical Care >/= 30 minutes Critical care time (in minutes): 35 The high probability of a clinically significant, sudden or life threatening deterioration, as referenced in this documentation, required my full and direct attention, intervention and personal management. The critical care time shown is in addition to time spent performing any reported separately billable procedures and includes the following: [x] Data and vital sign review and interpretation [x] Patient assessment, examination and intervention [x] Medication orders and management [x] Patient/Family updates as able [x] Care Coordination and Documentation. Diagnoses Pancreatitis K85.90 Diabetic ketoacidosis E11.10
[2023-02-10] MEDS: ondansetron 2 mg/ML SDV 2 mL 4 MG IVP ×2 (16:16→22:15)
[2023-02-10 16:24] LABS: Glucose Point of Care 210 mg/dL (70-110)
[2023-02-10 16:36] LABS: Blood Urea Nitrogen 9 mg/dL (6-20); Calcium 9.3 mg/dL (8.5-10.5); Carbon Dioxide 28 mmol/L (22-29); Chloride 96 mmol/L (98-107); Glomerular Filtration Rate 189.2 mL/min (90-130); Glucose 205 mg/dL (65-115); Osmolality Calculated 283 mOsm/kg (285-295); Sodium 134 mmol/L (136-145)
[2023-02-10 16:51] LABS: Anion Gap 14.2 (5-19); Potassium 4.2 mmol/L (3.5-5.1)
[2023-02-10 17:44] LABS: Glucose Point of Care 210 mg/dL (70-110)
--- NOTE | 2023-02-10 18:03 | PC.NURSE ---
Shift SUmmary: Uneventful shift. Patient remains on insulin drip for high triglycerides, per protocol has been around 10-12 units/hr while receiving D20. Pain medication decreased due to better pain control and less discomfort with meals, though it is still needed at times. Patient has had 2 large bowel movements today, first since arrival.
[2023-02-10 18:38] LABS: Glucose Point of Care 248 mg/dL (70-110)
[2023-02-10 19:28] LABS: Glucose Point of Care 240 mg/dL (70-110)
[2023-02-10] MEDS: acetaminophen 325 mg Tablet 650 MG PO (19:31)
[2023-02-10 20:13] LABS: Blood Urea Nitrogen 9 mg/dL (6-20); Calcium 8.8 mg/dL (8.5-10.5); Carbon Dioxide 25 mmol/L (22-29); Chloride 97 mmol/L (98-107); Glomerular Filtration Rate 153.3 mL/min (90-130); Glucose 245 mg/dL (65-115); Magnesium 1.7 mg/dL (1.7-2.3); Osmolality Calculated 285 mOsm/kg (285-295); Phosphorus 3.1 mg/dL (2.5-4.5); Sodium 134 mmol/L (136-145)
[2023-02-10 20:15] LABS: Anion Gap 16.3 (5-19); Potassium 4.3 mmol/L (3.5-5.1)
[2023-02-10 20:47] LABS: Glucose Point of Care 284 mg/dL (70-110)
[2023-02-10 21:52] LABS: Glucose Point of Care 234 mg/dL (70-110)
[2023-02-10 22:32] LABS: Glucose Point of Care 288 mg/dL (70-110)
--- NOTE | 2023-02-10 22:45 | PC.NURSE ---
Pain Patient complaining of severe pain at 2129. No pain medication to be administered per timing of last administrations. Dr. Sanchez contacted and order received to increase oxycodone IR frequency from 10 mg Q8H to Q4H. See MAR for details.
[2023-02-10 23:32] LABS: Glucose Point of Care 272 mg/dL (70-110)
[2023-02-10] MEDS: zolpidem 5 mg Tablet PO (23:52)
[2023-02-11] VITALS (30 sets, daily range): BP systolic 123–173; BP diastolic 65–115; PULSE 79–103; RESP 11–21; TEMP 36.6–37.2; O2SAT 94–98; BMI 31.6
[2023-02-11 00:28] LABS: Blood Urea Nitrogen 11 mg/dL (6-20); Calcium 8.9 mg/dL (8.5-10.5); Carbon Dioxide 26 mmol/L (22-29); Chloride 96 mmol/L (98-107); Glomerular Filtration Rate 189.2 mL/min (90-130); Glucose 293 mg/dL (65-115); Magnesium 1.6 mg/dL (1.7-2.3); Osmolality Calculated 286 mOsm/kg (285-295); Phosphorus 3.2 mg/dL (2.5-4.5); Sodium 133 mmol/L (136-145)
[2023-02-11 00:37] LABS: Anion Gap 15.1 (5-19); Potassium 4.1 mmol/L (3.5-5.1)
[2023-02-11] MEDS: oxyCODONE 5 mg IR Tab/Cap 10 MG PO ×4 (00:43→22:19)
[2023-02-11] MEDS: magnesium sulfate premix 2 GM/50 ML PIGGYBACK IV (00:48)
[2023-02-11 00:56] LABS: Glucose Point of Care 329 mg/dL (70-110)
[2023-02-11 02:02] LABS: Glucose Point of Care 244 mg/dL (70-110)
[2023-02-11 02:57] LABS: Glucose Point of Care 269 mg/dL (70-110)
[2023-02-11 03:49] LABS: Glucose Point of Care 237 mg/dL (70-110)
[2023-02-11 04:35] LABS: Glucose Point of Care 245 mg/dL (70-110)
[2023-02-11 05:44] LABS: Glucose Point of Care 194 mg/dL (70-110)
[2023-02-11] MEDS: pantoprazole DR 40 mg Tablet PO (05:49)
[2023-02-11] MEDS: HYDROmorphone 1 mg/mL INJ 1 mL IVP ×3 (05:49→20:10)
[2023-02-11 06:16] LABS: Blood Urea Nitrogen 11 mg/dL (6-20); Calcium 8.8 mg/dL (8.5-10.5); Carbon Dioxide 24 mmol/L (22-29); Chloride 99 mmol/L (98-107); Glomerular Filtration Rate 189.2 mL/min (90-130); Glucose 192 mg/dL (65-115); Magnesium 1.9 mg/dL (1.7-2.3); Osmolality Calculated 281 mOsm/kg (285-295); Phosphorus 3.3 mg/dL (2.5-4.5); Sodium 133 mmol/L (136-145)
[2023-02-11 06:20] LABS: Anion Gap 14.1 (5-19); Potassium 4.1 mmol/L (3.5-5.1)
[2023-02-11 06:27] LABS: Triglycerides 1594 mg/dL (0-150)
[2023-02-11 06:40] LABS: LDL Cholesterol Direct 100 mg/dL (0-100)
[2023-02-11 06:51] LABS: Glucose Point of Care 164 mg/dL (70-110)
[2023-02-11] MEDS: insulin regular-human 250 UNIT in sodium chloride 0.9% 250 ML IV (07:35)
[2023-02-11 07:43] LABS: Glucose Point of Care 220 mg/dL (70-110)
[2023-02-11] MEDS: amlodipine 5 mg Tablet PO (08:08)
[2023-02-11] MEDS: fluoxetine 20 mg Capsule PO (08:09)
[2023-02-11] MEDS: fenofibrate 145 mg Tablet PO (08:09)
[2023-02-11 08:50] LABS: Glucose Point of Care 327 mg/dL (70-110)
[2023-02-11 09:43] LABS: Glucose Point of Care 284 mg/dL (70-110)
[2023-02-11 10:49] LABS: Glucose Point of Care 290 mg/dL (70-110)
[2023-02-11] MEDS: enoxaparin 40 mg/0.4 mL Syringe SUBCUT (11:43)
[2023-02-11 11:54] LABS: Glucose Point of Care 261 mg/dL (70-110)
[2023-02-11] MEDS: ondansetron 2 mg/ML SDV 2 mL 4 MG IVP (13:07)
[2023-02-11 14:13] LABS: Glucose Point of Care 330 mg/dL (70-110)
[2023-02-11 14:36] LABS: Glucose Point of Care 347 mg/dL (70-110)
[2023-02-11 15:15] LABS: Glucose Point of Care 258 mg/dL (70-110)
--- NOTE | 2023-02-11 15:15 | PM.PN ---
Subjective Subjective: Reporting his symptoms are continuing to improve. Tolerating oral intake. Vitals/I&O/Wt Last Vital Signs Temp 98.2 F 02/11/23 13:00 Pulse 92 02/11/23 14:00 Resp 15 02/11/23 15:11 BP 145/93 02/11/23 14:00 Pulse Ox 98 02/11/23 15:11 O2 Del Method Room Air 02/11/23 14:00 02/11/23 02/11/23 02/11/23 06:59 14:59 22:59 Intake Total 1649.683 / 3994.583 540.316 / 540.316 9.9 / 550.216 Output Total 2125 / 3325 1100 / 1100 550 / 1650 Balance -475.317 / 669.583 -559.684 / -559.684 -540.1 / -1099.784 Weight last 48 hrs Weight 102.965 kg Physical Exam Const: COMMON NORMALS: patient oriented x3 and alert GENERAL APPEARANCE: cooperative ORIENTATION/CONSCIOUSNESS: Yes awake HENMT: COMMON NORMALS: oropharynx normal Neck/C-Spine: COMMON NORMALS: no JVD Resp: COMMON NORMALS: normal respiratory effort and clear to auscultation bilaterally AUSCULTATION: clear to auscultation bilaterally Cardio: COMMON NORMALS: no JVD, regular rhythm, S1 normal heart sound present, S2 normal heart sound present and No murmurs present (Cardio) RHYTHM: regular rhythm HEART SOUNDS: S1 normal heart sound present and S2 normal heart sound present GI: COMMON NORMALS: Normal to inspection, nondistended, normoactive bowel sounds present and Soft to palpation PALPATION: Yes Soft to palpation and Yes Tenderness to palpation present (GI) OTHER: Improving abdominal tenderness. Extremity: COMMON NORMALS: no joint enlargement and no pedal edema Neuro: COMMON NORMALS: patient oriented x3 and moves all extremities SENSORIUM/ORIENTATION: Yes alert Skin: COMMON NORMALS: no rashes or lesions noted GENERAL SKIN EXAM: no rashes or lesions noted Data 02/06/23 09:58 02/11/23 05:30 A&P Assessment and plan (1) Pancreatitis: Reviewed vitals, BMP, magnesium, triglycerides. MSR's continue to improve, continue insulin drip, still significantly elevated up to 1600 with risk of recurrence of pancreatitis. Target less than 500. Continue D 20 infusion. Risk of fluid overload, hyperglycemia. Monitor glucose, volume status. Reassess chemistry with risk of electrolyte normality. Symptoms gradually improving. Decreased Dilaudid dose. Continues to require IV Dilaudid but less and less frequently. Continue to taper down as Continue oral intake as tolerating. Liberalized diet to regular. Fenofibrate. Discussed with hospice case manager. Ketoacidosis resolved. Glucose on the low side, insulin drip rate needing to be decreased. Stop D5-half normal. D10 infusion. Continues on drip. Clear liquid diet. Follow-up chemistry requested. Reviewed lipase. Repeat triglycerides requested. Hypertriglyceridemia induced acute on chronic pancreatitis. continue insulin drip until TG level < 500 Still having severe breakthrough, requested increase Dilaudid dose, increase IV Dilaudid to 2 mg. Pain control with as needed? dilaudid alternating with IV Toradol. As needed Tylenol for pain and fever. As needed Zofran and reglan for nausea management. (2) Diabetic ketoacidosis: Resolved Plan DVt ppx: lovenox Attestations Medical Necessity Statement*: Continue admission for assessment management of severe hypertriglyceridemia, pancreatitis. Diagnoses Pancreatitis K85.90 Diabetic ketoacidosis E11.10
[2023-02-11 16:07] LABS: Blood Urea Nitrogen 10 mg/dL (6-20); Calcium 9.2 mg/dL (8.5-10.5); Carbon Dioxide 27 mmol/L (22-29); Chloride 95 mmol/L (98-107); Glomerular Filtration Rate 189.2 mL/min (90-130); Glucose 241 mg/dL (65-115); Osmolality Calculated 277 mOsm/kg (285-295); Sodium 130 mmol/L (136-145)
[2023-02-11 16:11] LABS: Anion Gap 12.4 (5-19); Potassium 4.4 mmol/L (3.5-5.1)
[2023-02-11 17:17] LABS: Glucose Point of Care 233 mg/dL (70-110)
[2023-02-11 17:20] LABS: Glucose Point of Care 332 mg/dL (70-110)
--- NOTE | 2023-02-11 19:10 | PC.NURSE ---
SHift SUmmary: uneventful shift. Patient received medications as ordered. Morning labs scheduled.
[2023-02-11 19:12] LABS: Glucose Point of Care 334 mg/dL (70-110)
[2023-02-11 20:14] LABS: Glucose Point of Care 341 mg/dL (70-110)
[2023-02-11 21:10] LABS: Glucose Point of Care 265 mg/dL (70-110)
[2023-02-11] MEDS: acetaminophen 325 mg Tablet 650 MG PO (21:21)
[2023-02-11 22:17] LABS: Glucose Point of Care 275 mg/dL (70-110)
[2023-02-11] MEDS: zolpidem 5 mg Tablet PO (22:19)
[2023-02-11 22:21] LABS: Blood Urea Nitrogen 11 mg/dL (6-20); Calcium 9.3 mg/dL (8.5-10.5); Carbon Dioxide 26 mmol/L (22-29); Chloride 95 mmol/L (98-107); Glomerular Filtration Rate 153.3 mL/min (90-130); Glucose 288 mg/dL (65-115); Magnesium 1.7 mg/dL (1.7-2.3); Osmolality Calculated 288 mOsm/kg (285-295); Phosphorus 3.2 mg/dL (2.5-4.5); Sodium 134 mmol/L (136-145)
[2023-02-11 22:22] LABS: Anion Gap 17.5 (5-19); Potassium 4.5 mmol/L (3.5-5.1)
[2023-02-11 23:16] LABS: Glucose Point of Care 256 mg/dL (70-110)
[2023-02-12] VITALS (27 sets, daily range): BP systolic 139–166; BP diastolic 78–113; PULSE 79–117; RESP 12–22; TEMP 36.7; O2SAT 95–98; BMI 31.6
[2023-02-12 00:21] LABS: Glucose Point of Care 293 mg/dL (70-110)
[2023-02-12 01:45] LABS: Glucose Point of Care 273 mg/dL (70-110)
[2023-02-12 02:08] LABS: Blood Urea Nitrogen 10 mg/dL (6-20); Calcium 9.1 mg/dL (8.5-10.5); Carbon Dioxide 27 mmol/L (22-29); Chloride 96 mmol/L (98-107); Glomerular Filtration Rate 153.3 mL/min (90-130); Glucose 271 mg/dL (65-115); Magnesium 1.7 mg/dL (1.7-2.3); Osmolality Calculated 283 mOsm/kg (285-295); Phosphorus 2.9 mg/dL (2.5-4.5); Sodium 132 mmol/L (136-145)
[2023-02-12 02:09] LABS: Anion Gap 13.1 (5-19); Potassium 4.1 mmol/L (3.5-5.1)
[2023-02-12 02:36] LABS: Glucose Point of Care 247 mg/dL (70-110)
[2023-02-12 03:37] LABS: Glucose Point of Care 177 mg/dL (70-110)
[2023-02-12 04:49] LABS: Glucose Point of Care 212 mg/dL (70-110)
[2023-02-12] MEDS: HYDROmorphone 1 mg/mL INJ 1 mL IVP ×5 (04:51→23:15)
--- NOTE | 2023-02-12 05:23 | PC.NURSE ---
Insulin New insulin bag administering at 0445; verified with SABRINA Oviedo and SABRINA Hewitt.
[2023-02-12] MEDS: pantoprazole DR 40 mg Tablet PO (05:54)
[2023-02-12] MEDS: insulin regular-human 250 UNIT in sodium chloride 0.9% 250 ML 9 UNIT IV (06:04)
[2023-02-12 06:19] LABS: Glucose Point of Care 177 mg/dL (70-110)
[2023-02-12 06:35] LABS: Phosphorus 3.8 mg/dL (2.5-4.5)
[2023-02-12 07:00] LABS: Blood Urea Nitrogen 9 mg/dL (6-20); Calcium 9.2 mg/dL (8.5-10.5); Carbon Dioxide 28 mmol/L (22-29); Chloride 98 mmol/L (98-107); Glomerular Filtration Rate 189.2 mL/min (90-130); Glucose 184 mg/dL (65-115); Osmolality Calculated 283 mOsm/kg (285-295); Sodium 135 mmol/L (136-145)
[2023-02-12 07:01] LABS: Anion Gap 12.9 (5-19); Potassium 3.9 mmol/L (3.5-5.1)
[2023-02-12 07:12] LABS: Magnesium 1.7 mg/dL (1.7-2.3)
[2023-02-12 07:35] LABS: Glucose Point of Care 162 mg/dL (70-110)
[2023-02-12 07:40] LABS: Triglycerides 1315 mg/dL (0-150)
[2023-02-12 08:06] LABS: LDL Cholesterol Direct 102 mg/dL (0-100)
[2023-02-12] MEDS: fenofibrate 145 mg Tablet PO (08:26)
[2023-02-12] MEDS: amlodipine 5 mg Tablet PO (08:26)
[2023-02-12] MEDS: fluoxetine 20 mg Capsule PO (08:26)
[2023-02-12] MEDS: magnesium sulfate premix 2 GM/50 ML PIGGYBACK IV (09:43)
[2023-02-12 10:20] LABS: Glucose Point of Care 147 mg/dL (70-110)
[2023-02-12] MEDS: enoxaparin 40 mg/0.4 mL Syringe SUBCUT (12:00)
[2023-02-12 12:06] LABS: Glucose Point of Care 172 mg/dL (70-110)
[2023-02-12 17:15] LABS: Glucose Point of Care 242 mg/dL (70-110)
[2023-02-12 20:00] LABS: Glucose Point of Care 312 mg/dL (70-110)
--- NOTE | 2023-02-12 21:41 | PC.NURSE ---
Patient's blood glucose is 380 per his dexcom.
--- NOTE | 2023-02-12 22:27 | PM.PN ---
Subjective Subjective: Reports she is continuing to improve. Vitals/I&O/Wt Last Vital Signs Temp 98.1 F 02/12/23 03:00 Pulse 113 H 02/12/23 18:00 Resp 17 02/12/23 18:56 BP 161/99 02/12/23 18:00 Pulse Ox 95 02/12/23 18:56 O2 Del Method Room Air 02/12/23 03:00 02/12/23 02/12/23 02/12/23 06:59 14:59 22:59 Intake Total 1298.659 / 2452.500 1000 / 1000 628.05 / 1628.05 Output Total 725 / 2375 Balance 573.659 / 77.500 1000 / 1000 628.05 / 1628.05 Weight last 48 hrs Weight 102.965 kg Weight 102.965 kg Weight 102.965 kg Physical Exam Const: COMMON NORMALS: patient oriented x3 and alert GENERAL APPEARANCE: cooperative ORIENTATION/CONSCIOUSNESS: Yes awake HENMT: COMMON NORMALS: oropharynx normal Neck/C-Spine: COMMON NORMALS: no JVD Resp: COMMON NORMALS: normal respiratory effort and clear to auscultation bilaterally AUSCULTATION: clear to auscultation bilaterally Cardio: COMMON NORMALS: no JVD, regular rhythm, S1 normal heart sound present, S2 normal heart sound present and No murmurs present (Cardio) RHYTHM: regular rhythm HEART SOUNDS: S1 normal heart sound present and S2 normal heart sound present GI: COMMON NORMALS: Normal to inspection, nondistended, normoactive bowel sounds present and Soft to palpation PALPATION: Yes Soft to palpation and Yes Tenderness to palpation present (GI) OTHER: Improving abdominal tenderness. Extremity: COMMON NORMALS: no joint enlargement and no pedal edema Neuro: COMMON NORMALS: patient oriented x3 and moves all extremities SENSORIUM/ORIENTATION: Yes alert Skin: COMMON NORMALS: no rashes or lesions noted GENERAL SKIN EXAM: no rashes or lesions noted Data 02/06/23 09:58 02/12/23 06:00 A&P Assessment and plan (1) Pancreatitis: Symptoms gradually improving, triglycerides are trending down. Continue insulin drip for severe hypertriglyceridemia and risk of recurrence of pancreatitis. Risk of electrolyte abnormality with insulin drip, reviewed chemistry, magnesium. Magnesium replaced. Follow-up chemistry and magnesium levels requested. Pain has been improving but still requiring IV Hydromorphone, wean down as possible. Will renew oxycodone. Target less than 500. Continue D 20 infusion. Risk of fluid overload, hyperglycemia. Monitor glucose, volume status. Reassess chemistry with risk of electrolyte normality. Symptoms gradually improving. Decreased Dilaudid dose. Continues to require IV Dilaudid but less and less frequently. Continue to taper down as Continue oral intake as tolerating. Liberalized diet to regular. Fenofibrate. Discussed with transplant case manager. Ketoacidosis resolved. Glucose on the low side, insulin drip rate needing to be decreased. Stop D5-half normal. D10 infusion. Continues on drip. Clear liquid diet. Follow-up chemistry requested. Reviewed lipase. Repeat triglycerides requested. Hypertriglyceridemia induced acute on chronic pancreatitis. continue insulin drip until TG level < 500 Still having severe breakthrough, requested increase Dilaudid dose, increase IV Dilaudid to 2 mg. Pain control with as needed? dilaudid alternating with IV Toradol. As needed Tylenol for pain and fever. As needed Zofran and reglan for nausea management. (2) Diabetic ketoacidosis: Resolved Plan DVt ppx: lovenox Attestations Medical Necessity Statement*: Continue admission for assessment management of severe hypertriglyceridemia, pancreatitis. and High MDM includes number and complexity of problems actively addressed during encounter and described risk of complication, morbidity or mortality of management as documented Diagnoses Pancreatitis K85.90 Diabetic ketoacidosis E11.10
[2023-02-12 22:40] LABS: Glucose Point of Care 322 mg/dL (70-110)
[2023-02-12] MEDS: lactulose oral liq 20 gm/30 mL UDC PO (23:15)
[2023-02-12] MEDS: zolpidem 5 mg Tablet PO (23:16)
[2023-02-12 23:47] LABS: Glucose Point of Care 315 mg/dL (70-110)
[2023-02-13] VITALS (29 sets, daily range): BP systolic 108–175; BP diastolic 53–112; PULSE 83–108; RESP 11–26; TEMP 36.2–37; O2SAT 93–97; BMI 31.6
[2023-02-13 01:10] LABS: Glucose Point of Care 206 mg/dL (70-110)
[2023-02-13 03:21] LABS: Glucose Point of Care 254 mg/dL (70-110)
[2023-02-13] MEDS: oxyCODONE 5 mg IR Tab/Cap 10 MG PO ×2 (03:22→21:03)
--- NOTE | 2023-02-13 04:14 | PC.NURSE ---
Patient wears a dexcom and we have checked it throughout the night. Dexcom numbers correspond well with our accucheck machines. Adittional reading not charted elsewhere are 380 @ 2100, 206 @ [place], 254 @ 1745.
[2023-02-13 04:37] LABS: Blood Urea Nitrogen 8 mg/dL (6-20); Carbon Dioxide 24 mmol/L (22-29); Chloride 95 mmol/L (98-107); Glomerular Filtration Rate 153.3 mL/min (90-130); Glucose 244 mg/dL (65-115); Osmolality Calculated 280 mOsm/kg (285-295); Sodium 132 mmol/L (136-145)
[2023-02-13 04:43] LABS: Anion Gap 16.8 (5-19); Potassium 3.8 mmol/L (3.5-5.1)
[2023-02-13] MEDS: lactulose oral liq 20 gm/30 mL UDC PO ×2 (05:01→22:47)
[2023-02-13] MEDS: pantoprazole DR 40 mg Tablet PO (05:01)
[2023-02-13] MEDS: HYDROmorphone 1 mg/mL INJ 1 mL IVP ×5 (05:01→22:28)
[2023-02-13 05:14] LABS: Glucose Point of Care 198 mg/dL (70-110)
[2023-02-13 06:09] LABS: Triglycerides 1885 mg/dL (0-150)
--- NOTE | 2023-02-13 06:15 | PC.NURSE ---
Contacted pharmacy to obtain another bag of 20% Dextrose for infusion. Spoke with Jerad, who stated it was not available in [facility] and he would contact the hospitalist pn duty. Call from Jerad stated hospitalist said tofinish this bag and contact patient's physician this am. Patient's blood sugar is 162 per his Dexcom.
[2023-02-13 06:30] LABS: LDL Cholesterol Direct 98 mg/dL (0-100)
--- NOTE | 2023-02-13 06:34 | PC.NURSE ---
Per Insulin protocol patient's insulin infusion should be decreased by 8U. Current rate of insulin is 6.5ml. Decrease infusion to 1ml/hr. Sent msg to daytime hospitalist
[2023-02-13] MEDS: fenofibrate 145 mg Tablet PO (08:24)
[2023-02-13] MEDS: fluoxetine 20 mg Capsule PO (08:24)
[2023-02-13] MEDS: amlodipine 5 mg Tablet PO (08:24)
[2023-02-13 08:34] LABS: Glucose Point of Care 202 mg/dL (70-110)
[2023-02-13 08:36] LABS: Basophils # 0.1 10^3/uL (0.0-0.1); Eosinophils # 0.3 10^3/uL (0.0-0.8); Eosinophils % 3.6 %; Hematocrit 41.2 % (37-53); Mean Corpuscular HGB Conc 33.3 g/dL (30-55); Mean Corpuscular Hemoglobin 27.5 pg (27-33); Mean Corpuscular Volume 82.6 fl (82-101); Mean Platelet Volume 11.7 fL (7.4-10.4); Monocytes # 0.5 10^3/uL (0.2-0.9); Monocytes % 6.2 %; Neutrophils # 3.27 10^3/uL (1.8-7.7); Neutrophils % 45.4 %; Nucleated Red Blood Cells % 0 %; Platelet Count 169 10^3/cmm (157-399); Red Blood Count 4.99 10^6/uL (3.85-5.65); Red Cell Distribution Width 12.6 % (12.1-15.1); White Blood Count 7.21 10^3/uL (3.29-11.43)
[2023-02-13 08:50] LABS: INR 1.03 (0.8-1.2)
[2023-02-13 10:43] LABS: Glucose Point of Care 300 mg/dL (70-110)
[2023-02-13] MEDS: enoxaparin 40 mg/0.4 mL Syringe SUBCUT (11:54)
[2023-02-13 12:01] LABS: Glucose Point of Care 242 mg/dL (70-110)
[2023-02-13 14:01] LABS: Glucose Point of Care 281 mg/dL (70-110)
[2023-02-13] MEDS: heparin 5,000 unit/mL INJ 1 mL IV (15:41)
[2023-02-13] MEDS: heparin drip 25,000 UNIT/500 ML PREMIX 28.83 UNIT IV (15:46)
[2023-02-13 16:24] LABS: Glucose Point of Care 355 mg/dL (70-110)
[2023-02-13 17:12] LABS: Glucose Point of Care 429 mg/dL (70-110)
[2023-02-13] MEDS: insulin regular-human 250 UNIT in sodium chloride 0.9% 250 ML 10 UNIT IV (17:46)
[2023-02-13 18:34] LABS: Glucose Point of Care 331 mg/dL (70-110)
[2023-02-13 19:44] LABS: Glucose Point of Care 379 mg/dL (70-110)
[2023-02-13 20:46] LABS: Glucose Point of Care 274 mg/dL (70-110)
[2023-02-13] MEDS: zolpidem 5 mg Tablet PO (21:00)
[2023-02-13 21:36] LABS: Partial Thromboplastin Time 36.6 SECONDS (23.9-36.7)
[2023-02-13 22:07] LABS: Glucose Point of Care 171 mg/dL (70-110)
--- NOTE | 2023-02-13 22:58 | P.PN_ITS ---
Subjective Subjective: Symptomatically he states he is doing well, no change in symptoms. Tolerating oral intake. Vitals/I&O/Wt Last Vital Signs Temp 98.6 F 02/13/23 12:00 Pulse 101 H 02/13/23 22:00 Resp 16 02/13/23 22:28 BP 161/92 02/13/23 22:00 Pulse Ox 94 02/13/23 22:00 O2 Del Method Room Air 02/13/23 18:00 02/13/23 02/13/23 02/13/23 06:59 14:59 22:59 Intake Total 819.681 / 2687.731 370.801 / 370.801 744.411 / 1115.212 Output Total 640 / 2760 1200 / 1200 Balance 179.681 / -72.269 370.801 / 370.801 -455.589 / -84.788 Weight last 48 hrs Weight 102.965 kg Weight 102.965 kg Physical Exam Const: COMMON NORMALS: patient oriented x3 and alert GENERAL APPEARANCE: cooperative ORIENTATION/CONSCIOUSNESS: Yes awake HENMT: COMMON NORMALS: oropharynx normal Neck/C-Spine: COMMON NORMALS: no JVD Resp: COMMON NORMALS: normal respiratory effort and clear to auscultation bilaterally AUSCULTATION: clear to auscultation bilaterally Cardio: COMMON NORMALS: no JVD, regular rhythm, S1 normal heart sound present, S2 normal heart sound present and No murmurs present (Cardio) RHYTHM: regular rhythm HEART SOUNDS: S1 normal heart sound present and S2 normal heart sound present GI: COMMON NORMALS: Normal to inspection, nondistended, normoactive bowel stacy nds present and Soft to palpation PALPATION: Yes Soft to palpation and Yes Tenderness to palpation present (GI) OTHER: Improving abdominal tenderness. Extremity: COMMON NORMALS: no joint enlargement and no pedal edema Neuro: COMMON NORMALS: patient oriented x3 and moves all extremities SENSORIUM/ORIENTATION: Yes alert Skin: COMMON NORMALS: no rashes or lesions noted GENERAL SKIN EXAM: no rashes or lesions noted Data 02/13/23 08:24 02/13/23 03:17 A&P Assessment and plan (1) Pancreatitis: Reviewed CBC, chemistry panel, glucose, insulin rate. He has not been able to maintain good insulin rates and progressive decrease in triglycerides with D 20 infusion, but notedInsulin rate decreased in the morning as overnightsupply of D20 had run out and was not exchanged with another solution. Noted worsened severe hypertriglyceridemia this morning. Discussed with him alternative strategy with heparin drip, he is agreeable. Discussed risks of bleeding, need for monitoring of level of anticoagulation. Partial supply of the 20 established for part of the day today, resumed, continue insulin drip. Hopefully more may be obtained as tomorrow is a business day. Recheck triglycerides. Chemistry. magnesium. Symptoms gradually improving. Pain has been improving but still requiring IV Hydromorphone, wean down as possible. renewed oxycodone. Target less than 500. Continue D 20 infusion. Risk of fluid overload, hyperglycemia. Monitor glucose, volume status. Reassess chemistry with risk of electrolyte normality. Symptoms gradually improving. Decreased Dilaudid dose. Continues to require IV Dilaudid but less and less frequently. Continue to taper down as Continue oral intake as tolerating. Liberalized diet to regular. Fenofibrate. Ketoacidosis resolved. Glucose on the low side, insulin drip rate needing to be decreased. Stop D5- half normal. D10 infusion. Continues on drip. Clear liquid diet. Follow-up chemistry requested. Repeat triglycerides requested. Hypertriglyceridemia induced acute on chronic pancreatitis. continue insulin drip until TG level < 500 Pain control with as needed? dilaudid alternating with IV Toradol. As needed Tylenol for pain and fever. As needed Zofran and reglan for nausea management. (2) Diabetic ketoacidosis: Resolved Plan DVt ppx: lovenox Attestations Medical Necessity Statement*: Continue admission for assessment management of worsened hypertriglyceridemia, risk of recurrent pancreatitis. Coding Level of Care Code Critical Care >/= 30 minutes Critical care time (in minutes): 35 The high probability of a clinically significant, sudden or life threatening deterioration, as referenced in this documentation, required my full and direct attention, intervention and personal management. The critical care time shown is in addition to time spent performing any reported separately billable procedures and includes the following: [x] Data and vital sign review and interpretation [x ] Patient assessment, examination and intervention [x] Medication orders and management [x] Patient/Family updates as able [x] Care Coordination and Documentation. Diagnoses Pancreatitis K85.90 Diabetic ketoacidosis E11.10
[2023-02-13 23:23] LABS: Glucose Point of Care 164 mg/dL (70-110)
[2023-02-13 23:24] LABS: Glucose Point of Care 223 mg/dL (70-110)
[2023-02-14] VITALS (28 sets, daily range): BP systolic 133–165; BP diastolic 83–99; PULSE 84–109; RESP 12–21; TEMP 36.6–37.1; O2SAT 93–98
[2023-02-14 00:19] LABS: Glucose Point of Care 200 mg/dL (70-110)
[2023-02-14 02:00] LABS: Glucose Point of Care 358 mg/dL (70-110)
[2023-02-14] MEDS: HYDROmorphone 1 mg/mL INJ 1 mL IVP ×5 (02:24→21:22)
[2023-02-14 03:04] LABS: Glucose Point of Care 324 mg/dL (70-110)
[2023-02-14 04:04] LABS: Glucose Point of Care 320 mg/dL (70-110)
[2023-02-14 04:04] LABS: Glucose Point of Care 264 mg/dL (70-110)
[2023-02-14 04:37] LABS: Basophils # 0.1 10^3/uL (0.0-0.1); Basophils % 0.9 %; Eosinophils # 0.3 10^3/uL (0.0-0.8); Eosinophils % 3.8 %; Hematocrit 39.6 % (37-53); Lymphocytes # 3.4 10^3/uL (0.8-4.8); Lymphocytes % 42.1 %; Mean Corpuscular HGB Conc 34.6 g/dL (30-55); Mean Corpuscular Hemoglobin 28.5 pg (27-33); Mean Corpuscular Volume 82.3 fl (82-101); Mean Platelet Volume 12.5 fL (7.4-10.4); Monocytes # 0.4 10^3/uL (0.2-0.9); Monocytes % 5.4 %; Neutrophils # 3.75 10^3/uL (1.8-7.7); Neutrophils % 45.7 %; Nucleated Red Blood Cells % 0 %; Platelet Count 195 10^3/cmm (157-399); Red Blood Count 4.81 10^6/uL (3.85-5.65); Red Cell Distribution Width 12.3 % (12.1-15.1); White Blood Count 8.18 10^3/uL (3.29-11.43)
[2023-02-14 04:53] LABS: Albumin Level 3.6 g/dL (3.5-5.2); Alkaline Phosphatase 75 U/L (40-130); Blood Urea Nitrogen 13 mg/dL (6-20); Calcium 8.8 mg/dL (8.5-10.5); Carbon Dioxide 22 mmol/L (22-29); Chloride 92 mmol/L (98-107); Glomerular Filtration Rate 128.3 mL/min (90-130); Glucose 295 mg/dL (65-115); Osmolality Calculated 281 mOsm/kg (285-295); Sodium 130 mmol/L (136-145); Total Bilirubin 0.3 mg/dL (0.15-1.2); Total Protein 6.6 g/dL (6.6-8.7)
[2023-02-14 04:56] LABS: Anion Gap 20.3 (5-19); Potassium 4.3 mmol/L (3.5-5.1)
[2023-02-14 05:01] LABS: Glucose Point of Care 318 mg/dL (70-110)
[2023-02-14 05:05] LABS: Triglycerides 1746 mg/dL (0-150)
[2023-02-14 05:08] LABS: Alanine Aminotransferase < 5 U/L (0-41); Aspartate Amino Transferase 5 U/L (0-40)
[2023-02-14] MEDS: lactulose oral liq 20 gm/30 mL UDC PO ×2 (05:14→22:47)
[2023-02-14] MEDS: pantoprazole DR 40 mg Tablet PO (05:14)
[2023-02-14 06:01] LABS: Glucose Point of Care 314 mg/dL (70-110)
[2023-02-14 06:08] LABS: Partial Thromboplastin Time 41.8 SECONDS (23.9-36.7)
[2023-02-14 06:48] LABS: Magnesium 1.6 mg/dL (1.7-2.3)
[2023-02-14 06:59] LABS: Glucose Point of Care 274 mg/dL (70-110)
[2023-02-14 07:30] LABS: Glucose Point of Care 280 mg/dL (70-110)
[2023-02-14] MEDS: fenofibrate 145 mg Tablet PO (08:20)
[2023-02-14] MEDS: oxyCODONE 5 mg IR Tab/Cap 10 MG PO ×2 (08:20→16:13)
[2023-02-14] MEDS: amlodipine 5 mg Tablet PO (08:20)
[2023-02-14] MEDS: fluoxetine 20 mg Capsule PO (08:20)
[2023-02-14] MEDS: heparin drip 25,000 UNIT/500 ML PREMIX 36 UNIT IV (08:21)
[2023-02-14 09:47] LABS: Glucose Point of Care 256 mg/dL (70-110)
[2023-02-14 10:07] LABS: Glucose Point of Care 197 mg/dL (70-110)
[2023-02-14 11:10] LABS: Glucose Point of Care 206 mg/dL (70-110)
[2023-02-14] MEDS: atorvastatin 40 mg Tablet 80 MG PO (12:32)
[2023-02-14 12:38] LABS: Glucose Point of Care 208 mg/dL (70-110)
[2023-02-14 12:51] LABS: Partial Thromboplastin Time 43.8 SECONDS (23.9-36.7)
[2023-02-14 13:03] LABS: Glucose Point of Care 207 mg/dL (70-110)
--- NOTE | 2023-02-14 13:15 | SUR.PREOP ---
Report Report received from Miranda BENNETT. Care assumed of this patient.
--- NOTE | 2023-02-14 13:33 | SUR.PREOP ---
Patient reports abdominal pain at 6 to 7 out of 10. PRN pain medication given at this time.
[2023-02-14] MEDS: scopolamine 1.5 Patch 1 PATCH TRANSDERMA (14:01)
[2023-02-14 14:29] LABS: Glucose Point of Care 157 mg/dL (70-110)
[2023-02-14 15:21] LABS: Glucose Point of Care 209 mg/dL (70-110)
[2023-02-14 16:57] LABS: Glucose Point of Care 205 mg/dL (70-110)
--- NOTE | 2023-02-14 17:19 | P.PN_ITS ---
Subjective Subjective: Hospital course, labs appreciated. Patient seen comfortably sitting in bed, denies any abdominal pain, nausea, vomiting, headache. Seems patient has been tolerating cardiac diet well. Patient currently on insulin and heparin drip. Appreciate blood sugar charting, BMP. Vitals/I&O/Wt Last Vital Signs Temp 98.0 F 02/14/23 12:17 Pulse 101 H 02/14/23 16:00 Resp 14 02/14/23 16:13 BP 165/99 02/14/23 16:00 Pulse Ox 98 02/14/23 16:13 O2 Del Method Room Air 02/14/23 16:00 02/14/23 02/14/23 02/14/23 06:59 14:59 22:59 Intake Total 2316.956 / 3432.168 1309.417 / 1309.417 111.467 / 1420.884 Output Total 2350 / 3550 Balance -33.044 / -468.247 0739.417 / 1309.417 111.467 / 1420.884 Weight last 48 hrs Weight 102.058 kg Weight 102.965 kg Physical Exam Const: COMMON NORMALS: patient oriented x3 and alert GENERAL APPEARANCE: cooperative ORIENTATION/CONSCIOUSNESS: Yes awake HENMT: COMMON NORMALS: oropharynx normal Neck/C-Spine: COMMON NORMALS: no JVD Resp: COMMON NORMALS: normal respiratory effort and clear to auscultation bilaterally AUSCULTATION: clear to auscultation bilaterally Cardio: COMMON NORMALS: no JVD, regular rhythm, S1 normal heart sound present, S2 normal heart sound present and No murmurs present (Cardio) RHYTHM: regular rhythm HEART SOUNDS: S1 normal heart sound present and S2 normal heart sound present GI: COMMON NORMALS: Normal to inspection, nondistended, normoactive bowel sounds present and Soft to palpation PALPATION: Yes Soft to palpation and Yes Tenderness to palpation present (GI) OTHER: Improving abdominal tenderness. Extremity: COMMON NORMALS: no joint enlargement and no pedal edema Neuro: COMMON NORMALS: patient oriented x3 and moves all extremities SENSORIUM/ORIENTATION: Yes alert Skin: COMMON NORMALS: no rashes or lesions noted GENERAL SKIN EXAM: no rashes or lesions noted Data 02/14/23 03:58 02/14/23 03:58 A&P Assessment and plan (1) Pancreatitis: Pancreatitis has resolved. History of triglyceride pancreatitis. Tolerating cardiac diet well. Continue with Protonix daily, Zofran as needed. Switching to n.p.o. for now given persistent hypertriglyceridemia. Switch to IV Dilaudid 1 mg every 6 hourly as needed (2) Diabetic ketoacidosis: Resolved (3) Hypertriglyceridemia: Persistent hypertriglyceridemia. Persistently more than 1000. Patient has remained on insulin drip. Started recently on heparin drip. Given persistent hypertriglyceridemia even though he is on insulin drip for now we will make patient strict nothing by mouth. Start TPN without fat emulsion. Continue with insulin drip keeping insulin dose 8 or above. Monitor blood sugars q. hourly. Will change fluid rate keeping blood sugar more than 150. BMP every 6 hours. Continue with fenofibrate 160 mg daily, restart home dose of statin. Continue with Creon. No actual data present in literature for heparin as treatment for hypertriglyceridemia though has been used in some studies. For now we will hold off. (4) Familial hypertriglyceridemia: (5) IDDM (insulin dependent diabetes mellitus): Insulin drip as above. Monitor blood sugars q. hourly. Plan Currently on heparin drip. Stop and switch to heparin 5000 every 12 hourly. Protonix for PUD prophylaxis NPO. Full code. Attestations Medical Necessity Statement*: Requires further hospitalization for management of persistent hypertriglyceridemia requiring insulin drip, resolving triglyceride induced pancreatitis. Critical Care Time: The high probability of a clinically significant, sudden or life threatening deterioration of the patient's [endocrine, nephrology] system(s) required my full and direct attention, intervention and personal management. The critical care time is as shown. This time is in addition to time spent performing any reported procedures but includes the following: [x] Data and vital sign review and interpretation [x] Patient assessment, examination and intervention [x] Documentation [x] Medication orders and management Coding Level of Care Code Critical Care >/= 30 minutes Critical care time (in minutes): 60 The high probability of a clinically significant, sudden or life threatening deterioration, as referenced in this documentation, required my full and direct attention, intervention and personal management. The critical care time shown is in addition to time spent performing any reported separately billable procedures and includes the following: [x] Data and vital sign review and interpretation [x ] Patient assessment, examination and intervention [x] Medication orders and management [x] Patient/Family updates as able [x] Care Coordination and Documentation. Other Coding Information Managing insulin drip, heparin drip Diagnoses Pancreatitis K85.90 Diabetic ketoacidosis E11.10 Hypertriglyceridemia E78.1 Familial hypertriglyceridemia E78.1 IDDM (insulin dependent diabetes mellitus)
[2023-02-14 17:50] LABS: Alanine Aminotransferase 55 U/L (0-41); Albumin Level 3.7 g/dL (3.5-5.2); Alkaline Phosphatase 76 U/L (40-130); Aspartate Amino Transferase 32 U/L (0-40); Blood Urea Nitrogen 11 mg/dL (6-20); Calcium 9.1 mg/dL (8.5-10.5); Carbon Dioxide 19 mmol/L (22-29); Globulin 3.2 g/dL (1.3-4.6); Glomerular Filtration Rate 153.3 mL/min (90-130); Glucose 243 mg/dL (65-115); Total Bilirubin 0.3 mg/dL (0.15-1.2); Total Protein 6.9 g/dL (6.6-8.7)
[2023-02-14 18:05] LABS: Glucose Point of Care 206 mg/dL (70-110)
[2023-02-14 18:17] LABS: Glucose Point of Care 204 mg/dL (70-110)
[2023-02-14 18:31] LABS: Chloride 96 mmol/L (98-107); Potassium 4.2 mmol/L (3.5-5.1); Sodium 131 mmol/L (136-145)
[2023-02-14 18:32] LABS: Anion Gap 20.2 (5-19); Osmolality Calculated 279 mOsm/kg (285-295)
[2023-02-14 19:09] LABS: Glucose Point of Care 183 mg/dL (70-110)
[2023-02-14 20:11] LABS: Glucose Point of Care 240 mg/dL (70-110)
[2023-02-14 21:14] LABS: Glucose Point of Care 234 mg/dL (70-110)
[2023-02-14 22:08] LABS: Glucose Point of Care 222 mg/dL (70-110)
[2023-02-14 22:55] LABS: Glucose Point of Care 226 mg/dL (70-110)
[2023-02-14 23:19] LABS: Alanine Aminotransferase 52 U/L (0-41); Albumin Level 3.7 g/dL (3.5-5.2); Alkaline Phosphatase 74 U/L (40-130); Aspartate Amino Transferase 27 U/L (0-40); Blood Urea Nitrogen 12 mg/dL (6-20); Calcium 9.3 mg/dL (8.5-10.5); Carbon Dioxide 26 mmol/L (22-29); Chloride 95 mmol/L (98-107); Globulin 2.9 g/dL (1.3-4.6); Glomerular Filtration Rate 153.3 mL/min (90-130); Glucose 238 mg/dL (65-115); Osmolality Calculated 284 mOsm/kg (285-295); Sodium 133 mmol/L (136-145); Total Bilirubin 0.2 mg/dL (0.15-1.2); Total Protein 6.6 g/dL (6.6-8.7)
[2023-02-14 23:23] LABS: Anion Gap 16.2 (5-19); Potassium 4.2 mmol/L (3.5-5.1)
[2023-02-15] VITALS (22 sets, daily range): BP systolic 118–166; BP diastolic 73–100; PULSE 72–109; RESP 12–24; TEMP 36.6–36.8; O2SAT 96–98; BMI 31.4
[2023-02-15 00:03] LABS: Glucose Point of Care 225 mg/dL (70-110)
[2023-02-15 00:03] LABS: Glucose Point of Care 226 mg/dL (70-110)
[2023-02-15] MEDS: oxyCODONE 5 mg IR Tab/Cap 10 MG PO ×4 (00:34→20:43)
[2023-02-15 00:35] LABS: Blood Urea Nitrogen 11 mg/dL (6-20); Calcium 9.4 mg/dL (8.5-10.5); Carbon Dioxide 25 mmol/L (22-29); Chloride 96 mmol/L (98-107); Glomerular Filtration Rate 153.3 mL/min (90-130); Glucose 229 mg/dL (65-115); Osmolality Calculated 287 mOsm/kg (285-295); Sodium 135 mmol/L (136-145)
[2023-02-15 00:37] LABS: Anion Gap 18.3 (5-19); Potassium 4.3 mmol/L (3.5-5.1)
[2023-02-15 01:07] LABS: Glucose Point of Care 196 mg/dL (70-110)
[2023-02-15 02:11] LABS: Glucose Point of Care 166 mg/dL (70-110)
[2023-02-15] MEDS: insulin regular-human 250 UNIT in sodium chloride 0.9% 250 ML 8.08 UNIT IV (02:18)
[2023-02-15] MEDS: HYDROmorphone 1 mg/mL INJ 1 mL IVP ×3 (03:30→18:10)
[2023-02-15] MEDS: pantoprazole DR 40 mg Tablet PO (05:00)
[2023-02-15] MEDS: fenofibrate 145 mg Tablet PO (08:10)
[2023-02-15] MEDS: atorvastatin 40 mg Tablet 80 MG PO (08:10)
[2023-02-15] MEDS: fluoxetine 20 mg Capsule PO (08:10)
[2023-02-15] MEDS: amlodipine 5 mg Tablet PO (08:10)
[2023-02-15 08:22] LABS: Glucose Point of Care 148 mg/dL (70-110)
[2023-02-15 08:22] LABS: Glucose Point of Care 183 mg/dL (70-110)
[2023-02-15 08:22] LABS: Glucose Point of Care 178 mg/dL (70-110)
[2023-02-15 08:22] LABS: Glucose Point of Care 161 mg/dL (70-110)
[2023-02-15 08:22] LABS: Glucose Point of Care 166 mg/dL (70-110)
[2023-02-15 08:28] LABS: Alanine Aminotransferase 62 U/L (0-41); Albumin Level 3.9 g/dL (3.5-5.2); Alkaline Phosphatase 79 U/L (40-130); Aspartate Amino Transferase 37 U/L (0-40); Blood Urea Nitrogen 11 mg/dL (6-20); Calcium 9.8 mg/dL (8.5-10.5); Calcium 9.9 mg/dL (8.5-10.5); Carbon Dioxide 25 mmol/L (22-29); Carbon Dioxide 26 mmol/L (22-29); Chloride 96 mmol/L (98-107); Chloride 97 mmol/L (98-107); Globulin 3.2 g/dL (1.3-4.6); Glomerular Filtration Rate 189.2 mL/min (90-130); Glucose 167 mg/dL (65-115); Glucose 173 mg/dL (65-115); Osmolality Calculated 285 mOsm/kg (285-295); Osmolality Calculated 288 mOsm/kg (285-295); Sodium 136 mmol/L (136-145); Sodium 137 mmol/L (136-145); Total Bilirubin 0.4 mg/dL (0.15-1.2); Total Protein 7.1 g/dL (6.6-8.7)
[2023-02-15 08:47] LABS: Glucose Point of Care 169 mg/dL (70-110)
--- NOTE | 2023-02-15 08:47 | SUR.PHASEI ---
See paper charting from [employer] downtime
[2023-02-15 09:02] LABS: Anion Gap 17.9 (5-19); Potassium 3.9 mmol/L (3.5-5.1)
[2023-02-15 09:03] LABS: Anion Gap 19.1 (5-19); Potassium 4.1 mmol/L (3.5-5.1); Triglycerides 1366 mg/dL (0-150)
--- NOTE | 2023-02-15 09:04 | SUR.PHASEI ---
RESTING COMFORTABLY WITH EYES CLOSED. PAIN ASSESSMENT PER FLACC.
[2023-02-15 09:19] LABS: Basophils # 0.1 10^3/uL (0.0-0.1); Basophils % 1.1 %; Eosinophils # 0.3 10^3/uL (0.0-0.8); Eosinophils % 4.1 %; Hematocrit 42.5 % (37-53); Lymphocytes # 2.7 10^3/uL (0.8-4.8); Lymphocytes % 37.5 %; Mean Corpuscular HGB Conc 33.2 g/dL (30-55); Mean Corpuscular Hemoglobin 27.4 pg (27-33); Mean Corpuscular Volume 82.5 fl (82-101); Monocytes # 0.4 10^3/uL (0.2-0.9); Monocytes % 6.1 %; Neutrophils # 3.45 10^3/uL (1.8-7.7); Neutrophils % 48.8 %; Nucleated Red Blood Cells % 0 %; Platelet Count 189 10^3/cmm (157-399); Red Blood Count 5.15 10^6/uL (3.85-5.65); Red Cell Distribution Width 12.4 % (12.1-15.1); White Blood Count 7.07 10^3/uL (3.29-11.43)
[2023-02-15] MEDS: heparin 5,000 unit/mL INJ 1 mL 5000 UNIT SUBCUT ×2 (09:25→20:43)
[2023-02-15 09:29] LABS: LDL Cholesterol Direct 100 mg/dL (0-100)
--- NOTE | 2023-02-15 09:29 | SUR.PHASEI ---
Woke patient up to give him his heparin injection. Patient reports that is pain is creeping back up and he is currently at a 6/10 on the pain scale. PRN pain medication available. Given at this time. Will continue to monitor.
[2023-02-15 10:20] LABS: Glucose Point of Care 163 mg/dL (70-110); Glucose Point of Care 173 mg/dL (70-110)
[2023-02-15 11:39] LABS: Glucose Point of Care 154 mg/dL (70-110)
[2023-02-15 12:05] LABS: Glucose Point of Care 162 mg/dL (70-110)
[2023-02-15 12:24] LABS: Blood Urea Nitrogen 9 mg/dL (6-20); Calcium 9.7 mg/dL (8.5-10.5); Carbon Dioxide 29 mmol/L (22-29); Chloride 96 mmol/L (98-107); Glomerular Filtration Rate 153.3 mL/min (90-130); Glucose 170 mg/dL (65-115); Osmolality Calculated 285 mOsm/kg (285-295); Sodium 136 mmol/L (136-145)
[2023-02-15 12:26] LABS: Anion Gap 15.2 (5-19); Potassium 4.2 mmol/L (3.5-5.1)
--- NOTE | 2023-02-15 12:55 | SUR.PREOP ---
In to do 1 pm glucose check. He reports his abdominal pain has increased. Currently rating pain at 6/10 and is request some medication to help. PRN medication available. Will plan to give momentarily. Patient okay and pleasant at this time.
[2023-02-15 13:11] LABS: Glucose Point of Care 179 mg/dL (70-110)
--- NOTE | 2023-02-15 13:29 | SUR.PREOP ---
PAIN REASSESSMENT Resting in bed with eyes closed. No pain per FLACC.
[2023-02-15 14:07] LABS: Glucose Point of Care 199 mg/dL (70-110)
--- NOTE | 2023-02-15 14:14 | P.PN_ITS ---
Subjective 2 Subjective: No acute events overnight. Patient has remained hemodynamically stable and afebrile, comfortable. Started on TPN which is running at 30 cc/h for now. Denies any nausea, vomiting, headache. Blood sugars have remained stable. Continues to remain on insulin drip at 8 units/h. Blood work appreciated for a stable CBC, CMP, stable potassium, triglyceride level trending down to 1366 from 1746 yesterday. Vitals/I&O/Wt Last Vital Signs Temp 97.8 F 02/15/23 13:00 Pulse 84 02/15/23 14:00 Resp 19 H 02/15/23 14:00 BP 140/82 02/15/23 14:00 Pulse Ox 96 02/15/23 14:00 O2 Del Method Room Air 02/15/23 12:00 02/14/23 02/15/23 02/15/23 22:59 06:59 14:59 Intake Total 413.967 / 1723.384 625.216 / 2348.600 1464.617 / 1464.617 Balance 413.967 / 1723.384 625.216 / 2348.600 1464.617 / 1464.617 Weight last 48 hrs Weight 102.058 kg Weight 102.058 kg Physical Exam 2 Const: COMMON NORMALS: patient oriented x3 and alert GENERAL APPEARANCE: c ooperative ORIENTATION/CONSCIOUSNESS: Yes awake HENMT: COMMON NORMALS: oropharynx normal Neck/C-Spine: COMMON NORMALS: no JVD Resp: COMMON NORMALS: normal respiratory effort and clear to auscultation bilaterally AUSCULTATION: clear to auscultation bilaterally Cardio: COMMON NORMALS: no JVD, regular rhythm, S1 normal heart sound present, S2 normal heart sound present and No murmurs present (Cardio) RHYTHM: regular rhythm HEART SOUNDS: S1 normal heart sound present and S2 normal heart sound present GI: COMMON NORMALS: Normal to inspection, nondistended, normoactive bowel sounds present and Soft to palpation PALPATION: Yes Soft to palpation and Yes Tenderness to palpation present (GI) OTHER: Improving abdominal tenderness. Extremity: COMMON NORMALS: no joint enlargement and no pedal edema Neuro: COMMON NORMALS: patient oriented x3 and moves all extremities S ENSORIUM/ORIENTATION: Yes alert Skin: COMMON NORMALS: no rashes or lesions noted GENERAL SKIN EXAM: no rashes or lesions noted Data 02/15/23 05:26 02/15/23 11:50 A&P Assessment and plan (1) Hypertriglyceridemia: Persistent hypertriglyceridemia. Persistently more than 1000. Patient has remained on insulin drip. Started recently on heparin drip. Continue with insulin drip at 8 or more units per hour. Increase IV fluids keeping blood sugars around 150. Started on TPN. Monitor triglyceride level daily. Continue with home dose of fenofibrate, statins, Creon. Heparin drip stopped on 02/14 as patient with heparin drip would be at a higher risk of bleeding, no actual studies available to show permanent or long-term benefits. (2) Pancreatitis: Pancreatitis has resolved. History of triglyceride pancreatitis. Tolerating cardiac diet well. Continue with Protonix daily, Zofran as needed. Switching to n.p.o. for now given persistent hypertriglyceridemia. Continue with TPN which is to be uptitrated keeping goal. Switch to IV Dilaudid 1 mg every 6 hourly as needed (3) Diabetic ketoacidosis: Resolved (4) Familial hypertriglyceridemia: (5) IDDM (insulin dependent diabetes mellitus): Insulin drip as above. Monitor blood sugars q. hourly. Plan Heparin 5000 every 12 hourly for DVT prophylaxis. Protonix for PUD prophylaxis NPO. Full code. Attestations 2 Medical Necessity Statement*: Requires further hospitalization for management of hypertriglyceridemia leading to pancreatitis requiring insulin drip, TPN Diagnoses Hypertriglyceridemia E78.1 Pancreatitis K85.90 Diabetic ketoacidosis E11.10 Familial hypertriglyceridemia E78.1 IDDM (insulin dependent diabetes mellitus)
[2023-02-15 15:02] LABS: Glucose Point of Care 179 mg/dL (70-110)
[2023-02-15 16:03] LABS: Glucose Point of Care 169 mg/dL (70-110)
[2023-02-15 17:11] LABS: Glucose Point of Care 164 mg/dL (70-110)
[2023-02-15 18:01] LABS: Glucose Point of Care 198 mg/dL (70-110)
[2023-02-15 18:50] LABS: Blood Urea Nitrogen 9 mg/dL (6-20); Calcium 9.7 mg/dL (8.5-10.5); Carbon Dioxide 23 mmol/L (22-29); Chloride 97 mmol/L (98-107); Glomerular Filtration Rate 153.3 mL/min (90-130); Glucose 202 mg/dL (65-115); Osmolality Calculated 280 mOsm/kg (285-295); Sodium 133 mmol/L (136-145)
[2023-02-15 18:54] LABS: Anion Gap 17.4 (5-19); Potassium 4.4 mmol/L (3.5-5.1)
[2023-02-15 21:31] LABS: Glucose Point of Care 185 mg/dL (70-110)
[2023-02-15 21:31] LABS: Glucose Point of Care 165 mg/dL (70-110)
[2023-02-15 23:24] LABS: Glucose Point of Care 176 mg/dL (70-110)
[2023-02-16] VITALS (30 sets, daily range): BP systolic 117–150; BP diastolic 81–104; PULSE 70–110; RESP 9–24; TEMP 36.2–36.7; O2SAT 89–99
[2023-02-16] MEDS: HYDROmorphone 1 mg/mL INJ 1 mL IVP ×4 (00:49→22:11)
[2023-02-16] MEDS: oxyCODONE 5 mg IR Tab/Cap 10 MG PO ×2 (03:34→09:49)
[2023-02-16 04:58] LABS: Glucose Point of Care 194 mg/dL (70-110)
[2023-02-16 04:58] LABS: Glucose Point of Care 170 mg/dL (70-110)
[2023-02-16 04:58] LABS: Glucose Point of Care 193 mg/dL (70-110)
[2023-02-16 04:58] LABS: Glucose Point of Care 175 mg/dL (70-110)
[2023-02-16 04:58] LABS: Glucose Point of Care 166 mg/dL (70-110)
[2023-02-16 04:58] LABS: Glucose Point of Care 209 mg/dL (70-110)
[2023-02-16] MEDS: pantoprazole DR 40 mg Tablet PO (05:06)
[2023-02-16 05:59] LABS: Basophils # 0.1 10^3/uL (0.0-0.1); Basophils % 0.6 %; Eosinophils # 0.3 10^3/uL (0.0-0.8); Hematocrit 42.6 % (37-53); Lymphocytes # 3.3 10^3/uL (0.8-4.8); Lymphocytes % 42.4 %; Mean Corpuscular HGB Conc 33.1 g/dL (30-55); Mean Corpuscular Hemoglobin 27.6 pg (27-33); Mean Corpuscular Volume 83.5 fl (82-101); Mean Platelet Volume 11.4 fL (7.4-10.4); Monocytes # 0.5 10^3/uL (0.2-0.9); Monocytes % 6.7 %; Neutrophils # 3.44 10^3/uL (1.8-7.7); Neutrophils % 44.1 %; Nucleated Red Blood Cells % 0 %; Platelet Count 169 10^3/cmm (157-399); Red Cell Distribution Width 12.4 % (12.1-15.1)
[2023-02-16 06:02] LABS: Glucose Point of Care 178 mg/dL (70-110)
[2023-02-16 06:21] LABS: Alanine Aminotransferase 69 U/L (0-41); Albumin Level 3.8 g/dL (3.5-5.2); Alkaline Phosphatase 72 U/L (40-130); Aspartate Amino Transferase 43 U/L (0-40); Blood Urea Nitrogen 10 mg/dL (6-20); Calcium 9.3 mg/dL (8.5-10.5); Carbon Dioxide 23 mmol/L (22-29); Chloride 98 mmol/L (98-107); Globulin 2.7 g/dL (1.3-4.6); Glomerular Filtration Rate 153.3 mL/min (90-130); Glucose 172 mg/dL (65-115); Osmolality Calculated 283 mOsm/kg (285-295); Sodium 135 mmol/L (136-145); Total Bilirubin 0.4 mg/dL (0.15-1.2); Total Protein 6.5 g/dL (6.6-8.7)
[2023-02-16 06:45] LABS: Triglycerides 1293 mg/dL (0-150)
[2023-02-16 07:06] LABS: LDL Cholesterol Direct 104 mg/dL (0-100)
[2023-02-16 08:29] LABS: Glucose Point of Care 190 mg/dL (70-110)
[2023-02-16] MEDS: heparin 5,000 unit/mL INJ 1 mL 5000 UNIT SUBCUT ×2 (09:26→20:57)
[2023-02-16] MEDS: fenofibrate 145 mg Tablet PO (09:26)
[2023-02-16] MEDS: fluoxetine 20 mg Capsule PO (09:26)
[2023-02-16] MEDS: atorvastatin 40 mg Tablet 80 MG PO (09:26)
[2023-02-16] MEDS: amlodipine 5 mg Tablet PO (09:26)
[2023-02-16] MEDS: insulin regular-human 250 UNIT in sodium chloride 0.9% 250 ML 9.09 UNIT IV (09:30)
[2023-02-16 10:02] LABS: Glucose Point of Care 165 mg/dL (70-110)
--- NOTE | 2023-02-16 13:36 | P.PN_ITS ---
Subjective 2 Subjective: No acute events overnight. Patient has remained hemodynamically stable and afebrile. On examination laying comfortably in bed, denies any nausea, vomiting, headache. Blood sugars have remained stable. TPN at goal. Vitals/I&O/Wt Last Vital Signs Temp 98.0 F 02/16/23 05:00 Pulse 85 02/16/23 12:00 Resp 13 02/16/23 12:00 BP 139/87 02/16/23 12:00 Pulse Ox 97 02/16/23 12:00 O2 Del Method Room Air 02/15/23 18:00 02/15/23 02/16/23 02/16/23 22:59 06:59 14:59 Intake Total 948.5 / 2413.117 915.000 / 3328.117 656.483 / 656.483 Balance 948.5 / 2413.117 915.000 / 3328.117 656.483 / 656.483 Weight last 48 hrs Weight 102.058 kg Weight 102.058 kg Physical Exam 2 Const: COMMON NORMALS: patient oriented x3 and alert GENERAL APPEARANCE: c ooperative ORIENTATION/CONSCIOUSNESS: Yes awake HENMT: COMMON NORMALS: oropharynx normal Neck/C-Spine: COMMON NORMALS: no JVD Resp: COMMON NORMALS: normal respiratory effort and clear to auscultation bilaterally AUSCULTATION: clear to auscultation bilaterally Cardio: COMMON NORMALS: no JVD, regular rhythm, S1 normal heart sound present, S2 normal heart sound present and No murmurs present (Cardio) RHYTHM: regular rhythm HEART SOUNDS: S1 normal heart sound present and S2 normal heart sound present GI: COMMON NORMALS: Normal to inspection, nondistended, normoactive bowel sounds present and Soft to palpation PALPATION: Yes Soft to palpation and Yes Tenderness to palpation present (GI) OTHER: Improving abdominal tenderness. Extremity: COMMON NORMALS: no joint enlargement and no pedal edema Neuro: COMMON NORMALS: patient oriented x3 and moves all extremities S ENSORIUM/ORIENTATION: Yes alert Skin: COMMON NORMALS: no rashes or lesions noted GENERAL SKIN EXAM: no rashes or lesions noted Data 02/16/23 05:42 02/16/23 05:42 A&P Assessment and plan (1) Hypertriglyceridemia: Persistent hypertriglyceridemia. Persistently more than 1000. Patient has remained on insulin drip. Started recently on heparin drip. Continue with insulin drip at 8 or more units per hour. Increase IV fluids keeping blood sugars around 150. Started on TPN. Monitor triglyceride level daily. Continue with home dose of fenofibrate, statins, Creon. Heparin drip stopped on 02/14 as patient with heparin drip would be at a higher risk of bleeding, no actual studies available to show permanent or long-term benefits. (2) Pancreatitis: Pancreatitis has resolved. History of triglyceride pancreatitis. Tolerating cardiac diet well. Continue with Protonix daily, Zofran as needed. Switching to n.p.o. for now given persistent hypertriglyceridemia. Continue with TPN which is to be uptitrated keeping goal. Switch to IV Dilaudid 1 mg every 6 hourly as needed (3) Diabetic ketoacidosis: Resolved (4) Familial hypertriglyceridemia: (5) IDDM (insulin dependent diabetes mellitus): Insulin drip as above. Monitor blood sugars q. hourly. Plan Heparin 5000 every 12 hourly for DVT prophylaxis. Protonix for PUD prophylaxis NPO. Full code. Plan for the day: Continue with insulin drip at 8 or more. Currently at 9. Monitor blood sugars. Change the fluid flow rate accordingly. Currently patient not in fluid overload. Mentating well on room air. Hemodynamically stable. Continue with other medications including fenofibrate, statin and Creon. Monitor triglyceride level daily. Currently trending down to 1293. Continue TPN without fat emulsion. Appreciate electrolytes. Sodium level improving to 135. Being on insulin drip potassium has remained stable. Continue with current fluids. Monitor BMP every 12 hourly now. NPO. Attestations 2 Medical Necessity Statement*: Requires further hospitalization for management of persistent hypertriglyceridemia and the patient was admitted with pancreatitis while he remains on insulin drip and triglyceridemia gradually improves Diagnoses Hypertriglyceridemia E78.1 Pancreatitis K85.90 Diabetic ketoacidosis E11.10 Familial hypertriglyceridemia E78.1 IDDM (insulin dependent diabetes mellitus)
[2023-02-16] MEDS: lipase-protease-amylase Capsule 1 EACH PO ×2 (14:46→17:05)
[2023-02-16 16:47] LABS: Glucose Point of Care 168 mg/dL (70-110)
[2023-02-16 16:50] LABS: Glucose Point of Care 188 mg/dL (70-110)
[2023-02-16 20:00] LABS: Glucose Point of Care 188 mg/dL (70-110)
[2023-02-16 20:52] LABS: Blood Urea Nitrogen 10 mg/dL (6-20); Calcium 9.6 mg/dL (8.5-10.5); Carbon Dioxide 25 mmol/L (22-29); Chloride 99 mmol/L (98-107); Glomerular Filtration Rate 153.3 mL/min (90-130); Glucose 176 mg/dL (65-115); Osmolality Calculated 283 mOsm/kg (285-295); Sodium 135 mmol/L (136-145)
[2023-02-16 21:04] LABS: Glucose Point of Care 220 mg/dL (70-110)
[2023-02-16 22:14] LABS: Glucose Point of Care 169 mg/dL (70-110)
[2023-02-16] MEDS: zolpidem 5 mg Tablet PO (23:54)
[2023-02-17] VITALS (13 sets, daily range): BP systolic 144–160; BP diastolic 83–94; PULSE 84–97; RESP 12–18; O2SAT 93–98
[2023-02-17 00:03] LABS: Glucose Point of Care 193 mg/dL (70-110)
[2023-02-17 03:12] LABS: Glucose Point of Care 198 mg/dL (70-110)
[2023-02-17 03:48] LABS: Basophils # 0.1 10^3/uL (0.0-0.1); Eosinophils # 0.3 10^3/uL (0.0-0.8); Eosinophils % 3.8 %; Hematocrit 44.3 % (37-53); Lymphocytes % 37.9 %; Mean Corpuscular HGB Conc 32.5 g/dL (30-55); Mean Corpuscular Hemoglobin 27.2 pg (27-33); Mean Corpuscular Volume 83.6 fl (82-101); Mean Platelet Volume 11.8 fL (7.4-10.4); Monocytes # 0.5 10^3/uL (0.2-0.9); Monocytes % 6.1 %; Neutrophils % 49.4 %; Nucleated Red Blood Cells % 0 %; Platelet Count 200 10^3/cmm (157-399); Red Cell Distribution Width 12.4 % (12.1-15.1); White Blood Count 7.89 10^3/uL (3.29-11.43)
[2023-02-17 04:10] LABS: Alanine Aminotransferase 78 U/L (0-41); Albumin Level 3.8 g/dL (3.5-5.2); Alkaline Phosphatase 73 U/L (40-130); Anion Gap 15.8 (5-19); Aspartate Amino Transferase 44 U/L (0-40); Blood Urea Nitrogen 9 mg/dL (6-20); Calcium 9.4 mg/dL (8.5-10.5); Carbon Dioxide 24 mmol/L (22-29); Chloride 100 mmol/L (98-107); Globulin 3.3 g/dL (1.3-4.6); Glomerular Filtration Rate 153.3 mL/min (90-130); Glucose 176 mg/dL (65-115); Osmolality Calculated 285 mOsm/kg (285-295); Potassium 3.8 mmol/L (3.5-5.1); Sodium 136 mmol/L (136-145); Total Bilirubin 0.4 mg/dL (0.15-1.2); Total Protein 7.1 g/dL (6.6-8.7)
[2023-02-17 04:39] LABS: Triglycerides 1295 mg/dL (0-150)
[2023-02-17 04:51] LABS: LDL Cholesterol Direct 111 mg/dL (0-100)
[2023-02-17] MEDS: pantoprazole DR 40 mg Tablet PO (05:43)
[2023-02-17] MEDS: HYDROmorphone 1 mg/mL INJ 1 mL IVP ×3 (05:46→15:44)
[2023-02-17 05:53] LABS: Glucose Point of Care 154 mg/dL (70-110)
[2023-02-17 07:32] LABS: Glucose Point of Care 152 mg/dL (70-110)
[2023-02-17] MEDS: amlodipine 5 mg Tablet PO (08:34)
[2023-02-17] MEDS: atorvastatin 40 mg Tablet 80 MG PO (08:34)
[2023-02-17] MEDS: heparin 5,000 unit/mL INJ 1 mL 5000 UNIT SUBCUT (08:34)
[2023-02-17] MEDS: lipase-protease-amylase Capsule 1 EACH PO (08:34)
[2023-02-17] MEDS: fenofibrate 145 mg Tablet PO (08:34)
[2023-02-17] MEDS: fluoxetine 20 mg Capsule PO (08:34)
--- NOTE | 2023-02-17 10:58 | PM.DCS ---
Discharge Providers Date of Admission: 02/06/23 11:10 Date of Discharge: February 17, 2023 Attending Provider at Admission: Jerri Carranza MD Attending Provider at Discharge: Jaime Beltran MD Primary Care Provider: Kin Greer MD Diagnoses at Discharge Discharge Diagnosis (1) Hypertriglyceridemia: Status: Acute (2) Pancreatitis: Status: Acute (3) Diabetic ketoacidosis: Status: Resolved (4) Familial hypertriglyceridemia: Status: Acute (5) IDDM (insulin dependent diabetes mellitus): Status: Acute Reason for Visit Reason for Visit: Abd pain, N/V Brief History: History as per HPI: Rui Donohue is a 37 year old male with history of recurrent hospital admission for chronic pancreatitis, chronic hypertriglyceridemia, presenting to the emergency room with abdominal pain nausea vomiting.? Triglycerides at 3300 today. Lipase not significantly elevated today, however clinically symptoms compatible with acute on chronic pancreatitis. Patient requested foregoing the CT scan today given clinical presentation and his concern for recurrent CTs this year. Recent MR abdomen 12/24/2022 with Abnormal pancreas. There are changes of pseudocyst formation and acute on chronic pancreatitis. Nonenhancing signal masses in the pancreas which have been previously described. Most consistent with intrapancreatic pseudocyst. There is no pancreatic duct dilatation and no new pseudocyst. Hospital Course Hospital Course Patient was admitted to the ICU for further evaluation and management of acute on chronic pancreatitis secondary to hypertriglyceridemia and DKA. He was started on conservative treatment for pancreatitis, insulin drip for DKA and hypertriglyceridemia. His pancreatitis and DKA resolved but he continued to have persistent significant hypertriglyceridemia. Patient was started on TPN along with continuation of insulin drip. During hospitalization because of persistent hypertriglyceridemia he was even started on diet which he tolerated well. On the day of discharge patient's triglyceride levels are around 1200. Patient does not have any abdominal pain and is able to tolerate diet. He has been discharged in hemodynamically stable condition on continuation of his oral medications. He has been counseled in detail that he is at a higher risk of recurrent pancreatitis given persistent hypertriglyceridemia and if he has pancreatitis again going forward he would need plasmaphoresis. Patient verbalized understanding. He was also counseled in detail,that going forward he should take multiple small meals fat-free soft diet and to follow-up with technology applications consultant as an outpatient. Physical Exam Const: COMMON NORMALS: patient oriented x3 and alert GENERAL APPEARANCE: cooperative ORIENTATION/CONSCIOUSNESS: Yes awake HENMT: COMMON NORMALS: oropharynx normal Neck/C-Spine: COMMON NORMALS: no JVD Resp: COMMON NORMALS: normal respiratory effort and clear to auscultation bilaterally AUSCULTATION: clear to auscultation bilaterally Cardio: COMMON NORMALS: no JVD, regular rhythm, S1 normal heart sound present, S2 normal heart sound present and No murmurs present (Cardio) RHYTHM: regular rhythm HEART SOUNDS: S1 normal heart sound present and S2 normal heart sound present GI: COMMON NORMALS: Normal to inspection, nondistended, normoactive bowel sounds present and Soft to palpation PALPATION: Yes Soft to palpation and Yes Tenderness to palpation present (GI) OTHER: Improving abdominal tenderness. Extremity: COMMON NORMALS: no joint enlargement and no pedal edema Neuro: COMMON NORMALS: patient oriented x3 and moves all extremities SENSORIUM/ORIENTATION: Yes alert Skin: COMMON NORMALS: no rashes or lesions noted GENERAL SKIN EXAM: no rashes or lesions noted Discharge Data Studies Completed and Pending Completed Studies During Hospitalization Category Date Time Status CXRP [XR chest 1V portable [id number]] Routine Exams 02/07/23 07:52 Completed XR chest 1V portable [id number] Stat Exams 02/06/23 09:40 Completed Laboratory Results WBC 7.89 10^3/uL (3.29-11.43) 02/17/23 03:32 RBC 5.30 10^6/uL (3.85-5.65) 02/17/23 03:32 Hgb 14.40 g/dL (11.27-16.99) 02/17/23 03:32 Hct 44.3 % (37-53) 02/17/23 03:32 MCV 83.6 fl (82-101) 02/17/23 03:32 MCH 27.2 pg (27-33) 02/17/23 03:32 MCHC 32.5 g/dL (30-55) 02/17/23 03:32 RDW 12.4 % (12.1-15.1) 02/17/23 03:32 Plt Count 200 10^3/cmm (157-399) 02/17/23 03:32 MPV 11.8 fL (7.4-10.4) H 02/17/23 03:32 Neut % (Auto) 49.4 % 02/17/23 03:32 Lymph % (Auto) 37.9 % 02/17/23 03:32 [place] % (Auto) 6.1 % 02/17/23 03:32 Eos % (Auto) 3.8 % 02/17/23 03:32 Baso % (Auto) 1.0 % 02/17/23 03:32 Neut # (Auto) 3.90 10^3/uL (1.8-7.7) 02/17/23 03:32 Lymph # (Auto) 3.0 10^3/uL (0.8-4.8) 02/17/23 03:32 [place] # (Auto) 0.5 10^3/uL (0.2-0.9) 02/17/23 03:32 Eos # (Auto) 0.3 10^3/uL (0.0-0.8) 02/17/23 03:32 Baso # (Auto) 0.1 10^3/uL (0.0-0.1) 02/17/23 03:32 Nucleated RBC % (auto) 0 % 02/17/23 03:32 Nucleated RBCs # 0.0 /100WBC 02/17/23 03:32 PT 13.80 SECONDS (12.1-14.9) 02/13/23 08:24 INR 1.03 (0.8-1.2) 02/13/23 08:24 APTT 43.8 SECONDS (23.9-36.7) H 02/14/23 12:20 Sodium 136 mmol/L (136-145) 02/17/23 03:32 Potassium 3.8 mmol/L (3.5-5.1) 02/17/23 03:32 Chloride 100 mmol/L (98-107) 02/17/23 03:32 Carbon Dioxide 24 mmol/L (22-29) 02/17/23 03:32 Anion Gap 15.8 (5-19) 02/17/23 03:32 BUN 9 mg/dL (6-20) 02/17/23 03:32 Creatinine 0.6 mg/dL (0.7-1.2) L 02/17/23 03:32 GFR Calculation 153.3 mL/min (90-130) H 02/17/23 03:32 Glucose 176 mg/dL (65-115) H 02/17/23 03:32 POC Glucose 152 mg/dL (70-110) H 02/17/23 07:27 Calculated Osmolality 285 mOsm/kg (285-295) 02/17/23 03:32 Calcium 9.4 mg/dL (8.5-10.5) 02/17/23 03:32 Phosphorus 3.8 mg/dL (2.5-4.5) 02/12/23 06:00 Magnesium 1.6 mg/dL (1.7-2.3) L 02/14/23 03:58 Total Bilirubin 0.4 mg/dL (0.15-1.2) 02/17/23 03:32 AST 44 U/L (0-40) H 02/17/23 03:32 ALT 78 U/L (0-41) H 02/17/23 03:32 Alkaline Phosphatase 73 U/L (40-130) 02/17/23 03:32 Total Protein 7.1 g/dL (6.6-8.7) 02/17/23 03:32 Albumin 3.8 g/dL (3.5-5.2) 02/17/23 03:32 Globulin 3.3 g/dL (1.3-4.6) 02/17/23 03:32 Triglycerides 1295 mg/dL (0-150) H 02/17/23 03:32 LDL Cholesterol Direct 111 mg/dL (0-100) H 02/17/23 03:32 Lipase 29 U/L (13-60) 02/06/23 09:58 Urine Color Yellow (Yellow) 02/06/23 11:34 Urine Appearance Clear (CLEAR) 02/06/23 11:34 Urine pH 7 (5-7) 02/06/23 11:34 Ur Specific [place] 1.010 (1.005-1.030) 02/06/23 11:34 Urine Protein 3+ (Negative) H 02/06/23 11:34 Urine Glucose (UA) 4+ (Normal) H 02/06/23 11:34 Urine Ketones 2+ (Negative) H 02/06/23 11:34 Urine Blood 2+ (Negative) H 02/06/23 11:34 Urine Nitrate Negative (Negative) 02/06/23 11:34 Urine Bilirubin Neg (Negative) 02/06/23 11:34 Urine Urobilinogen Norm mg/dL (Negative) 02/06/23 11:34 Ur Leukocyte Esterase Negative (Negative) 02/06/23 11:34 Urine RBC 0-4 /hpf (0-2) H 02/06/23 11:34 Urine WBC None /hpf (0-5) 02/06/23 11:34 Ur Squamous Epith Cells 0-4 /hpf (0-5) H 02/06/23 11:34 Amorphous Sediment Not Reportable 02/06/23 11:34 Urine Bacteria None /hpf (NONE) 02/06/23 11:34 Serum Ketones Negative (Negative) 02/06/23 19:13 Vitals Last Vital Signs Temp 97.2 F L 02/16/23 20:01 Pulse 97 02/17/23 10:44 Resp 18 02/17/23 10:44 BP 147/83 02/17/23 10:44 Pulse Ox 93 02/17/23 10:44 O2 Del Method Room Air 02/15/23 18:00 Discharge Plan Discharge Patient Disposition: Home Condition: Stable Prescriptions: New hydrocodone-acetaminophen 5-325 mg tablet 1 tab PO BID PRN (Reason: pain) Qty: 10 0RF Continued cholecalciferol (vitamin D3) 5,000 unit capsule 5,000 unit PO DAILY PRN (Reason: unknown) (DME) Dexcom G6 Transmitter Device See Rx Instructions .ROUTE .MEDSUPPLY Qty: 2 3RF Rx Instructions: change every 3 months (DME) FreeStyle Singh 2 Sensor Kit See Rx Instructions .Route Qty: 6 5RF Rx Instructions: As directed ([facility] [place]) Dexcom G6 Sensor Device See Rx Instructions .ROUTE .MEDSUPPLY Qty: 9 3RF Rx Instructions: change every 10 days orlistat 120 mg capsule 120 mg PO TID Qty: 90 2RF Rx Instructions: administer during or up to 1 hour after meal levocetirizine [Xyzal] 5 mg tablet 5 mg PO DAILY PRN (Reason: allergy symptoms) 30 Days Qty: 30 0RF magnesium citrate Solution 300 ml PO DAILY PRN (Reason: constipation) Qty: 296 0RF metoclopramide HCl [Reglan] 5 mg tablet 5 mg PO Q8H PRN (Reason: breakthrough nausea) 7 Days Qty: 21 0RF (DME) Dexcom G6 Spinning Machine Tender Misc See Rx Instructions .ROUTE .MEDSUPPLY Qty: 1 0RF Rx Instructions: Change excavator operator once a year baclofen 5 mg tablet 5 mg PO BID PRN (Reason: Pain) Qty: 60 0RF promethazine 25 mg tablet 25 mg PO TID PRN (Reason: nausea and vomiting) 7 Days Qty: 21 1RF (DME) Omnipod 5 G6 Intro Kit (Gen 5) Cartridge See Rx Instructions .Route Qty: 1 0RF Rx Instructions: As directed (DME) cpap and supplies See Rx Instructions .Route .MEDSUPPLY Qty: 1 0RF Rx Instructions: auto titrating ( 5-9cm) (DME) Omnipod 5 G6 Pods (Gen 5) Cartridge See Rx Instructions .Route Qty: 90 0RF Rx Instructions: 1 pod daily oxycodone 10 mg tablet 10 mg PO Q6H PRN (Reason: pancreatitis pain) 7 Days Qty: 28 0RF insulin lispro [Humalog U-100 Insulin] 100 unit/mL solution See Rx Instructions .ROUTE .COMPLEX Qty: 30 0RF Dose Instruction: INJECT 200 UNITS VIA INSULIN PUMP DAILY Rx Instructions: INJECT 200 UNITS VIA INSULIN PUMP DAILY zolpidem 5 mg tablet 5 mg PO BEDTIME PRN (Reason: insomnia) pantoprazole [Protonix] 40 mg tablet,delayed release (DR/EC) 40 mg PO QAM Qty: 30 0RF pioglitazone 30 mg tablet 30 mg PO DAILY fluoxetine 20 mg capsule 20 mg PO DAILY ramelteon 8 mg tablet 8 mg PO BEDTIME PRN (Reason: unknown) acetaminophen 325 mg Tablet 650 mg PO Q6H PRN (Reason: Mild/Mod Pain Or Temp >/= 101) Qty: 60 0RF calcitriol 0.5 mcg Capsule 0.5 mcg PO DAILY ergocalciferol (vitamin D2) [Vitamin D2] 1,250 mcg (50,000 unit) Capsule 50,000 unit PO .TWICE A WEEK albuterol sulfate 90 mcg/actuation Hfa Aerosol Inhaler 2 puff inhalation Q6H PRN (Reason: Shortness Of Breath) omega-3 acid ethyl esters [Lovaza] 1 gram Capsule 4 cap PO DAILY Creon 3,000-9,500- 15,000 unit capsule,delayed release(DR/EC) 1 cap PO BID PRN (Reason: unknown) Rx Instructions: do not exceed 10,000 unit/kg lipase per 24 hrs rosuvastatin 20 mg tablet 20 mg PO DAILY fenofibrate 160 mg tablet 160 mg PO DAILY Discharge Orders: Discharge Order (Routine); Ordered 02/17/23 Ordered By: Jaime Beltran Referrals: Jorje Kessler FNP [Nurse Practitioner] - 02/23/23 9:00 am (to follow with Jorje Kessler APN for this follow up ) Discharge Diet: Low Fat Discharge Activity: Resume usual activity and Increase activity as tolerated Patient Instructions: Hydrocodone/Acetaminophen (By mouth) (Vicodin, [place], Lortab), Pancreatitis (DC), Low Fat Diet (DC), Diabetic Ketoacidosis (DC), Basic Carbohydrate Counting (DC), Diabetes Type 1: Management (DC), Opioid Safety Activity Restrictions/Additional Instructions: Please make sure that you consume low-fat diet. Please continue multiple small meals. You should be on a softer diet for next 1 week. Please follow-up with a primary care provider within next 1 week and have a repeat CMP and triglyceride level done. You should follow-up with technology applications consultant as an outpatient. Discharge Attestations Time Spent in Discharge Care*: greater than 30 min Specific Discharge Activities: educating patient, discussing with pcp/other providers, discussing with pillowcase folder/social workers/dc planners and evaluating patient/reviewing data Status at Discharge: Cognitive status at discharge: cognitively intact, Behavioral status at discharge: cooperative, Quality Metrics Clinical Quality Measures [ No reported AMI, CVA or VTE this stay] Coding Level of Care Code 29795 Total time (in minutes) for Discharge: 60 Diagnoses Hypertriglyceridemia E78.1 Pancreatitis K85.90 Diabetic ketoacidosis E11.10 Familial hypertriglyceridemia E78.1 IDDM (insulin dependent diabetes mellitus)
[2023-02-17] MEDS: oxyCODONE 5 mg IR Tab/Cap 10 MG PO ×2 (14:47)
--- NOTE | 2023-02-17 16:00 | PC.NURSE ---
All D/C instructions educated to patient, ICC line and IV d/c. patient transported home by mother
== END 2023-02-17 16:00 | disposition home or self-care (01) | DRG 438 ==
LOC: ER 11:15 → ICU 11:39
PROVIDERS: Internal Medicine; Admitting Provider Student in an Organized Health Care Education/Training Program; Emergency Provider Family Medicine; PCP Family Medicine; Visit Provider Student in an Organized Health Care Education/Training Program
DX: K85.90 Acute pancreatitis without necrosis or infection, unspecified (principal); E11.10 Type 2 diabetes mellitus with ketoacidosis without coma; K86.3 Pseudocyst of pancreas; E78.1 Pure hyperglyceridemia; K86.1 Other chronic pancreatitis; K21.9 Gastro-esophageal reflux disease without esophagitis; E78.5 Hyperlipidemia, unspecified; I10 Essential (primary) hypertension; G47.00 Insomnia, unspecified; E66.9 Obesity, unspecified; Z68.31 Body mass index [BMI] 31.0-31.9, adult; Z87.891 Personal history of nicotine dependence
CPT/HCPCS: 36415; 36416; 36573; 36592; 71045; 80048; 80053; 81001; 82009; 82962; 83690; 83721; 83735; 84100; 84478; 85025; 85610; 85730; 93005; 96365; 96372; 96375; 96376; 99285; C1751; J1170; J1644; J1650; J1815; J2405; J2765; J3475; J3490; J7030; J7042; J7050; J7060; J7120; J7799

== ENCOUNTER → 2023-02-21 12:48 | Outpatient (BNVA) | payer MEDICAID, SELFPAY | PROVIDERS: PCP Nurse Practitioner Family; Visit Provider Internal Medicine | DX: E78.1 Pure hyperglyceridemia (principal); K85.90 Acute pancreatitis without necrosis or infection, unspecified; E11.9 Type 2 diabetes mellitus without complications | CPT/HCPCS: 80053; 80061; 82043; 83036 ==

== ENCOUNTER → 2023-03-10 10:59 | Outpatient (BNVA) | payer MEDICAID, SELFPAY | PROVIDERS: PCP Nurse Practitioner Family; Visit Provider Nurse Practitioner Family | DX: K86.3 Pseudocyst of pancreas (principal); Q45.3 Other congenital malformations of pancreas and pancreatic duct; K85.90 Acute pancreatitis without necrosis or infection, unspecified; K76.0 Fatty (change of) liver, not elsewhere classified | CPT/HCPCS: 80053; 82150; 83690; 85025 ==

== ENCOUNTER 2023-05-18 20:39 | Inpatient (IN) | payer MEDICAID, SELFPAY ==
[2023-05-18] VITALS (17 sets, daily range): BP systolic 144–178; BP diastolic 98–108; PULSE 86–105; RESP 14–31; TEMP 36.5; O2SAT 92–98
--- NOTE | 2023-05-18 20:49 | W.ED.ABDPA2 ---
HPI - Abdominal Pain General: Chief Complaint: Abdominal Pain Stated Complaint: abd pain Time Seen by Provider: 05/18/23 20:42 Source: patient and EMS Mode of arrival: EMS Limitations: no limitations History of Present Illness: 37-year-old male who has a history of hypertriglyceridemia along with pancreatitis he states that he started having abdominal pain at 11 AM today. He states its worsened throughout the day and was severe tonight he has had vomiting as well patient was brought in by EMS he is given 6 Zofran along with 4 mg of Dilaudid states he still having pain he rates an 8 out of 10 it feels like his previous pancreatitis. Pain is in the epigastric region. Associated Symptoms: Reports nausea and vomiting; Denies chills, diarrhea, dysuria and fever(s) Review of Systems Const: Denies: fever(s), chills, body aches or change in appetite Eyes: Denies: blurry vision or eye discomfort ENMT: Denies: throat pain or dental pain Card: Denies: chest pain Resp: Denies: dyspnea GI: Reports: abdominal pain, nausea and vomiting; Denies: diarrhea : Denies: dysuria Musc: Denies: neck pain or back pain Skin/Breast: Denies: rash Neuro: Denies: headache(s) PFSH ED PFSH: Medical History Vitamin D deficiency Overweight (BMI 25.0-29.9) Pseudohyponatremia Insomnia Acute on chronic pancreatitis Lipodystrophy Insulin dependent type 2 diabetes mellitus Mediastinal lymphadenopathy Familial hypertriglyceridemia Obesity (BMI 30.0-34.9) GERD (gastroesophageal reflux disease) Hypertension Recurrent pancreatitis Hyperlipidemia LESLY (obstructive sleep apnea) Surgical History History of knee surgery arthroscopic left knee History of cholecystectomy Family History Other CAD (coronary artery disease) Hyperlipidemia Social History Smoking and tobacco/nicotine status: former use of tobacco/nicotine Alcohol intake: never Substance/Drug Use: never Physical Exam Const: COMMON NORMALS: no acute distress, patient oriented x3 and healthy appearing HENMT: COMMON NORMALS: normocephalic and atraumatic HEAD & SCALP: normocephalic and atraumatic Neck/C-Spine: COMMON NORMALS: full ROM and supple Chest: COMMONS NORMALS: normal inspection of the chest Resp: COMMON NORMALS: normal respiratory effort, No retractions, No use of accessory muscles and clear to auscultation bilaterally AUSCULTATION: clear to auscultation bilaterally Cardio: COMMON NORMALS: regular rate, regular rhythm and No murmurs present (Cardio) RATE: regular rate RHYTHM: regular rhythm GI: COMMON NORMALS: Normal to inspection, nondistended, normoactive bowel sounds present, Soft to palpation and no masses PALPATION: Yes Soft to palpation OTHER: epigastric tenderness Extremity: COMMON NORMALS: normal to inspection and full ROM Neuro: COMMON NORMALS: patient oriented x3, moves all extremities and no focal motor deficits Psych: COMMON NORMALS: mental status grossly normal, Normal thought process present and cooperative THOUGHT PROCESS: Normal thought process present Skin: COMMON NORMALS: no rashes or lesions noted and no wounds GENERAL SKIN EXAM: no rashes or lesions noted Course Vital Signs: Vital signs: Vital Signs Temperature 97.7 F 05/19/23 04:00 Pulse Rate 101 H 05/19/23 06:00 Respiratory Rate 20 H 05/19/23 08:49 Blood Pressure 185/114 05/19/23 05:15 Pulse Oximetry 96 05/19/23 08:49 Oxygen Delivery Me thod Room Air 05/18/23 23:06 MDM - Abdominal Pain Medical Decision Making Patient presents with abdominal pain likely from his pancreatitis from his high triglycerides and his triglycerides were 6500 today spoke to hospitalist will admit for an insulin drip due to his high triglycerides Medical Records I reviewed the patient's medical records. Lab Data I reviewed the patient's lab results. 05/19/23 04:38 05/19/23 04:38 Labs/Radiology: Laboratory Results WBC 13.00 10^3/uL (3.29-11.43) H 05/18/23 20:53 RBC 5.58 10^6/uL (3.85-5.65) 05/18/23 20:53 Hgb 15.70 g/dL (11.27-16.99) 05/18/23 20:53 Hct 45.3 % (37-53) 05/18/23 20:53 MCV 81.2 fl (82-101) L 05/18/23 20:53 MCH 28.1 pg (27-33) 05/18/23 20:53 MCHC 34.7 g/dL (30-55) 05/18/23 20:53 RDW 13.1 % (12.1-15.1) 05/18/23 20:53 Plt Count 242 10^3/cmm (157-399) 05/18/23 20:53 MPV 11.8 fL (7.4-10.4) H 05/18/23 20:53 Neut % (Auto) 79.3 % 05/18/23 20:53 Lymph % (Auto) 15.4 % 05/18/23 20:53 [place] % (Auto) 3.5 % 05/18/23 20:53 Eos % (Auto) 0.6 % 05/18/23 20:53 Baso % (Auto) 0.4 % 05/18/23 20:53 Neut # (Auto) 10.30 10^3/uL (1.8-7.7) H 05/18/23 20:53 Lymph # (Auto) 2.0 10^3/uL (0.8-4.8) 05/18/23 20:53 [place] # (Auto) 0.5 10^3/uL (0.2-0.9) 05/18/23 20:53 Eos # (Auto) 0.1 10^3/uL (0.0-0.8) 05/18/23 20:53 Baso # (Auto) 0.1 10^3/uL (0.0-0.1) 05/18/23 20:53 Nucleated RBC % (auto) 0.3 % 05/18/23 20:53 Nucleated RBCs # 0.0 /100WBC 05/18/23 20:53 Sodium 137 mmol/L (136-145) 05/18/23 20:53 Potassium 3.5 mmol/L (3.5-5.1) 05/18/23 20:53 Chloride 97 mmol/L (98-107) L 05/18/23 20:53 Carbon Dioxide 25 mmol/L (22-29) 05/18/23 20:53 Anion Gap 18.5 (5-19) 05/18/23 20:53 BUN 13 mg/dL (6-20) 05/18/23 20:53 Creatinine 0.6 mg/dL (0.7-1.2) L 05/18/23 20:53 GFR Calculation 153.3 mL/min (90-130) H 05/18/23 20:53 Glucose 171 mg/dL (65-115) H 05/18/23 20:53 POC Glucose 166 mg/dL (70-110) H 05/18/23 20:52 Calculated Osmolality 288 mOsm/kg (285-295) 05/18/23 20:53 Calcium 9.4 mg/dL (8.5-10.5) 05/18/23 20:53 Magnesium 1.9 mg/dL (1.7-2.3) 05/18/23 20:53 Total Bilirubin 0.2 mg/dL (0.15-1.2) 05/18/23 20:53 AST 20 U/L (0-40) 05/18/23 20:53 ALT 38 U/L (0-41) 05/18/23 20:53 Alkaline Phosphatase 89 U/L (40-130) 05/18/23 20:53 Troponin T Baseline 9 ng/L (0-15) 05/18/23 20:53 Total Protein 7.9 g/dL (6.6-8.7) 05/18/23 20:53 Albumin 4.2 g/dL (3.5-5.2) 05/18/23 20:53 Globulin 3.7 g/dL (1.3-4.6) 05/18/23 20:53 Lipase U/L (13-60) 05/18/23 20:53 No radiology studies performed this visit Discharge Plan Discharge Patient Disposition: Admitted As Inpatient Admit Provider: Raul Mcadams Clinical Impression: Hyperlipidemia, Pancreatitis Condition: Stable Coding Level of Care Code 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
[2023-05-18 20:54] LABS: Glucose Point of Care 166 mg/dL (70-110)
[2023-05-18] MEDS: sodium chloride 0.9% 1,000 ML 999 ML IV (21:17)
[2023-05-18] MEDS: LORazepam 2 mg/mL INJ 10 mL MDV 1 MG IVP (21:17)
[2023-05-18 21:48] LABS: Alanine Aminotransferase 38 U/L (0-41); Albumin Level 4.2 g/dL (3.5-5.2); Alkaline Phosphatase 89 U/L (40-130); Anion Gap 18.5 (5-19); Aspartate Amino Transferase 20 U/L (0-40); Blood Urea Nitrogen 13 mg/dL (6-20); Calcium 9.4 mg/dL (8.5-10.5); Carbon Dioxide 25 mmol/L (22-29); Chloride 97 mmol/L (98-107); Globulin 3.7 g/dL (1.3-4.6); Glomerular Filtration Rate 153.3 mL/min (90-130); Glucose 171 mg/dL (65-115); Osmolality Calculated 288 mOsm/kg (285-295); Potassium 3.5 mmol/L (3.5-5.1); Sodium 137 mmol/L (136-145); Total Bilirubin 0.2 mg/dL (0.15-1.2); Total Protein 7.9 g/dL (6.6-8.7)
[2023-05-18] MEDS: HYDROmorphone 1 mg/mL INJ 1 mL IVP ×2 (21:50→23:23)
[2023-05-18 21:58] LABS: Basophils # 0.1 10^3/uL (0.0-0.1); Basophils % 0.4 %; Eosinophils # 0.1 10^3/uL (0.0-0.8); Eosinophils % 0.6 %; Hematocrit 45.3 % (37-53); Lymphocytes % 15.4 %; Mean Corpuscular HGB Conc 34.7 g/dL (30-55); Mean Corpuscular Hemoglobin 28.1 pg (27-33); Mean Corpuscular Volume 81.2 fl (82-101); Mean Platelet Volume 11.8 fL (7.4-10.4); Monocytes # 0.5 10^3/uL (0.2-0.9); Monocytes % 3.5 %; Neutrophils % 79.3 %; Nucleated Red Blood Cells % 0.3 %; Platelet Count 242 10^3/cmm (157-399); Red Blood Count 5.58 10^6/uL (3.85-5.65); Red Cell Distribution Width 13.1 % (12.1-15.1)
--- NOTE | 2023-05-18 22:33 | P.HP_ITS ---
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 ED provider requested admission for further management of triglyceride induced pancreatitis. Review of Systems 2 Const: Denies: fever(s), chills, body aches or malaise ENMT: Denies: throat pain, oral sores or ear or mastoid pain Card: Denies: chest pain, edema, pre-syncope or dyspnea on exertion Resp: Denies: dyspnea, productive cough, change in phlegm color or hemoptysis GI: Reports: abdominal pain, nausea and vomiting; Denies: diarrhea, constipation, hematochezia or melena : Denies: flank pain, difficulty urinating, urinary frequency or hematuria Musc: Denies: back pain, joint swelling or joint redness Skin/Breast: Denies: rash or new lesions Neuro: Denies: headache(s) or confusion Medications/Allergies Home Medications Medication Instructions Recorded Confirmed Last Taken Type cholecalciferol (vitamin D3) 125 5,000 unit PO DAILY PRN unknown 04/02/19 03/02/23 11/11/22 History mcg (5,000 unit) capsule magnesium citrate 300 ml PO DAILY PRN constipation 10/02/21 03/02/23 Unknown Rx #296 mL albuterol sulfate 90 mcg/actuation 2 puff inhalation Q6H PRN 05/10/22 03/02/23 Unknown History aerosol inhaler Shortness Of Breath calcitriol 0.5 mcg capsule 0.5 mcg PO DAILY 05/10/22 03/02/23 11/11/22 History ergocalciferol (vitamin D2) 1,250 50,000 unit PO .TWICE A WEEK 05/10/22 03/02/23 11/11/22 History mcg (50,000 unit) capsule (Vitamin D2) [id number] 1 cap PO BID PRN unknown 05/10/22 03/02/23 1 Month Ago History 3,000-9,500-15,000 unit capsule, ~01/06/23 delayed rel (Creon) out for a month flash glucose sensor (FreeStyle #6 ea 06/16/22 03/02/23 Unknown Rx Singh 2 Sensor kit) Dexcom G6 Transmitter #2 ea 07/19/22 03/02/23 Unknown Rx (blood-glucose transmitter) Dexcom G6 Fibre Optic Cable Splicer (blood-glucose #1 ea 07/21/22 03/02/23 Unknown Rx meter,continuous) pantoprazole 40 mg tablet,delayed 40 mg PO QAM #30 tabs 08/04/22 03/02/23 11/11/22 Rx release (Protonix) Dexcom G6 Sensor (blood-glucose #9 ea 08/12/22 03/02/23 Unknown Rx sensor) baclofen 5 mg tablet 5 mg PO BID PRN Pain #60 tabs 08/12/22 03/02/23 Unknown Rx insulin pump cartridge,automated #1 ea 08/18/22 03/02/23 Unknown Rx dose,BT with controller subcutaneous (Omnipod 5 G6 Intro Kit (Gen 5) subcutaneous cartridge with controller) levocetirizine 5 mg tablet (Xyzal) 5 mg PO DAILY PRN allergy symptoms 10/19/22 03/02/23 Unknown Rx 30 days #30 tabs ramelteon 8 mg tablet 8 mg PO BEDTIME PRN unknown 11/12/22 03/02/23 11/11/22 History acetaminophen 325 mg tablet 650 mg (2 x 325 mg) PO Q6H PRN 11/21/22 03/02/23 Unknown Rx Mild/Mod Pain Or Temp >/= 101 #60 tabs fenofibrate 160 mg tablet 160 mg PO DAILY #90 tabs 02/22/23 03/02/23 Unknown Rx omega-3 acid ethyl esters 1 gram 4 cap PO DAILY #90 caps 02/22/23 03/02/23 Unknown Rx capsule (Lovaza) orlistat 120 mg capsule 120 mg PO TID #90 caps 02/22/23 03/02/23 Unknown Rx pioglitazone 45 mg tablet (Actos) 45 mg PO DAILY #90 tabs 02/22/23 03/02/23 Unknown Rx rosuvastatin 20 mg tablet 20 mg PO DAILY #90 tabs 02/22/23 03/02/23 Unknown Rx fluoxetine 20 mg capsule 20 mg PO DAILY #90 caps 03/02/23 03/02/23 Unknown Rx promethazine 25 mg tablet 25 mg PO TID PRN nausea and 03/02/23 03/02/23 Unknown Rx vomiting 10 days #30 tabs zolpidem 5 mg tablet 5 mg PO BEDTIME PRN insomnia 60 03/02/23 03/02/23 Unknown Rx days #60 tabs insulin lispro 100 unit/mL 200 unit (2 mL) continuous 03/07/23 Unknown Rx subcutaneous solution (Humalog subcutaneous infusion DAILY 90 U-100 Insulin) days #60 mL cpap and supplies #1 ea 03/23/23 Unknown Rx metoclopramide HCl 5 mg tablet 5 mg PO Q8H PRN breakthrough 03/28/23 Unknown Rx (Reglan) nausea 7 days #21 tabs insulin pump cart,automated,BT #150 ea 04/04/23 Unknown Rx (Omnipod 5 G6 Pods (Gen 5) subcutaneous cartridge) [id number] See Rx Instructions .Route 04/05/23 Unknown Rx 3,000-9,500-15,000 unit capsule, .COMPLEX #140 caps delayed rel (Creon) amoxicillin 875 mg-potassium 1 tab PO BID #14 tabs 05/09/23 Unknown Rx clavulanate 125 mg tablet oxycodone 10 mg tablet 10 mg PO Q8H PRN pancreatitis pain 05/16/23 Unknown Rx 30 days #90 tabs Allergies Allergy/AdvReac Type Severity Reaction Status Date / Time No Known Allergies Allergy Verified 05/18/23 20:47 PFSH Acute 2 PFSH: Medical History Vitamin D deficiency Overweight (BMI 25.0-29.9) Pseudohyponatremia Insomnia Acute on chronic pancreatitis Lipodystrophy Insulin dependent type 2 diabetes mellitus Mediastinal lymphadenopathy Familial hypertriglyceridemia Obesity (BMI 30.0-34.9) GERD (gastroesophageal reflux disease) Hypertension Recurrent pancreatitis Hyperlipidemia LESLY (obstructive sleep apnea) Surgical History History of knee surgery arthroscopic left knee History of cholecystectomy Family History Other CAD (coronary artery disease) Hyperlipidemia Social History Smoking and tobacco/nicotine status: former use of tobacco/nicotine Alcohol intake: never Substance/Drug Use: never Vitals/I&O/Wt Last Vital Signs Temp 97.7 F 05/18/23 20:42 Pulse 105 H 05/18/23 21:52 Resp 16 05/18/23 22:25 BP 158/99 05/18/23 22:25 Pulse Ox 94 05/18/23 22:25 O2 Del Method Room Air 05/18/23 22:25 Weight last 48 hrs Weight 99.79 kg Physical Exam 2 Narrative: Accompanied by his . Const: COMMON NORMALS: patient oriented x3 and alert GENERAL APPEARANCE: c ooperative ORIENTATION/CONSCIOUSNESS: Yes awake HENMT: COMMON NORMALS: oropharynx normal Neck/C-Spine: COMMON NORMALS: no JVD Resp: COMMON NORMALS: normal respiratory effort and clear to auscultation bilaterally AUSCULTATION: clear to auscultation bilaterally Cardio: COMMON NORMALS: no JVD, regular rhythm, S1 normal heart sound present, S2 normal heart sound present and No murmurs present (Cardio) RHYTHM: regular rhythm HEART SOUNDS: S1 normal heart sound present and S2 normal heart sound present GI: COMMON NORMALS: Normal to inspection, nondistended, normoactive bowel sounds present and Soft to palpation PALPATION: Yes Soft to palpation and Yes Tenderness to palpation present (GI) Extremity: COMMON NORMALS: no joint enlargement and no pedal edema Neuro: COMMON NORMALS: patient oriented x3 and moves all extremities S ENSORIUM/ORIENTATION: Yes alert Skin: COMMON NORMALS: no rashes or lesions noted GENERAL SKIN EXAM: no rashes or lesions noted Data 05/18/23 20:53 05/18/23 20:53 A&P Assessment and plan (1) Recurrent pancreatitis: Acute pancreatitis with nausea vomiting, upper abdominal pain. Some chest pain discomfort as well. Malaise. Reviewed vitals, CBC, CMP, lipase, ER note, discussed with ER provider. Request is made for admission to intensive care unit, insulin drip, D10 is requested to allow for insulin drip. Hold pump at current time. Requesting PICC line to allow for more concentrated dextrose solution which would allow for higher rates of insulin infusion. Monitor for hypo-/hyperglycemia risk. Electrolyte abnormality, repeat chemistry requested. Bowel rest, clear liquid diet for now only. Pain control with Dilaudid, antiemetic with Zofran, VTE and PPI prophylaxis. Insulin drip was requested. Requesting 20 mcg IV potassium. Follow-up electrolytes. Check magnesium, phosphorus. (2) Hypertriglyceridemia: Insulin drip as above. Follows with endocrinology. On fenofibrate, rosuvastatin, Lovaza, Actos, orlistat. Requesting to confirm medication doses. Resume once available. Reviewed endocrinology note. Arrangements also underway for intermittent plasmapheresis in [place] but have not been set up yet. (3) Nausea & vomiting: Antiemetic, PPI. (4) Leukocytosis: Suspect stress-induced secondary to pancreatitis, possibly nausea and vomiting. With nausea and vomiting, will check chest x-ray. Monitor oxygenation, at current time no sign of aspiration pneumonia. Monitor vitals, reassess condition. (5) Chest pain: Also having some chest discomfort, possibly secondary to nausea and vomiting, however, will obtain troponin and EKG series. Monitor on telemetry. Plan DM2: Insulin drip as above. Normally has insulin pump, Dexcom. Follows with endocrinology. Familial hypertriglyceridemia: As above. GERD: PPI Obesity HTN: Monitor blood pressures. Blood pressure elevated in ER 172/104 he is in pain and nauseated. Treat nausea, pain. Reassess blood pressure. Obtain troponin and EKG series. Requesting to confirm home medications, please review and reconcile once available. Attestations 2 Medical Necessity Statement*: Admission of over 2 midnights anticipated for assessment management of acute pancreatitis with hypertriglyceridemia. Coding Level of Care Code Critical Care >/= 30 minutes Critical care time (in minutes): 40 The high probability of a clinically significant, sudden or life threatening deterioration, as referenced in this documentation, required my full and direct attention, intervention and personal management. The critical care time shown is in addition to time spent performing any reported separately billable procedures and includes the following: [x] Data and vital sign review and interpretation [x ] Patient assessment, examination and intervention [x] Medication orders and management [x] Patient/Family updates as able [x] Care Coordination and Documentation. Diagnoses Recurrent pancreatitis Hypertriglyceridemia E78.1 Nausea & vomiting R11.2 Leukocytosis D72.829 Chest pain R07.9
[2023-05-18 22:36] LABS: Troponin(5th) Baseline 9 ng/L (0-15)
--- NOTE | 2023-05-18 23:05 | XRR_ITS ---
PROCEDURE INFORMATION: Exam: XR Chest Exam date and time: 05/18/2023 11:17 PM Age: 37 years old Clinical indication: Other: Vomiting; Additional info: Vomiting, leukocytosis TECHNIQUE: Imaging protocol: Radiologic exam of the chest. Views: 1 view. COMPARISON: CR XR chest 1V portable [id number] 02/07/2023 9:38 AM FINDINGS: Lungs: Unremarkable. No consolidation. Pleural spaces: Unremarkable. No pleural effusion. No pneumothorax. Heart/Mediastinum: Unremarkable. No cardiomegaly. Bones/joints: Unremarkable. XR/XR chest 1V portable [id number] IMPRESSION: No acute plain radiographic cardiopulmonary abnormality. No confluent airspace opacity.
[2023-05-18] MEDS: pantoprazole 40 mg SDV IVP (23:24)
[2023-05-18] MEDS: enoxaparin 40 mg/0.4 mL Syringe SUBCUT (23:24)
[2023-05-18] MEDS: lidocaine 1% 5 ML in potassium chloride premix 100 ML 52.5 ML IV (23:24)
[2023-05-18 23:30] LABS: Magnesium 1.9 mg/dL (1.7-2.3)
[2023-05-18 23:52] LABS: Glucose Point of Care 166 mg/dL (70-110)
[2023-05-19] VITALS (62 sets, daily range): BP systolic 136–185; BP diastolic 83–114; PULSE 90–144; RESP 15–28; TEMP 36.5–36.8; O2SAT 90–98
[2023-05-19] MEDS: insulin regular-human 250 UNIT in sodium chloride 0.9% 250 ML 1.01000000000000001 UNIT IV (00:10)
[2023-05-19] MEDS: dextrose 10% 1,000 ML 200 ML IV ×2 (00:10→04:33)
[2023-05-19] MEDS: ondansetron 2 mg/ML SDV 2 mL 4 MG IVP ×3 (00:17→09:50)
[2023-05-19] MEDS: HYDROmorphone 1 mg/mL INJ 1 mL IVP ×3 (00:54→03:19)
[2023-05-19] MEDS: metoclopramide 5 mg/mL SDV 2 mL IVP ×3 (00:56→10:40)
[2023-05-19 01:03] LABS: Glucose Point of Care 245 mg/dL (70-110)
--- NOTE | 2023-05-19 01:03 | PC.NURSE ---
insulin dx started. Orders from Dr. Dean to start dx at 1 because of blood glucose in the 160s
--- NOTE | 2023-05-19 01:06 | PC.NURSE ---
Orders to continue insulin dx per protocol after first blood glucose check by Dr. Mcadams. One time order for dilaudid received for increased pain Order for Reglan given for nausea
[2023-05-19 01:42] LABS: Troponin 5 2HR 6.47 ng/L (0-15)
[2023-05-19 01:44] LABS: Troponin 5 2HR Delta -2.53 ABS# (0-10)
[2023-05-19 01:58] LABS: Glucose Point of Care 304 mg/dL (70-110)
[2023-05-19 02:04] LABS: Anion Gap 21.1 (5-19); Blood Urea Nitrogen 11 mg/dL (6-20); Calcium 8.6 mg/dL (8.5-10.5); Carbon Dioxide 20 mmol/L (22-29); Chloride 96 mmol/L (98-107); Creatinine Clr Calc Pharmacy 250.1917; Glomerular Filtration Rate 189.2 mL/min (90-130); Glucose 223 mg/dL (65-115); Osmolality Calculated 282 mOsm/kg (285-295); Potassium 4.1 mmol/L (3.5-5.1); Sodium 133 mmol/L (136-145)
[2023-05-19 02:58] LABS: Glucose Point of Care 336 mg/dL (70-110)
[2023-05-19 04:04] LABS: Glucose Point of Care 353 mg/dL (70-110)
[2023-05-19] MEDS: fentaNYL 25 mcg Patch 1 PATCH TRANSDERMA (04:33)
[2023-05-19 04:59] LABS: Basophils # 0.1 10^3/uL (0.0-0.1); Basophils % 0.3 %; Eosinophils % 0.1 %; Hematocrit 43.5 % (37-53); Lymphocytes # 1.8 10^3/uL (0.8-4.8); Lymphocytes % 11.5 %; Mean Corpuscular HGB Conc 36.1 g/dL (30-55); Mean Corpuscular Hemoglobin 30.3 pg (27-33); Mean Platelet Volume 12.1 fL (7.4-10.4); Monocytes # 0.5 10^3/uL (0.2-0.9); Monocytes % 3.4 %; Neutrophils # 12.85 10^3/uL (1.8-7.7); Neutrophils % 84.2 %; Nucleated Red Blood Cells % 0 %; Platelet Count 209 10^3/cmm (157-399); Red Blood Count 5.18 10^6/uL (3.85-5.65); Red Cell Distribution Width 12.8 % (12.1-15.1); White Blood Count 15.28 10^3/uL (3.29-11.43)
[2023-05-19] MEDS: HYDROmorphone 1 mg/mL INJ 1 mL 1.5 MG IVP ×3 (05:07→08:49)
[2023-05-19 05:08] LABS: Glucose Point of Care 290 mg/dL (70-110)
[2023-05-19 05:53] LABS: Troponin 5 6HR 6.78 ng/L (0-15); Troponin 5 6HR Delta -2.22 ng/L (0-12)
[2023-05-19 05:54] LABS: Albumin Level 4.1 g/dL (3.5-5.2); Alkaline Phosphatase 89 U/L (40-130); Blood Urea Nitrogen 8 mg/dL (6-20); Calcium 8.9 mg/dL (8.5-10.5); Carbon Dioxide 19 mmol/L (22-29); Chloride 91 mmol/L (98-107); Creatinine Clr Calc Pharmacy 250.1917; Globulin 3.1 g/dL (1.3-4.6); Glomerular Filtration Rate 189.2 mL/min (90-130); Glucose 324 mg/dL (65-115); Magnesium 1.7 mg/dL (1.7-2.3); Osmolality Calculated 279 mOsm/kg (285-295); Phosphorus 3.6 mg/dL (2.5-4.5); Sodium 129 mmol/L (136-145); Total Bilirubin 0.4 mg/dL (0.15-1.2); Total Protein 7.2 g/dL (6.6-8.7)
[2023-05-19 05:57] LABS: Anion Gap 23.1 (5-19); Potassium 4.1 mmol/L (3.5-5.1)
[2023-05-19 06:02] LABS: Glucose Point of Care 306 mg/dL (70-110)
[2023-05-19 06:06] LABS: Alanine Aminotransferase < 5 U/L (0-41); Aspartate Amino Transferase 5 U/L (0-40)
[2023-05-19 07:12] LABS: Glucose Point of Care 287 mg/dL (70-110)
--- NOTE | 2023-05-19 08:46 | XR_ITS ---
WS: [id number] Exam: XR chest 1V portable [id number] Date/Time of Exam: 05/19/2023 8:56 AM Reason For Exam: Post PICC insertion Comparison 05/18/2023. 2. AP portable chest radiographs are obtained for PICC line placement. The first image depicts a left -sided PICC line in place ending in the RIGHT atrium. The PICC line was withdrawn approximately 2 to 3 cm. The second image depicts the PICC line ending at the cavoatrial junction in satisfactory locati on. The lungs are clear. The heart is normal in size. The mediastinum is normal in contour. No pleura l effusions. Normal bony structures. IMPRESSION: 1. Final image demonstrates left-sided PICC line in satisfactory position. 2. No acute cardiopulmonary finding.
[2023-05-19 09:26] LABS: Chol HDL Ratio 40.06 mg/dL (1.0-5.00); Cholesterol 681 mg/dL (0-200); HDL Cholesterol 17 mg/dL (60-100)
--- NOTE | 2023-05-19 09:30 | PC.NURSE ---
Triple lumen PICC placed to left basilic vein. Referred to vascular access nurse for PICC line due to irritant IV meds. Pt just medicated for pain. Pt at bedside. Risks and benefits discussed with patient and and informed consent obtained from . Pt has had multiple PICC's placed by this nurse for history of pancreatitis. Right arm assessed with no viable vessels noted. Left arm assessed with left basilic vein measuring 3.8 mm, straight, and apparent best choice for placement. Using sterile technique and MST, left basilic vein accessed x 1 stick. Mid- arm circumference measured 10 cm from left AC 32 cm. Trimmed cath 45 cm with 0 cm exernal length noted. CXR shows tip in SVC, cavoatrial junction, in good position for use per radiologist. Line secured with stat-lock. Insertion site covered with Biopatch and TSM. Report given to bedside nurseAbdias.
[2023-05-19 10:04] LABS: Triglycerides 5758 mg/dL (0-150); VLDL Cholestrol Calculation 1152 mg/dL (0-30)
--- NOTE | 2023-05-19 10:05 | P.TS_ITS ---
Transfer Summary Providers Date of Admission: 05/18/23 21:58 Date of Discharge/Transfer: 05/19/23 Attending Provider at Admission: Raul Mcadams Attending Provider at Transfer: Marcia Maravilla MD Primary Care Provider: DOUGIE Collins Transfer Plans: Anticipated date of transfer: 05/19/23 . Receiving Facility: [facility] Receiving Provider: Dr. Garcia . Diagnoses at Discharge Discharge Diagnosis (1) Recurrent pancreatitis: Status: Acute (2) Hypertriglyceridemia: Status: Acute (3) Nausea & vomiting: Status: Acute (4) Leukocytosis: Status: Acute (5) Chest pain: Status: Acute Reason for Visit Reason for Visit abd pain Brief History: As per Dr. 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 ED provider requested admission for further management of triglyceride induced pancreatitis. Hospital Course Hospital Course Patient presents with recurrent hospital admissions for chronic pancreatitis, chronic hypertriglyceridemia and has seen a lipid specialist in [place] in the past as well. He presents normally with DKA and pancreatitis and has persistent significant hypertriglyceridemia. At last admission most recently was in the beginning of February he was placed on TPN along with continuation of insulin drip. At that admission triglycerides were 3000 upon admission and at discharge were 1200. He was finally able to tolerate a diet and no longer had any abdominal pain and was discharged home. He was counseled in detail that he is at high risk of recurrent pancreatitis given persistent hypertriglyceridemia and going forward he will be needing plasmapheresis. He was advised to take multiple small fat-free soft diet and to follow-up with endocrinology as an inpatient. Patient saw endocrinology as an outpatient and patient is on fenofibrate, rosuvastatin, ezetimibe, Actos, lovaza. Director Health was looking into frequent plasmapheresis in [place] for high triglycerides however nothing has been set up yet. Overnight patient has presented for nausea vomiting upper abdominal pain with some chest discomfort which is reproducible to palpation. Insulin drip was started. Insulin pump was held at this time. PICC line has been placed. Bowel rest. He will need initiation of TPN. Due to the need of plasmapheresis I discussed the case with financial economist Dr. Garcia at [facility] who was accepted the patient for transfer at this time for higher level of care. Patient will be needing plasmapheresis. His triglycerides were 6500 on admission and are 5900 this morning. I will hold off on initiating TPN as it can be started once he goes to [facility] today. Coordinator has confirmed bed availability and patient will be transferred up there in stable condition today. Currently his pain regimen is Dilaudid 2 mg every 2 hours as needed. Patient and his updated at bedside with all of the above. Physical Exam Narrative: In mild distress secondary to pain, appears ill and uncomfortable Normal S1-S2, slightly tachycardic Abdomen tender to palpation in epigastric region and right and left upper quadrants. Chest pain reproducible to palpation, Extremities unremarkable at bedside. TS Data Studies Completed and Pending Pending at discharge Category Date Time Status Complete Blood Count w/Auto AM LABS Lab 05/20/23 04:00 Ordered Complete Blood Count w/Auto AM LABS Lab 05/21/23 04:00 Ordered Comprehensive Metabolic Panel AM LABS Lab 05/20/23 04:00 Ordered Comprehensive Metabolic Panel AM LABS Lab 05/21/23 04:00 Ordered Magnesium AM LABS Lab 05/20/23 04:00 Ordered Magnesium AM LABS Lab 05/21/23 04:00 Ordered Phosphorus AM LABS Lab 05/20/23 04:00 Ordered Phosphorus AM LABS Lab 05/21/23 04:00 Ordered Completed Studies During Hospitalization Category Date Time Status CXRP [XR chest 1V portable [id number]] Routine Exams 05/18/23 23:05 Completed CXRP [XR chest 1V portable [id number]] Routine Exams 05/19/23 08:46 Completed Laboratory Last Values WBC 15.28 10^3/uL (3.29-11.43) H 05/19/23 04:38 RBC 5.18 10^6/uL (3.85-5.65) 05/19/23 04:38 Hgb 15.70 g/dL (11.27-16.99) 05/19/23 04:38 Hct 43.5 % (37-53) 05/19/23 04:38 MCV 84.0 fl (82-101) 05/19/23 04:38 MCH 30.3 pg (27-33) 05/19/23 04:38 MCHC 36.1 g/dL (30-55) 05/19/23 04:38 RDW 12.8 % (12.1-15.1) 05/19/23 04:38 Plt Count 209 10^3/cmm (157-399) 05/19/23 04:38 MPV 12.1 fL (7.4-10.4) H 05/19/23 04:38 Neut % (Auto) 84.2 % 05/19/23 04:38 Lymph % (Auto) 11.5 % 05/19/23 04:38 [place] % (Auto) 3.4 % 05/19/23 04:38 Eos % (Auto) 0.1 % 05/19/23 04:38 Baso % (Auto) 0.3 % 05/19/23 04:38 Neut # (Auto) 12.85 10^3/uL (1.8-7.7) H 05/19/23 04:38 Lymph # (Auto) 1.8 10^3/uL (0.8-4.8) 05/19/23 04:38 [place] # (Auto) 0.5 10^3/uL (0.2-0.9) 05/19/23 04:38 Eos # (Auto) 0.0 10^3/uL (0.0-0.8) 05/19/23 04:38 Baso # (Auto) 0.1 10^3/uL (0.0-0.1) 05/19/23 04:38 Nucleated RBC % (auto) 0 % 05/19/23 04:38 Nucleated RBCs # 0.0 /100WBC 05/19/23 04:38 Sodium 129 mmol/L (136-145) L 05/19/23 04:38 Potassium 4.1 mmol/L (3.5-5.1) 05/19/23 04:38 Chloride 91 mmol/L (98-107) L 05/19/23 04:38 Carbon Dioxide 19 mmol/L (22-29) L 05/19/23 04:38 Anion Gap 23.1 (5-19) H 05/19/23 04:38 BUN 8 mg/dL (6-20) 05/19/23 04:38 Creatinine 0.5 mg/dL (0.7-1.2) L 05/19/23 04:38 GFR Calculation 189.2 mL/min (90-130) H 05/19/23 04:38 Glucose 324 mg/dL (65-115) H 05/19/23 04:38 POC Glucose 287 mg/dL (70-110) H 05/19/23 07:03 Calculated Osmolality 279 mOsm/kg (285-295) L 05/19/23 04:38 Calcium 8.9 mg/dL (8.5-10.5) 05/19/23 04:38 Phosphorus 3.6 mg/dL (2.5-4.5) 05/19/23 04:38 Magnesium 1.7 mg/dL (1.7-2.3) 05/19/23 04:38 Total Bilirubin 0.4 mg/dL (0.15-1.2) 05/19/23 04:38 AST 5 U/L (0-40) 05/19/23 04:38 ALT < 5 U/L (0-41) 05/19/23 04:38 Alkaline Phosphatase 89 U/L (40-130) 05/19/23 04:38 Troponin T Baseline 9 ng/L (0-15) 05/18/23 20:53 Troponin T 120 Minute 6.47 ng/L (0-15) 05/19/23 00:37 Delta Troponin T -2.53 ABS# (0-10) L 05/19/23 00:37 Troponin T Hi Sens 6Hr 6.78 ng/L (0-15) 05/19/23 04:38 Troponin T Hi Sens 6Hr Delta -2.22 ng/L (0-12) L 05/19/23 04:38 Total Protein 7.2 g/dL (6.6-8.7) 05/19/23 04:38 Albumin 4.1 g/dL (3.5-5.2) 05/19/23 04:38 Globulin 3.1 g/dL (1.3-4.6) 05/19/23 04:38 Triglycerides 5758 mg/dL (0-150) H 05/19/23 04:38 Cholesterol 681 mg/dL (0-200) H 05/19/23 04:38 LDL Cholesterol, Calc Not Reportable 05/19/23 04:38 Total VLDL Cholesterol 1152 mg/dL (0-30) H 05/19/23 04:38 HDL Cholesterol 17 mg/dL (60-100) L 05/19/23 04:38 Cholesterol/HDL Ratio 40.06 mg/dL (1.0-5.00) H 05/19/23 04:38 Lipase U/L (13-60) 05/18/23 20:53 Recent Clincial Data Last Vital Signs Temp 97.7 F 05/19/23 04:00 Pulse 101 H 05/19/23 06:00 Resp 20 H 05/19/23 08:49 BP 185/114 05/19/23 05:15 Pulse Ox 96 05/19/23 08:49 O2 Del Method Room Air 05/18/23 23:06 Vital Signs Temp Pulse Resp BP Pulse Ox O2 Del Method 05/19/23 08:49 20 H 96 05/19/23 07:00 22 H 95 05/19/23 06:00 101 H 05/19/23 05:15 96 15 185/114 95 05/19/23 05:10 104 H 24 H 185/114 92 05/19/23 05:05 103 H 17 185/114 94 05/19/23 05:00 103 H 17 163/99 96 05/19/23 04:55 144 H 22 H 163/99 98 05/19/23 04:50 90 28 H 163/99 96 05/19/23 04:45 91 26 H 167/106 96 05/19/23 04:40 103 H 18 167/106 96 05/19/23 04:35 98 15 167/106 97 05/19/23 04:30 94 21 H 166/112 91 05/19/23 04:25 116 H 19 H 166/112 92 05/19/23 04:20 107 H 18 166/112 95 05/19/23 04:15 100 21 H 159/109 96 05/19/23 04:10 98 21 H 159/109 92 05/19/23 04:05 98 15 159/109 96 05/19/23 04:00 97.7 F 101 H 16 167/106 95 05/19/23 03:55 102 H 20 H 167/106 94 05/19/23 03:50 99 18 167/106 97 05/19/23 03:45 94 20 H 136/83 95 05/19/23 03:40 101 H 21 H 136/83 92 05/19/23 03:35 98 19 H 136/83 96 05/19/23 03:30 102 H 20 H 160/96 93 05/19/23 03:25 102 H 22 H 160/96 93 05/19/23 03:20 98 16 160/96 97 05/19/23 03:19 19 H 05/19/23 03:15 105 H 16 167/102 96 05/19/23 03:10 104 H 21 H 167/102 94 05/19/23 03:05 101 H 20 H 167/102 97 05/19/23 03:00 97 18 159/94 95 05/19/23 02:55 108 H 21 H 159/94 95 05/19/23 02:50 117 H 19 H 159/94 95 05/19/23 02:45 97 20 H 158/95 94 05/19/23 02:40 100 20 H 158/95 94 05/19/23 02:35 93 17 158/95 96 05/19/23 02:30 99 20 H 165/101 95 05/19/23 02:25 99 17 165/101 95 05/19/23 02:20 102 H 19 H 165/101 93 05/19/23 02:15 99 17 173/96 93 05/19/23 02:10 101 H 21 H 173/96 92 05/19/23 02:05 95 20 H 173/96 92 05/19/23 02:00 101 H 22 H 155/97 93 05/19/23 01:55 98 20 H 155/97 94 05/19/23 01:50 99 23 H 155/97 91 05/19/23 01:45 105 H 20 H 163/101 90 05/19/23 01:40 101 H 19 H 163/101 95 05/19/23 01:40 20 H 05/19/23 01:35 99 19 H 163/101 94 05/19/23 01:30 100 19 H 176/98 91 05/19/23 01:25 105 H 21 H 176/98 94 05/19/23 01:20 97 18 176/98 93 05/19/23 01:15 113 H 16 178/100 98 05/19/23 01:10 104 H 17 178/100 91 05/19/23 00:54 21 H 05/19/23 00:20 101 H 23 H 92 05/19/23 00:15 97 21 H 94 05/19/23 00:10 97 18 94 05/19/23 00:05 97 18 94 05/19/23 00:00 98.2 F 96 22 H 171/106 94 05/18/23 23:55 100 17 171/106 95 05/18/23 23:50 98 18 171/106 92 05/18/23 23:45 98 16 166/108 95 05/18/23 23:40 105 H 31 H 166/108 94 05/18/23 23:35 92 17 166/108 95 05/18/23 23:30 100 16 178/103 93 05/18/23 23:25 101 H 18 178/103 92 05/18/23 23:23 18 05/18/23 23:20 93 18 178/103 94 05/18/23 23:15 97 14 172/104 98 05/18/23 23:10 94 20 H 172/104 95 05/18/23 23:06 Room Air 05/18/23 23:05 102 H 05/18/23 23:05 97.7 F 91 21 H 172/104 95 05/18/23 22:25 16 158/99 94 Room Air Intake & Output/Weight 05/17/23 05/18/23 05/19/23 05/20/23 06:59 06:59 06:59 06:59 Intake Total 2007.337 / 2007.337 Output Total 1900 / 1900 Balance 108.337 / 108.337 Weight 101.151 kg Vitals Last Vital Signs Temp 97.7 F 05/19/23 04:00 Pulse 101 H 05/19/23 06:00 Resp 20 H 05/19/23 08:49 BP 185/114 05/19/23 05:15 Pulse Ox 96 05/19/23 08:49 O2 Del Method Room Air 05/18/23 23:06 TS Medications Medications Acetaminophen (Acetaminophen 325 Mg Tablet) 650 mg PO Q6H PRN PRN Reason: Mild/Mod Pain Or Temp >/= 101 Enoxaparin Sodium (Enoxaparin 40 Mg/0.4 Ml Syringe) 40 mg SUBCUT Q24H [facility] Last Admin: 05/18/23 23:24 Dose: 40 mg Fentanyl (Fentanyl 25 Mcg Patch) 1 patch TRANSDERMA Q72H [facility] Last Admin: 05/19/23 04:33 Dose: 1 patch Hydromorphone HCl (Hydromorphone 1 Mg/Ml Inj 1 Ml) 2 mg IVP Q2H PRN PRN Reason: PAIN Dextrose (D10w) 1,000 mls @ 200 mls/hr IV .Q5H [facility] [place] Last Admin: 05/19/23 04:33 Dose: 200 mls/hr Magnesium Sulfate (Magnesium Sulfate Premix) 2 gm in 50 mls @ 50 mls/hr IV PRN PRN PRN Reason: HYPOMAGNESIUMIA Insulin Human Regular 250 unit (/ Sodium Chloride) 252.5 mls @ 0 mls/hr IV .Q0M [facility]; Protocol Last Titration: 05/19/23 06:00 Dose: 10.5 unit/hr, 10.61 mls/hr Potassium Phosphate 40 meq/ (Sodium Chloride) 108.5106 mls @ 27.273 mls/hr IV PRN PRN PRN Reason: hypophosphatemia Dextrose (D10w) 125 mls @ 750 mls/hr IV PRN PRN; Protocol PRN Reason: Adult DKA Hypoglycemia Nursing Protocol Dextrose (D10w) 250 mls @ 1,000 mls/hr IV PRN PRN; Protocol PRN Reason: Adult DKA Hypoglycemia Nursing Protocol Lidocaine HCl 5 ml/ Potassium (Chloride) 105 mls @ 25 mls/hr IV PRN PRN PRN Reason: hypokalemia Metoclopramide HCl (Metoclopramide 5 Mg/Ml Sdv 2 Ml) 5 mg IVP Q4H PRN PRN Reason: NAUSEA AND VOMITING Stop: 05/21/23 00:46 Last Admin: 05/19/23 05:07 Dose: 5 mg Ondansetron HCl (Ondansetron 2 Mg/Ml Sdv 2 Ml) 4 mg IVP Q4H PRN PRN Reason: vomiting, or N/V if npo Last Admin: 05/19/23 09:50 Dose: 4 mg Pantoprazole Sodium (Pantoprazole 40 Mg Sdv) 40 mg IVP Q24H [facility] [place] Last Admin: 05/18/23 23:24 Dose: 40 mg Scopolamine (Scopolamine 1.5 Patch) 1 patch TRANSDERMA Q3D [facility] Discontinued Medications Hydromorphone HCl (Hydromorphone 1 Mg/Ml Inj 1 Ml) 1 mg IVP ONCE ONE Stop: 05/18/23 21:48 Last Admin: 05/18/23 21:50 Dose: 1 mg Hydromorphone HCl (Hydromorphone 1 Mg/Ml Inj 1 Ml) 1 mg IVP Q2H PRN PRN Reason: SEVERE PAIN Last Admin: 05/19/23 03:19 Dose: 1 mg Hydromorphone HCl (Hydromorphone 1 Mg/Ml Inj 1 Ml) 1 mg IVP ONCE ONE Stop: 05/19/23 00:43 Last Admin: 05/19/23 00:54 Dose: 1 mg Hydromorphone HCl (Hydromorphone 1 Mg/Ml Inj 1 Ml) 1.5 mg IVP Q2H PRN PRN Reason: SEVERE PAIN Last Admin: 05/19/23 08:49 Dose: 1.5 mg Sodium Chloride (Sodium Chloride 0.9%) 1,000 mls @ 999 mls/hr IV .Q1H1M ONE Stop: 05/18/23 21:48 Last Infusion: 05/19/23 00:21 Dose: Infused Lidocaine HCl 5 ml/ Potassium (Chloride) 105 mls @ 52.5 mls/hr IV ONCE ONE Stop: 05/19/23 00:38 Last Infusion: 05/19/23 01:34 Dose: Infused Dextrose (D5w) 500 mls @ 0 mls/hr IV ONCE PRN; Protocol PRN Reason: Adult Acute Hypoglycemia Prot Insulin Human Regular 250 unit (/ Sodium Chloride) 252.5 mls @ 0 mls/hr IV .Q0M [facility]; Protocol Dextrose (D10w) 250 mls @ 1,000 mls/hr IV PRN PRN; Protocol PRN Reason: Adult Acute Hypoglycemia Nursing Protocol Dextrose (D10w) 125 mls @ 750 mls/hr IV PRN PRN; Protocol PRN Reason: Adult Acute Hypoglycemia Nursing Protocol Lidocaine HCl 5 ml/ Potassium (Chloride) 105 mls @ 25 mls/hr IV PRN PRN PRN Reason: hypokalemia Lorazepam (Lorazepam 2 Mg/Ml Inj 10 Ml Mdv) 1 mg IVP ONCE ONE Stop: 05/18/23 20:49 Last Admin: 05/18/23 21:17 Dose: 1 mg Allergies No Known Allergies Allergy (Verified 05/18/23 20:47) Home Medications albuterol sulfate 90 mcg/actuation aerosol inhaler 2 puff inhalation Q6H PRN Shortness Of Breath 05/10/22 [History Confirmed 05/19/23] calcitriol 0.5 mcg capsule 0.5 mcg PO DAILY 05/10/22 [History Confirmed 05/19/23] ergocalciferol (vitamin D2) 1,250 mcg (50,000 unit) capsule (Vitamin D2) 50,000 unit PO .TWICE A WEEK 05/10/22 [History Confirmed 05/19/23] ojfgyy-ghngiqbe-zdxoxdd 3,000-9,500-15,000 unit capsule, delayed rel (Creon) 1 c ap PO BID PRN unknown 05/10/22 [History Confirmed 05/19/23] flash glucose sensor (FreeStyle Singh 2 Sensor kit) #6 ea 06/16/22 [Rx Confirmed 05/19/23] Dexcom G6 Transmitter (blood-glucose transmitter) #2 ea 07/19/22 [Rx Confirmed 05/19/23] Dexcom G6 Mechanical Equipment Test Engineer (blood-glucose meter,continuous) #1 ea 07/21/22 [Rx Confirmed 05/19/23] Dexcom G6 Sensor (blood-glucose sensor) #9 ea 08/12/22 [Rx Confirmed 05/19/23] insulin pump cartridge,automated dose,BT with controller subcutaneous (Omnipod 5 G6 Intro Kit (Gen 5) subcutaneous cartridge with controller) #1 ea 08/18/22 [Rx Confirmed 05/19/23] levocetirizine 5 mg tablet (Xyzal) 5 mg PO DAILY PRN allergy symptoms 30 days #30 tabs 10/19/22 [Rx Confirmed 05/19/23] ramelteon 8 mg tablet 8 mg PO BEDTIME PRN Sleep 11/12/22 [History Confirmed 05/19/23] acetaminophen 325 mg tablet 650 mg (2 x 325 mg) PO Q6H PRN Mild/Mod Pain Or Temp >/= 101 #60 tabs 11/21/22 [Rx Confirmed 05/19/23] fenofibrate 160 mg tablet 160 mg PO DAILY #90 tabs 02/22/23 [Rx Confirmed 05/19/23] orlistat 120 mg capsule 120 mg PO TID #90 caps 02/22/23 [Rx Confirmed 05/19/23] pioglitazone 45 mg tablet (Actos) 45 mg PO DAILY #90 tabs 02/22/23 [Rx Confirmed 05/19/23] rosuvastatin 20 mg tablet 20 mg PO DAILY #90 tabs 02/22/23 [Rx Confirmed 05/19/23] fluoxetine 20 mg capsule 20 mg PO DAILY #90 caps 03/02/23 [Rx Confirmed 05/19/23] promethazine 25 mg tablet 25 mg PO TID PRN nausea and vomiting 10 days #30 tabs 03/02/23 [Rx Confirmed 05/19/23] zolpidem 5 mg tablet 5 mg PO BEDTIME PRN insomnia 60 days #60 tabs 03/02/23 [Rx Confirmed 05/19/23] insulin lispro 100 unit/mL subcutaneous solution (Humalog U-100 Insulin) 200 unit (2 mL) continuous subcutaneous infusion DAILY 90 days #60 mL 03/07/23 [Rx Confirmed 05/19/23] cpap and supplies #1 ea 03/23/23 [Rx Confirmed 05/19/23] metoclopramide HCl 5 mg tablet (Reglan) 5 mg PO Q8H PRN breakthrough nausea 7 days #21 tabs 03/28/23 [Rx Confirmed 05/19/23] insulin pump cart,automated,BT (Omnipod 5 G6 Pods (Gen 5) subcutaneous cartridge) #150 ea 04/04/23 [Rx Confirmed 05/19/23] sccavo-cdqzqzab-tytrjds 3,000-9,500-15,000 unit capsule, delayed rel (Creon) See Rx Instructions .Route .COMPLEX #140 caps 04/05/23 [Rx Confirmed 05/19/23] oxycodone 10 mg tablet 10 mg PO Q8H PRN pancreatitis pain 30 days #90 tabs 05/16/23 [Rx Confirmed 05/19/23] Discharge Plan Discharge Patient Disposition: Xfer Other Condition: Stable Prescriptions: No Action (DME) Dexcom G6 Transmitter Device See Rx Instructions .ROUTE .MEDSUPPLY Qty: 2 3RF Rx Instructions: change every 3 months (DME) FreeStyle Singh 2 Sensor Kit See Rx Instructions .Route Qty: 6 5RF Rx Instructions: As directed (DME) Dexcom G6 Sensor Device See Rx Instructions .ROUTE .MEDSUPPLY Qty: 9 3RF Rx Instructions: change every 10 days levocetirizine [Xyzal] 5 mg tablet 5 mg PO DAILY PRN (Reason: allergy symptoms) 30 Days Qty: 30 0RF rosuvastatin 20 mg tablet 20 mg PO DAILY Qty: 90 0RF orlistat 120 mg capsule 120 mg PO TID Qty: 90 2RF Rx Instructions: administer during or up to 1 hour after meal pioglitazone [Actos] 45 mg tablet 45 mg PO DAILY Qty: 90 0RF fenofibrate 160 mg tablet 160 mg PO DAILY Qty: 90 0RF fluoxetine 20 mg capsule 20 mg PO DAILY Qty: 90 2RF zolpidem 5 mg tablet 5 mg PO BEDTIME PRN (Reason: insomnia) 60 Days Qty: 60 2RF promethazine 25 mg tablet 25 mg PO TID PRN (Reason: nausea and vomiting) 10 Days Qty: 30 2RF (DME) Dexcom G6 Mechanical Equipment Test Engineer Misc See Rx Instructions .ROUTE .MEDSUPPLY Qty: 1 0RF Rx Instructions: Change ground operations crew member once a year (DME) Omnipod 5 G6 Intro Kit (Gen 5) Cartridge See Rx Instructions .Route Qty: 1 0RF Rx Instructions: As directed insulin lispro [Humalog U-100 Insulin] 100 unit/mL solution 200 unit continuous subcutaneous infusion DAILY 90 Days Qty: 60 2RF Rx Instructions: 200 units daily via pump (DME) cpap and supplies See Rx Instructions .Route .MEDSUPPLY Qty: 1 0RF Rx Instructions: auto titrating ( 5-9cm) metoclopramide HCl [Reglan] 5 mg tablet 5 mg PO Q8H PRN (Reason: breakthrough nausea) 7 Days Qty: 21 0RF (DME) Omnipod 5 G6 Pods (Gen 5) Cartridge See Rx Instructions .Route Qty: 150 0RF Rx Instructions: Please note: change pod daily Creon 3,000-9,500- 15,000 unit capsule,delayed release(DR/EC) See Rx Instructions .ROUTE .COMPLEX Qty: 140 0RF Dose Instruction: TAKE 1 CAPSULE TWICE DAILY NEEDED DO NOT EXCEED 10,000 UNITS/KG PER DAY Rx Instructions: TAKE 1 CAPSULE TWICE DAILY NEEDED DO NOT EXCEED 10,000 UNITS/KG PER DAY oxycodone 10 mg tablet 10 mg PO Q8H PRN (Reason: pancreatitis pain) 30 Days Qty: 90 0RF ramelteon 8 mg tablet 8 mg PO BEDTIME PRN (Reason: Sleep) acetaminophen 325 mg Tablet 650 mg PO Q6H PRN (Reason: Mild/Mod Pain Or Temp >/= 101) Qty: 60 0RF calcitriol 0.5 mcg Capsule 0.5 mcg PO DAILY ergocalciferol (vitamin D2) [Vitamin D2] 1,250 mcg (50,000 unit) Capsule 50,000 unit PO .TWICE A WEEK albuterol sulfate 90 mcg/actuation Hfa Aerosol Inhaler 2 puff inhalation Q6H PRN (Reason: Shortness Of Breath) Creon 3,000-9,500- 15,000 unit capsule,delayed release(DR/EC) 1 cap PO BID PRN (Reason: unknown) Rx Instructions: do not exceed 10,000 unit/kg lipase per 24 hrs Referrals: MOSES Murray, UTILITY ASSEMBLER [Primary Care Provider] - Transfer Attestations Time Spent in Transfer Care: greater than 30 min Status at Transfer: Cognitive status at transfer: cognitively intact ; Behavioral status at transfer: cooperative ; Quality Metrics Clinical Quality Measures [ No reported AMI, CVA or VTE this stay] Coding Level of Care Code 50554 Total time (in minutes) for Discharge: 65 Diagnoses Recurrent pancreatitis Hypertriglyceridemia E78.1 Nausea & vomiting R11.2 Leukocytosis D72.829 Chest pain R07.9
[2023-05-19 10:29] LABS: Glucose Point of Care 240 mg/dL (70-110)
[2023-05-19] MEDS: HYDROmorphone 1 mg/mL INJ 1 mL 2 MG IVP ×2 (10:31→12:25)
[2023-05-19 12:27] LABS: Glucose Point of Care 254 mg/dL (70-110)
--- NOTE | 2023-05-19 12:38 | PC.NURSE ---
[facility] in room, taking patient to [facility] MICU room 10. report called prior to patient leaving. at bedside
== END 2023-05-19 12:45 | disposition short-term general hospital (02) | DRG 440 ==
LOC: ER 20:57 → ICU 21:59
PROVIDERS: Admitting Provider Internal Medicine; Emergency Provider Emergency Medicine; PCP Nurse Practitioner Family; Visit Provider Internal Medicine
DX: K85.80 Other acute pancreatitis without necrosis or infection (principal); E78.1 Pure hyperglyceridemia; E66.9 Obesity, unspecified; Z68.31 Body mass index [BMI] 31.0-31.9, adult; E11.9 Type 2 diabetes mellitus without complications; Z96.41 Presence of insulin pump (external) (internal); K21.9 Gastro-esophageal reflux disease without esophagitis; I10 Essential (primary) hypertension; G47.33 Obstructive sleep apnea (adult) (pediatric); Z87.891 Personal history of nicotine dependence; R11.2 Nausea with vomiting, unspecified; D72.829 Elevated white blood cell count, unspecified; R07.9 Chest pain, unspecified
CPT/HCPCS: 36415; 36416; 36573; 71045; 80048; 80053; 80061; 82150; 82962; 83036; 83690; 83735; 84100; 84484; 85025; 96372; 96374; 99285; C1751; C9113; J1170; J1650; J1815; J2060; J2405; J2765; J3480; J7030; J7050

== ENCOUNTER → 2023-06-02 10:47 | Outpatient (BNVA) | payer MEDICAID, SELFPAY | PROVIDERS: PCP Nurse Practitioner Family; Visit Provider Nurse Practitioner Family | DX: E78.1 Pure hyperglyceridemia (principal) | CPT/HCPCS: 80053; 80061; 82150; 83690; 83721; 85025 ==

== ENCOUNTER → 2023-06-14 10:48 | Outpatient (BNVA) | payer MEDICAID, SELFPAY | PROVIDERS: PCP Nurse Practitioner Family; Visit Provider Nurse Practitioner Family | DX: E78.1 Pure hyperglyceridemia (principal) | CPT/HCPCS: 80053; 80061; 82043; 83036; 83721 ==

== ENCOUNTER → 2023-07-13 08:14 | Outpatient (BNVA) | payer MEDICAID, SELFPAY | PROVIDERS: PCP Nurse Practitioner Family; Visit Provider Nurse Practitioner Family | DX: E78.1 Pure hyperglyceridemia (principal) | CPT/HCPCS: 83036; 85025 ==

== ENCOUNTER → 2023-07-21 08:48 | Outpatient (BNVA) | payer MEDICAID, SELFPAY | PROVIDERS: PCP Nurse Practitioner Family; Visit Provider Nurse Practitioner Family | DX: E78.1 Pure hyperglyceridemia (principal) | CPT/HCPCS: 80053; 80061; 81003; 82043; 83721; 85025 ==

== ENCOUNTER → 2023-08-09 08:08 | Outpatient (BNVA) | payer MEDICAID, SELFPAY | PROVIDERS: PCP Nurse Practitioner Family; Visit Provider Nurse Practitioner Family | DX: K76.0 Fatty (change of) liver, not elsewhere classified (principal); E78.1 Pure hyperglyceridemia | CPT/HCPCS: 80053; 80061; 83721; 85025 ==

== ENCOUNTER → 2023-08-12 08:18 | Outpatient (BNVA) | payer MEDICAID, SELFPAY | PROVIDERS: PCP Nurse Practitioner Family; Visit Provider Internal Medicine | DX: E78.2 Mixed hyperlipidemia (principal) | CPT/HCPCS: 80061; 83721 ==

== ENCOUNTER → 2023-08-24 09:22 | Outpatient (BNVA) | payer MEDICAID, SELFPAY | PROVIDERS: PCP Nurse Practitioner Family; Visit Provider Nurse Practitioner Family | DX: E78.2 Mixed hyperlipidemia (principal); E78.1 Pure hyperglyceridemia | CPT/HCPCS: 80053; 80061; 83036; 83721; 85025 ==

== ENCOUNTER → 2023-09-06 09:16 | Outpatient (BNVA) | payer MEDICAID, SELFPAY | PROVIDERS: PCP Nurse Practitioner Family; Visit Provider Nurse Practitioner Family | DX: K76.0 Fatty (change of) liver, not elsewhere classified (principal); E78.2 Mixed hyperlipidemia | CPT/HCPCS: 80053; 80061; 83721; 85025 ==

== ENCOUNTER → 2023-11-02 08:37 | Outpatient (BNVA) | payer MEDICAID, SELFPAY | PROVIDERS: PCP Nurse Practitioner Family; Visit Provider Nurse Practitioner Family | DX: E78.2 Mixed hyperlipidemia (principal) | CPT/HCPCS: 80053; 80061; 83036; 83721; 85025 ==

== ENCOUNTER → 2023-11-25 08:18 | Outpatient (BNVA) | payer MEDICAID, SELFPAY | PROVIDERS: PCP Nurse Practitioner Family; Visit Provider Nurse Practitioner Family | DX: N18.1 Chronic kidney disease, stage 1 (principal) | CPT/HCPCS: 80069; 82043; 85007; 85027 ==

== ENCOUNTER → 2023-11-30 15:10 | Outpatient (BNVA) | payer MEDICAID, SELFPAY | PROVIDERS: PCP Nurse Practitioner Family; Visit Provider Nurse Practitioner Family | DX: E78.1 Pure hyperglyceridemia (principal) | CPT/HCPCS: 80061; 83721 ==

== ENCOUNTER → 2023-12-14 08:30 | Outpatient (BNVA) | payer MEDICAID, SELFPAY | PROVIDERS: PCP Nurse Practitioner Family; Visit Provider Nurse Practitioner Family | DX: J06.9 Acute upper respiratory infection, unspecified (principal); E78.1 Pure hyperglyceridemia; E55.9 Vitamin D deficiency, unspecified | CPT/HCPCS: 80053; 80061; 82306; 83036; 83721; 84443; 87426 ==

== ENCOUNTER → 2024-02-09 09:43 | Outpatient (BNVA) | payer MEDICAID, SELFPAY | PROVIDERS: PCP Nurse Practitioner Family; Visit Provider Nurse Practitioner Family | DX: E78.2 Mixed hyperlipidemia (principal); E55.9 Vitamin D deficiency, unspecified; K76.0 Fatty (change of) liver, not elsewhere classified; R53.83 Other fatigue; D64.9 Anemia, unspecified | CPT/HCPCS: 80053; 80061; 81003; 82150; 82306; 82607; 82746; 83036; 83550; 83690; 83721; 83735; 84100; 84402; 84403; 84443; 85025 ==

== ENCOUNTER → 2024-03-20 08:20 | Outpatient (BNVA) | payer MEDICAID, SELFPAY | PROVIDERS: PCP Nurse Practitioner Family; Visit Provider Nurse Practitioner Family | DX: Z01.89 Encounter for other specified special examinations (principal); R53.83 Other fatigue; E78.1 Pure hyperglyceridemia; K76.0 Fatty (change of) liver, not elsewhere classified | CPT/HCPCS: 80053; 80061; 81003; 82150; 83036; 83690; 83721; 83735; 84402; 84403; 85025 ==

== ENCOUNTER → 2024-03-28 11:37 | Outpatient (BNVA) | payer MEDICAID, SELFPAY | PROVIDERS: PCP Nurse Practitioner Family; Visit Provider Family Medicine | DX: E78.2 Mixed hyperlipidemia (principal) | CPT/HCPCS: 80053; 82310; 83735 ==

== ENCOUNTER → 2024-05-16 08:40 | Outpatient (BNVA) | payer MEDICAID, SELFPAY | PROVIDERS: PCP Nurse Practitioner Family; Visit Provider Nurse Practitioner Family | DX: E78.1 Pure hyperglyceridemia (principal); R53.83 Other fatigue; R11.2 Nausea with vomiting, unspecified | CPT/HCPCS: 80053; 80061; 81003; 82150; 83036; 83690; 83721; 84443; 85025 ==

== ENCOUNTER → 2024-07-24 09:12 | Outpatient (BNVA) | payer MEDICARE, MEDICAID, SELFPAY | PROVIDERS: PCP Nurse Practitioner Family; Visit Provider Nurse Practitioner Family | DX: E78.1 Pure hyperglyceridemia (principal) | CPT/HCPCS: 80061; 83721 ==

== ENCOUNTER → 2024-09-20 08:40 | Outpatient (BNVA) | payer MEDICARE, MEDICAID, SELFPAY | PROVIDERS: PCP Nurse Practitioner Family; Visit Provider Nurse Practitioner Family | DX: E78.1 Pure hyperglyceridemia (principal); R79.89 Other specified abnormal findings of blood chemistry; E78.2 Mixed hyperlipidemia | CPT/HCPCS: 80053; 80061; 83036; 83690; 83721; 85025 ==

== ENCOUNTER → 2024-11-14 09:31 | Outpatient (BNVA) | payer MEDICARE, MEDICAID, SELFPAY | PROVIDERS: PCP Nurse Practitioner Family; Visit Provider Nurse Practitioner Family | DX: E78.1 Pure hyperglyceridemia (principal) | CPT/HCPCS: 80053; 80061; 83721 ==

== ENCOUNTER → 2024-11-23 08:19 | Outpatient (BNVA) | payer MEDICARE, MEDICAID, SELFPAY | PROVIDERS: PCP Nurse Practitioner Family; Visit Provider Nurse Practitioner Family | DX: N18.9 Chronic kidney disease, unspecified (principal) | CPT/HCPCS: 80069; 82043 ==

== ENCOUNTER 2024-12-12 13:14 | Outpatient (CLI) | payer MEDICARE, MEDICAID, SELFPAY ==
--- NOTE | 2024-12-12 13:21 | XR_ITS ---
WS: [id number] Exam: XR hand RT min 3V* [id number] Date/Time of Exam: 12/12/2024 1:21 PM Reason For Exam: M79.641 - Pain in right hand DLP: No fracture. The joints are preserved. Unremarkable soft tissues. XR/XR hand RT min 3V* [id number] IMPRESSION: 1. Negative RIGHT hand.
== END 2024-12-12 13:15 | disposition home or self-care (01) ==
LOC: RAD 13:18
PROVIDERS: PCP Nurse Practitioner Family; Visit Provider Nurse Practitioner Family
DX: M79.641 Pain in right hand (principal)
CPT/HCPCS: 73130

== ENCOUNTER → 2025-01-07 09:21 | Outpatient (BNVA) | payer MEDICARE, MEDICAID, SELFPAY | PROVIDERS: PCP Nurse Practitioner Family; Visit Provider Nurse Practitioner Family | DX: K76.0 Fatty (change of) liver, not elsewhere classified (principal); E78.1 Pure hyperglyceridemia | CPT/HCPCS: 80053; 81003; 84443; 85025 ==

== ENCOUNTER → 2025-03-19 08:57 | Outpatient (BNVA) | payer MEDICARE, MEDICAID, SELFPAY | PROVIDERS: PCP Nurse Practitioner Family; Visit Provider Nurse Practitioner Family | DX: G89.29 Other chronic pain (principal); E11.9 Type 2 diabetes mellitus without complications; E78.1 Pure hyperglyceridemia | CPT/HCPCS: 80053; 80061; 83036; 83721 ==